=== PATIENT | female | born 1950 | race Caucasian/White ===

== ENCOUNTER → 2018-03-02 10:19 | Outpatient (CLI) | payer MEDICARE, SELFPAY ==
[2018-03-02 10:56] LABS: Erythrocyte Sedimentation Rate 13 mm/hr (0-30)
[2018-03-02 10:58] LABS: Absolute Neutrophil Count 4.4 X10^3/uL (2.0-7.7); Basophil# 0.04 X10^3/uL; Basophil% 0.6 % (0-1); Eosinophil# 0.09 X10^3/uL; Eosinophils% 1.3 % (0-5); Hematocrit 35.9 % (37-47); Hemoglobin 11.3 g/dl (12.0-15.0); Lymphocyte % 25.4 % (19-41); Mean Corp Hgb Conc 31.5 g/gl (32-36); Mean Corpuscular Hgb 27.9 pg (27.0-32.0); Mean Corpuscular Volume 88.6 fL (81-99); Monocyte# 0.48 X10^3/uL; Monocyte% 7.2 % (0-10); Neutrophil # 4.39 X10^3/uL (2.7-7.7); Neutrophil % 65.5 % (47-70); POSITIVE COUNT NO; POSITIVE DIFFERENTIAL NO; POSITIVE MORPHOLOGY NO; Platelet Count 276 K/mm3 (150-450); RBC Distribution Width CV 14.3 % (11.6-14.6); RBC Distribution Width SD 46.2 fl (35.1-43.9); Red Blood Count 4.05 M/mm3 (4.2-5.4); White Blood Count 6.7 K/mm3 (4.4-11.0)
[2018-03-02 11:26] LABS: AST(SGOT) 17 U/L (15-37); Alanine Aminotransfer ALT/SGPT 22 U/L (13-56); Albumin, Serum 3.5 g/dL (3.2-5.0); Alkaline Phosphatase 108 U/L (45-117); Bilirubin, Direct 0.09 mg/dL (0.00-0.30); Cholesterol 139 mg/dL (200); Globulin 3.6 g/dL (2.2-4.2); High Density Lipoprotein 68 mg/dL; Protein, Total 7.1 g/dL (6.4-8.2); Triglycerides 131 mg/dL; Very Low Density Lipoprotein 26 mg/dL (5-40)
[2018-03-02 11:27] LABS: CRP 9.21 mg/L (0.0-3.0); Ferritin 7 ng/mL (8-252); Iron 31 ug/dL (50-170)
[2018-03-03 09:09] LABS: AST(SGOT) 17 U/L (15-37); Alanine Aminotransfer ALT/SGPT 23 U/L (13-56); Albumin, Serum 3.5 g/dL (3.2-5.0); Alkaline Phosphatase 107 U/L (45-117); Anion Gap 5 (5-15); BUN 12 mg/dL (7-18); BUN/Creat Ratio 15.5 RATIO (10-20); Calcium,Total 8.8 mg/dL (8.5-10.1); Chloride 105 mmol/L (98-107); Creatinine, Serum 0.77 mg/dL (0.55-1.02); EST Glomerular Filtration Rate 79 mL/min (>60); Est Glom Filt Rate - Afr Amer 95 mL/min (>60); Globulin 3.6 g/dL (2.2-4.2); Glucose 91 mg/dL (74-106); Potassium 4.3 mmol/L (3.5-5.1); Protein, Total 7.1 g/dL (6.4-8.2); Sodium Level 142 mmol/L (136-145)
== END ==
PROVIDERS: Family Provider Internal Medicine; PCP Internal Medicine; Visit Provider Internal Medicine Cardiovascular Disease
DX: D50.0 Iron deficiency anemia secondary to blood loss (chronic) (principal); I10 Essential (primary) hypertension; M32.0 Drug-induced systemic lupus erythematosus; T46.5X5A Adverse effect of other antihypertensive drugs, initial encounter; Y92.9 Unspecified place or not applicable
CPT/HCPCS: 36415; 80053; 80061; 80076; 82728; 83540; 85025; 85652; 86140

== ENCOUNTER → 2018-03-10 09:06 | Outpatient (CLI) | payer MEDICARE, SELFPAY ==
--- NOTE | 2018-03-10 09:11 | US_ITS ---
STUDY: THYROID ULTRASOUND REASON FOR EXAM: Female, 67 years old. Nodules TECHNIQUE: Ultrasound evaluation of the thyroid was performed with real-time and static klein-scale imaging. COMPARISON: 03/25/2017 FINDINGS: RIGHT LOBE: The right lobe of the thyroid gland measures 4.7 x 2.0 x 1.7 cm. There is a heterogeneous echotexture. There is a stable complex 1.7 x 1.3 x 1.3 cm nodule LEFT LOBE: The left lobe of the thyroid gland measures 4.3 x 1.4 x 1.8 cm. There is a heterogeneous echotexture. There are 2 separate stable solid nodules. Larger measures 1.2 x 1.3 x 1.0 cm, smaller 1.0 x 1.2 x 0.9 cm. ISTHMUS: The isthmus measures 3 mm. The regional lymph nodes are normal. US/Thyroid IMPRESSION: Normal sized thyroid gland with stable bilateral nodules unchanged from previous study. Yearly follow-up again recommended to assure stability Electronically Signed: Lyle Amor MD at 10:45 EDT , Service support ,
== END ==
PROVIDERS: Family Provider Internal Medicine; PCP Internal Medicine; Visit Provider Internal Medicine
DX: E04.1 Nontoxic single thyroid nodule (principal)
CPT/HCPCS: 76536

== ENCOUNTER → 2018-05-01 11:28 | Outpatient (CLI) | payer MEDICARE, SELFPAY ==
[2018-05-01 12:17] LABS: Absolute Lymphocyte Count 1.29 X10^3/ul (0.83-4.51); Absolute Neutrophil Count 3.7 X10^3/uL (2.0-7.7); Basophil# 0.02 X10^3/uL; Basophil% 0.4 % (0-1); Eosinophil# 0.16 X10^3/uL; Eosinophils% 2.9 % (0-5); Hematocrit 33.8 % (37-47); Hemoglobin 10.1 g/dl (12.0-15.0); Lymphocyte # 1.29 X10^3/ul (4.0); Lymphocyte % 23.1 % (19-41); Mean Corp Hgb Conc 29.9 g/gl (32-36); Mean Corpuscular Volume 83.7 fL (81-99); Mean Platelet Vol. 8.8 fl (6.2-12.0); Monocyte# 0.38 X10^3/uL; Monocyte% 6.8 % (0-10); Neutrophil # 3.73 X10^3/uL (2.7-7.7); Neutrophil % 66.8 % (47-70); POSITIVE COUNT NO; POSITIVE DIFFERENTIAL NO; POSITIVE MORPHOLOGY NO; Platelet Count 298 K/mm3 (150-450); RBC Distribution Width CV 14.9 % (11.6-14.6); RBC Distribution Width SD 45.6 fl (35.1-43.9); Red Blood Count 4.04 M/mm3 (4.2-5.4); White Blood Count 5.6 K/mm3 (4.4-11.0)
[2018-05-01 12:45] LABS: Hemoglobin A1c 5.8 % (4.2-6.3)
[2018-05-01 12:48] LABS: Ferritin 6 ng/mL (8-252); Iron 34 ug/dL (50-170); Thyroid Stim Hormone (TSH) 2.27 uIU/mL (0.358-3.74)
[2018-05-01 12:51] LABS: Creatinine, Urine (random) < 13.00 mg/dL (NO RANGE EST.); Microalbumin,Random Urine < 5.0 mg/L (NO RANGE EST.)
[2018-05-03 09:48] LABS: Vitamin D,25 Hydroxy 52.5 ng/mL (29.95-100.01)
[2018-05-04 15:27] LABS: Anti-Histone Abs 2.4 Units (0.0-0.9)
== END ==
PROVIDERS: Family Provider Internal Medicine; PCP Internal Medicine; Visit Provider Internal Medicine
DX: L93.2 Other local lupus erythematosus (principal); R73.09 Other abnormal glucose; D50.0 Iron deficiency anemia secondary to blood loss (chronic); E04.1 Nontoxic single thyroid nodule; E55.9 Vitamin D deficiency, unspecified
CPT/HCPCS: 36415; 82043; 82306; 82570; 82728; 83036; 83540; 84443; 85025; 86235

== ENCOUNTER → 2018-05-26 15:08 | Outpatient (CLI) | payer MEDICARE, SELFPAY ==
--- NOTE | 2018-05-26 15:10 | BI_ITS ---
MAMMOGRAPHY - BILATERAL SCREENING REASON FOR EXAM: Female, 68 years old. Routine annual screening examination. PERTINENT HISTORY: Non-contributory. TECHNIQUE: Digital bilateral breast verito (3D mammographic acquisition) in the CC and MLO projections. 2-D mediolateral oblique (MLO) and craniocaudad (CC) views of both breasts were obtained. CAD: Full Field Digital Mammography with Computer Added Detection was performed. COMPARISON: Comparison is made with prior examination dated May 25, 2017 and May 12, 2016. FINDINGS: Breast Composition: The breasts are almost entirely fatty. There are no dominant masses or suspicious calcifications. Stable appearance of the benign appearing bilateral axillary lymph nodes. No other significant abnormalities are identified. There has been no significant change since the prior study. BI/SCREENING MAMM (CAD), BILAT IMPRESSION: Stable bilateral screening mammogram. Yearly follow-up mammogram recommended. (A) ASSESSMENT CATEGORY: BIRADS Category 2: Benign. A letter regarding these results will be sent to the patient by the facility within 30 days. Approximately 10% of breast cancers are not detected by mammography. A normal mammogram should not delay biopsy of a clinically suspicious abnormality. [id number] Electronically Signed: Los Blanco MD at 9:08 EDT Tel [phone], Service support ,
== END ==
PROVIDERS: Family Provider Internal Medicine; PCP Internal Medicine; Visit Provider Internal Medicine
DX: Z12.31 Encounter for screening mammogram for malignant neoplasm of breast (principal)
CPT/HCPCS: 77063; 77067

== ENCOUNTER → 2018-10-27 09:32 | Outpatient (CLI) | payer MEDICARE, SELFPAY ==
[2018-03-12 13:16] VITALS: BMI 41.0
[2018-10-27 10:43] LABS: Microalbumin,Random Urine 15.9 mg/L (NO RANGE EST.); Microalbumin:Creatinine Ratio 11.3 mg/g CRE (<30 mg/g CRE)
[2018-10-27 10:56] LABS: Absolute Neutrophil Count 3.5 X10^3/uL (2.0-7.7); Basophil# 0.03 X10^3/uL; Basophil% 0.6 % (0-1); Eosinophil# 0.09 X10^3/uL; Eosinophils% 1.8 % (0-5); Hematocrit 37.7 % (37-47); Hemoglobin 11.6 g/dl (12.0-15.0); Immature Platelet Fraction 2.3 % (1.0-7.9); Mean Corp Hgb Conc 30.8 g/gl (32-36); Mean Corpuscular Hgb 28.1 pg (27.0-32.0); Mean Corpuscular Volume 91.3 fL (81-99); Mean Platelet Vol. 9.2 fl (6.2-12.0); Monocyte# 0.38 X10^3/uL; Monocyte% 7.6 % (0-10); Neutrophil # 3.51 X10^3/uL (2.7-7.7); Platelet Count 270 K/mm3 (150-450); RBC Distribution Width CV 16.8 % (11.6-14.6); RBC Distribution Width SD 56.2 fl (35.1-43.9); RET-HE 27.9 pg (30-35); Red Blood Count 4.13 M/mm3 (4.2-5.4); Reticulocyte Count 2.12 % (0.5-1.5)
[2018-10-27 10:58] LABS: POSITIVE COUNT NO; POSITIVE DIFFERENTIAL NO; POSITIVE MORPHOLOGY NO
[2018-10-27 11:35] LABS: AST(SGOT) 20 U/L (15-37); Alanine Aminotransfer ALT/SGPT 26 U/L (13-56); Albumin, Serum 3.5 g/dL (3.2-5.0); Alkaline Phosphatase 103 U/L (45-117); Anion Gap 6 (5-15); BUN 10 mg/dL (7-18); Calcium,Total 8.8 mg/dL (8.5-10.1); Chloride 106 mmol/L (98-107); Cholesterol 126 mg/dL (200); Creatinine, Serum 0.72 mg/dL (0.55-1.02); EST Glomerular Filtration Rate 86 mL/min (>60); Est Glom Filt Rate - Afr Amer 104 mL/min (>60); Ferritin 13 ng/mL (8-252); Globulin 3.6 g/dL (2.2-4.2); Glucose 94 mg/dL (74-106); High Density Lipoprotein 77 mg/dL; Iron 26 ug/dL (50-170); Iron Binding Capacity,Total 375 ug/dL (250-450); LDH 208 U/L (84-246); Potassium 3.9 mmol/L (3.5-5.1); Protein, Total 7.1 g/dL (6.4-8.2); Sodium Level 140 mmol/L (136-145); Triglycerides 107 mg/dL; Very Low Density Lipoprotein 21 mg/dL (5-40)
[2018-10-27 11:36] LABS: Vitamin B12 529 pg/mL (211-911)
[2018-10-27 12:01] LABS: Hemoglobin A1c 5.4 % (4.2-6.3)
[2018-10-28 16:08] LABS: PROEL- Albumin 3.4 g/dL (2.9-4.4); PROEL- Alpha-1 Globulin 0.3 g/dL (0.0-0.4); PROEL- Alpha-2 Globulin 0.9 g/dL (0.4-1.0); PROEL- Beta Globulin 1.1 g/dL (0.7-1.3); PROEL- Gamma Globulin 1.1 g/dL (0.4-1.8); PROEL- Globulin, Total 3.4 g/dL (2.2-3.9); PROEL- TOTAL PROTEIN 6.8 g/dL (6.0-8.5)
[2018-10-29 16:08] LABS: PROELU- Albumin, Urine 34.8 % (.); PROELU- Alpha-1-Globulin,Ur 5.4 % (.); PROELU- Alpha-2-Globulin,Ur 17.4 % (.); PROELU- Beta Globulin, Ur 26.3 % (.); PROELU- Gamma Globulin, Ur 16.1 % (.); Total Protein, Ur 12.3 mg/dL (Not Estab.)
== END ==
PROVIDERS: Family Provider Internal Medicine; PCP Internal Medicine; Referring Provider Internal Medicine Cardiovascular Disease; Visit Provider Internal Medicine Cardiovascular Disease
DX: D50.0 Iron deficiency anemia secondary to blood loss (chronic) (principal); R73.09 Other abnormal glucose; E78.2 Mixed hyperlipidemia; L93.2 Other local lupus erythematosus; T46.5X5A Adverse effect of other antihypertensive drugs, initial encounter; Y92.9 Unspecified place or not applicable
CPT/HCPCS: 36415; 80053; 80061; 82043; 82248; 82570; 82607; 82728; 83036; 83540; 83550; 83615; 84165; 84166; 85025; 85045; 86235

== ENCOUNTER → 2018-12-09 09:54 | Outpatient (CLI) | payer MEDICARE, SELFPAY ==
[2018-11-18 15:18] VITALS: BMI 42.1
--- NOTE | 2018-12-09 09:59 | ECHOD_ITS ---
Reason For Study: PHTN Procedure This was a 2D Doppler, Color Flow transthoracic echocardiogram. Exam performed in department. Left Ventricle Normal size and thickness. The estimated ejection fraction is 65 %. Stage 2 diastolic dysfunction. No regional wall motion abnormalities noted. Right Ventricle Normal size and thickness. Normal systolic function. Atria The left atrium is mildly enlarged. Normal right atrium. Normal atrial septum. Mitral Valve Mild diffuse mitral valve thickening. Mild-Moderate (1-2+) mitral valve insufficiency. Tricuspid Valve Normal tricuspid valve. Mild (1+) tricuspid valve insufficiency. Right ventricular systolic pressure estimated to be 45 mmHg. Mild pulmonary hypertension. Aortic Valve Normal aortic valve. Trisinus/trileaflet aortic valve. Pulmonic Valve The pulmonic valve is not well visualized. Great Vessels Normal aortic root. Normal arch. Normal inferior vena cava. Inferior vena cava collapse with sniff. Pericardium/Pleural No pericardial effusion. MMode/2D Measurements & Calculations LVIDd: 4.6 cm IVSd: 1.2 cm Ao root diam: 3.0 cm LVIDs: 3.4 cm LVPWd: 1.0 cm RVDd: 3.2 cm FS: 26.6 % LAV(MOD-bp): 103.1 ml LA A4 area: 25.1 cm2 LA dimension(2D): 4.6 cm LAV(MOD-bp) Indexed: 46.4 ml/m2 LAV(MOD-sp2): 90.7 ml LAV(MOD-sp4): 95.2 ml RA A4 area: 18.2 cm2 Doppler Measurements & Calculations MV E max win: 116.8 cm/sec Lat Peak E' Win: 8.8 cm/sec Med Peak E' Win: 6.5 cm/sec MV A max win: 34.9 cm/sec E/E' lat: 13.2 E/E' med: 17.9 MV E/A: 3.3 Ao V2 max: 86.7 cm/sec LV V1 max: 63.9 cm/sec PA V2 max: 321.2 cm/sec Ao max P.0 mmHg LV V1 max P.6 mmHg TR max win: 302.4 cm/sec TR max P.8 mmHg Interpretation Summary The estimated ejection fraction is 65 %. Stage 2 diastolic dysfunction. Mild-Moderate (1-2+) mitral valve insufficiency. Mild (1+) tricuspid valve insufficiency. Right ventricular systolic pressure estimated to be 45 mmHg. Mild pulmonary hypertension. Compared to echo report dated 05/27/2016, no appreciable changes noted. Ordering Physician: Anibal Loera Referring Physician: Lizzy Trejo Performed By: Adrianna Deleon, LAWANDA, RVT
== END ==
PROVIDERS: Family Provider Internal Medicine; PCP Internal Medicine; Referring Provider Internal Medicine Cardiovascular Disease; Visit Provider Internal Medicine Cardiovascular Disease
DX: I27.21 Secondary pulmonary arterial hypertension (principal)
CPT/HCPCS: 93306

== ENCOUNTER → 2019-02-09 13:11 | Outpatient (CLI) | payer MEDICARE, SELFPAY ==
[2018-11-18 15:18] VITALS: BMI 42.1
[2019-02-09 13:22] LABS: Bacteria 0 SEEN /hpf (None Seen); Mucous, Urine 0 SEEN /hpf (<or=2+); Red Blood Cells-Urine 0 SEEN /hpf (0-5)
[2019-02-09 14:23] LABS: Erythrocyte Sedimentation Rate 27 mm/hr (0-30)
[2019-02-09 14:25] LABS: Absolute Lymphocyte Count 1.39 X10^3/ul (0.83-4.51); Absolute Neutrophil Count 4.2 X10^3/uL (2.0-7.7); Basophil# 0.02 X10^3/uL; Basophil% 0.3 % (0-1); Eosinophil# 0.03 X10^3/uL; Eosinophils% 0.5 % (0-5); Hemoglobin 12.4 g/dl (12.0-15.0); Lymphocyte # 1.39 X10^3/ul (4.0); Lymphocyte % 23.6 % (19-41); Mean Corpuscular Hgb 26.2 pg (27.0-32.0); Mean Corpuscular Volume 84.6 fL (81-99); Monocyte# 0.27 X10^3/uL; Monocyte% 4.6 % (0-10); Neutrophil # 4.19 X10^3/uL (2.7-7.7); Platelet Count 353 K/mm3 (150-450); RBC Distribution Width CV 17.6 % (11.6-14.6); Red Blood Count 4.73 M/mm3 (4.2-5.4); White Blood Count 5.9 K/mm3 (4.4-11.0)
[2019-02-09 14:29] LABS: POSITIVE COUNT NO; POSITIVE DIFFERENTIAL NO; POSITIVE MORPHOLOGY NO
[2019-02-09 14:33] LABS: AST(SGOT) 18 U/L (15-37); Alanine Aminotransfer ALT/SGPT 24 U/L (13-56); Albumin, Serum 3.8 g/dL (3.2-5.0); Alkaline Phosphatase 111 U/L (45-117); Anion Gap 5 (5-15); BUN 10 mg/dL (7-18); BUN/Creat Ratio 13.2 RATIO (10-20); CRP 5.87 mg/L (0.0-3.0); Calcium,Total 9.2 mg/dL (8.5-10.1); Chloride 105 mmol/L (98-107); Cholesterol 147 mg/dL (200); Creatinine, Serum 0.76 mg/dL (0.55-1.02); EST Glomerular Filtration Rate 81 mL/min (>60); Est Glom Filt Rate - Afr Amer 97 mL/min (>60); Globulin 3.8 g/dL (2.2-4.2); Glucose 94 mg/dL (74-106); Hemoglobin A1c 5.6 % (4.2-6.3); High Density Lipoprotein 77 mg/dL; Potassium 3.5 mmol/L (3.5-5.1); Protein, Total 7.6 g/dL (6.4-8.2); Rheumatoid Factor < 10.0 IU/mL (<15); Sodium Level 138 mmol/L (136-145); Thyroid Stim Hormone (TSH) 1.06 uIU/mL (0.358-3.74); Triglycerides 124 mg/dL; Very Low Density Lipoprotein 25 mg/dL (5-40)
[2019-02-09 14:53] LABS: Color, Urine Yellow (Yellow); Glucose, Dipstick Normal (Normal); Ketone-Dipstick Negative (Negative); Leukocyte Esterase-Dipstick 25 /ul (Negative); Nitrite-Dipstick Negative (Negative); Occult Blood-Urine Negative /ul (Negative); Protein-Dipstick Negative (Negative); Urine Bilirubin Dipstick Negative (Negative); Urine Clarity Clear (Clear); Urine Urobilinogen Normal (Normal); Urine pH 6.5 (5.0 - 8.0)
[2019-02-09 15:13] LABS: Squamous Epithelial Cells - UA 0-5 SEEN /hpf (5-10); White Blood Cells 0-5 SEEN /hpf (0-5)
[2019-02-11 11:22] LABS: CCP IgG Antibodies < 1 units (0-19)
[2019-02-11 11:32] LABS: ANTINUCLEAR ANTIBODIES DIRECT Negative (Negative)
== END ==
PROVIDERS: Family Provider Internal Medicine; PCP Internal Medicine; Referring Provider Internal Medicine; Visit Provider Internal Medicine
DX: L93.2 Other local lupus erythematosus (principal); T46.5X5A Adverse effect of other antihypertensive drugs, initial encounter; Y92.9 Unspecified place or not applicable; I48.91 Unspecified atrial fibrillation; R00.2 Palpitations; R73.09 Other abnormal glucose; I10 Essential (primary) hypertension; E78.2 Mixed hyperlipidemia
CPT/HCPCS: 36415; 80053; 80061; 81001; 83036; 84443; 84484; 85025; 85652; 86038; 86140; 86200; 86431

== ENCOUNTER 2019-02-24 11:34 | Outpatient (RCR) | payer MEDICARE, SELFPAY ==
[2019-02-10 10:17] VITALS: BMI 40.8
[2019-02-16 10:30] LABS: International Normalized Ratio 1.6; Prothrombin Time (Protime)PT. 19.3 SECONDS (11.7-14.9)
[2019-02-23 17:26] LABS: Flecainide (Tambocor) 085662 0.27 ug/mL (0.20-1.00)
[2019-02-24 14:34] LABS: Ferritin 12 ng/mL (8-252); Iron 30 ug/dL (50-170); Iron Binding Capacity,Total 396 ug/dL (250-450); PERCENT IRON SATURATION 7.6 % (15.0-55.0)
[2019-02-24 14:40] LABS: International Normalized Ratio 2.1; Prothrombin Time (Protime)PT. 23.1 SECONDS (11.7-14.9)
[2019-02-25 09:25] LABS: Hepatitis C Antibody Non-Reactive (Nonreactive)
== END 2019-02-24 12:00 | disposition home or self-care (01) ==
LOC: MTLAB 11:34
PROVIDERS: Family Provider Internal Medicine; PCP Internal Medicine; Referring Provider Internal Medicine Cardiovascular Disease; Visit Provider Internal Medicine Cardiovascular Disease
DX: I48.0 Paroxysmal atrial fibrillation (principal); Z79.01 Long term (current) use of anticoagulants
CPT/HCPCS: 36415; 80299; 82728; 83540; 83550; 85610; 86803

== ENCOUNTER → 2019-03-03 08:56 | Outpatient (CLI) | payer MEDICARE, SELFPAY ==
[2019-02-10 10:17] VITALS: BMI 40.8
--- NOTE | 2019-03-03 09:00 | US_ITS ---
STUDY: THYROID ULTRASOUND REASON FOR EXAM: Female, 68 years old. Thyroid nodules. TECHNIQUE: Ultrasound evaluation of the thyroid was performed with real-time and static klein-scale imaging. COMPARISON: 03/10/2018. FINDINGS: RIGHT LOBE: The right lobe of the thyroid gland measures 4.3 x 1.8 x 1.2 cm. There is a heterogeneous echotexture. There is a 1.6 x 1.5 x 1.2 cm solid nodule in the lower pole of the right lobe which is not significantly changed when compared with the prior exam. LEFT LOBE: The left lobe of the thyroid gland measures 4.1 x 1.5 x 1.2 cm. There is a heterogeneous echotexture. Again noted are 2 nodules in the left lobe of the thyroid with the larger measuring 1.2 x 1.0 x 0.8 cm. These are not significantly changed when compared with the prior exam. ISTHMUS: The isthmus measures 2 mm. The regional lymph nodes are normal. US/Thyroid IMPRESSION: No significant change in the small bilateral thyroid nodules. Continued yearly follow-up is recommended. Electronically Signed: Kevin Chirinos, at 17:13 EDT Tel , Service support ,
[2019-03-03 10:01] LABS: International Normalized Ratio 2.2; Prothrombin Time (Protime)PT. 24.4 SECONDS (11.7-14.9)
== END ==
PROVIDERS: Family Provider Internal Medicine; PCP Internal Medicine; Referring Provider Internal Medicine; Visit Provider Internal Medicine
DX: E04.1 Nontoxic single thyroid nodule (principal); I48.0 Paroxysmal atrial fibrillation; Z79.01 Long term (current) use of anticoagulants
CPT/HCPCS: 36415; 76536; 85610

== ENCOUNTER 2019-04-15 12:48 | Outpatient (RCR) | payer MEDICARE, SELFPAY ==
[2019-02-10 10:17] VITALS: BMI 40.8
[2019-03-17 13:34] LABS: International Normalized Ratio 1.9; Prothrombin Time (Protime)PT. 22.1 SECONDS (11.7-14.9)
[2019-04-01 13:34] LABS: International Normalized Ratio 2.2; Prothrombin Time (Protime)PT. 24.1 SECONDS (11.7-14.9)
[2019-04-15 13:44] LABS: International Normalized Ratio 2.2; Prothrombin Time (Protime)PT. 24.1 SECONDS (11.7-14.9)
== END 2019-04-15 13:48 | disposition home or self-care (01) ==
LOC: LAB 12:48
PROVIDERS: Family Provider Internal Medicine; PCP Internal Medicine; Referring Provider Internal Medicine Cardiovascular Disease; Visit Provider Internal Medicine Cardiovascular Disease
DX: I48.0 Paroxysmal atrial fibrillation (principal); Z79.01 Long term (current) use of anticoagulants
CPT/HCPCS: 36415; 85610

== ENCOUNTER 2019-05-16 13:03 | Outpatient (RCR) | payer MEDICARE, SELFPAY ==
[2019-02-10 10:17] VITALS: BMI 40.8
[2019-05-09 11:05] LABS: Absolute Lymphocyte Count 1.11 X10^3/uL (0.83-4.51); Absolute Neutrophil Count 4.7 X10^3/uL (2.0-7.7); Basophil# 0.06 X10^3/uL; Basophil% 0.9 % (0-1); Eosinophil# 0.11 X10^3/uL; Eosinophils% 1.7 % (0-5); Hematocrit 40.5 % (37-47); Hemoglobin 12.9 g/dL (12.0-15.0); Lymphocyte # 1.11 X10^3/ul (4.0); Lymphocyte % 17.3 % (19-41); Mean Corp Hgb Conc 31.9 g/dL (32-36); Mean Corpuscular Hgb 28.6 pg (27.0-32.0); Mean Corpuscular Volume 89.8 fL (81-99); Mean Platelet Vol. 8.8 fl (6.2-12.0); Monocyte# 0.44 X10^3/uL; Monocyte% 6.9 % (0-10); NRBC Flagged by Analyzer 0 % (0-5); Neutrophil # 4.66 X10^3/uL (2.7-7.7); Neutrophil % 72.9 % (47-70); Platelet Count 301 K/mm3 (150-450); RBC Distribution Width CV 15.1 % (11.6-14.6); RBC Distribution Width SD 49.9 fl (35.1-43.9); Red Blood Count 4.51 M/mm3 (4.2-5.4); White Blood Count 6.4 K/mm3 (4.4-11.0)
[2019-05-09 11:14] LABS: International Normalized Ratio 1.5; Prothrombin Time (Protime)PT. 18.1 SECONDS (11.7-14.9)
[2019-05-09 11:43] LABS: ALB/GLOB Ratio 0.9 RATIO (0.9-2.4); AST(SGOT) 26 U/L (15-37); Alanine Aminotransfer ALT/SGPT 31 U/L (13-56); Albumin, Serum 3.3 g/dL (3.2-5.0); Alkaline Phosphatase 105 U/L (45-117); Anion Gap 4 (5-15); BUN 14 mg/dL (7-18); BUN/Creat Ratio 18.5 RATIO (10-20); Calcium,Total 8.8 mg/dL (8.5-10.1); Chloride 106 mmol/L (98-107); Cholesterol 141 mg/dL (200); Creatinine, Serum 0.76 mg/dL (0.55-1.02); EST Glomerular Filtration Rate 81 mL/min (>60); Est Glom Filt Rate - Afr Amer 98 mL/min (>60); Ferritin 20 ng/mL (8-252); Globulin 3.5 g/dL (2.2-4.2); Glucose 93 mg/dL (74-106); High Density Lipoprotein 82 mg/dL; Iron 43 ug/dL (50-170); Potassium 4.1 mmol/L (3.5-5.1); Protein, Total 6.8 g/dL (6.4-8.2); Sodium Level 139 mmol/L (136-145); Triglycerides 86 mg/dL; Very Low Density Lipoprotein 17 mg/dL (5-40)
[2019-05-09 11:46] LABS: Hemoglobin A1c 5.9 % (4.2-6.3)
[2019-05-16 14:44] LABS: International Normalized Ratio 1.5; Prothrombin Time (Protime)PT. 17.7 SECONDS (11.7-14.9)
== END 2019-05-16 17:23 | disposition home or self-care (01) ==
LOC: LAB 13:03
PROVIDERS: Family Provider Internal Medicine; PCP Internal Medicine; Referring Provider Internal Medicine Cardiovascular Disease; Visit Provider Internal Medicine Cardiovascular Disease
DX: I48.0 Paroxysmal atrial fibrillation (principal); Z79.01 Long term (current) use of anticoagulants; E78.5 Hyperlipidemia, unspecified; E04.1 Nontoxic single thyroid nodule; D50.0 Iron deficiency anemia secondary to blood loss (chronic); R73.09 Other abnormal glucose
CPT/HCPCS: 36415; 80053; 80061; 82728; 83036; 83540; 84443; 85025; 85610

== ENCOUNTER → 2019-06-09 15:08 | Outpatient (CLI) | payer MEDICARE, SELFPAY ==
[2019-02-10 10:17] VITALS: BMI 40.8
--- NOTE | 2019-06-09 15:18 | BI_ITS ---
MAMMOGRAPHY - BILATERAL SCREENING REASON FOR EXAM: Female, 69 years old. Routine annual screening examination. PERTINENT HISTORY: Non-contributory. TECHNIQUE: Digital bilateral breast jose (3D mammographic acquisition) in the CC and MLO projections. 2-D mediolateral oblique (MLO) and craniocaudad (CC) views of both breasts were obtained. CAD: Full Field Digital Mammography with Computer Added Detection was performed. COMPARISON: Comparison is made with prior examination May 26, 2018 and May 25, 2017. FINDINGS: Breast Composition: The breasts are almost entirely fatty. There are no dominant masses or suspicious calcifications. No other significant abnormalities are identified. There has been no significant change since the prior study. BI/SCREEN MAMM (CAD) W/JOSE BILAT IMPRESSION: Stable bilateral screening mammogram. Yearly follow-up mammogram recommended. (A) ASSESSMENT CATEGORY: BIRADS Category 1: Negative. A letter regarding these results will be sent to the patient by the facility within 30 days. Approximately 10% of breast cancers are not detected by mammography. A normal mammogram should not delay biopsy of a clinically suspicious abnormality. [id number] Electronically Signed: [place], at 8:05 EDT , Service support ,
== END ==
PROVIDERS: Family Provider Internal Medicine; PCP Internal Medicine; Referring Provider Internal Medicine; Visit Provider Internal Medicine
DX: Z12.31 Encounter for screening mammogram for malignant neoplasm of breast (principal)
CPT/HCPCS: 77063; 77067

== ENCOUNTER 2019-06-14 09:29 | Outpatient (RCR) | payer MEDICARE, SELFPAY ==
[2019-02-10 10:17] VITALS: BMI 40.8
[2019-06-14 10:46] LABS: International Normalized Ratio 1.4; Prothrombin Time (Protime)PT. 17.2 SECONDS (11.7-14.9)
== END 2019-06-14 18:00 | disposition home or self-care (01) ==
LOC: LAB 09:29
PROVIDERS: Family Provider Internal Medicine; PCP Internal Medicine; Referring Provider Internal Medicine Cardiovascular Disease; Visit Provider Internal Medicine Cardiovascular Disease
DX: I48.0 Paroxysmal atrial fibrillation (principal); Z79.01 Long term (current) use of anticoagulants
CPT/HCPCS: 36415; 85610

== ENCOUNTER 2019-06-30 12:08 | Outpatient (RCR) | payer MEDICARE, SELFPAY ==
[2019-02-10 10:17] VITALS: BMI 40.8
[2019-06-21 13:48] LABS: International Normalized Ratio 1.7; Prothrombin Time (Protime)PT. 19.5 SECONDS (11.7-14.9)
[2019-06-30 14:03] LABS: International Normalized Ratio 2.1; Prothrombin Time (Protime)PT. 23.9 SECONDS (11.7-14.9)
== END 2019-06-30 18:00 | disposition home or self-care (01) ==
LOC: LAB 12:08
PROVIDERS: Family Provider Internal Medicine; PCP Internal Medicine; Referring Provider Internal Medicine Cardiovascular Disease; Visit Provider Internal Medicine Cardiovascular Disease
DX: I48.0 Paroxysmal atrial fibrillation (principal); Z79.01 Long term (current) use of anticoagulants
CPT/HCPCS: 36415; 85610

== ENCOUNTER 2019-07-22 16:50 | Outpatient (RCR) | payer MEDICARE, SELFPAY ==
[2019-06-23 13:13] VITALS: BMI 41.0
[2019-07-22 17:39] LABS: International Normalized Ratio 2.8; Prothrombin Time (Protime)PT. 29.9 SECONDS (11.7-14.9)
== END 2019-07-22 18:00 | disposition home or self-care (01) ==
LOC: LAB 16:50
PROVIDERS: Family Provider Internal Medicine; PCP Internal Medicine; Referring Provider Internal Medicine Cardiovascular Disease; Visit Provider Internal Medicine Cardiovascular Disease
DX: I48.0 Paroxysmal atrial fibrillation (principal); Z79.01 Long term (current) use of anticoagulants
CPT/HCPCS: 36415; 85610

== ENCOUNTER → 2019-08-12 10:59 | Outpatient (CLI) | payer MEDICARE, SELFPAY ==
[2019-06-23 13:13] VITALS: BMI 41.0
--- NOTE | 2019-08-12 11:00 | STE_ITS ---
Reason For Study: Atrial Fibrillation Stress Results Protocol: Dobutamine Stress Echo Maximum Predicted HR: 150 bpm Target HR: 128 bpm % Maximum Predicted HR: 86 % DurationHeart Rate Stage (mm:ss) (bpm) BP Comment Baseline 65 168/82No Chest Pain DSE 10 MCG 3:12 90 181/80No Chest Pain DSE 20 MCG 4:24 129 178/76Mild Chest Pressure Recovery 76 158/70No Chest Pain Stress Duration: 7:36 mm:ss Maximum Stress HR: 129 bpm METS: 1 Baseline Echocardiogram Findings The estimated ejection fraction is 65 %. Stress Echo Wall motion Data Resting WM Intermediate WM Stress WM Resting Wall Motion Wall Motion Stress No regional wall motion No regional wall motion abnormalities noted. abnormalities noted. EKG Data The baseline ECG displays normal sinus rhythm. The patient was titrated from 10 mcg to a maximum of 20 mcg of dobutamine during the stress. The maximum heart rate attained was 129 beats per minute. This was 86% of maximum predicted heart rate. At peak infusion, upsloping ST changes only were noted, which did not meet the criteria for ischemia. No clinical angina was noted. Interpretation Summary The estimated ejection fraction is 65 %. Normal, adequate, dobutamine echocardiogram. Negative for ischemia by echocardiographic criteria. The patient did developed 1 to [address] segment depression during peak infusion which resolved around 3 minutes 50 seconds into recovery. No associated wall motion abnormalities noted. Rare PVCs during infusion into recovery. Test terminated due to the attainment target heart rate. No anginal symptoms noted. Final LVEF is 75%. Patient tolerated the procedure well. No complications. Ordering Physician: Anibal Loera M.D. Referring Physician: Lizzy Trejo D.O. Performed By: Daisy Alexandre RDCS
== END ==
PROVIDERS: Family Provider Internal Medicine; PCP Internal Medicine; Referring Provider Internal Medicine Cardiovascular Disease; Visit Provider Internal Medicine Cardiovascular Disease
DX: R94.31 Abnormal electrocardiogram [ECG] [EKG] (principal); I48.19 Other persistent atrial fibrillation; I27.21 Secondary pulmonary arterial hypertension; Z79.01 Long term (current) use of anticoagulants
CPT/HCPCS: 93017; 93350; J7040; A4216

== ENCOUNTER 2019-08-24 09:56 | Outpatient (RCR) | payer MEDICARE, SELFPAY ==
[2019-06-23 13:13] VITALS: BMI 41.0
[2019-08-24 10:05] LABS: Mucous, Urine 0 SEEN /hpf (<or=2+); Red Blood Cells-Urine 0 SEEN /hpf (0-5)
[2019-08-24 11:15] LABS: Absolute Lymphocyte Count 1.21 X10^3/uL (0.83-4.51); Absolute Neutrophil Count 4.3 X10^3/uL (2.0-7.7); Basophil# 0.04 X10^3/uL; Basophil% 0.7 % (0-1); Eosinophil# 0.07 X10^3/uL; Eosinophils% 1.2 % (0-5); Hematocrit 42.1 % (37-47); Hemoglobin 13.7 g/dL (12.0-15.0); Lymphocyte # 1.21 X10^3/ul (4.0); Mean Corp Hgb Conc 32.5 g/dL (32-36); Mean Corpuscular Hgb 30.4 pg (27.0-32.0); Mean Corpuscular Volume 93.3 fL (81-99); Monocyte# 0.39 X10^3/uL; Monocyte% 6.4 % (0-10); NRBC Flagged by Analyzer 0 % (0-5); Neutrophil # 4.33 X10^3/uL (2.7-7.7); Neutrophil % 71.4 % (47-70); Platelet Count 323 K/mm3 (150-450); RBC Distribution Width CV 13.5 % (11.6-14.6); RBC Distribution Width SD 46.5 fl (35.1-43.9); Red Blood Count 4.51 M/mm3 (4.2-5.4); White Blood Count 6.1 K/mm3 (4.4-11.0)
[2019-08-24 11:19] LABS: Color, Urine Yellow (Yellow); Glucose, Dipstick Normal (Normal); Ketone-Dipstick Negative (Negative); Leukocyte Esterase-Dipstick 25 /ul (Negative); Nitrite-Dipstick Negative (Negative); Occult Blood-Urine Negative /ul (Negative); Protein-Dipstick Negative (Negative); Specific Gravity, Urine 1.015 (1.002-1.030); Urine Bilirubin Dipstick Negative (Negative); Urine Clarity Sl. Cloudy (Clear); Urine Urobilinogen Normal (Normal)
[2019-08-24 11:24] LABS: Hemoglobin A1c 5.6 % (4.2-6.3)
[2019-08-24 11:25] LABS: Prothrombin Time (Protime)PT. 22.4 SECONDS (11.7-14.9)
[2019-08-24 11:32] LABS: Squamous Epithelial Cells - UA 0-5 SEEN /hpf (5-10); White Blood Cells 0-5 SEEN /hpf (0-5)
[2019-08-24 11:33] LABS: Bacteria 1+ /hpf (None Seen)
[2019-08-24 11:36] LABS: ALB/GLOB Ratio 0.9 RATIO (0.9-2.4); AST(SGOT) 20 U/L (15-37); Alanine Aminotransfer ALT/SGPT 28 U/L (13-56); Albumin, Serum 3.5 g/dL (3.2-5.0); Alkaline Phosphatase 100 U/L (45-117); Anion Gap 4 (5-15); BUN 13 mg/dL (7-18); BUN/Creat Ratio 14.6 RATIO (10-20); Calcium,Total 9.1 mg/dL (8.5-10.1); Chloride 104 mmol/L (98-107); Cholesterol 205 mg/dL (200); Creatinine, Serum 0.89 mg/dL (0.55-1.02); EST Glomerular Filtration Rate 67 mL/min (>60); Est Glom Filt Rate - Afr Amer 81 mL/min (>60); Ferritin 17 ng/mL (8-252); Globulin 3.8 g/dL (2.2-4.2); Glucose 83 mg/dL (74-106); High Density Lipoprotein 85 mg/dL; Iron 54 ug/dL (50-170); Potassium 3.8 mmol/L (3.5-5.1); Protein, Total 7.3 g/dL (6.4-8.2); Sodium Level 138 mmol/L (136-145); Triglycerides 158 mg/dL; Very Low Density Lipoprotein 32 mg/dL (5-40)
== END 2019-08-24 18:00 | disposition home or self-care (01) ==
LOC: LAB 09:56
PROVIDERS: Family Provider Internal Medicine; PCP Internal Medicine; Referring Provider Internal Medicine Cardiovascular Disease; Visit Provider Internal Medicine Cardiovascular Disease
DX: I48.0 Paroxysmal atrial fibrillation (principal); Z79.01 Long term (current) use of anticoagulants; D50.0 Iron deficiency anemia secondary to blood loss (chronic); E78.2 Mixed hyperlipidemia; R73.09 Other abnormal glucose; I10 Essential (primary) hypertension
CPT/HCPCS: 36415; 80053; 80061; 81001; 82728; 83036; 83540; 85025; 85610

== ENCOUNTER 2019-08-24 11:00 | Outpatient (RCR) | payer MEDICARE, SELFPAY ==
[2019-02-10 10:17] VITALS: BMI 40.8
--- NOTE | 2019-06-07 12:58 | HP.PTEVAL_ITS ---
Patient's Visit Information WALDO GRIFFIN is a 69 year old F referred to Physical Therapy by Lizzy Trejo DO with a diagnosis of PD. Date of Evaluation: 06/07/19 Physical Therapist: DARBY Sheriff - Visit Plan Frequency: 2x /Week Duration: 4 Weeks Plan: 2X/ week for 4 weeks for AT for B knee strength, core stability, gait training, large movements and dual tasking with HEP - Subjective Findings: She has PD and also has A-fib and she keeps getting slower and slower and her knees are hurting more and more. She asked her Dr about water therapy and the Dr agreed. No x-rays of her knees have been done yet. She does not do any exercises out of PT. She is retired. She has to go slow up and down stiars and she goes one foot at a time with a railing. No falls. She does have a tremor on the R hand ( for about a year now). She is seeing a neurologist for her PD ( no meds yet). She also has restless leg syndrome too. She has some trouble at times rolling over in bed. Getting in and out of passanger side of car she has trouble. She still has the ability to play the piano. Going up hills make her SOB and tired and her knees. She is on Warfarin. - Objective Gait: Walks with WBOS, slower step length and speed. LE MMT: R hip flex 4/5 and L 4+/5, R knee ext B 4/5 and R knee flex 4/5 and L knee flex 4-/5, R hip abd 4/5 and L 4-/5. FGA: 23. Rolling from supint to S/l pt does heitate and struggle a little - Balance Scores Functional Gait Assessment Score: 23 % Disability: 23.3400 - Goals Goal 1:: I HEP/ H&W program Goal Time Frame: 4-6 Weeks Goal 2:: Increase LE strength by 1/2 muscle grade and make it easier for her to get in an out of the passenger side of the car Goal Time Frame: 4-6 Weeks Goal 3:: Decrease knee pain by 50% during walking Goal Time Frame: 4-6 Weeks Goal 4:: Be able to perform dual task ( mental and physical) with out hesitation to challenge herself - Rehabilitation Potential Rehabilitation Potential: Good - Anticipated Interventions Patient/Client Instruction: Educate patient on: Condition, Plan of Care For the Purpose of:: To decrease pain, To increase ROM, To improve nutrient delivery to tissue, To improve muscle performance and motor function, To improve ability to perform ADL's, To increase tolerance to activity/condition/position, To improve performance and independence with ADL's, To improve ability of physical actions for home/community/work/leisure, To improve gait and locomotor functions, To improve health of tissue, To increase flexibility/ROM Therapeutic Exercise to Include: Strength training, Gait and locomotor training, Active ROM, Dynamic Lumbar Stabilization For the Purpose of:: To decrease pain, To increase ROM, To improve nutrient delivery to tissue, To improve muscle performance and motor function, To improve ability to perform ADL's, To increase tolerance to activity/condition/position, To improve performance and independence with ADL's, To improve ability of physical actions for home/community/work/leisure, To improve gait and locomotor functions, To improve health of tissue, To increase flexibility/ROM Thank you for the opportunity to evaluate your patient. For Medicare and Medicare HMO plans, please review the plan of care and approve it. It will need to be FAXED BACK to us at [phone] for Medicare purposes. For Medicare only, by signing this I certify the plan of care. Please let me know if there are questions or concerns regarding this plan of care. Physician Signature: ___Date:
--- NOTE | 2019-08-16 12:17 | HP.PTREVAL ---
Lizzy Trejo, DO, It has been my pleasure to treat WALDO GRIFFIN over the last 18 visits for PD. Please see the progress note below for an update on the physical therapy plan of care! Subjective: Pt loved the pool. She reports that she is more aware of not locking her knees and more aware of herself especially with multip-tasking. She still has trouble with her knees but she feels ash that is arthritis. She feels good the day of PT but worse the day after. The aT makes her get up and move. Objective/Function: LE MMT: B hip flex 4/5, B knee ext 4/5, B knee flex 4/5, B hip abd 4-/5 Plan Plan: Set up for 1 hour appointment to learn I set up on the H&W side for machines. Then probabale DC to that and open swim times Goals Goal 1:: I HEP/ H&W program Goal Time Frame: 4-6 Weeks Goal Progress: Progressing Goal 2:: Increase LE strength by 1/2 muscle grade and make it easier for her to get in an out of the passenger side of the car Goal Time Frame: 4-6 Weeks Goal Progress: Goal Met Goal 3:: Decrease knee pain by 50% during walking Goal Time Frame: 4-6 Weeks Goal Progress: Progressing Goal 4:: Be able to perform dual task ( mental and physical) with out hesitation to challenge herself Goal Time Frame: 4-6 Weeks Goal Progress: Progressing Anticipated Interventions Patient/Client Instruction: Educate patient on: Condition, Plan of Care For the Purpose of:: To decrease pain, To increase ROM, To improve nutrient delivery to tissue, To improve muscle performance and motor function, To improve ability to perform ADL's, To increase tolerance to activity/condition/position, To improve performance and independence with ADL's, To improve ability of physical actions for home/community/work/leisure, To improve gait and locomotor functions, To improve health of tissue, To increase flexibility/ROM Therapeutic Exercise to Include: Strength training, Gait and locomotor training, Active ROM, Dynamic Lumbar Stabilization For the Purpose of:: To decrease pain, To increase ROM, To improve nutrient delivery to tissue, To improve muscle performance and motor function, To improve ability to perform ADL's, To increase tolerance to activity/condition/position, To improve performance and independence with ADL's, To improve ability of physical actions for home/community/work/leisure, To improve gait and locomotor functions, To improve health of tissue, To increase flexibility/ROM Please do not hesitate to contact me at [phone] by phone or if you have questions or concerns regarding this new plan of care! Sincerely, Erika Yeung, MPT
--- NOTE | 2019-11-08 12:23 | HP.PT.NRP ---
WALDO GRIFFIN was seen in my office for initial evaluation on 06/07/19. The following Plan of Care was established for this patient: Initial Frequency: 2x /Week Initial Duration: 4 Weeks Patient/Client Instruction: Educate patient on: Condition, Plan of Care For the Purpose of:: To decrease pain, To increase ROM, To improve nutrient delivery to tissue, To improve muscle performance and motor function, To improve ability to perform ADL's, To increase tolerance to activity/condition/position, To improve performance and independence with ADL's, To improve ability of physical actions for home/community/work/leisure, To improve gait and locomotor functions, To improve health of tissue, To increase flexibility/ROM Therapeutic Exercise to Include: Strength training, Gait and locomotor training, Active ROM, Dynamic Lumbar Stabilization For the Purpose of:: To decrease pain, To increase ROM, To improve nutrient delivery to tissue, To improve muscle performance and motor function, To improve ability to perform ADL's, To increase tolerance to activity/condition/position, To improve performance and independence with ADL's, To improve ability of physical actions for home/community/work/leisure, To improve gait and locomotor functions, To improve health of tissue, To increase flexibility/ROM This patient was last seen in our office 08/24/19. Pertinent comments regarding their Physical therapy will appear below: SHIVAM PT At this point I will be discontinuing this patient from physical therapy. I would be happy to see this patient again in the future if found appropriate by the physician. Thank you! Erika eYung, MPT
== END 2019-08-24 19:00 | disposition home or self-care (01) ==
LOC: PT 11:00
PROVIDERS: Family Provider Internal Medicine; PCP Internal Medicine; Referring Provider Internal Medicine; Visit Provider Internal Medicine
DX: G20 Parkinson's disease (principal)
CPT/HCPCS: 97110; 97113; 97161; 97530

== ENCOUNTER 2019-10-05 09:33 | Outpatient (RCR) | payer MEDICARE, SELFPAY ==
[2019-06-23 13:13] VITALS: BMI 41.0
[2019-10-05 11:07] LABS: International Normalized Ratio 2.5; Prothrombin Time (Protime)PT. 26.7 SECONDS (11.7-14.9)
== END 2019-10-05 18:00 | disposition home or self-care (01) ==
LOC: LAB 09:33
PROVIDERS: Family Provider Internal Medicine; PCP Internal Medicine; Referring Provider Internal Medicine Cardiovascular Disease; Visit Provider Internal Medicine Cardiovascular Disease
DX: I48.0 Paroxysmal atrial fibrillation (principal); Z79.01 Long term (current) use of anticoagulants
CPT/HCPCS: 36415; 85610

== ENCOUNTER 2019-11-18 08:11 | Outpatient (RCR) | payer MEDICARE, SELFPAY ==
[2019-06-23 13:13] VITALS: BMI 41.0
[2019-11-18 08:54] LABS: Prothrombin Time (Protime)PT. 31.2 SECONDS (11.7-14.9)
[2019-11-18 08:59] LABS: AST(SGOT) 21 U/L (15-37); Alanine Aminotransfer ALT/SGPT 34 U/L (13-56); Albumin, Serum 3.4 g/dL (3.2-5.0); Alkaline Phosphatase 108 U/L (45-117); Bilirubin, Direct 0.13 mg/dL (0.00-0.30); Cholesterol 210 mg/dL (200); Globulin 3.7 g/dL (2.2-4.2); High Density Lipoprotein 82 mg/dL; Protein, Total 7.1 g/dL (6.4-8.2); Triglycerides 187 mg/dL; Very Low Density Lipoprotein 37 mg/dL (5-40)
== END 2019-12-15 18:00 | disposition home or self-care (01) ==
LOC: LAB 08:11
PROVIDERS: Family Provider Internal Medicine; PCP Internal Medicine; Referring Provider Internal Medicine Cardiovascular Disease; Visit Provider Internal Medicine Cardiovascular Disease
DX: I48.0 Paroxysmal atrial fibrillation (principal); Z79.01 Long term (current) use of anticoagulants; D50.0 Iron deficiency anemia secondary to blood loss (chronic); E78.2 Mixed hyperlipidemia; I10 Essential (primary) hypertension; R73.09 Other abnormal glucose
CPT/HCPCS: 36415; 80061; 80076; 85610

== ENCOUNTER 2019-12-29 10:04 | Outpatient (RCR) | payer MEDICARE, SELFPAY ==
[2019-06-23 13:13] VITALS: BMI 41.0
[2019-12-26 09:40] VITALS: BMI 41.3
[2019-12-29 10:40] LABS: International Normalized Ratio 1.6; Prothrombin Time (Protime)PT. 18.9 SECONDS (11.7-14.9)
== END 2020-01-16 02:25 | disposition home or self-care (01) ==
LOC: LAB 10:04
PROVIDERS: Family Provider Internal Medicine; PCP Internal Medicine; Referring Provider Internal Medicine Cardiovascular Disease; Visit Provider Internal Medicine Cardiovascular Disease
DX: I48.0 Paroxysmal atrial fibrillation (principal); Z79.01 Long term (current) use of anticoagulants
CPT/HCPCS: 36415; 85610

== ENCOUNTER → 2020-01-20 13:17 | Outpatient (CLI) | payer MEDICARE, SELFPAY ==
[2019-12-26 09:40] VITALS: BMI 41.3
[2020-01-20 13:35] LABS: International Normalized Ratio 3.1; Prothrombin Time (Protime)PT. 31.8 SECONDS (11.7-14.9)
== END ==
PROVIDERS: PCP Internal Medicine; Referring Provider Internal Medicine; Visit Provider Internal Medicine
DX: I48.91 Unspecified atrial fibrillation (principal)
CPT/HCPCS: 85610

== ENCOUNTER → 2020-02-08 09:45 | Outpatient (CLI) | payer MEDICARE, SELFPAY ==
[2019-12-26 09:40] VITALS: BMI 41.3
--- NOTE | 2020-02-08 09:47 | ECHOD_ITS ---
Reason For Study: PHTN Procedure This was a 2D Doppler, Color Flow transthoracic echocardiogram. Exam performed in department. Left Ventricle Moderate concentric left ventricular hypertrophy. The estimated ejection fraction is 65 %. Stage 2 diastolic dysfunction. No regional wall motion abnormalities noted. Right Ventricle Normal size and thickness. Normal systolic function. Atria The left atrium is mildly enlarged. Normal right atrium. Normal atrial septum. Mitral Valve Mild diffuse mitral valve thickening. Moderate mitral annular calcification extending into the posterior leaflet. Mild-Moderate (1-2+) eccentric mitral valve insufficiency. Tricuspid Valve Normal tricuspid valve. Mild (1+) tricuspid valve insufficiency. Right ventricular systolic pressure estimated to be 53 mmHg. Moderate pulmonary hypertension. Aortic Valve Trisinus/trileaflet aortic valve. Mild diffuse aortic valve thickening. Trivial aortic valve insufficiency. Pulmonic Valve Normal pulmonic valve. Great Vessels Normal aortic root. Normal arch. Normal inferior vena cava. Inferior vena cava collapse with sniff. Pericardium/Pleural No pericardial effusion. MMode/2D Measurements & Calculations LVIDd: 4.5 cm IVSd: 1.5 cm LA dimension: 4.7 cm LVIDs: 2.7 cm LVPWd: 1.1 cm FS: 40.1 % LAV(MOD-bp): 77.9 ml LA A4 area: 22.3 cm2 RA A4 area: 16.6 cm2 LAV(MOD-bp) Indexed: 35.1 ml/m2 LAV(MOD-sp2): 75.6 ml LAV(MOD-sp4): 69.8 ml Time Measurements MV dec time: 0.16 sec Doppler Measurements & Calculations MV E max win: 108.7 cm/sec Lat Peak E' Win: 8.8 cm/sec Med Peak E' Win: 10.8 cm/sec MV A max win: 35.9 cm/sec E/E' lat: 12.4 E/E' med: 10.0 MV E/A: 3.0 MV V2 max: 110.7 cm/sec MV P1/2t max win: 111.9 cm/sec Ao V2 max: 126.6 cm/sec MV max P.9 mmHg MV P1/2t: 66.9 msec Ao max P.4 mmHg MV V2 mean: 46.3 cm/sec MV dec slope: 490.3 cm/sec2 Ao V2 mean: 78.1 cm/sec MV mean P.1 mmHg MVA(P1/2t): 3.3 cm2 Ao mean P.8 mmHg MV V2 VTI: 29.7 cm Ao V2 VTI: 26.9 cm AI max win: 382.0 cm/sec LV V1 max: 78.5 cm/sec MR max win: 580.8 cm/sec AI max P.4 mmHg LV V1 max P.5 mmHg MR max P.9 mmHg LV V1 mean P.2 mmHg MR mean win: 430.9 cm/sec AI dec slope: 108.1 cm/sec2 LV V1 mean: 50.8 cm/sec MR mean P.3 mmHg AI P1/2t: 1035 msec LV V1 VTI: 19.6 cm MR VTI: 224.5 cm PA V2 max: 77.6 cm/sec TR max win: 346.7 cm/sec TR max P.1 mmHg Interpretation Summary Moderate concentric left ventricular hypertrophy. The estimated ejection fraction is 65 %. Stage 2 diastolic dysfunction. The left atrium is mildly enlarged. Mild-Moderate (1-2+) eccentric mitral valve insufficiency. Mild (1+) tricuspid valve insufficiency. Right ventricular systolic pressure estimated to be 53 mmHg. Moderate pulmonary hypertension. Trivial aortic valve insufficiency. Compared to echo results report dated 12/09/2018, LV function has remained the same, RVSP has increased from 45 to 53 mmHg, and might regurgitation has remained about the same. Ordering Physician: Anibal Loera Referring Physician: Lizzy Trejo D.O. Performed By: Parth Hogan RCS
== END ==
PROVIDERS: PCP Internal Medicine; Referring Provider Internal Medicine Cardiovascular Disease; Visit Provider Internal Medicine Cardiovascular Disease
DX: I27.21 Secondary pulmonary arterial hypertension (principal); I48.0 Paroxysmal atrial fibrillation; Z79.01 Long term (current) use of anticoagulants
CPT/HCPCS: 36415; 85610; 93306

== ENCOUNTER 2020-02-08 09:49 | Outpatient (RCR) | payer MEDICARE, SELFPAY ==
[2019-12-26 09:40] VITALS: BMI 41.3
[2020-02-08 11:54] LABS: Prothrombin Time (Protime)PT. 31.1 SECONDS (11.7-14.9)
== END 2020-02-08 18:00 | disposition home or self-care (01) ==
LOC: LAB 09:49
PROVIDERS: Family Provider Internal Medicine; PCP Internal Medicine; Referring Provider Internal Medicine Cardiovascular Disease; Visit Provider Internal Medicine Cardiovascular Disease
DX: I48.0 Paroxysmal atrial fibrillation (principal); Z79.01 Long term (current) use of anticoagulants
CPT/HCPCS: 36415; 85610

== ENCOUNTER 2020-03-13 10:47 | Outpatient (RCR) | payer MEDICARE, SELFPAY ==
[2019-12-26 09:40] VITALS: BMI 41.3
[2020-03-13 11:33] LABS: International Normalized Ratio 2.1; Prothrombin Time (Protime)PT. 23.5 SECONDS (11.7-14.9)
[2020-03-13 11:34] LABS: Erythrocyte Sedimentation Rate 14 mm/hr (0-30)
[2020-03-13 11:35] LABS: Absolute Lymphocyte Count 1.34 X10^3/uL (0.83-4.51); Absolute Neutrophil Count 3.5 X10^3/uL (2.0-7.7); Basophil# 0.04 X10^3/uL; Basophil% 0.7 % (0-1); Eosinophils% 1.9 % (0-5); Hematocrit 39.8 % (37-47); Hemoglobin 12.7 g/dL (12.0-15.0); Lymphocyte # 1.34 X10^3/ul (4.0); Lymphocyte % 24.9 % (19-41); Mean Corp Hgb Conc 31.9 g/dL (32-36); Mean Corpuscular Hgb 29.5 pg (27.0-32.0); Mean Corpuscular Volume 92.3 fL (81-99); Monocyte# 0.39 X10^3/uL; Monocyte% 7.2 % (0-10); NRBC Flagged by Analyzer 0 % (0-5); Neutrophil # 3.51 X10^3/uL (2.7-7.7); Neutrophil % 65.1 % (47-70); Platelet Count 314 K/mm3 (150-450); RBC Distribution Width CV 14.7 % (11.6-14.6); RBC Distribution Width SD 49.6 fl (35.1-43.9); Red Blood Count 4.31 M/mm3 (4.2-5.4); White Blood Count 5.4 K/mm3 (4.4-11.0)
[2020-03-13 12:03] LABS: Vitamin B12 524 pg/mL (211-911)
[2020-03-13 12:04] LABS: AST(SGOT) 16 U/L (15-37); Alanine Aminotransfer ALT/SGPT 27 U/L (13-56); Albumin, Serum 3.5 g/dL (3.2-5.0); Alkaline Phosphatase 102 U/L (45-117); Anion Gap 2 (5-15); BUN 13 mg/dL (7-18); BUN/Creat Ratio 18.2 RATIO (10-20); Chloride 107 mmol/L (98-107); Creatinine, Serum 0.72 mg/dL (0.55-1.02); EST Glomerular Filtration Rate 86 mL/min (>60); Est Glom Filt Rate - Afr Amer 104 mL/min (>60); Ferritin 15 ng/mL (8-252); Globulin 3.6 g/dL (2.2-4.2); Glucose 82 mg/dL (74-106); Iron 91 ug/dL (50-170); Potassium 4.1 mmol/L (3.5-5.1); Protein, Total 7.1 g/dL (6.4-8.2); Sodium Level 139 mmol/L (136-145)
[2020-03-15 15:23] LABS: ANTINUCLEAR ANTIBODIES DIRECT Negative (Negative); Anti-Histone Abs 1.5 Units (0.0-0.9)
== END 2020-03-13 18:00 | disposition home or self-care (01) ==
LOC: LAB 10:47
PROVIDERS: Family Provider Internal Medicine; PCP Internal Medicine; Referring Provider Internal Medicine Cardiovascular Disease; Visit Provider Internal Medicine Cardiovascular Disease
DX: L93.2 Other local lupus erythematosus (principal); D50.0 Iron deficiency anemia secondary to blood loss (chronic); Z79.01 Long term (current) use of anticoagulants; I48.19 Other persistent atrial fibrillation
CPT/HCPCS: 36415; 80053; 82607; 82728; 83540; 85025; 85610; 85652; 86038; 86235

== ENCOUNTER 2020-03-30 09:15 | Outpatient (RCR) | payer MEDICARE, SELFPAY ==
[2019-12-26 09:40] VITALS: BMI 41.3
[2020-03-30 10:19] LABS: International Normalized Ratio 2.9; Prothrombin Time (Protime)PT. 29.9 SECONDS (11.7-14.9)
== END 2020-03-30 18:00 | disposition home or self-care (01) ==
LOC: LAB 09:15
PROVIDERS: Family Provider Internal Medicine; PCP Internal Medicine; Referring Provider Internal Medicine Cardiovascular Disease; Visit Provider Internal Medicine Cardiovascular Disease
DX: I48.0 Paroxysmal atrial fibrillation (principal); Z79.01 Long term (current) use of anticoagulants
CPT/HCPCS: 36415; 85610

== ENCOUNTER → 2020-04-19 08:46 | Outpatient (CLI) | payer MEDICARE, SELFPAY ==
[2019-12-26 09:40] VITALS: BMI 41.3
[2020-04-19 09:24] LABS: Absolute Lymphocyte Count 1.59 X10^3/uL (0.83-4.51); Absolute Neutrophil Count 3.8 X10^3/uL (2.0-7.7); Basophil# 0.06 X10^3/uL; Eosinophil# 0.08 X10^3/uL; Eosinophils% 1.3 % (0-5); Hematocrit 38.9 % (37-47); Hemoglobin 12.2 g/dL (12.0-15.0); Lymphocyte # 1.59 X10^3/ul (4.0); Lymphocyte % 26.8 % (19-41); Mean Corp Hgb Conc 31.4 g/dL (32-36); Mean Corpuscular Hgb 28.6 pg (27.0-32.0); Mean Corpuscular Volume 91.1 fL (81-99); Mean Platelet Vol. 9.1 fl (6.2-12.0); Monocyte# 0.42 X10^3/uL; Monocyte% 7.1 % (0-10); NRBC Flagged by Analyzer 0 % (0-5); Neutrophil # 3.78 X10^3/uL (2.7-7.7); Neutrophil % 63.6 % (47-70); Platelet Count 361 K/mm3 (150-450); RBC Distribution Width CV 14.6 % (11.6-14.6); RBC Distribution Width SD 48.8 fl (35.1-43.9); Red Blood Count 4.27 M/mm3 (4.2-5.4); White Blood Count 5.9 K/mm3 (4.4-11.0)
[2020-04-19 10:04] LABS: Anion Gap 3 (5-15); BUN 13 mg/dL (7-18); BUN/Creat Ratio 18.4 RATIO (10-20); Chloride 104 mmol/L (98-107); Creatinine, Serum 0.71 mg/dL (0.55-1.02); EST Glomerular Filtration Rate 87 mL/min (>60); Est Glom Filt Rate - Afr Amer 105 mL/min (>60); Glucose 88 mg/dL (74-106); Potassium 3.8 mmol/L (3.5-5.1); Sodium Level 138 mmol/L (136-145); Thyroid Stim Hormone (TSH) 1.98 uIU/mL (0.358-3.74)
== END ==
PROVIDERS: PCP Internal Medicine; Referring Provider Physician Assistant Medical; Visit Provider Physician Assistant Medical
DX: I48.91 Unspecified atrial fibrillation (principal); R00.2 Palpitations
CPT/HCPCS: 36415; 80048; 84443; 85025

== ENCOUNTER → 2020-04-20 09:01 | Outpatient (CLI) | payer MEDICARE, SELFPAY ==
[2019-12-26 09:40] VITALS: BMI 41.3
== END ==
PROVIDERS: PCP Internal Medicine; Referring Provider Physician Assistant Medical; Visit Provider Physician Assistant Medical
DX: I48.91 Unspecified atrial fibrillation (principal); R00.2 Palpitations
CPT/HCPCS: 93225; 93226

== ENCOUNTER 2020-06-08 12:15 | Outpatient (RCR) | payer MEDICARE, SELFPAY ==
[2019-12-26 09:40] VITALS: BMI 41.3
[2020-05-31 11:47] LABS: International Normalized Ratio 1.8; Prothrombin Time (Protime)PT. 20.3 SECONDS (11.7-14.9)
[2020-05-31 12:14] LABS: Cholesterol 179 mg/dL (200); High Density Lipoprotein 83 mg/dL; Triglycerides 126 mg/dL; Very Low Density Lipoprotein 25 mg/dL (5-40)
[2020-06-08 13:41] LABS: International Normalized Ratio 2.3; Prothrombin Time (Protime)PT. 25.1 SECONDS (11.7-14.9)
== END 2020-06-08 18:00 | disposition home or self-care (01) ==
LOC: LAB 12:15
PROVIDERS: Family Provider Internal Medicine; PCP Internal Medicine; Referring Provider Internal Medicine Cardiovascular Disease; Visit Provider Internal Medicine Cardiovascular Disease
DX: E78.2 Mixed hyperlipidemia (principal); I48.0 Paroxysmal atrial fibrillation; Z79.01 Long term (current) use of anticoagulants
CPT/HCPCS: 36415; 80061; 85610

== ENCOUNTER → 2020-06-12 09:59 | Outpatient (CLI) | payer MEDICARE, SELFPAY ==
[2019-12-26 09:40] VITALS: BMI 41.3
--- NOTE | 2020-06-12 10:01 | BI_ITS ---
MAMMOGRAPHY - BILATERAL SCREENING REASON FOR EXAM: Female, 70 years old. Routine annual screening examination. PERTINENT HISTORY: Non-contributory. TECHNIQUE: Digital bilateral breast jose (3D mammographic acquisition) in the CC and MLO projections. 2-D mediolateral oblique (MLO) and craniocaudad (CC) views of both breasts were obtained. CAD: Full Field Digital Mammography with Computer Added Detection was performed. COMPARISON: Comparison is made with prior study dated 06/09/2019 and 05/26/2018. FINDINGS: Breast Composition: The breasts are almost entirely fatty. There are no dominant masses or suspicious calcifications. Benign appearing bilateral axillary lymph nodes. No other significant abnormalities are identified. There has been no significant change since the prior study. BI/SCREEN MAMM (CAD) W/JOSE BILAT IMPRESSION: Stable bilateral screening mammogram. Yearly follow-up mammogram recommended. (A) ASSESSMENT CATEGORY: BIRADS Category 2: Benign. A letter regarding these results will be sent to the patient by the facility within 30 days. Approximately 10% of breast cancers are not detected by mammography. A normal mammogram should not delay biopsy of a clinically suspicious abnormality. [id number] Electronically Signed: [place], at 12:01 EDT , Service support ,
--- NOTE | 2020-06-12 10:06 | BD_ITS ---
STUDY: DUAL ENERGY X-RAY ABSORPTIOMETRY / DXA REASON FOR EXAM: Female, 70 years old. VICE PRINCIPAL -- TAKES THYROID MEDICATION -- TAKES DIURETIC -- TAKES ANTISEIZURE MED FOR RESTLESS LEG -- TAKES MULTIVITAMIN AND OSTEO BIFLEX -- DOES LITTLE EXERCISE -- JORGE ALBERTO OF 0.75 INCHES TECHNIQUE: Bone Mineral Density (BMD) measurements of lumbar spine and bilateral hips were obtained. COMPARISON: Comparison is made with prior study dated 07/21/2017. FINDINGS: Lumbar Spine (L1-L4): g/cm2 (1.543) / T-score (3.0) / Z-score (4.7) Findings are suggestive of normal bone density with a low fracture risk. Left Femur Total: g/cm2 (1.370) / T-score (2.9) / Z-score (4.4) Left Femoral Neck: g/cm2 (1.114) / T-score (0.5) / Z-score (2.3) Right Femur Total: g/cm2 (1.210) / T-score (1.6) / Z-score (3.1) Right Femoral Neck: g/cm2 (1.025) / T-score (-0.1) / Z-score (1.6) The T-Scores on the most recent prior examination were: Lumbar Spine (L1-L4): There has been worsening of bone density since the previous examination. Left Femur Total: which represents a worsening of 3.9%. Right Femur Total: which represents a worsening of 5.3%. BD/Dexa Bone Density Study IMPRESSION: The patient is considered normal as outlined below according to World Med Organization (WHO) criteria with a low fracture risk. There has been worsening of bone density since the previous examination. Reference Information: The T-score is the number of standard deviations above or below the standard which is normal for young adults at their peak bone mineral density. The World Health Organization (WHO) interprets the T-scores as follows: Above -1 Normal bone density Between -1 and -2.5 Osteopenia Equal to / or below -2.5 Osteoporosis As a practical clinical guideline, osteopenia may be graded as follows: Mild -1 through -1.5 Moderate -1.6 through -2.0 Severe -2.1 through -2.4 The Z-score is the number of standard deviations above or below age-matched controls. A Z-score of less than -1.5 would be considered abnormal. References: 1. NIH Osteoporosis and Related Bone Diseases www osteo.org 2. International Society for Clinical Densitometry www iscd.org 3. National Osteoporosis Foundation www nof.org Electronically Signed: [place]anco, at 12:13 EDT , Service support ,
== END ==
PROVIDERS: PCP Internal Medicine; Referring Provider Internal Medicine; Visit Provider Internal Medicine
DX: Z12.31 Encounter for screening mammogram for malignant neoplasm of breast (principal); Z78.0 Asymptomatic menopausal state
CPT/HCPCS: 77063; 77067; 77080

== ENCOUNTER 2020-07-13 09:28 | Outpatient (RCR) | payer MEDICARE, SELFPAY ==
[2019-12-26 09:40] VITALS: BMI 41.3
[2020-07-13 09:38] LABS: Mucous, Urine 0 SEEN /hpf (<or=2+); Red Blood Cells-Urine 0 SEEN /hpf (0-5)
[2020-07-13 10:47] LABS: Color, Urine Straw (Yellow); Glucose, Dipstick Normal (Normal); Ketone-Dipstick Negative (Negative); Leukocyte Esterase-Dipstick 500 /ul (Negative); Nitrite-Dipstick Negative (Negative); Occult Blood-Urine Negative /ul (Negative); Protein-Dipstick Negative (Negative); Specific Gravity, Urine 1.005 (1.002-1.030); Urine Bilirubin Dipstick Negative (Negative); Urine Clarity Sl. Cloudy (Clear); Urine Urobilinogen Normal (Normal)
[2020-07-13 10:49] LABS: Absolute Lymphocyte Count 1.19 X10^3/uL (0.83-4.51); Absolute Neutrophil Count 4.2 X10^3/uL (2.0-7.7); Basophil# 0.07 X10^3/uL; Basophil% 1.2 % (0-1); Eosinophil# 0.08 X10^3/uL; Eosinophils% 1.3 % (0-5); Hematocrit 38.6 % (37-47); Hemoglobin 11.9 g/dL (12.0-15.0); Lymphocyte # 1.19 X10^3/ul (4.0); Mean Corp Hgb Conc 30.8 g/dL (32-36); Mean Corpuscular Hgb 28.6 pg (27.0-32.0); Mean Corpuscular Volume 92.8 fL (81-99); Mean Platelet Vol. 9.7 fl (6.2-12.0); Monocyte# 0.38 X10^3/uL; Monocyte% 6.4 % (0-10); NRBC Flagged by Analyzer 0 % (0-5); Neutrophil % 70.8 % (47-70); Platelet Count 338 K/mm3 (150-450); RBC Distribution Width CV 15.6 % (11.6-14.6); RBC Distribution Width SD 52.9 fl (35.1-43.9); Red Blood Count 4.16 M/mm3 (4.2-5.4); White Blood Count 5.9 K/mm3 (4.4-11.0)
[2020-07-13 10:50] LABS: Erythrocyte Sedimentation Rate 9 mm/hr (0-30)
[2020-07-13 10:52] LABS: International Normalized Ratio 2.1; Prothrombin Time (Protime)PT. 23.5 SECONDS (11.7-14.9)
[2020-07-13 11:05] LABS: Bacteria RARE /hpf (None Seen); Squamous Epithelial Cells - UA 5-10 SEEN /hpf (5-10); White Blood Cells 0-5 SEEN /hpf (0-5)
[2020-07-13 11:09] LABS: Hemoglobin A1c 5.5 % (3.8-5.6)
[2020-07-13 11:34] LABS: ALB/GLOB Ratio 0.9 RATIO (0.9-2.4); AST(SGOT) 18 U/L (15-37); Alanine Aminotransfer ALT/SGPT 23 U/L (13-56); Albumin, Serum 3.4 g/dL (3.2-5.0); Alkaline Phosphatase 102 U/L (45-117); Anion Gap 3 (5-15); BUN 13 mg/dL (7-18); BUN/Creat Ratio 18.8 RATIO (10-20); Calcium,Total 8.9 mg/dL (8.5-10.1); Chloride 105 mmol/L (98-107); Creatinine, Serum 0.69 mg/dL (0.55-1.02); EST Glomerular Filtration Rate 89 mL/min (>60); Est Glom Filt Rate - Afr Amer 107 mL/min (>60); Ferritin 13 ng/mL (8-252); Globulin 3.6 g/dL (2.2-4.2); Glucose 92 mg/dL (74-106); Iron 42 ug/dL (50-170); Iron Binding Capacity,Total 366 ug/dL (250-450); PERCENT IRON SATURATION 11.5 % (15.0-55.0); Sodium Level 139 mmol/L (136-145)
[2020-07-13 14:41] LABS: Vitamin B12 416 pg/mL (211-911)
[2020-07-17 15:24] LABS: ANTINUCLEAR ANTIBODIES DIRECT Negative (Negative); Anti-Histone Abs 1.3 Units (0.0-0.9)
== END 2020-07-13 18:00 | disposition home or self-care (01) ==
LOC: LAB 09:28
PROVIDERS: Family Provider Internal Medicine; PCP Internal Medicine; Referring Provider Internal Medicine Cardiovascular Disease; Visit Provider Internal Medicine Cardiovascular Disease
DX: I48.0 Paroxysmal atrial fibrillation (principal); Z79.01 Long term (current) use of anticoagulants; L93.2 Other local lupus erythematosus; R73.09 Other abnormal glucose; R53.83 Other fatigue; D50.0 Iron deficiency anemia secondary to blood loss (chronic); E78.2 Mixed hyperlipidemia
CPT/HCPCS: 36415; 80053; 81001; 82607; 82728; 83036; 83540; 83550; 85025; 85610; 85652; 86038; 86140; 86235

== ENCOUNTER 2020-08-04 06:41 | Emergency (ER) | payer MEDICARE, SELFPAY ==
[2020-07-26 11:04] VITALS: BMI 41.3
[2020-08-04 06:42] VITALS: BP 194/89; PULSE 75; RESP 20; TEMP 35.9; O2SAT 97; BMI 40.9
--- NOTE | 2020-08-04 06:44 | NURSING ---
NO OLD EKGS
--- NOTE | 2020-08-04 07:17 | EKG12_ITS ---
Test Reason : REPEAT Blood Pressure : / mmHG Vent. Rate : 069 BPM Atrial Rate : 069 BPM P-R Int : 156 ms QRS Dur : 090 ms QT Int : 434 ms P-R-T Axes : 055 013 026 degrees QTc Int : 465 ms Normal sinus rhythm Nonspecific ST abnormality Abnormal ECG Confirmed by AMARI DO, REGAN ([id number]), primer expeditor and drier MARISA ALVAREZ ([id number]) on 08/08/2020 11:03:50 AM Referred By: MARIA M Confirmed By:REGAN FITZPATRICK MD
--- NOTE | 2020-08-04 07:17 | RAD_ITS ---
STUDY: X-RAY CHEST REASON FOR EXAM: Female, 70 years old. CHEST PAIN/ EPIGASTRIC PAIN TECHNIQUE: AP COMPARISON: 09/20/2016 FINDINGS: EKG leads project over the chest. The lungs are clear and expanded. There is no demonstrated pleural abnormality. Normal size heart. Normal mediastinum and ji. Normal visualized pulmonary arteries. Normal visualized aortic arch and descending thoracic aorta. There is a dextroscoliosis of the thoracic spine. Normal visualized ribs, clavicles, and shoulders. There is no demonstrated abnormality of the visualized soft tissue structures of the upper abdomen. RAD/Chest 1 View (Portable) IMPRESSION: Stable, nonacute portable x-ray examination of the chest. Electronically Signed: Alfred Miller MD (Brooks) at 8:16 EST , Service support ,
--- NOTE | 2020-08-04 07:23 | NURSING ---
NO OLD EKGS
--- NOTE | 2020-08-04 07:23 | ED.VISSUMM ---
- ER Visit Summary Date of Service: 08/04/20 Chief Complaint: Chest pain History of Present Illness: The patient is a 70 F who presents with chest pain that began approximately 8 hours prior to arrival. Patient states pain is over her lower chest and epigastric area. Patient describes it as a tightness. Patient states nothing makes it better or worse. Patient does admit to a mild cough. Patient denies any nausea or vomiting. Patient denies any diaphoresis or shortness of breath. Patient states she did have some reflux and heartburn symptoms yesterday. Patient denies any radiation of the pain. Patient does have a history of hypertension. Patient denies any PE risk factors. Physical Examination: Vital signs are stable. Patient is afebrile. Patient is in no acute distress. Oral mucosa is pink and moist. Neck is supple. Trachea is midline. There is no JVD noted. Heart was regular rate and rhythm. Lungs are clear and equal bilaterally. Abdomen is soft. Bowel sounds are normal. There is no tenderness. There is no rebound or guarding noted. Skin is warm dry. Cranial nerves II through XII are intact. There are no focal motor or sensory deficits noted. Extremities are intact. There is no calf tenderness or edema. Test Results: EKG was obtained. On my interpretation, there is normal sinus rhythm with a rate of 71. There are no acute ST or T wave changes. This was unchanged compared to previous EKG dated 07/26/2020. Portable 1 view chest x-ray was obtained. On my interpretation, lung shaw are clear. There is normal cardiac silhouette. Bony thorax is normal. There is no acute process noted. Radiologist also interpreted the x-ray in degrees. CBC shows a mild leukocytosis of 13.8. Basic metabolic profile was normal. Troponin was normal. Emergency Department Course and Treatment: Patient was given aspirin and nitroglycerin here. Patient is feeling better on reevaluation. A delta troponin was obtained and was normal. Repeat EKG was obtained. On my interpretation it showed a normal sinus rhythm with a rate of 69. There are no acute ST or T wave changes. It was unchanged compared to previous EKG. Patient was advised of her findings. Patient wants to go home. Patient has a HEART score of 3. Patient was advised that this is low risk for acute cardiac event. Patient was instructed to follow-up with her primary care physician in 5 to 7 days. Patient understood and was agreeable with the plan. All questions were answered. Disposition: Discharge home Impression: 1. Chest pain of uncertain etiology This note was generated with [employer] dictation software. It may contain incorrect words, spelling, and punctuation that were not noted in review of the chart prior to signing ED Disposition - Plan for ED Patient: Disposition: Home or Assisted Living Diagnosis: Chest pain of uncertain etiology Instructions: ED Chest Pain, Uncertain Cause Referrals: Lizzy Trejo DO [Primary Care Provider] - 3-5 Days
[2020-08-04] MEDS: Aspirin 81 MG TAB.CHEW 324 MG PO (07:29)
[2020-08-04 07:37] VITALS: BP 191/88; PULSE 67
[2020-08-04] MEDS: Nitroglycerin SL (ED/IMG/CATH) 0.4 MG TABLET SUBLINGUAL ×3 (07:37→08:07)
[2020-08-04 07:44] VITALS: BP 151/75; PULSE 60
[2020-08-04 07:56] LABS: Anion Gap 6 (5-15); BUN 12 mg/dL (7-18); BUN/Creat Ratio 17.4 RATIO (10-20); Calcium,Total 9.2 mg/dL (8.5-10.1); Chloride 104 mmol/L (98-107); Creatinine, Serum 0.69 mg/dL (0.55-1.02); EST Glomerular Filtration Rate 89 mL/min (>60); Est Glom Filt Rate - Afr Amer 108 mL/min (>60); Glucose 127 mg/dL (74-106); Potassium 3.9 mmol/L (3.5-5.1); Sodium Level 138 mmol/L (136-145)
[2020-08-04 07:58] LABS: Absolute Lymphocyte Count 0.82 X10^3/uL (0.83-4.51); Absolute Neutrophil Count 12.5 X10^3/uL (2.0-7.7); Basophil# 0.04 X10^3/uL; Basophil% 0.3 % (0-1); Eosinophil# 0.02 X10^3/uL; Eosinophils% 0.1 % (0-5); Hematocrit 42.8 % (37-47); Hemoglobin 13.7 g/dL (12.0-15.0); Lymphocyte # 0.82 X10^3/ul (4.0); Lymphocyte % 5.9 % (19-41); Mean Corpuscular Hgb 28.5 pg (27.0-32.0); Mean Platelet Vol. 9.8 fl (6.2-12.0); Monocyte# 0.38 X10^3/uL; Monocyte% 2.7 % (0-10); NRBC Flagged by Analyzer 0 % (0-5); Neutrophil # 12.49 X10^3/uL (2.7-7.7); Neutrophil % 90.5 % (47-70); Platelet Count 367 K/mm3 (150-450); RBC Distribution Width CV 15.7 % (11.6-14.6); Red Blood Count 4.81 M/mm3 (4.2-5.4); White Blood Count 13.8 K/mm3 (4.4-11.0)
[2020-08-04 08:07] VITALS: BP 148/73; PULSE 57
[2020-08-04] MEDS: Acetaminophen 500 MG Tablet 1000 MG PO (08:46)
[2020-08-04 08:51] VITALS: BP 181/79; PULSE 64; RESP 18; O2SAT 97
--- NOTE | 2020-08-04 09:30 | EKG12_ITS ---
Test Reason : CP Blood Pressure : / mmHG Vent. Rate : 071 BPM Atrial Rate : 071 BPM P-R Int : 142 ms QRS Dur : 092 ms QT Int : 434 ms P-R-T Axes : 049 013 040 degrees QTc Int : 471 ms Normal sinus rhythm Nonspecific ST abnormality Abnormal ECG Confirmed by AMARI DO, REGAN ([id number]), greeting card editor MARISA ALVAREZ ([id number]) on 08/08/2020 11:04:04 AM Referred By: Confirmed By:REGAN FITZPATRICK MD
[2020-08-04 12:14] VITALS: BP 193/91; PULSE 68; PULSE 71; RESP 15
== END 2020-08-04 12:25 | disposition home or self-care (01) ==
PROVIDERS: Emergency Provider Emergency Medicine; PCP Internal Medicine
DX: R07.9 Chest pain, unspecified (principal); R05 Cough; I48.91 Unspecified atrial fibrillation; G20 Parkinson's disease; M32.9 Systemic lupus erythematosus, unspecified; I10 Essential (primary) hypertension; E03.9 Hypothyroidism, unspecified; G47.30 Sleep apnea, unspecified; K21.9 Gastro-esophageal reflux disease without esophagitis; Z79.01 Long term (current) use of anticoagulants; Z79.82 Long term (current) use of aspirin; Z79.899 Other long term (current) drug therapy
CPT/HCPCS: 71045; 80048; 84484; 85025; 93005; 99285; A4216

== ENCOUNTER 2020-08-04 20:00 | Inpatient (IN) | payer MEDICARE, SELFPAY ==
[2020-08-04 06:42] VITALS: BMI 40.9
[2020-08-04 20:00] VITALS: BP 153/81; PULSE 66; RESP 18; TEMP 36.9; O2SAT 98; BMI 41.1
--- NOTE | 2020-08-04 20:14 | US_ITS ---
STUDY: ABDOMINAL ULTRASOUND - RIGHT UPPER QUADRANT REASON FOR VISIT: Female, 70 years old RUQ PAIN TECHNIQUE: Ultrasound evaluation of the right upper quadrant was performed with real-time and static klein-scale imaging. TECHNICAL QUALITY: Adequate. COMPARISON: None. FINDINGS: Liver: The liver measures 14.9 cm. There is normal echogenicity of the liver. The bile ducts are within normal limits. There is hepatic color flow. The direction of portal flow is hepatopetal. There is no demonstrated mass lesion. Gallbladder: The gallbladder is distended. The gallbladder wall measures 3.7 mm. There is a negative sonographic Neville''s sign. There is pericholecystic fluid. There are gallstones and sludge within the gallbladder. Common Bile Duct (C.B.D.): The common bile duct measures 5.3 mm. Pancreas: Normal size of the head, body and tail of the pancreas. There is normal echogenicity of the pancreas. There is no demonstrated pancreatic mass or cyst. Right Kidney: Normal size of the right kidney. The right kidney measures 11.1 cm in length. Normal renal cortex. There is no demonstrated renal mass or cyst. There is no right hydronephrosis. US/Gallbladder IMPRESSION: Distended gallbladder associated with cholelithiasis, gallbladder wall thickening, pericholecystic fluid and a reported positive sonographic Neville''s sign concerning for underlying cholecystitis. Electronically Signed: Iram Callahan MD at 22:01 EST Tel , Service support ,
--- NOTE | 2020-08-04 20:15 | ED.DCSUM_ITS ---
History of Present Illness Chief Complaint: Abd Pain Detail of Chief Complaint: She returns because of right upper quadrant abdominal pain Informant: Patient, PCP Onset: Hours Context: Sudden Onset Timing: Continuous Quality: Pain Location: Right upper abdomen Current Severity: Mild Maximum Severity: Moderate Worsened by: Nothing specific Relieved by: Nothing Associated Symptoms: Nausea with small emesis Narrative: Patient is a 70-year-old woman who was seen earlier today for epigastric and chest pain. Work-up at that time was negative. She now complains of pain in the right upper quadrant. She states she had minimal pain when she was initially seen. Now she is complaining of significant pain in the right upper quadrant. She denies intolerance to greasy or fried foods. Upon questioning she does admit to intrascapular pain. She has not had thing to eat since yesterday. She does report nausea with small emesis. She denies black or maroon stool. She denies diarrhea. Last bowel movement was yesterday. Positive flatus. She denies cholecystectomy, appendectomy or hysterectomy. She denies dysuria, frequency, urgency or hematuria. She denies history of renal ureterolithiasis. She states if she takes a deep breath the pain in the right upper quadrant is worse. And, she points to an area below the right costal margin. She denies trauma. She denies rash or skin lesion. She denies history of PE or DVT. She does report bilateral pitting edema for the past several weeks. She states is been intermittent. She denies history of congestive heart failure. She denies history of ascites. Prior similar symptoms: No Recent Illness/Hospitalization: Yes - Past Medical History (1) Obesity, morbid, BMI 40.0-49.9 Status: Acute (2) Hyperlipidemia Status: Chronic (3) Hypertension, essential, benign Status: Chronic (4) Hypothyroidism Status: Chronic (5) half-way current use of anticoagulant Status: Chronic (6) Nonrheumatic mitral (valve) insufficiency Status: Chronic Comment: Moderate (2+) per echo 05/27/2018 (7) Nonrheumatic tricuspid (valve) insufficiency Status: Chronic Comment: Moderate (2+) per echo 05/27/2018 (8) Parkinson's disease Status: Chronic (9) Persistent atrial fibrillation Status: Chronic (10) Secondary pulmonary arterial hypertension Status: Chronic Comment: RVSP 43 mmhg per echo 05/27/2016 Past Medical History - Allergies and Home Meds Allergies/Adverse Reactions: Allergies hydralazine Adverse Reaction (Severe, Verified 08/04/20 06:46) Induced Lupus apixaban [From Eliquis] Adverse Reaction (Intermediate, Verified 08/04/20 06:46) Increased bleeding irbesartan [From Avapro] Adverse Reaction (Unknown, Verified 08/04/20 06:46) Unknown levofloxacin [From Levaquin] Adverse Reaction (Unknown, Verified 08/04/20 06:46) Unknown amoxicillin [From Augmentin] Adverse Reaction (Verified 08/04/20 06:46) Nausea clavulanic acid [From Augmentin] Adverse Reaction (Verified 08/04/20 06:46) Nausea Primary Care Physician: Lizzy Trejo DO [Primary Care Provider] - Prior records reviewed: Yes - Read dictation from prior visit, today Surgical History: no surgical history Smoking Status: Never smoker - Family History Paternal Family History: Family History (Last Reviewed 07/26/20 @ 11:26 by Brisa HALE, PA) Father CAD (coronary artery disease) S/P CABG (coronary artery bypass graft) Family History: Reports: Heart Disease Maternal Family History: Family History (Last Reviewed 07/26/20 @ 11:26 by Brisa HALE, PA) Father CAD (coronary artery disease) S/P CABG (coronary artery bypass graft) Family History: Reports: Hypertension Review of Systems General: Denies: Chills, Fever, Malaise, Subjective, Sweats, Weight loss Eyes: Denies: Visual changes - bilaterally, Blurred Vision - bilaterally ENT: Denies: Bilateral ear pain, Sore throat Cardiovascular: Denies: Chest pain, Palpitations Respiratory: Denies: Dyspnea, Cough, Sputum, Dyspnea on exertion, Orthopnea Gastrointestinal: Reports: Abdominal pain, Nausea, Vomiting. Denies: Diarrhea, Constipation, Melena, Hematochezia Genitourinary: Denies: Dysuria, Hematuria, Frequency Musculoskeletal: Reports: Back pain, Swelling. Denies: Myalgias, Arthralgias, Neck pain, Extremity Pain Skin: Denies: Rash, Wounds Neurological: Denies: Weakness, Parasthesia Endocrine: Denies: Polyuria, Polydipsia Hematologic: Denies: Easy bruising, Easy bleeding Physical Exam Vital Signs/Narrative: Vital Signs Temp Pulse Resp BP Pulse Ox 08/04/20 20:00 98.4 F 66 18 153/81 H 98 Inital Vital Signs reviewed: Yes General: Well nourished, Well developed, Obese, No Acute Distress Head: Normocephalic, Atraumatic Eyes: Perrl, EOMI. Negative for: Pale conjunctiva, Scleral icterus ENT: No rhinorrhea, TM's clear Neck: Supple, Nontender, No lymphadenopathy Cardiovascular: Regular rate, No murmurs, Irregular Respiratory: No distress, CTA bilaterally, Chest nontender Abdomen: Nondistended, No masses, Tender, Guarding, Hypoactive bowel sounds, Neville's sign. Negative for: Nontender, Normal bowel sounds, Rebound tenderness, Hyperactive bowel sounds, Hepatomegaly, Splenomegaly, Mass, Pulsatile mass Rectal: Deferred Back: Nontender, Normal Inspection. Negative for: CVA tenderness Extremities: Negative for: Nontender, No edema Skin: Negative for: Normal color, No rash Neurological: Alert, Oriented x3, Cranial nerves II-XII grossly intact, Normal Strength, Normal Sensation, Normal Gait Psychological: Normal affect Diagnostic/Tx/Re-eval Impressions Gallbladder Ultrasound 08/04/20 20:14 IMPRESSION: Distended gallbladder associated with cholelithiasis, gallbladder wall thickening, pericholecystic fluid and a reported positive sonographic Neville''s sign concerning for underlying cholecystitis. Electronically Signed: Iram Callahan MD at 22:01 EST Tel , Service support , 08/04/20 20:14 Gallbladder [US] Stat 08/04/20 21:02 Mucosa - Nose SARS-CoV-2 Antigen (Rapid) - Final Laboratory Results 08/04/20 08/04/20 08/04/20 20:23 20:23 20:57 WBC 20.3 H RBC 4.80 Hgb 13.5 Hct 43.1 MCV 89.8 MCH 28.1 MCHC 31.3 L RDW Std Deviation 51.6 H RDW Coeff of Gabriel 15.6 H Plt Count 403 MPV 9.1 Immature Gran % (Auto) 0.500 Neut % (Auto) 90.9 H Lymph % (Auto) 3.5 L Johnson % (Auto) 4.9 Eos % (Auto) 0.0 Baso % (Auto) 0.2 Absolute Neuts (auto) 18.4 H Absolute Lymphs (auto) 0.72 L Nucleated RBC % 0 PT INR Lactic Acid 1.6 Total Bilirubin 0.70 Direct Bilirubin 0.22 AST 19 ALT 26 Alkaline Phosphatase 112 Total Protein 7.8 Albumin 3.7 Globulin 4.1 Lipase 106 08/04/20 21:50 WBC RBC Hgb Hct MCV MCH MCHC RDW Std Deviation RDW Coeff of Gabriel Plt Count MPV Immature Gran % (Auto) Neut % (Auto) Lymph % (Auto) Johnson % (Auto) Eos % (Auto) Baso % (Auto) Absolute Neuts (auto) Absolute Lymphs (auto) Nucleated RBC % PT Cancelled INR Cancelled Lactic Acid Total Bilirubin Direct Bilirubin AST ALT Alkaline Phosphatase Total Protein Albumin Globulin Lipase - Medical Decision Making With patient now having right upper quadrant pain and a clinical Neville sign with an elevated white count on prior visit need to rule out acute cholecystitis. Ultrasound of the gallbladder was ordered. Also hepatic and lipase which were not ordered this morning. Since she reports nausea with vomiting she received 4 mg of Zofran and 4 mg of morphine for her pain. This may also represent atypical presentation for appendicitis. If ultrasound of the gallbladder is negative will obtain CT to evaluate for appendicitis or other intra-abdominal pathology. White count is 20.9 thousand with 60% eosinophils. The CBC from earlier visit was elevated at 13.9 with shift. There were no bands. Lab was contacted determine if the machine missed read the cell type and specifically if the eosinophils are bands. In light of the rising white count and concern for acute cholecystitis lactate was ordered as well as blood cultures and 4.5 g of Zosyn. Patient states she braden s allergy to amoxicillin, nausea. This is not an allergy. Spoke with the electrical power station technician. There are multiple gallstones. There is minimal pericholecystic fluid. The common bile duct measures 4.8 mm. Formal report pending. Since patient does not have a surgeon the surgeon on-call for no doc was paged Dr. Katlyn Hoyt. She requested admission to hospitalist with consult to her. Hospitalist has been paged. ED Disposition - Plan for ED Patient: Disposition: Acute Care Hospital [facility] Diagnosis: Acute on chronic cholecystitis concurrent with and due to calculus of gallbladder and bile duct, half-way current use of anticoagulant Referrals: Lizzy Trejo DO [Primary Care Provider] -
[2020-08-04] MEDS: Morphine 4 MG/ML Syringe IV (20:28)
[2020-08-04] MEDS: 0.9% Normal Saline 1,000 ML 250 ML IV (20:28)
[2020-08-04 20:29] LABS: Basophil% 0.2 % (0-1); NRBC Flagged by Analyzer 0 % (0-5)
[2020-08-04] MEDS: Ondansetron 4 MG/2 ML Vial IV (20:30)
[2020-08-04 20:47] LABS: AST(SGOT) 19 U/L (15-37); Alanine Aminotransfer ALT/SGPT 26 U/L (13-56); Albumin, Serum 3.7 g/dL (3.2-5.0); Alkaline Phosphatase 112 U/L (45-117); Bilirubin, Direct 0.22 mg/dL (0.00-0.30); Globulin 4.1 g/dL (2.2-4.2); Lipase 106 U/L (73-393); Protein, Total 7.8 g/dL (6.4-8.2)
--- NOTE | 2020-08-04 21:08 | ED.RN ---
UNABLE TO HANG ANTIBIOTIC THIS TIME BECAUSE PATIENT IS IN ULTRASOUND.
[2020-08-04 21:23] LABS: Hematocrit 43.1 % (37-47); Hemoglobin 13.5 g/dL (12.0-15.0); White Blood Count 20.3 K/mm3 (4.4-11.0)
[2020-08-04 21:24] LABS: Mean Corp Hgb Conc 31.3 g/dL (32-36); Mean Corpuscular Hgb 28.1 pg (27.0-32.0); Mean Corpuscular Volume 89.8 fL (81-99); RBC Distribution Width CV 15.6 % (11.6-14.6); RBC Distribution Width SD 51.6 fl (35.1-43.9)
[2020-08-04 21:25] LABS: Mean Platelet Vol. 9.1 fl (6.2-12.0); Neutrophil % 90.9 % (47-70); POSITIVE COUNT NO; POSITIVE DIFFERENTIAL NO; POSITIVE MORPHOLOGY NO; Platelet Count 403 K/mm3 (150-450)
[2020-08-04 21:26] LABS: Lymphocyte % 3.5 % (19-41); Monocyte% 4.9 % (0-10)
[2020-08-04 21:27] LABS: Absolute Lymphocyte Count 0.72 X10^3/uL (0.83-4.51); Absolute Neutrophil Count 18.4 X10^3/uL (2.0-7.7); Basophil# 0.04 X10^3/uL; Lymphocyte # 0.72 X10^3/ul (4.0); Neutrophil # 18.44 X10^3/uL (2.7-7.7)
[2020-08-04 21:43] LABS: Lactic Acid 1.6 mmol/L (0.4-1.9)
[2020-08-04 22:00] VITALS: BP 152/61; PULSE 59; RESP 18; O2SAT 95
[2020-08-04 22:26] VITALS: BP 152/61; PULSE 55; RESP 18; TEMP 36.6; O2SAT 95
[2020-08-04 22:28] LABS: International Normalized Ratio 2.2; Prothrombin Time (Protime)PT. 23.8 SECONDS (11.7-14.9)
--- NOTE | 2020-08-04 22:38 | HP.PCM_ITS ---
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 (6) Persistent atrial fibrillation Status: Chronic (7) Secondary pulmonary arterial hypertension Status: Chronic Comment: RVSP 43 mmhg per echo 05/27/2016 (8) Nonrheumatic tricuspid (valve) insufficiency Status: Chronic Comment: Moderate (2+) per echo 05/27/2018 (9) Nonrheumatic mitral (valve) insufficiency Status: Chronic Comment: Moderate (2+) per echo 05/27/2018 (10) Hyperlipidemia Status: Chronic (11) Hypertension, essential, benign Status: Chronic (12) Hypothyroidism Status: Chronic (13) Obesity (BMI 30-39.9) Status: Chronic History of Present Illness Date of Admission: 08/04/20 Chief Complaint: Abdominal pain The patient is a 70 year old F with a significant history of hypothyroidism; nonrheumatic mitral valve insufficiency; rheumatic tricuspid valve insufficiency; moderate pulmonary hypertension; hypertension; Parkinson's disease; and paroxysmal A. fib who comes emergency department with right upper quadrant pain that started few hours before presentation. Her pain started while she was sleeping. She described the pain as 'I can feel it'. She rated pain severity 6 out of 10. The pain is persistent. The pain is nonradiating. The pain worsens with movement and it improves with rest. Associated with her symptom is nausea and vomiting. Also she reports malaise. She denies any fever or chills. Earlier, on the same day of presentation, patient was at the emergency department with epigastric pain and work-up was unremarkable. Past Medical History Past Medical History (Chronic Problems): Chronic Problems (Last Reviewed 08/04/20 @ 23:[address] 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 (Chronic) Z79.01 Persistent atrial fibrillation (Chronic) I48.1 Secondary pulmonary arterial hypertension (Chronic) I27.21 RVSP 43 mmhg per echo 05/27/2016 Nonrheumatic tricuspid (valve) insufficiency (Chronic) I36.1 Moderate (2+) per echo 05/27/2018 Nonrheumatic mitral (valve) insufficiency (Chronic) I34.0 Moderate (2+) per echo 05/27/2018 Hyperlipidemia (Chronic) E78.5 Hypertension, essential, benign (Chronic) I10 Hypothyroidism (Chronic) E03.9 Allergies hydralazine Adverse Reaction (Severe, Verified 08/04/20 06:46) Induced Lupus apixaban [From Eliquis] Adverse Reaction (Intermediate, Verified 08/04/20 06:46) Increased bleeding irbesartan [From Avapro] Adverse Reaction (Unknown, Verified 08/04/20 06:46) Unknown levofloxacin [From Levaquin] Adverse Reaction (Unknown, Verified 08/04/20 06:46) Unknown amoxicillin [From Augmentin] Adverse Reaction (Verified 08/04/20 06:46) Nausea clavulanic acid [From Augmentin] Adverse Reaction (Verified 08/04/20 06:46) Nausea Home Medications: Ambulatory Orders Medication Instructions Recorded Benazepril HCl [Lotensin] 40 mg PO DAILY 09/20/16 Furosemide [Lasix] 20 mg PO DAILY 09/20/16 Levothyroxine [Synthroid] 100 mcg PO DAILY 09/20/16 Diltiazem CD [Cardizem CD] 120 mg PO Q12 #90 cap 09/23/16 aspirin 81 mg tablet,delayed 81 mg PO QDAY 03/11/18 release glucosamine-chondroitin 250 mg-200 1 tab PO DAILY tab 03/11/18 mg tablet potassium chloride 10 mEq 10 meq PO QDAY 03/11/18 tablet,extended release alprazolam 0.25 mg tablet 0.25 mg PO DAILY PRN tab 03/12/18 biotin 5,000 mcg disintegrating 10,000 mcg PO DAILY 11/18/18 tablet polyethylene glycol 3350 17 17 g PO DAILY 11/18/18 gram/dose oral powder cholecalciferol (vitamin D3) 50 6,000 unit PO QDAY cap 12/26/19 mcg (2,000 unit) capsule clonazepam 0.5 mg tablet 0.25 mg PO QHS PRN tab 12/26/19 melatonin 5 mg tablet 5 mg PO HS PRN 12/26/19 multivit with 1 tab PO DAILY 12/26/19 laxiltby-kiio-WP-lutein 8 mg iron-400 mcg-300 mcg tablet flecainide 50 mg tablet 50 mg PO Q12H #180 tab 06/08/20 metoprolol tartrate 100 mg tablet 50 mg PO BID tab 07/26/20 Warfarin [Coumadin ([facility])] 2.5 mg PO SUMOTUFRSA 08/04/20 Warfarin [Coumadin ([facility])] 5 mg PO WETH 08/04/20 Surgical History: Surgical History (Last Reviewed 08/04/20 @ 23:[address] 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 Keo Mariscal MD) Father CAD (coronary artery disease) S/P CABG (coronary artery bypass graft) History Items: Heart Disease Maternal Family History: Family History (Last Reviewed 08/04/20 @ 23:[address] Keo Mariscal MD) Father CAD (coronary artery disease) S/P CABG (coronary artery bypass graft) History Items: Hypertension Review of Systems Constitutional: Denies: Chills, Fever, Weight Change HEENT: Denies: Head Aches, Sinus Congestion, Sinus Drainage Cardiovascular: Denies: Chest Pain, Palpitations Respiratory: Denies: Cough, Shortness of breath at rest, Sputum production Gastrointestinal: Reports: Abdominal Pain, Nausea, Vomiting Genitourinary: Denies: Dysuria Musculoskeletal: Denies: Joint Pain, Joint Tenderness Skin: Denies: Rash, Wounds Neurological: Denies: Numbness, Tingling, Focal weakness Psychiatric: Denies: Anxiety, Depression, Homicidal Ideations, Suicidal Ideations Hematologic/ Lymphatic: Denies: Easy Bruising, Easy Bleeding VTE Information - Inpt Only VTE Present on Admission: No VTE Mechan Device Prophylaxis: SCD's VTE Pharm Prophylaxis ordered?: No Patient Problems: Active and Suspected Problems (Last Reviewed 08/04/20 @ 23:[address] Keo Mariscal MD) Acute on chronic cholecystitis concurrent with and due to calculus of gallbladder and bile duct (Acute) Acute cholecystitis (Acute) - Physical Exam Vitals/I&O's: Vital Signs Temp Pulse Resp BP Pulse Ox 98 F 55 L 18 152/61 H 95 08/04/20 22:26 08/04/20 22:26 08/04/20 22:26 08/04/20 22:26 08/04/20 22:26 Oxygen Delivery Method Room Air Weight: 115.666 kg Body Mass Index (BMI) 41.1 Intake and Output for Last 24 Hours 08/02/20 08/03/20 08/04/20 23:59 23:59 23:59 Intake Total 441.67 / 441.67 Balance 441.67 / 441.67 General: Alert, Oriented x3, Cooperative HEENT: Atraumatic, PERRLA, EOMI, Normocephalic Neck: Supple, No JVD, Negative Carotid Bruits Lungs: Clear to auscultation, Normal air movement, No rhonchi, No wheeze, No rales Cardiovascular: Regular rate, Normal S1, Normal S2, No murmurs Abdomen: Bowel Sounds Present, Soft, Tender - Right upper quadrant Extremities: No edema, Capillary Refill Less than 3 Seconds Skin: No rashes, No breakdown Musculoskeletal: No Tenderness to Palpation of Joints or Extremities Neurological: Cranial nerves II-XII grossly intact Psych/Mental Status: Normal Affect, Appropriate Microbiology Past 72 Hours 08/04/20 21:02 Mucosa - Nose SARS-CoV-2 Antigen (Rapid) - Final Laboratory Results 08/04/20 20:23: WBC 20.3 H, RBC 4.80, Hgb 13.5, Hct 43.1, MCV 89.8, MCH 28.1, MCHC 31.3 L, RDW Std Deviation 51.6 H, RDW Coeff of Gabriel 15.6 H, Plt Count 403, MPV 9.1, Immature Gran % (Auto) 0.500, Neut % (Auto) 90.9 H, Lymph % (Auto) 3.5 L, [place] % (Auto) 4.9, Eos % (Auto) 0.0, Baso % (Auto) 0.2, Absolute Neuts (auto) 18.4 H, Absolute Lymphs (auto) 0.72 L, Nucleated RBC % 0 08/04/20 20:23: Total Bilirubin 0.70, Direct Bilirubin 0.22, AST 19, ALT 26, Alkaline Phosphatase 112, Total Protein 7.8, Albumin 3.7, Globulin 4.1, Lipase 106 08/04/20 20:57: Lactic Acid 1.6 08/04/20 21:50: PT Cancelled, INR Cancelled 08/04/20 22:10: PT 23.8 H, INR 2.2 Current Medications Sodium Chloride () 1,000 mls @ 250 mls/hr IV .Q4H MARTHA Last Infusion: 08/04/20 21:50 Dose: 0 mls/hr Documented by: Assessment/Plan All Active Problems (Last Reviewed 08/04/20 @ 23:[address] Keo Mariscal MD) Acute on chronic cholecystitis concurrent with and due to calculus of gallbladder and bile duct (Acute) Acute cholecystitis (Acute) The patient is a 70 year old F with a significant history of hypothyroidism; nonrheumatic mitral valve insufficiency; rheumatic tricuspid valve insufficiency; moderate pulmonary hypertension; hypertension; Parkinson's disease; and paroxysmal A. fib who comes emergency department with right upper quadrant pain; nausea and vomiting and found to have cholelithiasis and cholecystitis findings on abdominal ultrasound. Acute cholecystitis Review of emergency department labs showed neutrophilic leukocytosis with lymphopenia.. Trend CMP. Ultrasound reports of standard gallbladder associated with cholelithiasis and gallbladder wall thickening; pericholestatic fluid and reported positive sonographic Neville sign. Received morphine emergency department. Morphine IV as needed. Bowel protocol and antiemetics in place. Reportedly emergency department doctor discussed the case with general surgeon. Missed dose of Coumadin. INR is 2.2. Repeat PT/INR in a.m. Patient was classified as having moderate systemic disease due to severe pulmonary hypertension and paroxysmal A. fib. Surgical risk calculator risk of any complication is 16.4% while average risk is 14.6%. Risk of cardiac complication is 1.0% while average risk is 0.9%. Risk of surgical site infection is 10 patient while average risk is 7%. Risk of readmission is 9.8% while average risk is 8.8%. Risk of discharge to nursing or rehab facility is 14.0% with average risk of 7.6%. Risk of sepsis is 3.7 while average risk is 2%. It will be reasonable to place patient on PCU after surgery. For now will place patient on MedSurg with telemetry. General surgery consult possible cholecystectomy. Rapid Covid antigen test is negative. Patient does not have Covid symptoms.. Chronic constipation Reportedly she has difficulty with bowel movement entry MiraLAX. She report that her constipation secondary to Parkinson's disease. MiraLAX held secondary to n.p.o. with meds and sips. Colace ordered. Hypertension Blood pressure is not within goal Metoprolol and Cardizem continued JUAQUIN inhibitor continued. Trend blood pressure and adjust blood pressure medications. Severe pulmonary hypertension/diastolic dysfunction Lasix held. Gentle IV hydration in the setting of n.p.o. status. Review of old records show that echocardiogram on 02/08/2020 showed estimated e jection fraction of 65%. Stage II diastolic dysfunction. Mild to moderate mitral valve insufficiency; mild tricuspid valve insufficiency. Right ventricular systolic pressure was 53. Moderate pulmonary hypertension. Chronic hypokalemia Potassium continued Trend BMP. Paroxysmal A. fib Reportedly she developed A. fib after an influenza infection. 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 Per Brisa Deleon's notes recent Holter monitor showed low end of heart rate. Per notes on recent cardiology visits patient's flecainide was continued; and her metoprolol was decreased. Metoprolol; flecainide and Cardizem p.o. continued. Placed on MedSurg telemetry. Coumadin on hold secondary to possible surgical intervention. Trend INR. Hypothyroidism Synthroid continued Depression/anxiety Clonazepam and Xanax continued Morbid obesity: BMI: 40.0 kg/m?. Complicates care. Lifestyle modification recommended. DVT prophylaxis Subcutaneous Lovenox. Avoid chemical thromboprophylaxis as patient is surgical candidate. Inpatient E&M: 42831 Init Hosp L2
[2020-08-04 22:59] VITALS: BMI 40.0
[2020-08-04 23:01] VITALS: BP 152/69; PULSE 71; RESP 20; TEMP 36.7; O2SAT 99
[2020-08-04 23:10] VITALS: BMI 40.0
[2020-08-04 23:37] VITALS: PULSE 54
[2020-08-05] VITALS (12 sets, daily range): BP systolic 130–145; BP diastolic 48–63; PULSE 53–107; RESP 16–18; TEMP 36.7–37.2; O2SAT 95–99
[2020-08-05] MEDS: dilTIAZem CD 120 MG Capsule PO ×3 (00:22→21:17)
[2020-08-05] MEDS: Flecainide 100 MG Tablet 50 MG PO ×3 (00:22→21:17)
[2020-08-05] MEDS: Docusate Sodium 100 MG Capsule PO ×3 (00:22→21:17)
[2020-08-05] MEDS: 0.9% Normal Saline 1,000 ML 50 ML IV ×2 (02:08→21:18)
[2020-08-05] MEDS: 0.9% Saline Lock 10 ML Syringe IV ×2 (02:08→19:42)
--- NOTE | 2020-08-05 03:20 | PCS.PANDOC ---
PANDEMIC DOCUMENTATION INITIATED: Date: 08/04/20 Time: 2713
[2020-08-05] MEDS: Levothyroxine 100 MCG Tablet PO (06:19)
[2020-08-05 06:27] LABS: Mucous, Urine 0 SEEN /hpf (<or=2+); Red Blood Cells-Urine 0 SEEN /hpf (0-5); Squamous Epithelial Cells - UA 0 SEEN /hpf (5-10); White Blood Cells 0 SEEN /hpf (0-5)
[2020-08-05 06:33] LABS: Color, Urine Yellow (Yellow); Glucose, Dipstick Normal (Normal); Ketone-Dipstick Negative (Negative); Urine Bilirubin Dipstick Negative (Negative); Urine Clarity Clear (Clear)
[2020-08-05 06:34] LABS: Leukocyte Esterase-Dipstick Negative /ul (Negative); Nitrite-Dipstick Negative (Negative); Occult Blood-Urine Negative /ul (Negative); Protein-Dipstick 30 mg/dl (Negative); Urine Urobilinogen 1 mg/dl (Normal)
[2020-08-05 06:36] LABS: Bacteria RARE /hpf (None Seen)
--- NOTE | 2020-08-05 07:01 | CON.PCM_ITS ---
Reason for Consult Date of Consultation: 08/05/20 History of Present Illness: The patient is a 70 year old F presented to the ER last night due to epigastric pain which began early Thursday or may be even before. Patient states she did not eat anything Thursday or Thursday. Patient ultrasound showed thickened g allbladder wall, pericholecystic fluid, gallstones and sludge, common bile duct in normal range, white blood cell count 20, normal LFTs. Patient denies pain if she is does not move. But does state she does move the pain is still little better than it was when she came in. Patient only got morphine x1 in the ER. Patient is on Coumadin due to A. fib currently her INR is 2.2 she did receive vitamin K 5 mg IV x1. Past Medical History Past Medical History (Chronic Problems): Chronic Problems (Last Reviewed 08/04/20 @ 23:[address] 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) Z79.01 Persistent atrial fibrillation (Chronic) I48.1 Secondary pulmonary arterial hypertension (Chronic) I27.21 RVSP 43 mmhg per echo 05/27/2016 Nonrheumatic tricuspid (valve) insufficiency (Chronic) I36.1 Moderate (2+) per echo 05/27/2018 Nonrheumatic mitral (valve) insufficiency (Chronic) I34.0 Moderate (2+) per echo 05/27/2018 Hyperlipidemia (Chronic) E78.5 Hypertension, essential, benign (Chronic) I10 Hypothyroidism (Chronic) E03.9 Allergies hydralazine Adverse Reaction (Severe, Verified 08/04/20 06:46) Induced Lupus apixaban [From Eliquis] Adverse Reaction (Intermediate, Verified 08/04/20 06:46) Increased bleeding irbesartan [From Avapro] Adverse Reaction (Unknown, Verified 08/04/20 06:46) Unknown levofloxacin [From Levaquin] Adverse Reaction (Unknown, Verified 08/04/20 06:46) Unknown amoxicillin [From Augmentin] Adverse Reaction (Verified 08/04/20 06:46) Nausea clavulanic acid [From Augmentin] Adverse Reaction (Verified 08/04/20 06:46) Nausea Home Medications: Ambulatory Orders Medication Instructions Recorded Benazepril HCl [Lotensin] 40 mg PO DAILY 09/20/16 Furosemide [Lasix] 20 mg PO DAILY 09/20/16 Levothyroxine [Synthroid] 100 mcg PO DAILY 09/20/16 Diltiazem CD [Cardizem CD] 120 mg PO Q12 #90 cap 09/23/16 aspirin 81 mg tablet,delayed 81 mg PO QDAY 03/11/18 release glucosamine-chondroitin 250 mg-200 1 tab PO DAILY tab 03/11/18 mg tablet potassium chloride 10 mEq 10 meq PO QDAY 03/11/18 tablet,extended release alprazolam 0.25 mg tablet 0.25 mg PO DAILY PRN tab 03/12/18 biotin 5,000 mcg disintegrating 10,000 mcg PO DAILY 11/18/18 tablet polyethylene glycol 3350 17 17 g PO DAILY 11/18/18 gram/dose oral powder cholecalciferol (vitamin D3) 50 6,000 unit PO QDAY cap 12/26/19 mcg (2,000 unit) capsule clonazepam 0.5 mg tablet 0.25 mg PO QHS PRN tab 12/26/19 melatonin 5 mg tablet 5 mg PO HS PRN 12/26/19 multivit with 1 tab PO DAILY 12/26/19 qaatuuzr-xfgs-LJ-lutein 8 mg iron-400 mcg-300 mcg tablet flecainide 50 mg tablet 50 mg PO Q12H #180 tab 06/08/20 metoprolol tartrate 100 mg tablet 50 mg PO BID tab 07/26/20 Warfarin [Coumadin ([facility])] 2.5 mg PO SUMOTUFRSA 08/04/20 Warfarin [Coumadin ([facility])] 5 mg PO WETH 08/04/20 Surgical History: Surgical History (Last Reviewed 08/04/20 @ 23:[address] 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 Keo Mariscal MD) Father CAD (coronary artery disease) S/P CABG (coronary artery bypass graft) History Items: Heart Disease Maternal Family History: Family History (Last Reviewed 08/04/20 @ 23:[address] Keo Mariscal MD) Father CAD (coronary artery disease) S/P CABG (coronary artery bypass graft) History Items: Hypertension Review of Systems Constitutional: Reports: Anorexia. Denies: Fever Eyes: Denies: Blurred vision HEENT: Denies: Difficulty Swallowing Cardiovascular: Denies: Chest Pain Respiratory: Denies: Cough Gastrointestinal: Reports: Abdominal Pain, Nausea, Vomiting Genitourinary: Denies: Dysuria Skin: Denies: Jaundice Neurological: Reports: Tremor - parkinsons Psychiatric: Denies: Anxiety Hematologic/ Lymphatic: Reports: Easy Bleeding - on coumadin Patient Problems: Active and Suspected Problems (Last Reviewed 08/04/20 @ 23:[address] Keo Mariscal MD) Acute on chronic cholecystitis concurrent with and due to calculus of gallbladder and bile duct (Acute) Acute cholecystitis (Acute) - Physical Exam Vitals/I&O's: Vital Signs Temp Pulse Resp BP Pulse Ox 98.1 F 53 L 16 141/63 H 95 08/05/20 02:11 08/05/20 04:32 08/05/20 02:11 08/05/20 02:11 08/05/20 02:11 Oxygen Delivery Method Room Air Weight: 251 lb 12.286 oz Body Mass Index (BMI) 40.0 Intake and Output for Last 24 Hours 08/03/20 08/04/20 08/05/20 23:59 23:59 23:59 Intake Total 462.00 / 462.00 290.50 / 290.50 Balance 462.00 / 462.00 290.50 / 290.50 General: Alert, Oriented x3, Cooperative, No apparent distress HEENT: Atraumatic Lungs: Normal air movement Abdomen: Soft, Non-Distended, Obese, Tender - Right upper quadrant, no rebound or guarding Extremities: No clubbing, No cyanosis, No edema, - - Patient does have a tremor on the right arm likely due to Parkinson's Neurological: Cranial nerves II-XII grossly intact Psych/Mental Status: Normal Affect Microbiology Past 72 Hours 08/04/20 21:02 Mucosa - Nose SARS-CoV-2 Antigen (Rapid) - Final Laboratory Results 08/04/20 20:23: WBC 20.3 H, RBC 4.80, Hgb 13.5, Hct 43.1, MCV 89.8, MCH 28.1, MCHC 31.3 L, RDW Std Deviation 51.6 H, RDW Coeff of Gabriel 15.6 H, Plt Count 403, MPV 9.1, Immature Gran % (Auto) 0.500, Neut % (Auto) 90.9 H, Lymph % (Auto) 3.5 L, [place] % (Auto) 4.9, Eos % (Auto) 0.0, Baso % (Auto) 0.2, Absolute Neuts (auto) 18.4 H, Absolute Lymphs (auto) 0.72 L, Nucleated RBC % 0 08/04/20 20:23: Total Bilirubin 0.70, Direct Bilirubin 0.22, AST 19, ALT 26, Alkaline Phosphatase 112, Total Protein 7.8, Albumin 3.7, Globulin 4.1, Lipase 106 08/04/20 20:57: Lactic Acid 1.6 08/04/20 21:50: PT Cancelled, INR Cancelled 08/04/20 22:10: PT 23.8 H, INR 2.2 08/05/20 : Urine Color Yellow, Urine Clarity Clear, Urine pH 5.0, Ur Specific [place] 1.020, Urine Protein 30 H, Urine Glucose (UA) Normal, Urine Ketones Negative, Urine Occult Blood Negative, Urine Nitrite Negative, Urine Bilirubin N egative, Urine Urobilinogen 1 H, Ur Leukocyte Esterase Negative, Urine RBC 0 SEEN, Urine WBC 0 SEEN, Ur Squamous Epith Cells 0 SEEN, Urine Bacteria RARE, Urine Mucus 0 SEEN Current Medications Alprazolam (Alprazolam 0.25 Mg Tablet) 0.25 mg PO DAILY PRN PRN PRN Reason: anxiety, takes rarely Aspirin (Aspirin E.C. 81 Mg Tablet) 81 mg PO DAILY [facility] Cholecalciferol (Cholecalciferol (Vit D3) 1,000 Unit (25mcg)) 6,000 unit PO DAILY [facility] Clonazepam (Clonazepam 0.5 Mg Tablet) 0.25 mg PO QHS PRN PRN Reason: for restless legs Diltiazem HCl (Diltiazem Cd 120 Mg Capsule) 120 mg PO Q12 [facility] Last Admin: 08/05/20 00:22 Dose: 120 mg Documented by: Docusate Sodium (Docusate Sodium 100 Mg Capsule) 100 mg PO BID [facility] Last Admin: 08/05/20 00:22 Dose: 100 mg Documented by: Flecainide Acetate (Flecainide 100 Mg Tablet) 50 mg PO Q12 [facility] Last Admin: 08/05/20 00:22 Dose: 50 mg Documented by: Piperacillin Sod/Tazobactam (Sod 3.375 gm/ Sodium Chloride) 50 mls @ 12.5 mls/hr IV Q8 [facility] Last Admin: 08/05/20 06:19 Dose: 12.5 mls/hr Documented by: Sodium Chloride () 250 mls @ 15 mls/hr IV .[id number] PRN PRN Reason: Saline Flush Last Admin: 08/05/20 06:34 Dose: 15 mls/hr Documented by: Sodium Chloride () 250 mls @ 15 mls/hr IV .[id number] PRN PRN Reason: Additional IVPB Infusion Sodium Chloride () 1,000 mls @ 50 mls/hr IV .Q20H [facility] Last Infusion: 08/05/20 06:20 Dose: 0 mls/hr Documented by: Levothyroxine Sodium (Levothyroxine 100 Mcg Tablet) 100 mcg PO DAILY@0600 [facility] Last Admin: 08/05/20 06:19 Dose: 100 mcg Documented by: Lisinopril (Lisinopril 40 Mg Tablet) 40 mg PO DAILY [facility] Melatonin (Melatonin 3 Mg Tablet) 3 mg PO QHS PRN PRN PRN Reason: INSOMNIA Metoprolol Tartrate (Metoprolol Tartrate 50 Mg Tablet) 50 mg PO BID [facility] Morphine Sulfate (Morphine 2 Mg/Ml Syringe) 2 mg IV Q3H PRN PRN PRN Reason: Pain Score 6-10 Ondansetron HCl (Ondansetron 4 Mg/2 Ml Vial) 4 mg IV Q8H PRN PRN PRN Reason: NAUSEA/VOMITING Sodium Chloride (0.9% Saline Lock 10 Ml Syringe) 10 - 40 ml IV UD PRN PRN Reason: SALINE FLUSH Last Admin: 08/05/20 02:08 Dose: 10 ml Documented by: Assessment/Plan All Active Problems (Last Reviewed 08/04/20 @ 23:[address] Keo Mariscal MD) Acute on chronic cholecystitis concurrent with and due to calculus of gallbladder and bile duct (Acute) Acute cholecystitis (Acute) 70 y/o F w acute cholecystitis, on coumadin for Afib Will plan for laparoscopic cholecystectomy Thursday afternoon, would like INR <1.4, also plan on getting cardiac clearance Reviewed the anatomy with the patient and discussed the procedure: laparoscopic cholecystectomy with cholangiograms, possible open. Review risks including but not limited to bleeding, infection, hernia, bile leak, retained gallstones requiring another procedure ERCP- Endoscopic Retrograde Cholangiopancreatography, injury to another organ (bile ducts, common bile duct, small bowel, etc.) may require transfer to tertiary care facility and conversion to an open procedure. All questions were answered. We discussed the current risks associated with COVID-19. While it is understood that there is a community spread of COVID-19, the risk of david COVID-19 while at [facility] ([facility]) is very low; however, the risk cannot be completely mitigated because of the community spread of the disease. We discussed in detail the risk of exposure to and/or potential harm posed by the COVID-19 virus with having a surgery/procedure at this time versus the risk of delaying the surgery/procedure. It is not possible to know either the risk of delaying the surgery or procedure or chance of getting an infection with perfect accuracy, but a joint decision was made to proceed at this time with the scheduled surgery/procedure as indicated on the consent form. Patient was notified that we will need to comply with any screening or testing [facility] wishes to perform or that surgery may be delayed for any positive results. Katlyn Hoyt M.D. Pager: [phone] [facility] [address] [place] [address], [facility], [address] [place] [address] Office: [phone] Inpatient E&M: 20013 Init Hosp L3
[2020-08-05 07:51] LABS: Absolute Lymphocyte Count 1.05 X10^3/uL (0.83-4.51); Absolute Neutrophil Count 11.8 X10^3/uL (2.0-7.7); Basophil# 0.05 X10^3/uL; Basophil% 0.4 % (0-1); Eosinophil# 0.03 X10^3/uL; Eosinophils% 0.2 % (0-5); Hematocrit 40.9 % (37-47); Hemoglobin 12.8 g/dL (12.0-15.0); Lymphocyte # 1.05 X10^3/ul (4.0); Lymphocyte % 7.5 % (19-41); Mean Corp Hgb Conc 31.3 g/dL (32-36); Mean Corpuscular Hgb 29.2 pg (27.0-32.0); Mean Corpuscular Volume 93.2 fL (81-99); Mean Platelet Vol. 9.2 fl (6.2-12.0); Monocyte# 0.98 X10^3/uL; NRBC Flagged by Analyzer 0 % (0-5); Neutrophil # 11.83 X10^3/uL (2.7-7.7); Neutrophil % 84.3 % (47-70); Platelet Count 353 K/mm3 (150-450); RBC Distribution Width CV 16.2 % (11.6-14.6); RBC Distribution Width SD 55.5 fl (35.1-43.9); Red Blood Count 4.39 M/mm3 (4.2-5.4)
[2020-08-05 08:15] LABS: Anion Gap 8 (5-15); BUN 11 mg/dL (7-18); BUN/Creat Ratio 13.5 RATIO (10-20); Calcium,Total 8.8 mg/dL (8.5-10.1); Chloride 102 mmol/L (98-107); Creatinine, Serum 0.82 mg/dL (0.55-1.02); EST Glomerular Filtration Rate 73 mL/min (>60); Est Glom Filt Rate - Afr Amer 89 mL/min (>60); Estimated Creatinine Clearance 58.91 ml/min; Glucose 97 mg/dL (74-106); Potassium 3.8 mmol/L (3.5-5.1); Sodium Level 133 mmol/L (136-145)
[2020-08-05] MEDS: Aspirin E.C. 81 MG Tablet PO (08:28)
[2020-08-05] MEDS: Metoprolol Tartrate 50 MG Tablet PO ×2 (08:28→21:17)
[2020-08-05] MEDS: Lisinopril 40 MG Tablet PO (08:30)
[2020-08-05 10:05] LABS: International Normalized Ratio 1.8; Prothrombin Time (Protime)PT. 20.6 SECONDS (11.7-14.9)
--- NOTE | 2020-08-05 10:42 | PN_ITS ---
Patient Problems: Active and Suspected Problems (Last Reviewed 08/04/20 @ 23:[address] Keo Mariscal MD) Acute on chronic cholecystitis concurrent with and due to calculus of gallbladder and bile duct (Acute) Acute cholecystitis (Acute) Subjective: Patient seen and examined. SHe was admitted with a complaint of abdominal pain, and diagnosed with acute cholecystitis. General surgery on board. Patient has no complaints this morning. Abdominal pain is much better; review of systems is otherwise negative.General surgery requesting for cardiac clearance prior to surgery tomorrow. Vitals/I&O's: Vital Signs Temp Pulse Resp BP Pulse Ox 98.0 F 63 18 132/56 H 98 08/05/20 08:24 08/05/20 08:28 08/05/20 08:24 08/05/20 08:24 08/05/20 08:24 Oxygen Delivery Method Room Air Weight: 251 lb 12.286 oz Body Mass Index (BMI) 40.0 Intake and Output for Last 24 Hours 08/03/20 08/04/20 08/05/20 23:59 23:59 23:59 Intake Total 462.00 / 462.00 340.50 / 340.50 Balance 462.00 / 462.00 340.50 / 340.50 General: Alert, Oriented x3, Cooperative, No apparent distress HEENT: - - obese Oral: Dry Mucosa Neck: Supple, No JVD, Negative Carotid Bruits Lungs: Clear to auscultation, Normal air movement, No rhonchi, No wheeze, No rales Cardiovascular: Regular rate, Regular Rhythm, Normal S1, Normal S2, No murmurs Abdomen: Bowel Sounds Present, Soft, Non Tender, Non-Distended, No Hepato- splenomegaly, - - Neville's sign negative Extremities: No clubbing, No cyanosis, No edema, Capillary Refill Less than 3 Seconds Skin: No rashes, No breakdown Musculoskeletal: No Tenderness to Palpation of Joints or Extremities Lymphatic: No Cervical, Supraclavicular, or Inguinal Adenopathy Neurological: Cranial nerves II-XII grossly intact, Neuro grossly intact, Motor Exam 5/5 strength throughout Psych/Mental Status: Normal Affect, Appropriate, Alert and oriented to time, place, person, mood and affect Microbiology Past 72 Hours 08/04/20 21:02 Mucosa - Nose SARS-CoV-2 Antigen (Rapid) - Final Laboratory Results 08/04/20 20:23: WBC 20.3 H, RBC 4.80, Hgb 13.5, Hct 43.1, MCV 89.8, MCH 28.1, MCHC 31.3 L, RDW Std Deviation 51.6 H, RDW Coeff of Gabriel 15.6 H, Plt Count 403, MPV 9.1, Immature Gran % (Auto) 0.500, Neut % (Auto) 90.9 H, Lymph % (Auto) 3.5 L, [place] % (Auto) 4.9, Eos % (Auto) 0.0, Baso % (Auto) 0.2, Absolute Neuts (auto) 18.4 H, Absolute Lymphs (auto) 0.72 L, Nucleated RBC % 0 08/04/20 20:23: Total Bilirubin 0.70, Direct Bilirubin 0.22, AST 19, ALT 26, Alkaline Phosphatase 112, Total Protein 7.8, Albumin 3.7, Globulin 4.1, Lipase 106 08/04/20 20:57: Lactic Acid 1.6 08/04/20 21:50: PT Cancelled, INR Cancelled 08/04/20 22:10: PT 23.8 H, INR 2.2 08/05/20 07:14: WBC 14.0 H, RBC 4.39, Hgb 12.8, Hct 40.9, MCV 93.2, MCH 29.2, MCHC 31.3 L, RDW Std Deviation 55.5 H, RDW Coeff of Gabriel 16.2 H, Plt Count 353, MPV 9.2, Immature Gran % (Auto) 0.600, Neut % (Auto) 84.3 H, Lymph % (Auto) 7.5 L, [place] % (Auto) 7.0, Eos % (Auto) 0.2, Baso % (Auto) 0.4, Absolute Neuts (auto) 11.8 H, Absolute Lymphs (auto) 1.05, Nucleated RBC % 0 08/05/20 07:14: Sodium 133 L, Potassium 3.8, Chloride 102, Carbon Dioxide 23.0, Anion Gap 8, BUN 11, Creatinine 0.82, Estim Creat Clear Calc 58.91, Est GFR (MDRD) Af Amer 89, Est GFR (MDRD) Non-Af 73, BUN/Creatinine Ratio 13.5, Glucose 97, Calcium 8.8 08/05/20 09:30: PT 20.6 H, INR 1.8 08/05/20 : Urine Color Yellow, Urine Clarity Clear, Urine pH 5.0, Ur Specific [place] 1.020, Urine Protein 30 H, Urine Glucose (UA) Normal, Urine Ketones Negative, Urine Occult Blood Negative, Urine Nitrite Negative, Urine Bilirubin Negative, Urine Urobilinogen 1 H, Ur Leukocyte Esterase Negative, Urine RBC 0 SEEN, Urine WBC 0 SEEN, Ur Squamous Epith Cells 0 SEEN, Urine Bacteria RARE, Urine Mucus 0 SEEN Diagnostic Data Gallbladder Ultrasound 08/04/20 20:14 IMPRESSION: Distended gallbladder associated with cholelithiasis, gallbladder wall thickening, pericholecystic fluid and a reported positive sonographic Neville''s sign concerning for underlying cholecystitis. Electronically Signed: Iram Callahan MD at 22:01 EST Tel , Service support , Current Medications Alprazolam (Alprazolam 0.25 Mg Tablet) 0.25 mg PO DAILY PRN PRN PRN Reason: anxiety, takes rarely Aspirin (Aspirin E.C. 81 Mg Tablet) 81 mg PO DAILY [facility] Last Admin: 08/05/20 08:28 Dose: 81 mg Documented by: Cholecalciferol (Cholecalciferol (Vit D3) 1,000 Unit (25mcg)) 6,000 unit PO DAILY [facility] Last Admin: 08/05/20 08:25 Dose: 6,000 unit Documented by: Clonazepam (Clonazepam 0.5 Mg Tablet) 0.25 mg PO QHS PRN PRN Reason: for restless legs Diltiazem HCl (Diltiazem Cd 120 Mg Capsule) 120 mg PO Q12 [facility] Last Admin: 08/05/20 08:30 Dose: 120 mg Documented by: Docusate Sodium (Docusate Sodium 100 Mg Capsule) 100 mg PO BID [facility] Last Admin: 08/05/20 08:26 Dose: 100 mg Documented by: Flecainide Acetate (Flecainide 100 Mg Tablet) 50 mg PO Q12 [facility] Last Admin: 08/05/20 08:27 Dose: 50 mg Documented by: Piperacillin Sod/Tazobactam (Sod 3.375 gm/ Sodium Chloride) 50 mls @ 12.5 mls/hr IV Q8 [facility] Last Infusion: 08/05/20 10:20 Dose: Infused Documented by: Sodium Chloride () 250 mls @ 15 mls/hr IV .[id number] PRN PRN Reason: Saline Flush Last Infusion: 08/05/20 10:27 Dose: 15 mls/hr Documented by: Sodium Chloride () 250 mls @ 15 mls/hr IV .[id number] PRN PRN Reason: Additional IVPB Infusion Sodium Chloride () 1,000 mls @ 50 mls/hr IV .Q20H [facility] Last Infusion: 08/05/20 06:20 Dose: 50 mls/hr Documented by: Levothyroxine Sodium (Levothyroxine 100 Mcg Tablet) 100 mcg PO DAILY@0600 [facility] Last Admin: 08/05/20 06:19 Dose: 100 mcg Documented by: Lisinopril (Lisinopril 40 Mg Tablet) 40 mg PO DAILY [facility] Last Admin: 08/05/20 08:30 Dose: 40 mg Documented by: Melatonin (Melatonin 3 Mg Tablet) 3 mg PO QHS PRN PRN PRN Reason: INSOMNIA Metoprolol Tartrate (Metoprolol Tartrate 50 Mg Tablet) 50 mg PO BID [facility] Last Admin: 08/05/20 08:28 Dose: 50 mg Documented by: Morphine Sulfate (Morphine 2 Mg/Ml Syringe) 2 mg IV Q3H PRN PRN PRN Reason: Pain Score 6-10 Ondansetron HCl (Ondansetron 4 Mg/2 Ml Vial) 4 mg IV Q8H PRN PRN PRN Reason: NAUSEA/VOMITING Sodium Chloride (0.9% Saline Lock 10 Ml Syringe) 10 - 40 ml IV UD PRN PRN Reason: SALINE FLUSH Last Admin: 08/05/20 02:08 Dose: 10 ml Documented by: STROKE Vital Signs/Narrative: Vital Signs Temp Pulse Resp BP Pulse Ox 08/05/20 08:28 63 08/05/20 08:24 98.0 F 63 18 132/56 H 98 08/05/20 07:50 95 08/05/20 07:23 107 H Medical Necessity - Tobacco Use Smoking Status: Never smoker Assessment/Plan All Active Problems (Last Reviewed 08/04/20 @ 23:[address] Keo Mariscal MD) Acute on chronic cholecystitis concurrent with and due to calculus of gal lbladder and bile duct (Acute) Acute cholecystitis (Acute) #Acute cholecystitis * Abdominal pain is much better today. * WBC is down to 14 from 20.3 on admission. * On IV Zosyn. * General surgery on board. For cholecystectomy tomorrow. * Cardiology consulted for cardiac clearance in light of her extensive cardiac history, per general surgery request * #Hypertension * BP control is much better. Blood pressure is 132/56 this morning. * On metoprolol and Cardizem as well as lisinopril. * #History of A. fib: On flecainide and metoprolol. On Cardizem. Coumadin on hold on account of her going for surgery tomorrow. INR today is 1.8. #Chronic hypokalemia: Potassium is 3.8 today. Potassium replacement. #Chronic constipation: Usually on MiraLAX. On Colace now. #Hypothyroidism: On Synthroid. #History of pulmonary hypertension: * 2D echo done in January 2020 showed EF of 65% with stage II diastolic dysfunction and right ventricular systolic pressure of 53 mmHg. * Cardiology consulted for cardiac clearance #Morbid obesity: complicates acute care, prognosis and expected recovery #Depression and anxiety: on xanax and clonazepam DVT prophylaxis: SCDs. coumadin on hold. Inpatient E&M: 69521 Subs Hosp L2
--- NOTE | 2020-08-05 13:27 | PCM.CONS.C ---
Reason for Consult Date of Consultation: 08/05/20 Reason for Consultation: Preoperative evaluation History of Present Illness: The patient is a 70 year old F [with past medical history of paroxysmal atrial fibrillation, mild to moderate mitral regurgitation, pulmonary hypertension admitted for acute cholecystitis. Surgery is being considered. Cardiology consult was requested for preoperative evaluation. Patient denies any chest pain. She has greater than 4 METS of functional capacity. Patient had a stress test in July 2019 that was negative for ischemia.] Past Medical History Allergies/Adverse Reactions: Allergies hydralazine Adverse Reaction (Severe, Verified 08/04/20 06:46) Induced Lupus apixaban [From Eliquis] Adverse Reaction (Intermediate, Verified 08/04/20 06:46) Increased bleeding irbesartan [From Avapro] Adverse Reaction (Unknown, Verified 08/04/20 06:46) Unknown levofloxacin [From Levaquin] Adverse Reaction (Unknown, Verified 08/04/20 06:46) Unknown amoxicillin [From Augmentin] Adverse Reaction (Verified 08/04/20 06:46) Nausea clavulanic acid [From Augmentin] Adverse Reaction (Verified 08/04/20 06:46) Nausea Home Medications: Ambulatory Orders Medication Instructions Recorded Benazepril HCl [Lotensin] 40 mg PO DAILY 09/20/16 Furosemide [Lasix] 20 mg PO DAILY 09/20/16 Levothyroxine [Synthroid] 100 mcg PO DAILY 09/20/16 Diltiazem CD [Cardizem CD] 120 mg PO Q12 #90 cap 09/23/16 aspirin 81 mg tablet,delayed 81 mg PO QDAY 03/11/18 release glucosamine-chondroitin 250 mg-200 1 tab PO DAILY tab 03/11/18 mg tablet potassium chloride 10 mEq 10 meq PO QDAY 03/11/18 tablet,extended release alprazolam 0.25 mg tablet 0.25 mg PO DAILY PRN tab 03/12/18 biotin 5,000 mcg disintegrating 10,000 mcg PO DAILY 11/18/18 tablet polyethylene glycol 3350 17 17 g PO DAILY 11/18/18 gram/dose oral powder cholecalciferol (vitamin D3) 50 6,000 unit PO QDAY cap 12/26/19 mcg (2,000 unit) capsule clonazepam 0.5 mg tablet 0.25 mg PO QHS PRN tab 12/26/19 melatonin 5 mg tablet 5 mg PO HS PRN 12/26/19 multivit with 1 tab PO DAILY 12/26/19 [id number]-lutein 8 mg iron-400 mcg-300 mcg tablet flecainide 50 mg tablet 50 mg PO Q12H #180 tab 06/08/20 metoprolol tartrate 100 mg tablet 50 mg PO BID tab 07/26/20 Warfarin [Coumadin ([facility])] 2.5 mg PO SUMOTUFRSA 08/04/20 Warfarin [Coumadin ([facility])] 5 mg PO WETH 08/04/20 Past Medical History (Chronic Problems): Chronic Problems (Last Reviewed 08/04/20 @ 23:[address] 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) Persistent atrial fibrillation (Chronic) Secondary pulmonary arterial hypertension (Chronic) RVSP 43 mmhg per echo 05/27/2016 Nonrheumatic tricuspid (valve) insufficiency (Chronic) Moderate (2+) per echo 05/27/2018 Nonrheumatic mitral (valve) insufficiency (Chronic) Moderate (2+) per echo 05/27/2018 Hyperlipidemia (Chronic) Hypertension, essential, benign (Chronic) Hypothyroidism (Chronic) Obesity (BMI 30-39.9) (Chronic) Surgical History: no surgical history Psychiatric History: No pertinent psych hx 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 Keo Mariscal MD) Father CAD (coronary artery disease) S/P CABG (coronary artery bypass graft) History Items: Heart Disease Maternal Family History: Family History (Last Reviewed 08/04/20 @ 23:[address] Keo Mariscal MD) Father CAD (coronary artery disease) S/P CABG (coronary artery bypass graft) History Items: Hypertension Smoking Status: Never smoker Objective: Vital Signs Temp Pulse Resp BP Pulse Ox 98.0 F 63 18 132/56 H 98 08/05/20 08:24 08/05/20 08:28 08/05/20 08:24 08/05/20 08:24 08/05/20 08:24 Oxygen Delivery Method Room Air Weight: 251 lb 12.286 oz Body Mass Index (BMI) 40.0 Intake and Output for Last 24 Hours 08/03/20 08/04/20 08/05/20 23:59 23:59 23:59 Intake Total 462.00 / 462.00 580.50 / 580.50 Balance 462.00 / 462.00 580.50 / 580.50 General: Awake, Alert, Oriented x 3 HEENT: Atraumatic Oral: Moist Mucosa Lungs: Clear to auscultation Cardiovascular: Regular Rhythm Skin: No Rashes Psych/Mental Status: Appropriate 08/04/20 20:23: WBC 20.3 H, RBC 4.80, Hgb 13.5, Hct 43.1, MCV 89.8, MCH 28.1, MCHC 31.3 L, Plt Count 403, MPV 9.1, Immature Gran % (Auto) 0.500, Neut % (Auto) 90.9 H, Lymph % (Auto) 3.5 L, [place] % (Auto) 4.9, Eos % (Auto) 0.0, Baso % (Auto) 0.2, Absolute Neuts (auto) 18.4 H, Nucleated RBC % 0 08/04/20 20:23: Total Bilirubin 0.70, Direct Bilirubin 0.22 08/04/20 20:57: Lactic Acid 1.6 08/04/20 21:50: PT Cancelled, INR Cancelled 08/04/20 22:10: PT 23.8 H, INR 2.2 08/05/20 07:14: WBC 14.0 H, RBC 4.39, Hgb 12.8, Hct 40.9, MCV 93.2, MCH 29.2, MCHC 31.3 L, Plt Count 353, MPV 9.2, Immature Gran % (Auto) 0.600, Neut % (Auto) 84.3 H, Lymph % (Auto) 7.5 L, [place] % (Auto) 7.0, Eos % (Auto) 0.2, Baso % (Auto) 0.4, Absolute Neuts (auto) 11.8 H, Nucleated RBC % 0 08/05/20 07:14: Sodium 133 L, Potassium 3.8, Chloride 102, Carbon Dioxide 23.0, Anion Gap 8, BUN 11, Creatinine 0.82, Est GFR (MDRD) Af Amer 89, Est GFR (MDRD) Non-Af 73, BUN/Creatinine Ratio 13.5, Glucose 97, Calcium 8.8 08/05/20 09:30: PT 20.6 H, INR 1.8 08/05/20 : Urine Color Yellow, Urine Clarity Clear, Urine pH 5.0, Ur Specific [place] 1.020, Urine Protein 30 H, Urine Glucose (UA) Normal, Urine Ketones Negative, Urine Occult Blood Negative, Urine Nitrite Negative, Urine Bilirubin Negative, Urine Urobilinogen 1 H, Ur Leukocyte Esterase Negative, Urine RBC 0 SEEN, Urine WBC 0 SEEN Rhythm: EKG: ECHO: Stress Test: Cardiac Cath: PCI: CT Surgery: Holter monitor: EPS: PPM: CXR: Chest CT Scan: Assessment/Plan 1. Preoperative cardiovascular evaluation: Patient does not need any further preoperative cardiac testing prior to cholecystectomy. She is at low risk for perioperative cardiac complications. Okay to hold anticoagulation prior to procedure. She does not need to be bridged with heparin from a cardiac standpoint. 2. Atrial fibrillation: Patient is currently in sinus rhythm. Postoperatively she could go into A. fib. If she does please let us know. We will sign off at this time. Please let us know if we can be of any further assistance.
[2020-08-05 18:54] LABS: International Normalized Ratio 1.6; Prothrombin Time (Protime)PT. 18.4 SECONDS (11.7-14.9)
[2020-08-05] MEDS: Morphine 2 MG/ML Syringe IV (19:42)
[2020-08-06] VITALS (20 sets, daily range): BP systolic 134–201; BP diastolic 55–93; PULSE 58–77; RESP 16–18; TEMP 35.9–37.1; O2SAT 92–100; BMI 40.0
[2020-08-06 05:12] LABS: Absolute Lymphocyte Count 0.85 X10^3/uL (0.83-4.51); Absolute Neutrophil Count 7.4 X10^3/uL (2.0-7.7); Basophil# 0.03 X10^3/uL; Basophil% 0.3 % (0-1); Eosinophil# 0.05 X10^3/uL; Eosinophils% 0.6 % (0-5); Hematocrit 36.3 % (37-47); Hemoglobin 11.3 g/dL (12.0-15.0); Lymphocyte # 0.85 X10^3/ul (4.0); Lymphocyte % 9.4 % (19-41); Mean Corp Hgb Conc 31.1 g/dL (32-36); Mean Corpuscular Hgb 28.3 pg (27.0-32.0); Mean Corpuscular Volume 90.8 fL (81-99); Monocyte# 0.73 X10^3/uL; NRBC Flagged by Analyzer 0 % (0-5); Neutrophil # 7.39 X10^3/uL (2.7-7.7); Neutrophil % 81.4 % (47-70); Platelet Count 281 K/mm3 (150-450); RBC Distribution Width CV 16.1 % (11.6-14.6); RBC Distribution Width SD 54.5 fl (35.1-43.9); White Blood Count 9.1 K/mm3 (4.4-11.0)
[2020-08-06 05:19] LABS: International Normalized Ratio 1.5; Prothrombin Time (Protime)PT. 17.2 SECONDS (11.7-14.9)
[2020-08-06 05:29] LABS: Anion Gap 8 (5-15); BUN 11 mg/dL (7-18); BUN/Creat Ratio 15.2 RATIO (10-20); Calcium,Total 8.3 mg/dL (8.5-10.1); Chloride 104 mmol/L (98-107); Creatinine, Serum 0.72 mg/dL (0.55-1.02); EST Glomerular Filtration Rate 84 mL/min (>60); Est Glom Filt Rate - Afr Amer 102 mL/min (>60); Glucose 102 mg/dL (74-106); Potassium 3.2 mmol/L (3.5-5.1); Sodium Level 138 mmol/L (136-145)
[2020-08-06] MEDS: Levothyroxine 100 MCG Tablet PO (05:30)
--- NOTE | 2020-08-06 08:32 | PCM.PN.SRG ---
Patient Problems: Active and Suspected Problems (Last Reviewed 08/04/20 @ 23:[address] Keo Mariscal MD) Acute on chronic cholecystitis concurrent with and due to calculus of gallbladder and bile duct (Acute) Acute cholecystitis (Acute) Subjective: Patient denies pain while sitting does state there is some tenderness with palpation, patient did have some regular diet yesterday - Physical Exam Vitals/I&O's: Vital Signs Temp Pulse Resp BP Pulse Ox 98.8 F 58 L 16 134/55 H 94 08/06/20 03:13 08/06/20 04:00 08/06/20 03:13 08/06/20 03:13 08/06/20 03:13 Oxygen Delivery Method Room Air Weight: 251 lb 12.286 oz Body Mass Index (BMI) 40.0 Intake and Output for Last 24 Hours 08/04/20 08/05/20 08/06/20 23:59 23:59 23:59 Intake Total 462.00 / 462.00 1839.33 / 2139.33 463.25 / 463.25 Balance 462.00 / 462.00 1839.33 / 2139.33 463.25 / 463.25 General: Alert, Oriented x3, Cooperative HEENT: Atraumatic Lungs: Normal air movement Cardiovascular: Regular rate Abdomen: Soft, Non-Distended, Tender - RUQ, no PS Extremities: No clubbing, No cyanosis, No edema Lymphatic: No Cervical, Supraclavicular, or Inguinal Adenopathy Neurological: Cranial nerves II-XII grossly intact Microbiology Past 72 Hours 08/04/20 21:02 Mucosa - Nose SARS-CoV-2 Antigen (Rapid) - Final Laboratory Results 08/05/20 09:30: PT 20.6 H, INR 1.8 08/05/20 18:29: PT 18.4 H, INR 1.6 08/06/20 04:35: WBC 9.1, RBC 4.00 L, Hgb 11.3 L, Hct 36.3 L, MCV 90.8, MCH 28.3, MCHC 31.1 L, RDW Std Deviation 54.5 H, RDW Coeff of Gabriel 16.1 H, Plt Count 281, MPV 9.0, Immature Gran % (Auto) 0.300, Neut % (Auto) 81.4 H, Lymph % (Auto) 9.4 L, [place] % (Auto) 8.0, Eos % (Auto) 0.6, Baso % (Auto) 0.3, Absolute Neuts (auto) 7.4, Absolute Lymphs (auto) 0.85, Nucleated RBC % 0 08/06/20 04:35: Sodium 138, Potassium 3.2 L, Chloride 104, Carbon Dioxide 26.0, Anion Gap 8, BUN 11, Creatinine 0.72, Estim Creat Clear Calc 48.30, Est GFR (MDRD) Af Amer 102, Est GFR (MDRD) Non-Af 84, BUN/Creatinine Ratio 15.2, Glucose 102, Calcium 8.3 L 08/06/20 04:35: PT 17.2 H, INR 1.5 08/06/20 08:20: Blood Type Pending Current Medications Alprazolam (Alprazolam 0.25 Mg Tablet) 0.25 mg PO DAILY PRN PRN PRN Reason: anxiety, takes rarely Aspirin (Aspirin E.C. 81 Mg Tablet) 81 mg PO DAILY [facility] Last Admin: 08/05/20 08:28 Dose: 81 mg Documented by: Cholecalciferol (Cholecalciferol (Vit D3) 1,000 Unit (25mcg)) 6,000 unit PO DAILY [facility] Last Admin: 08/05/20 08:25 Dose: 6,000 unit Documented by: Clonazepam (Clonazepam 0.5 Mg Tablet) 0.25 mg PO QHS PRN PRN Reason: for restless legs Diltiazem HCl (Diltiazem Cd 120 Mg Capsule) 120 mg PO Q12 [facility] Last Admin: 08/05/20 21:17 Dose: 120 mg Documented by: Docusate Sodium (Docusate Sodium 100 Mg Capsule) 100 mg PO BID [facility] Last Admin: 08/05/20 21:17 Dose: 100 mg Documented by: Flecainide Acetate (Flecainide 100 Mg Tablet) 50 mg PO Q12 [facility] Last Admin: 08/05/20 21:17 Dose: 50 mg Documented by: Piperacillin Sod/Tazobactam (Sod 3.375 gm/ Sodium Chloride) 50 mls @ 12.5 mls/hr IV Q8 [facility] Last Admin: 08/06/20 05:30 Dose: 12.5 mls/hr Documented by: Sodium Chloride () 250 mls @ 15 mls/hr IV .[id number] PRN PRN Reason: Saline Flush Last Infusion: 08/06/20 05:30 Dose: 0 mls/hr Documented by: Sodium Chloride () 250 mls @ 15 mls/hr IV .[id number] PRN PRN Reason: Additional IVPB Infusion Sodium Chloride () 1,000 mls @ 50 mls/hr IV .Q20H [facility] Levothyroxine Sodium (Levothyroxine 100 Mcg Tablet) 100 mcg PO DAILY@0600 [facility] Last Admin: 08/06/20 05:30 Dose: 100 mcg Documented by: Lisinopril (Lisinopril 40 Mg Tablet) 40 mg PO DAILY [facility] Last Admin: 08/05/20 08:30 Dose: 40 mg Documented by: Melatonin (Melatonin 3 Mg Tablet) 3 mg PO QHS PRN PRN PRN Reason: INSOMNIA Metoprolol Tartrate (Metoprolol Tartrate 50 Mg Tablet) 50 mg PO BID [facility] Last Admin: 08/05/20 21:17 Dose: 50 mg Documented by: Morphine Sulfate (Morphine 2 Mg/Ml Syringe) 2 mg IV Q3H PRN PRN PRN Reason: Pain Score 6-10 Last Admin: 08/05/20 19:42 Dose: 2 mg Documented by: Ondansetron HCl (Ondansetron 4 Mg/2 Ml Vial) 4 mg IV Q8H PRN PRN PRN Reason: NAUSEA/VOMITING Sodium Chloride (0.9% Saline Lock 10 Ml Syringe) 10 - 40 ml IV UD PRN PRN Reason: SALINE FLUSH Last Admin: 08/05/20 19:42 Dose: 10 ml Documented by: Medical Necessity - Tobacco Use Smoking Status: Never smoker Assessment/Plan All Active Problems (Last Reviewed 08/04/20 @ 23:[address] Keo Mariscal MD) Acute on chronic cholecystitis concurrent with and due to calculus of gallbladder and bile duct (Acute) Acute cholecystitis (Acute) 70 y/o F w acute cholecystitis, on coumadin for Afib INR currently 1.5 patient will get FFP this morning plan for laparoscopic cholecystectomy at 140. Patient is considered low risk from a cardiac standpoint. Continue IV Zosyn, patient white blood count currently normal. We discussed the current risks associated with COVID-19. While it is understood that there is a community spread of COVID-19, the risk of david COVID-19 while at [facility] ([facility]) is very low; however, the risk cannot be completely mitigated because of the community spread of the disease. We discussed in detail the risk of exposure to and/or potential harm posed by the COVID-19 virus with having a surgery/procedure at this time versus the risk of delaying the surgery/procedure. It is not possible to know either the risk of delaying the surgery or procedure or chance of getting an infection with perfect accuracy, but a joint decision was made to proceed at this time with the scheduled surgery/procedure as indicated on the consent form. Patient was notified that we will need to comply with any screening or testing [facility] wishes to perform or that surgery may be delayed for any positive results. Katlyn Hoyt M.D. Pager: [phone] [facility] [address] [place] [address] [address] [place] [address] Office: [phone]
--- NOTE | 2020-08-06 09:35 | CASEMGMT ---
RN CM Face to Face with patient for initial transition planning/care coordination assessment. RN CM introduced self and role at [facility]. Patient lying in bed, alert and oriented. Patient willing to participate in assessment and is able to answer all questions appropriately. Care providers, pharmacy, and demographics verified. Patient wishes to discharge home, denies need for home health at this time. Patient states she has no further needs or concerns at this time. CM to follow for discharge planning needs that may arise. PCP: Neil Specialists: Ju director vaccine Preferred Pharmacy: [facility] Insurance: [employer] [facility] Prescription Benefit: yes Living Will/HPOA: none LNOK: and daughter Living Arrangements: Patient lives with and daughter in a split level home. Patient states she is independent at home and able to ambulate stairs. Transportation: self, DME/HHC: Patient states she has raised toilet, cane, bipap at home. Patient denies previous HHC Disposition Plan: Patient to discharge home with family support and follow-up plans in place. Ivy BERMUDEZ, RN, CM
--- NOTE | 2020-08-06 10:18 | PCM.PN.HOSP ---
Patient Problems: Active and Suspected Problems (Last Reviewed 08/04/20 @ 23:[address] Keo Mariscal MD) Acute on chronic cholecystitis concurrent with and due to calculus of gallbladder and bile duct (Acute) Acute cholecystitis (Acute) Subjective: Denies any current issues or needs. States that she does wear BIPAP at home but unsure of settings. OR today at 1340. Vitals/I&O's: Vital Signs Temp Pulse Resp BP Pulse Ox 98.8 F 58 L 16 134/55 H 94 08/06/20 03:13 08/06/20 04:00 08/06/20 03:13 08/06/20 03:13 08/06/20 03:13 Oxygen Delivery Method Room Air Weight: 114.2 kg Body Mass Index (BMI) 40.0 Intake and Output for Last 24 Hours 08/04/20 08/05/20 08/06/20 23:59 23:59 23:59 Intake Total 462.00 / 462.00 1839.33 / 2139.33 463.25 / 463.25 Balance 462.00 / 462.00 1839.33 / 2139.33 463.25 / 463.25 General: Alert, Oriented x3, Cooperative, Well developed, Well nourished, - - older WF lying in bed, appears comfortable HEENT: Atraumatic, PERRLA, EOMI, Normocephalic, EAC Clear Oral: Moist Mucosa, No Gingival or Mucosal Lesions/ Ulcerations Neck: Supple, Trachea Midline Lungs: Clear to auscultation, Normal air movement, No rhonchi, No wheeze, No rales Cardiovascular: Regular rate, Regular Rhythm, Normal S1, Normal S2, No murmurs, No Ectopic Activity, No rub noted, No Gallop Abdomen: Bowel Sounds Present, Soft, Non-Distended, No Hepato-splenomegaly, Tender - RUQ Extremities: No clubbing, No cyanosis, No edema, Capillary Refill Less than 3 Seconds, Peripheral Pulses Normal Neurological: Cranial nerves II-XII grossly intact, Neuro grossly intact Psych/Mental Status: Normal Affect, Appropriate Microbiology Past 72 Hours 08/04/20 21:02 Mucosa - Nose SARS-CoV-2 Antigen (Rapid) - Final Laboratory Results 08/05/20 18:29: PT 18.4 H, INR 1.6 08/06/20 04:35: WBC 9.1, RBC 4.00 L, Hgb 11.3 L, Hct 36.3 L, MCV 90.8, MCH 28.3, MCHC 31.1 L, RDW Std Deviation 54.5 H, RDW Coeff of Gabriel 16.1 H, Plt Count 281, MPV 9.0, Immature Gran % (Auto) 0.300, Neut % (Auto) 81.4 H, Lymph % (Auto) 9.4 L, [place] % (Auto) 8.0, Eos % (Auto) 0.6, Baso % (Auto) 0.3, Absolute Neuts (auto) 7.4, Absolute Lymphs (auto) 0.85, Nucleated RBC % 0 08/06/20 04:35: Sodium 138, Potassium 3.2 L, Chloride 104, Carbon Dioxide 26.0, Anion Gap 8, BUN 11, Creatinine 0.72, Estim Creat Clear Calc 48.30, Est GFR (MDRD) Af Amer 102, Est GFR (MDRD) Non-Af 84, BUN/Creatinine Ratio 15.2, Glucose 102, Calcium 8.3 L 08/06/20 04:35: PT 17.2 H, INR 1.5 08/06/20 08:20: Blood Type O POSITIVE Current Medications Alprazolam (Alprazolam 0.25 Mg Tablet) 0.25 mg PO DAILY PRN PRN PRN Reason: anxiety, takes rarely Aspirin (Aspirin E.C. 81 Mg Tablet) 81 mg PO DAILY [facility] Last Admin: 08/05/20 08:28 Dose: 81 mg Documented by: Cholecalciferol (Cholecalciferol (Vit D3) 1,000 Unit (25mcg)) 6,000 unit PO DAILY [facility] Last Admin: 08/05/20 08:25 Dose: 6,000 unit Documented by: Clonazepam (Clonazepam 0.5 Mg Tablet) 0.25 mg PO QHS PRN PRN Reason: for restless legs Diltiazem HCl (Diltiazem Cd 120 Mg Capsule) 120 mg PO Q12 [facility] Last Admin: 08/05/20 21:17 Dose: 120 mg Documented by: Docusate Sodium (Docusate Sodium 100 Mg Capsule) 100 mg PO BID [facility] Last Admin: 08/05/20 21:17 Dose: 100 mg Documented by: Flecainide Acetate (Flecainide 100 Mg Tablet) 50 mg PO Q12 [facility] Last Admin: 08/05/20 21:17 Dose: 50 mg Documented by: Piperacillin Sod/Tazobactam (Sod 3.375 gm/ Sodium Chloride) 50 mls @ 12.5 mls/hr IV Q8 [facility] Last Admin: 08/06/20 05:30 Dose: 12.5 mls/hr Documented by: Sodium Chloride () 250 mls @ 15 mls/hr IV .[id number] PRN PRN Reason: Saline Flush Last Infusion: 08/06/20 05:30 Dose: 0 mls/hr Documented by: Sodium Chloride () 250 mls @ 15 mls/hr IV .[id number] PRN PRN Reason: Additional IVPB Infusion Sodium Chloride () 1,000 mls @ 50 mls/hr IV .Q20H [facility] Levothyroxine Sodium (Levothyroxine 100 Mcg Tablet) 100 mcg PO DAILY@0600 [facility] Last Admin: 08/06/20 05:30 Dose: 100 mcg Documented by: Lisinopril (Lisinopril 40 Mg Tablet) 40 mg PO DAILY [facility] Last Admin: 08/05/20 08:30 Dose: 40 mg Documented by: Melatonin (Melatonin 3 Mg Tablet) 3 mg PO QHS PRN PRN PRN Reason: INSOMNIA Metoprolol Tartrate (Metoprolol Tartrate 50 Mg Tablet) 50 mg PO BID [facility] Last Admin: 08/05/20 21:17 Dose: 50 mg Documented by: Morphine Sulfate (Morphine 2 Mg/Ml Syringe) 2 mg IV Q3H PRN PRN PRN Reason: Pain Score 6-10 Last Admin: 08/05/20 19:42 Dose: 2 mg Documented by: Ondansetron HCl (Ondansetron 4 Mg/2 Ml Vial) 4 mg IV Q8H PRN PRN PRN Reason: NAUSEA/VOMITING Sodium Chloride (0.9% Saline Lock 10 Ml Syringe) 10 - 40 ml IV UD PRN PRN Reason: SALINE FLUSH Last Admin: 08/05/20 19:42 Dose: 10 ml Documented by: Medical Necessity - Tobacco Use Smoking Status: Never smoker Assessment/Plan All Active Problems (Last Reviewed 08/04/20 @ 23:[address] Keo Mariscal MD) Acute on chronic cholecystitis concurrent with and due to calculus of gallbladder and bile duct (Acute) Acute cholecystitis (Acute) Acute Cholecystitis -OR today at 1340 -FFP x 1 dose today with INR 1.5 this am -continue Zosyn -BIPAP after OR since pt has ANGELI at baseline -Cards has cleared -d/w GS-Dr. Ruby Hypokalemia -ok for PO replacement per GS -40 mEq PO given -recheck in am Leukocytosis -resolved Mild anemia -watch in post operative period Hyponatremia -resolved -BMP in am ANGELI -on BIPAP at home -ordered for HS and d/w nsg staff to use after OR PAF -cont flecainide, diltiazem and metoprolol -coumadin on hold--Restart after surgery when ok with GS -no bridging needed HTN continue home meds PAH WHO Group 3 -diuresis as needed -BIPAP Hypothyroidism -continue Synthroid Chronic Constipation -continue home meds after OR and PO intake resumed -miralax daily Anxiety -cont home Klonopin DVT Prophylaxis -start today after OR until INR therapeutic again -Lovenox 40 daily Code status -Full Inpatient E&M: 61297 Subs Hosp L2
[2020-08-06] MEDS: Metoprolol Tartrate 50 MG Tablet PO ×2 (10:47→21:14)
--- NOTE | 2020-08-06 12:40 | NURSING ---
PT TO SURGERY VIA BED.
[2020-08-06 13:03] LABS: International Normalized Ratio 1.3; Prothrombin Time (Protime)PT. 15.7 SECONDS (11.7-14.9)
--- NOTE | 2020-08-06 13:40 | GALL_PTH ---
PATIENT: WALDO GRIFFIN LOC: MS3 U#:[id number] AGE/SX: 70/F ROOM: MS306 RE08/04/[address]: Dr. Bobby Gagnon MD : 1950 BED: 1 DIS: 08/10/2020 SPEC #: [id number] RECD: 08/07/20 08:03 STATUS: MARK REDhiraj #: [id number] KARLY: 08/06/20 13:[address]: Katlyn Hoyt DEPT: SURGICAL PATHOLOGY RECD BY: Karolyn Simental ENTERED: 08/07/20 08:49 SP TYPE: GALLBLADDE OTHR DR: DO Dr. Keo Barry MD Dr. Kathryn Lee, DO Dr. Nagapradee Nagajothi, MD Dr. Tamera Robotham, MD Tissues: Gallbladder, NOS Procedures: Surgery Specimen Level III Comments: @ Ordering doctor for SUIII edited from to @ by MANISHA at 08/07/20 0954 @ Submitting doctor edited from to @ by RGOOD at 08/07/20 0954 HEADER OPERATION: Laparoscopic cholecystectomy with IOC PRE-OP DIAGNOSIS: Acute on chronic cholecystitis concurrent with and due to calculus of gallbladder and bile duct TISSUE SUBMITTED: Gallbladder MICROSCOPIC DIAGNOSIS Gallbladder, cholecystectomy: Acute and chronic ulcerated and hemorrhagic cholecystitis and cholelithiasis. Reactive epithelial changes. DELORIS:harmony 08/08/20 MICROSCOPIC DESCRIPTION Slides are reviewed. GROSS DESCRIPTION Received is one container labeled with the patient's name and designated gallbladder. The specimen consists of a previously opened gallbladder measuring 10 cm in length and up to 6 cm in diameter. The gallbladder contains the hemorrhagic bile. Present in the container and also in the gallbladder are multiple mcqueen-light yellow to brown stones and stone fragments measuring in aggregate 6.5 x 4 x 2 cm and 0.1 to 0.7 cm in greatest dimension. The serosa is congested and shows focal klein, purulent exudate. The mucosa is ulcerated and congested. Sections of the gallbladder wall reveal congested and hemorrhagic and edematous cut surfaces. The gallbladder wall measures up to 1 cm in thickness. Clerical Order Filler sections from the gallbladder and the cystic duct are submitted in one cassette. / DELORIS:harmony 08/07/20 TC:2 CPT: 92186
--- NOTE | 2020-08-06 14:20 | RAD_ITS ---
CLINICAL HISTORY: Female, 70 years old. Cholelithiasis PROCEDURE: CHOLANGIOGRAM - intraoperative FLUOROSCOPY TIME (if supplied): 26.7 seconds Placement of the catheter and the procedure were performed by: Operating surgeon Fluoroscopy was provided by fish technologist, who was present in the room time of the procedure. TECHNIQUE: (Fluoroscopic guided intraoperative cholangiogram was performed in the anterior projection. 2 sequences of fluoroscopic images were obtained. FINDINGS: Fluoroscopic guided imaging sequences were obtained during intraoperative cholangiogram consisting of 97 images and 82 images. On both sequences, there is mild dilatation of the biliary tree and lack of emptying of the bile ducts likely due to a distal intraductal stone. However would recommend correlation with surgical notes for more complete information RAD/Cholangiogram/ O R,Initial IMPRESSION: Obstruction of the distal common bile duct likely due to tiny intraductal stone. Clinical correlation recommended Electronically Signed: Claus Posada MD at 23:01 EST , Service support ,
[2020-08-06] MEDS: Bupivacaine Mpf 0.5% 30 ML VIAL (15:54)
--- NOTE | 2020-08-06 16:00 | PCM.OPRPT ---
Report of Operation Date of Procedure: 08/06/20 Pre-Operative Diagnosis: Acute cholecystitis Post-Operative Diagnosis: Acute cholecystitis, cholelithiasis, choledocholithiasis Surgery/Procedure Performed:: Laparoscopic cholecystectomy with cholangiograms, with ELIZABETH placement Type of Anesthesia:: General/Supplemental Anesthesiologist: Donavan Beckford Special Medications: Placed on Zosyn 3.375 g IV for acute cholecystitis Specimen's removed: Gallbladder and stones Drains: 15 [place] Islander round ELIZABETH Estimated Blood Loss (mL): 300 cc Fluids Replaced: 1200 cc Description of Procedure: Indications this is a 70 year-old female who developed abdominal pain/nausea/vomiting and on workup was found to have acute cholecystitis, cholelithiasis, with a normal common bile duct, normal LFTs--Pt was on coumadin for A fib, which was reversed. Laparoscopic cholecystectomy was elected. Description procedure: The patient was placed on operating table in supine position. General Anesthesia was induced. A timeout was completed verifying correct patient, procedure, site, position and special equipment prior to beginning procedure. The abdomen was prepped and draped in usual sterile fashion. An incision was made in the natural skin line above the umbilicus. The fascia was elevated and incised. The peritoneum was elevated and incised. Entry into the peritoneum was confirmed visually and no bowel was noted in the vicinity of the incision. Shabazz trocar was placed. The abdomen was insufflated with carbon dioxide to a pressure of 12-15 mmHg. Patient tolerated insufflation well. The laparoscope was then inserted and abdomen inspected. No injuries from initial trocar placement were noted. Additional trochars were then inserted in the following locations 5 mm trocar in the epigastrium and 2 more 5 mm trochars along the right costal margin. The abdomen was inspected no abnormalities were found, and the gallbladder is noted to be inflamed and tense. The table is placed in reverse Trendelenburg position with the right side up. The adhesions between the gallbladder and omentum were lysed sharply. Aspiration needle was used to decompress the gallbladder. The dome of the gallbladder was grasped with atraumatic grasper passed through the lateral port and retracted over the dome of the liver. Infundibulum was then grasped with atraumatic grasper through the midclavicular port and retracted to the right lower quadrant. This maneuver exposed Calot's triangle. The peritoneum overlying the gallbladder infundibulum was then incised and cystic duct and artery identified and circumferentially dissected. A separate stab incision was made in the right upper quadrant to accommodate the Ranfac catheter. Ranfac catheter was used for cholangiograms. The cholangiogram showed good filling of right and left bile ducts however there was nonfilling into the duodenum consistent with choledocholithiasis. The cystic duct and artery were then doubly clipped and divided close to the gallbladder. The gallbladder then dissected from its peritoneal attachments by electrocautery. The gallbladder was intrahepatic near the fundus. Erby was used for hemostasis. Perico was also placed as well as a 15 [place] Islander ELIZABETH. Hemostasis was checked and the gallbladder and contained stones were removed using the endoscopic retrieval bag through the umbilical port. The gallbladder is passed off table as specimen. The gallbladder fossa was copiously irrigated with saline and hemostasis obtained. There is no evidence of bleeding from the gallbladder fossa or cystic artery leakage of bile from the cystic duct stump. Secondary trochars removed under direct vision. No bleeding was noted the trocar sites. The laparoscope was withdrawn and umbilical trocar removed. The abdomen was allowed to collapse. The fascia of the 12 mm trocar was closed with a [id number] 0 Vicryl suture. The skin was closed with sutures of 4-0 Monocryl and Steri-Strips. The patient was extubated. The patient tolerated procedure well and was taken to the postanesthesia care unit in stable condition. - Complications None
[2020-08-06] MEDS: dilTIAZem CD 120 MG Capsule PO (17:53)
[2020-08-06] MEDS: Aspirin E.C. 81 MG Tablet PO (17:55)
[2020-08-06] MEDS: Docusate Sodium 100 MG Capsule PO (17:55)
[2020-08-06] MEDS: Flecainide 100 MG Tablet 50 MG PO (17:56)
[2020-08-06] MEDS: Lisinopril 40 MG Tablet PO (17:57)
[2020-08-06] MEDS: 0.9% Normal Saline 1,000 ML 50 ML IV (18:01)
[2020-08-06] MEDS: HYDROmorphone 0.5 MG/0.5 ML SYRINGE IV (21:15)
[2020-08-07] VITALS (20 sets, daily range): BP systolic 125–189; BP diastolic 71–105; PULSE 70–130; RESP 10–18; TEMP 36.2–36.8; O2SAT 95–100; BMI 40.0; BMI 39.9
--- NOTE | 2020-08-07 02:54 | CPS ---
pt had difficulty tolerating bipap
[2020-08-07] MEDS: Levothyroxine 100 MCG Tablet PO (05:55)
[2020-08-07 06:41] LABS: Absolute Lymphocyte Count 0.49 X10^3/uL (0.83-4.51); Absolute Neutrophil Count 8.2 X10^3/uL (2.0-7.7); Basophil# 0.01 X10^3/uL; Basophil% 0.1 % (0-1); Hematocrit 35.2 % (37-47); Hemoglobin 11.3 g/dL (12.0-15.0); Lymphocyte # 0.49 X10^3/ul (4.0); Lymphocyte % 5.5 % (19-41); Mean Corp Hgb Conc 32.1 g/dL (32-36); Mean Corpuscular Hgb 29.2 pg (27.0-32.0); Mean Platelet Vol. 9.1 fl (6.2-12.0); Monocyte# 0.22 X10^3/uL; Monocyte% 2.4 % (0-10); NRBC Flagged by Analyzer 0 % (0-5); Neutrophil # 8.21 X10^3/uL (2.7-7.7); Neutrophil % 91.4 % (47-70); POSITIVE DIFFERENTIAL YES; Platelet Count 291 K/mm3 (150-450); RBC Distribution Width CV 15.9 % (11.6-14.6); RBC Distribution Width SD 52.9 fl (35.1-43.9); Red Blood Count 3.87 M/mm3 (4.2-5.4)
[2020-08-07 06:45] LABS: Differential Indicated SCAN CRITERIA MET
[2020-08-07 07:03] LABS: Anion Gap 4 (5-15); BUN 11 mg/dL (7-18); Calcium,Total 8.6 mg/dL (8.5-10.1); Chloride 107 mmol/L (98-107); Creatinine, Serum 0.61 mg/dL (0.55-1.02); EST Glomerular Filtration Rate 102 mL/min (>60); Est Glom Filt Rate - Afr Amer 124 mL/min (>60); Glucose 107 mg/dL (74-106); Potassium 3.9 mmol/L (3.5-5.1); Sodium Level 137 mmol/L (136-145)
[2020-08-07 07:05] LABS: International Normalized Ratio 1.2
[2020-08-07 07:27] LABS: Differential Comment SCANNED
--- NOTE | 2020-08-07 07:33 | PCM.PN.SRG ---
Patient Problems: Active and Suspected Problems (Last Reviewed 08/04/20 @ 23:[address] Keo Mariscal MD) Acute on chronic cholecystitis concurrent with and due to calculus of gallbladder and bile duct (Acute) Acute cholecystitis (Acute) Subjective: Patient report some abdominal soreness this morning but no severe pain - Physical Exam Vitals/I&O's: Vital Signs Temp Pulse Resp BP Pulse Ox 97.7 F L 73 18 150/92 H 98 08/07/20 03:00 08/07/20 04:38 08/07/20 03:00 08/07/20 03:00 08/07/20 03:00 Oxygen Flow Rate (L/min) 2 Oxygen Delivery Method Bi-pap Weight: 251 lb 12.286 oz Body Mass Index (BMI) 40.0 Intake and Output for Last 24 Hours 08/05/20 08/06/20 08/07/20 23:59 23:59 23:59 Intake Total 1839.33 / 2139.33 1763.25 / 1763.25 69 / 69 Output Total 350 / 350 425 / 425 Balance 1839.33 / 2139.33 1413.25 / 1413.25 -356 / -356 General: Alert, Oriented x3 Lungs: Normal air movement Cardiovascular: Regular rate, Regular Rhythm Abdomen: Soft, Non-Distended Microbiology Past 72 Hours 08/04/20 20:55 Blood Culture (Wb) - Left Forearm Blood Culture - Preliminary No growth in 48 hours. 08/04/20 20:57 Blood Culture (Wb) - Arm Right Blood Culture - Preliminary No growth in 48 hours. 08/04/20 21:02 Mucosa - Nose SARS-CoV-2 Antigen (Rapid) - Final Laboratory Results 08/06/20 08:20: Blood Type O POSITIVE 08/06/20 12:35: PT 15.7 H, INR 1.3 08/07/20 06:30: WBC 9.0, RBC 3.87 L, Hgb 11.3 L, Hct 35.2 L, MCV 91.0, MCH 29.2, MCHC 32.1, RDW Std Deviation 52.9 H, RDW Coeff of Gabriel 15.9 H, Plt Count 291, MPV 9.1, Immature Gran % (Auto) 0.600, Neut % (Auto) 91.4 H, Lymph % (Auto) 5.5 L, [place] % (Auto) 2.4, Eos % (Auto) 0.0, Baso % (Auto) 0.1, Absolute Neuts (auto) 8.2 H, Absolute Lymphs (auto) 0.49 L, Nucleated RBC % 0, Differential Comment SCANNED 08/07/20 06:30: Sodium 137, Potassium 3.9, Chloride 107, Carbon Dioxide 26.0, Anion Gap 4 L, BUN 11, Creatinine 0.61, Estim Creat Clear Calc 48.30, Est GFR (MDRD) Af Amer 124, Est GFR (MDRD) Non-Af 102, BUN/Creatinine Ratio 18.0, Glucose 107 H, Calcium 8.6 08/07/20 06:30: PT 15.0 H, INR 1.2 Current Medications Alprazolam (Alprazolam 0.25 Mg Tablet) 0.25 mg PO DAILY PRN PRN PRN Reason: anxiety, takes rarely Aspirin (Aspirin E.C. 81 Mg Tablet) 81 mg PO DAILY [facility] Last Admin: 08/06/20 17:55 Dose: 81 mg Documented by: Cholecalciferol (Cholecalciferol (Vit D3) 1,000 Unit (25mcg)) 6,000 unit PO DAILY [facility] Last Admin: 08/06/20 17:51 Dose: 6,000 unit Documented by: Clonazepam (Clonazepam 0.5 Mg Tablet) 0.25 mg PO QHS PRN PRN Reason: for restless legs Diltiazem HCl (Diltiazem Cd 120 Mg Capsule) 120 mg PO Q12 [facility] Last Admin: 08/06/20 18:07 Dose: Not Given Documented by: Docusate Sodium (Docusate Sodium 100 Mg Capsule) 100 mg PO BID [facility] Last Admin: 08/06/20 18:10 Dose: Not Given Documented by: Flecainide Acetate (Flecainide 100 Mg Tablet) 50 mg PO Q12 [facility] Last Admin: 08/06/20 18:10 Dose: Not Given Documented by: Hydromorphone HCl (Hydromorphone 0.5 Mg/0.5 Ml Syringe) 0.25 - 0.5 mg IV Q2H PRN PRN PRN Reason: Pain Score 1-10 Last Admin: 08/06/20 21:15 Dose: 0.25 mg Documented by: Piperacillin Sod/Tazobactam (Sod 3.375 gm/ Sodium Chloride) 50 mls @ 12.5 mls/hr IV Q8 [facility] Last Admin: 08/07/20 05:49 Dose: 12.5 mls/hr Documented by: Sodium Chloride () 250 mls @ 15 mls/hr IV .[id number] PRN PRN Reason: Saline Flush Last Infusion: 08/07/20 02:30 Dose: 0 mls/hr Documented by: Sodium Chloride () 250 mls @ 15 mls/hr IV .[id number] PRN PRN Reason: Additional IVPB Infusion Sodium Chloride () 1,000 mls @ 50 mls/hr IV .Q20H [facility] Last Admin: 08/06/20 18:01 Dose: 50 mls/hr Documented by: Levothyroxine Sodium (Levothyroxine 100 Mcg Tablet) 100 mcg PO DAILY@0600 [facility] Last Admin: 08/07/20 05:55 Dose: 100 mcg Documented by: Lisinopril (Lisinopril 40 Mg Tablet) 40 mg PO DAILY [facility] Last Admin: 08/06/20 17:57 Dose: 40 mg Documented by: Melatonin (Melatonin 3 Mg Tablet) 3 mg PO QHS PRN PRN PRN Reason: INSOMNIA Metoprolol Tartrate (Metoprolol Tartrate 50 Mg Tablet) 50 mg PO BID [facility] Last Admin: 08/06/20 21:14 Dose: 50 mg Documented by: Ondansetron HCl (Ondansetron 4 Mg/2 Ml Vial) 4 mg IV Q8H PRN PRN PRN Reason: NAUSEA/VOMITING Sodium Chloride (0.9% Saline Lock 10 Ml Syringe) 10 - 40 ml IV UD PRN PRN Reason: SALINE FLUSH Last Admin: 08/05/20 19:42 Dose: 10 ml Documented by: Medical Necessity - Tobacco Use Smoking Status: Never smoker Assessment/Plan All Active Problems (Last Reviewed 08/04/20 @ 23:[address] Keo Mariscal MD) Acute on chronic cholecystitis concurrent with and due to calculus of gallbladder and bile duct (Acute) Acute cholecystitis (Acute) 70-year-old female with choledocholithiasis and biliary obstruction 1. Patient underwent laparoscopic cholecystectomy yesterday and intraoperative cholangiogram showed no flow into the duodenum with several small stones in the distal common bile duct. I discussed ERCP with the patient today. I discussed the risks including but not limited to bleeding, infection, perforation of the bile duct or bowel, pancreatitis. The patient understands and is willing to proceed. I also discussed the possibility of stent placement. Ambrosio Miranda MD Pager: [facility] [address] [place] [address] [address] [place] [address] Office:
--- NOTE | 2020-08-07 08:28 | PN.SURG_ITS ---
Patient Problems: Active and Suspected Problems (Last Reviewed 08/04/20 @ 23:[address] Keo Mariscal MD) Acute on chronic cholecystitis concurrent with and due to calculus of gallbladder and bile duct (Acute) Acute cholecystitis (Acute) Subjective: Patient has made some soreness in the right upper quadrant. ELIZABETH does not drain t oo much & is sanguinous. - Physical Exam Vitals/I&O's: Vital Signs Temp Pulse Resp BP Pulse Ox 97.7 F L 76 18 150/92 H 97 08/07/20 03:00 08/07/20 07:35 08/07/20 03:00 08/07/20 03:00 08/07/20 07:18 Oxygen Flow Rate (L/min) 2 Oxygen Delivery Method Room Air Weight: 251 lb 12.286 oz Body Mass Index (BMI) 40.0 Intake and Output for Last 24 Hours 08/05/20 08/06/20 08/07/20 23:59 23:59 23:59 Intake Total 1839.33 / 2139.33 1763.25 / 1763.25 69 / 69 Output Total 350 / 350 425 / 425 Balance 1839.33 / 2139.33 1413.25 / 1413.25 -356 / -356 General: Alert, Oriented x3, Cooperative, No apparent distress HEENT: Atraumatic Lungs: Normal air movement Abdomen: Soft, Non-Distended, Tender - Near incisions clean dry and intact, ELIZABETH sanguinous, no peritoneal signs Microbiology Past 72 Hours 08/05/20 Unknown Urine, Clean Catch Urine Culture - Final Mixed Gram Positive Organisms 08/04/20 20:55 Blood Culture (Wb) - Left Forearm Blood Culture - Preliminary No growth in 48 hours. 08/04/20 20:57 Blood Culture (Wb) - Arm Right Blood Culture - Preliminary No growth in 48 hours. 08/04/20 21:02 Mucosa - Nose SARS-CoV-2 Antigen (Rapid) - Final Laboratory Results 08/06/20 08:20: Blood Type O POSITIVE 08/06/20 12:35: PT 15.7 H, INR 1.3 08/07/20 06:30: WBC 9.0, RBC 3.87 L, Hgb 11.3 L, Hct 35.2 L, MCV 91.0, MCH 29.2, MCHC 32.1, RDW Std Deviation 52.9 H, RDW Coeff of Gabriel 15.9 H, Plt Count 291, MPV 9.1, Immature Gran % (Auto) 0.600, Neut % (Auto) 91.4 H, Lymph % (Auto) 5.5 L, [place] % (Auto) 2.4, Eos % (Auto) 0.0, Baso % (Auto) 0.1, Absolute Neuts (auto) 8.2 H, Absolute Lymphs (auto) 0.49 L, Nucleated RBC % 0, Differential Comment SCANNED 08/07/20 06:30: Sodium 137, Potassium 3.9, Chloride 107, Carbon Dioxide 26.0, Anion Gap 4 L, BUN 11, Creatinine 0.61, Estim Creat Clear Calc 48.30, Est GFR (MDRD) Af Amer 124, Est GFR (MDRD) Non-Af 102, BUN/Creatinine Ratio 18.0, Glucose 107 H, Calcium 8.6 08/07/20 06:30: PT 15.0 H, INR 1.2 Current Medications Alprazolam (Alprazolam 0.25 Mg Tablet) 0.25 mg PO DAILY PRN PRN PRN Reason: anxiety, takes rarely Aspirin (Aspirin E.C. 81 Mg Tablet) 81 mg PO DAILY [facility] Last Admin: 08/06/20 17:55 Dose: 81 mg Documented by: Cholecalciferol (Cholecalciferol (Vit D3) 1,000 Unit (25mcg)) 6,000 unit PO DAILY [facility] Last Admin: 08/06/20 17:51 Dose: 6,000 unit Documented by: Clonazepam (Clonazepam 0.5 Mg Tablet) 0.25 mg PO QHS PRN PRN Reason: for restless legs Diltiazem HCl (Diltiazem Cd 120 Mg Capsule) 120 mg PO Q12 [facility] Last Admin: 08/06/20 18:07 Dose: Not Given Documented by: Docusate Sodium (Docusate Sodium 100 Mg Capsule) 100 mg PO BID [facility] Last Admin: 08/06/20 18:10 Dose: Not Given Documented by: Flecainide Acetate (Flecainide 100 Mg Tablet) 50 mg PO Q12 [facility] Last Admin: 08/06/20 18:10 Dose: Not Given Documented by: Hydromorphone HCl (Hydromorphone 0.5 Mg/0.5 Ml Syringe) 0.25 - 0.5 mg IV Q2H PRN PRN PRN Reason: Pain Score 1-10 Last Admin: 08/06/20 21:15 Dose: 0.25 mg Documented by: Piperacillin Sod/Tazobactam (Sod 3.375 gm/ Sodium Chloride) 50 mls @ 12.5 mls/hr IV Q8 [facility] Last Admin: 08/07/20 05:49 Dose: 12.5 mls/hr Documented by: Sodium Chloride () 250 mls @ 15 mls/hr IV .[id number] PRN PRN Reason: Saline Flush Last Infusion: 08/07/20 02:30 Dose: 0 mls/hr Documented by: Sodium Chloride () 250 mls @ 15 mls/hr IV .[id number] PRN PRN Reason: Additional IVPB Infusion Sodium Chloride () 1,000 mls @ 50 mls/hr IV .Q20H [facility] Last Admin: 08/06/20 18:01 Dose: 50 mls/hr Documented by: Levothyroxine Sodium (Levothyroxine 100 Mcg Tablet) 100 mcg PO DAILY@0600 [facility] Last Admin: 08/07/20 05:55 Dose: 100 mcg Documented by: Lisinopril (Lisinopril 40 Mg Tablet) 40 mg PO DAILY [facility] Last Admin: 08/06/20 17:57 Dose: 40 mg Documented by: Melatonin (Melatonin 3 Mg Tablet) 3 mg PO QHS PRN PRN PRN Reason: INSOMNIA Metoprolol Tartrate (Metoprolol Tartrate 50 Mg Tablet) 50 mg PO BID [facility] Last Admin: 08/06/20 21:14 Dose: 50 mg Documented by: Ondansetron HCl (Ondansetron 4 Mg/2 Ml Vial) 4 mg IV Q8H PRN PRN PRN Reason: NAUSEA/VOMITING Sodium Chloride (0.9% Saline Lock 10 Ml Syringe) 10 - 40 ml IV UD PRN PRN Reason: SALINE FLUSH Last Admin: 08/05/20 19:42 Dose: 10 ml Documented by: Medical Necessity - Tobacco Use Smoking Status: Never smoker Assessment/Plan All Active Problems (Last Reviewed 08/04/20 @ 23:[address] Keo Mariscal MD) Acute on chronic cholecystitis concurrent with and due to calculus of gallbladder and bile duct (Acute) Acute cholecystitis (Acute) 70 y/o F w acute cholecystitis, s/p lap barbara POD 1, Choledocholithiasis Patient will be going for an ERCP today. Continue ELIZABETH to suction. Likely will able to stop the Zosyn after ERCP Holding anticoagulation due to bleeding/ERCP Katlyn Hoyt M.D. Pager: [phone] [facility] [address] [place] [address], [facility], [address] [place] [id number] Office: [phone]
[2020-08-07 09:01] LABS: AST(SGOT) 64 U/L (15-37); Alanine Aminotransfer ALT/SGPT 105 U/L (13-56); Albumin, Serum 2.6 g/dL (3.2-5.0); Alkaline Phosphatase 252 U/L (45-117); Bilirubin, Direct 0.33 mg/dL (0.00-0.30); Globulin 4.1 g/dL (2.2-4.2); Protein, Total 6.7 g/dL (6.4-8.2)
[2020-08-07] MEDS: Metoprolol Tartrate 50 MG Tablet PO ×2 (09:35→21:01)
--- NOTE | 2020-08-07 11:40 | NURSING ---
PT TO OR VIA BED.
--- NOTE | 2020-08-07 11:52 | PN_ITS ---
Patient Problems: Active and Suspected Problems (Last Reviewed 08/04/20 @ 23:[address] Keo Mariscal MD) Acute on chronic cholecystitis concurrent with and due to calculus of gallbladder and bile duct (Acute) Acute cholecystitis (Acute) Subjective: Feeling fairly well. Some soreness from surgery. Nervous about ERCP. No flatus y et. Vitals/I&O's: Vital Signs Temp Pulse Resp BP Pulse Ox 98.2 F 76 16 189/95 H 99 08/07/20 11:23 08/07/20 11:23 08/07/20 11:23 08/07/20 11:23 08/07/20 11:23 Oxygen Flow Rate (L/min) 2 Oxygen Delivery Method Room Air Weight: 114.2 kg Body Mass Index (BMI) 39.9 Intake and Output for Last 24 Hours 08/05/20 08/06/20 08/07/20 23:59 23:59 23:59 Intake Total 1839.33 / 2139.33 1763.25 / 1763.25 69 / 69 Output Total 350 / 350 425 / 425 Balance 1839.33 / 2139.33 1413.25 / 1413.25 -356 / -356 General: Alert, Oriented x3, Cooperative, No apparent distress, Well developed, Well nourished, - - older WF sitting up in a chair Lungs: Clear to auscultation, Normal air movement, No rhonchi, No wheeze, No rales Cardiovascular: Regular rate, Regular Rhythm, Normal S1, Normal S2, No murmurs, No Ectopic Activity, No rub noted, No Gallop Abdomen: Soft, Non-Distended, Hypoactive Bowel Sounds, Tender - diffusely, - - RUQ ELIZABETH in place with serosanguinous drainage, incisions with dressing CDI Extremities: No clubbing, No cyanosis, No edema, Capillary Refill Less than 3 Seconds, Peripheral Pulses Normal Neurological: Cranial nerves II-XII grossly intact, Neuro grossly intact Psych/Mental Status: Normal Affect, Appropriate Microbiology Past 72 Hours 08/05/20 Unknown Urine, Clean Catch Urine Culture - Final Mixed Gram Positive Organisms 08/04/20 20:55 Blood Culture (Wb) - Left Forearm Blood Culture - Preliminary No growth in 48 hours. 08/04/20 20:57 Blood Culture (Wb) - Arm Right Blood Culture - Preliminary No growth in 48 hours. 08/04/20 21:02 Mucosa - Nose SARS-CoV-2 Antigen (Rapid) - Final Laboratory Results 08/06/20 12:35: PT 15.7 H, INR 1.3 08/07/20 06:30: WBC 9.0, RBC 3.87 L, Hgb 11.3 L, Hct 35.2 L, MCV 91.0, MCH 29.2, MCHC 32.1, RDW Std Deviation 52.9 H, RDW Coeff of Gabriel 15.9 H, Plt Count 291, MPV 9.1, Immature Gran % (Auto) 0.600, Neut % (Auto) 91.4 H, Lymph % (Auto) 5.5 L, [place] % (Auto) 2.4, Eos % (Auto) 0.0, Baso % (Auto) 0.1, Absolute Neuts (auto) 8.2 H, Absolute Lymphs (auto) 0.49 L, Nucleated RBC % 0, Differential Comment SCANNED 08/07/20 06:30: Sodium 137, Potassium 3.9, Chloride 107, Carbon Dioxide 26.0, Anion Gap 4 L, BUN 11, Creatinine 0.61, Estim Creat Clear Calc 48.30, Est GFR (MDRD) Af Amer 124, Est GFR (MDRD) Non-Af 102, BUN/Creatinine Ratio 18.0, Glucose 107 H, Calcium 8.6 08/07/20 06:30: PT 15.0 H, INR 1.2 08/07/20 06:30: Total Bilirubin 0.70, Direct Bilirubin 0.33 H, AST 64 H, ALT 105 H, Alkaline Phosphatase 252 H, Total Protein 6.7, Albumin 2.6 L, Globulin 4.1 Current Medications Alprazolam (Alprazolam 0.25 Mg Tablet) 0.25 mg PO DAILY PRN PRN PRN Reason: anxiety, takes rarely Aspirin (Aspirin E.C. 81 Mg Tablet) 81 mg PO DAILY [facility] Last Admin: 08/06/20 17:55 Dose: 81 mg Documented by: Cholecalciferol (Cholecalciferol (Vit D3) 1,000 Unit (25mcg)) 6,000 unit PO DAILY [facility] Last Admin: 08/06/20 17:51 Dose: 6,000 unit Documented by: Clonazepam (Clonazepam 0.5 Mg Tablet) 0.25 mg PO QHS PRN PRN Reason: for restless legs Diltiazem HCl (Diltiazem Cd 120 Mg Capsule) 120 mg PO Q12 [facility] Last Admin: 08/06/20 18:07 Dose: Not Given Documented by: Docusate Sodium (Docusate Sodium 100 Mg Capsule) 100 mg PO BID [facility] Last Admin: 08/06/20 18:10 Dose: Not Given Documented by: Flecainide Acetate (Flecainide 100 Mg Tablet) 50 mg PO Q12 [facility] Last Admin: 08/06/20 18:10 Dose: Not Given Documented by: Hydromorphone HCl (Hydromorphone 0.5 Mg/0.5 Ml Syringe) 0.25 - 0.5 mg IV Q2H PRN PRN PRN Reason: Pain Score 1-10 Last Admin: 08/06/20 21:15 Dose: 0.25 mg Documented by: Piperacillin Sod/Tazobactam (Sod 3.375 gm/ Sodium Chloride) 50 mls @ 12.5 mls/hr IV Q8 [facility] Last Admin: 08/07/20 05:49 Dose: 12.5 mls/hr Documented by: Sodium Chloride () 250 mls @ 15 mls/hr IV .[id number] PRN PRN Reason: Saline Flush Last Infusion: 08/07/20 02:30 Dose: 0 mls/hr Documented by: Sodium Chloride () 250 mls @ 15 mls/hr IV .[id number] PRN PRN Reason: Additional IVPB Infusion Sodium Chloride () 1,000 mls @ 50 mls/hr IV .Q20H [facility] Last Admin: 08/06/20 18:01 Dose: 50 mls/hr Documented by: Levothyroxine Sodium (Levothyroxine 100 Mcg Tablet) 100 mcg PO DAILY@0600 [facility] Last Admin: 08/07/20 05:55 Dose: 100 mcg Documented by: Lisinopril (Lisinopril 40 Mg Tablet) 40 mg PO DAILY [facility] Last Admin: 08/06/20 17:57 Dose: 40 mg Documented by: Melatonin (Melatonin 3 Mg Tablet) 3 mg PO QHS PRN PRN PRN Reason: INSOMNIA Metoprolol Tartrate (Metoprolol Tartrate 50 Mg Tablet) 50 mg PO BID [facility] Last Admin: 08/07/20 09:35 Dose: 50 mg Documented by: Nystatin (Nystatin Powder 15gm Bottle) 1 applic TOPICAL TID MARTHA; Protocol Ondansetron HCl (Ondansetron 4 Mg/2 Ml Vial) 4 mg IV Q8H PRN PRN PRN Reason: NAUSEA/VOMITING Sodium Chloride (0.9% Saline Lock 10 Ml Syringe) 10 - 40 ml IV UD PRN PRN Reason: SALINE FLUSH Last Admin: 08/05/20 19:42 Dose: 10 ml Documented by: STROKE Vital Signs/Narrative: Vital Signs Temp Pulse Resp BP Pulse Ox 08/07/20 11:23 98.2 F 76 16 189/95 H 99 08/07/20 09:35 78 08/07/20 09:10 98.1 F 78 16 174/90 H 95 Medical Necessity - Tobacco Use Smoking Status: Never smoker Assessment/Plan All Active Problems (Last Reviewed 08/04/20 @ 23:[address] Keo Mariscal MD) Acute on chronic cholecystitis concurrent with and due to calculus of gallbladder and bile duct (Acute) Acute cholecystitis (Acute) Acute Cholecystitis s/p Lap Bibiana with cholangiograms and ELIZABETH placement -surgery on 08/06 -intraoperative cholangiogram showed no flow into the duodenum with several small stones in the distal common bile duct -ERCP today with Dr. Miranda -hold on OAC and prophylactic Lovenox -continue Zosyn until after ERCP -ELIZABETH in place and mgt per GS -pt remains NPO Hypokalemia -resolved Leukocytosis -resolved Mild anemia -watch in post operative period -hgb has been stable ANGELI -on BIPAP at home--> started here 08/06 PAF -cont flecainide, diltiazem and metoprolol -coumadin on hold--Restart after surgery when ok with GS -no bridging needed HTN continue home meds PAH WHO Group 3 -diuresis as needed -BIPAP Hypothyroidism -continue Synthroid Chronic Constipation -continue home meds after OR and PO intake resumed -miralax daily Anxiety -cont home Klonopin DVT Prophylaxis -SCD -restart lovenox when ok with GS until INR is therapeutic Code status -Full Inpatient E&M: [id number] [facility] L[facility]
--- NOTE | 2020-08-07 12:30 | RAD_ITS ---
Postoperative guided ERCP INDICATION: Abdominal pain TECHNIQUE: Fluoroscopic guided ERCP was performed in the anterior projection. 26.7 seconds of fluoroscopic time were utilized during the exam TECHNIQUE: 5 fluoroscopic guided images were obtained in the anterior projection during the study. For more complete information recommend correlation with gastroenterology notes RAD/ERCP Biliary Only IMPRESSION: Fluoroscopic guided ERCP Electronically Signed: Claus Posada MD at 22:28 EST , Service support ,
--- NOTE | 2020-08-07 13:41 | OP.CCLET_ITS ---
08/07/2020 Lizzy Trejo Re : ERCP procedure for Mercedes Hensley Dear Neil This procedure was performed on Friday, August 07, 2020. My impressions and recommendations are as follows: Impressions : - Gastritis with hemorrhage. - A filling defect consistent with a stone was seen on the cholangiogram. - Choledocholithiasis was found. Complete removal was accomplished by biliary sphincterotomy and balloon extraction. - A biliary sphincterotomy was performed. - The biliary tree was swept. Recommendations : - Return patient to [facility] for ongoing care. - Clear liquid diet. My findings are described in the full procedure note, which is enclosed. If I can be of further assistance, please feel free to contact me at Doctor phone number(s): , Work: . Sincerely, Ambrosio Miranda MD 08/07/2020 1:41:23 PM This report has been signed electronically.
--- NOTE | 2020-08-07 13:41 | OP.ERCP_ITS ---
Patient Name: Mercedes Hensley Procedure Date: 08/07/2020 12:55 PM Date of : 1950 Age: 70 Procedure: ERCP Indications: Bile duct stone(s) Providers: Ambrosio Miranda MD Medicines: General Anesthesia Patient Profile: This is a 70 year old female. Refer to note in patient chart for documentation of history and physical. Complications: No immediate complications. Estimated blood loss: Minimal. Procedure: Pre-Anesthesia Assessment: - Prior to the procedure, a History and Physical was performed, and patient medications and allergies were reviewed. The patient's tolerance of previous anesthesia was also reviewed. The risks and benefits of the procedure and the sedation options and risks were discussed with the patient. All questions were answered, and informed consent was obtained. Prior Anticoagulants: The patient has taken no previous anticoagulant or antiplatelet agents. After reviewing the risks and benefits, the patient was deemed in satisfactory condition to undergo the procedure. After obtaining informed consent, the scope was passed under direct vision. Throughout the procedure, the patient's blood pressure, pulse, and oxygen saturations were monitored continuously. The duodenoscope was introduced through the mouth, and advanced to the duodenum and used to inject contrast into the bile duct. The ERCP was accomplished without difficulty. The patient tolerated the procedure well. Scope In: 1:16:15 PM Scope Out: 1:22:14 PM Total Procedure Duration Time 0 hours 5 minutes 59 seconds Findings: A 0.035 inch x 260 cm straight Dreamwire was passed into the biliary tree. The sphincterotome was passed over the guidewire and the bile duct was then deeply cannulated. Contrast was injected. I personally interpreted the bile duct images. There was brisk flow of contrast through the ducts. The lower third of the main bile duct contained filling defect(s) thought to be a stone. Biliary sphincterotomy was made with a monofilament sphincterotome using ERBE electrocautery. There was no post-sphincterotomy bleeding. The biliary tree was swept with a 12 mm balloon starting at the bifurcation. One stone was removed. No stones remained. The upper GI tract was traversed under direct vision without detailed examination. Scattered moderate inflammation with hemorrhage characterized by adherent blood was found in the gastric antrum. Impression: - Gastritis with hemorrhage. - A filling defect consistent with a stone was seen on the cholangiogram. - Choledocholithiasis was found. Complete removal was accomplished by biliary sphincterotomy and balloon extraction. - A biliary sphincterotomy was performed. - The biliary tree was swept. Recommendation: - Return patient to [facility] [place] for ongoing care. - Clear liquid diet. Procedure Code(s): --- Professional --- 81084, Endoscopic retrograde cholangiopancreatography (ERCP); with removal of calculi/debris from biliary/pancreatic duct(s) 40339, 51, Endoscopic retrograde cholangiopancreatography (ERCP); with sphincterotomy/papillotomy Diagnosis Code(s): --- Professional --- K29.71, Gastritis, unspecified, with bleeding K80.50, Calculus of bile duct without cholangitis or cholecystitis without obstruction R93.2, Abnormal findings on diagnostic imaging of liver and biliary tract CPT copyright 2017 [employer]. All rights reserved. The codes documented in this report are preliminary and upon heating and refrigeration inspector review may be revised to meet current compliance requirements. Ambrosio Miranda MD 08/07/2020 1:41:23 PM This report has been signed electronically. Number of Addenda: 0 Note Initiated On: 08/07/2020 12:55 PM
[2020-08-07] MEDS: Flecainide 100 MG Tablet 50 MG PO ×2 (15:15→21:01)
[2020-08-07] MEDS: Sucralfate 1 GM Tablet PO ×2 (15:16→21:01)
[2020-08-07] MEDS: Aspirin E.C. 81 MG Tablet PO (15:16)
[2020-08-07] MEDS: Docusate Sodium 100 MG Capsule PO ×2 (15:16→21:01)
[2020-08-07] MEDS: Lisinopril 40 MG Tablet PO (15:16)
[2020-08-07] MEDS: dilTIAZem CD 120 MG Capsule PO ×2 (15:16→21:06)
[2020-08-07] MEDS: Nystatin Powder 15gm Bottle 1 APPLIC TOPICAL ×2 (15:21→21:01)
[2020-08-07] MEDS: 0.9% Normal Saline 1,000 ML 50 ML IV (16:39)
[2020-08-07] MEDS: dilTIAZem 25 MG/5 ML Vial 10 MG IV BOLUS (19:14)
[2020-08-07] MEDS: 0.9% Saline Lock 10 ML Syringe IV (20:54)
[2020-08-07] MEDS: Pantoprazole Sodium 20 MG Tablet PO (21:01)
[2020-08-08] VITALS (17 sets, daily range): BP systolic 119–179; BP diastolic 69–98; PULSE 59–96; RESP 14–18; TEMP 35.9–36.9; O2SAT 97–100; BMI 40.0
[2020-08-08] MEDS: Sucralfate 1 GM Tablet PO ×4 (06:05→21:12)
[2020-08-08] MEDS: Nystatin Powder 15gm Bottle 1 APPLIC TOPICAL ×3 (06:05→21:13)
[2020-08-08] MEDS: Levothyroxine 100 MCG Tablet PO (06:05)
[2020-08-08 06:32] LABS: Absolute Neutrophil Count 10.8 X10^3/uL (2.0-7.7); Hematocrit 37.7 % (37-47); Hemoglobin 11.8 g/dL (12.0-15.0); Lymphocyte % 5.9 % (19-41); Mean Corp Hgb Conc 31.3 g/dL (32-36); Mean Corpuscular Hgb 28.1 pg (27.0-32.0); Mean Corpuscular Volume 89.8 fL (81-99); Mean Platelet Vol. 9.3 fl (6.2-12.0); Monocyte# 0.38 X10^3/uL; Monocyte% 3.2 % (0-10); NRBC Flagged by Analyzer 0 % (0-5); Neutrophil # 10.75 X10^3/uL (2.7-7.7); Neutrophil % 90.4 % (47-70); Platelet Count 361 K/mm3 (150-450); RBC Distribution Width CV 15.9 % (11.6-14.6); RBC Distribution Width SD 52.4 fl (35.1-43.9); White Blood Count 11.9 K/mm3 (4.4-11.0)
--- NOTE | 2020-08-08 06:43 | PCM.PN.SRG ---
Patient Problems: Active and Suspected Problems (Last Reviewed 08/04/20 @ 23:[address] Keo Mariscal MD) Acute on chronic cholecystitis concurrent with and due to calculus of gallbladder and bile duct (Acute) Acute cholecystitis (Acute) Subjective: Patient tolerated clears, has not been walking in halls due to A. fib plus high blood pressure per patient - Physical Exam Vitals/I&O's: Vital Signs Temp Pulse Resp BP Pulse Ox 96.6 F L 79 16 147/98 H 99 08/08/20 02:00 08/08/20 03:56 08/08/20 02:00 08/08/20 02:00 08/08/20 02:00 Oxygen Flow Rate (L/min) 3 Oxygen Delivery Method Bi-pap Weight: 251 lb 12.286 oz Body Mass Index (BMI) 39.9 Intake and Output for Last 24 Hours 08/06/20 08/07/20 08/08/20 23:59 23:59 23:59 Intake Total 1763.25 / 1763.25 1119 / 1119 Output Total 350 / 350 455 / 785 1240 / 1240 Balance 1413.25 / 1413.25 664 / 334 -1240 / -1240 General: Alert, Oriented x3, Cooperative, No apparent distress Lungs: Normal air movement Abdomen: Soft, Non-Distended, Tender - Incisions clean dry and intact, ELIZABETH serosanguineous, no peritoneal signs Microbiology Past 72 Hours 08/05/20 Unknown Urine, Clean Catch Urine Culture - Final Mixed Gram Positive Organisms 08/04/20 20:55 Blood Culture (Wb) - Left Forearm Blood Culture - Preliminary No growth in 48 hours. 08/04/20 20:57 Blood Culture (Wb) - Arm Right Blood Culture - Preliminary No growth in 48 hours. Laboratory Results 08/07/20 06:30: WBC 9.0, RBC 3.87 L, Hgb 11.3 L, Hct 35.2 L, MCV 91.0, MCH 29.2, MCHC 32.1, RDW Std Deviation 52.9 H, RDW Coeff of Gabriel 15.9 H, Plt Count 291, MPV 9.1, Immature Gran % (Auto) 0.600, Neut % (Auto) 91.4 H, Lymph % (Auto) 5.5 L, [place] % (Auto) 2.4, Eos % (Auto) 0.0, Baso % (Auto) 0.1, Absolute Neuts (auto) 8.2 H, Absolute Lymphs (auto) 0.49 L, Nucleated RBC % 0, Differential Comment SCANNED 08/07/20 06:30: Sodium 137, Potassium 3.9, Chloride 107, Carbon Dioxide 26.0, Anion Gap 4 L, BUN 11, Creatinine 0.61, Estim Creat Clear Calc 48.30, Est GFR (MDRD) Af Amer 124, Est GFR (MDRD) Non-Af 102, BUN/Creatinine Ratio 18.0, Glucose 107 H, Calcium 8.6 08/07/20 06:30: PT 15.0 H, INR 1.2 08/07/20 06:30: Total Bilirubin 0.70, Direct Bilirubin 0.33 H, AST 64 H, ALT 105 H, Alkaline Phosphatase 252 H, Total Protein 6.7, Albumin 2.6 L, Globulin 4.1 08/08/20 05:20: WBC Pending, RBC Pending, Hgb Pending, Hct Pending, MCV Pending, MCH Pending, MCHC Pending, RDW Std Deviation Pending, RDW Coeff of Gabriel Pending, Plt Count Pending, Neut % (Auto) Pending, Absolute Neuts (auto) Pending 08/08/20 05:20: Sodium Pending, Potassium Pending, Chloride Pending, Carbon Dioxide Pending, Anion Gap Pending, BUN Pending, Creatinine Pending, Est GFR (MDRD) Af Amer Pending, Est GFR (MDRD) Non-Af Pending, BUN/Creatinine Ratio Pending, Glucose Pending, Calcium Pending Current Medications Alprazolam (Alprazolam 0.25 Mg Tablet) 0.25 mg PO DAILY PRN PRN PRN Reason: anxiety, takes rarely Aspirin (Aspirin E.C. 81 Mg Tablet) 81 mg PO DAILY [facility] Last Admin: 08/07/20 15:16 Dose: 81 mg Documented by: Cholecalciferol (Cholecalciferol (Vit D3) 1,000 Unit (25mcg)) 6,000 unit PO DAILY [facility] Last Admin: 08/07/20 15:15 Dose: 6,000 unit Documented by: Clonazepam (Clonazepam 0.5 Mg Tablet) 0.25 mg PO QHS PRN PRN Reason: for restless legs Diltiazem HCl (Diltiazem Cd 120 Mg Capsule) 120 mg PO Q12 [facility] Last Admin: 08/07/20 21:06 Dose: 120 mg Documented by: Docusate Sodium (Docusate Sodium 100 Mg Capsule) 100 mg PO BID [facility] Last Admin: 08/07/20 21:01 Dose: 100 mg Documented by: Flecainide Acetate (Flecainide 100 Mg Tablet) 50 mg PO Q12 [facility] Last Admin: 08/07/20 21:01 Dose: 50 mg Documented by: Hydromorphone HCl (Hydromorphone 0.5 Mg/0.5 Ml Syringe) 0.25 - 0.5 mg IV Q2H PRN PRN PRN Reason: Pain Score 1-10 Last Admin: 08/06/20 21:15 Dose: 0.25 mg Documented by: Sodium Chloride () 250 mls @ 15 mls/hr IV .[id number] PRN PRN Reason: Saline Flush Last Infusion: 08/07/20 02:30 Dose: 0 mls/hr Documented by: Sodium Chloride () 250 mls @ 15 mls/hr IV .[id number] PRN PRN Reason: Additional IVPB Infusion Sodium Chloride () 1,000 mls @ 50 mls/hr IV .Q20H [facility] Last Admin: 08/07/20 16:39 Dose: 50 mls/hr Documented by: Levothyroxine Sodium (Levothyroxine 100 Mcg Tablet) 100 mcg PO DAILY@0600 [facility] Last Admin: 08/08/20 06:05 Dose: 100 mcg Documented by: Lisinopril (Lisinopril 40 Mg Tablet) 40 mg PO DAILY [facility] Last Admin: 08/07/20 15:16 Dose: 40 mg Documented by: Melatonin (Melatonin 3 Mg Tablet) 3 mg PO QHS PRN PRN PRN Reason: INSOMNIA Metoprolol Tartrate (Metoprolol Tartrate 50 Mg Tablet) 50 mg PO BID [facility] Last Admin: 08/07/20 21:01 Dose: 50 mg Documented by: Nystatin (Nystatin Powder 15gm Bottle) 1 applic TOPICAL TID [facility]; Protocol Last Admin: 08/08/20 06:05 Dose: 1 applicatio Documented by: Ondansetron HCl (Ondansetron 4 Mg/2 Ml Vial) 4 mg IV Q8H PRN PRN PRN Reason: NAUSEA/VOMITING Pantoprazole Sodium (Pantoprazole Sodium 20 Mg Tablet) 20 mg PO BID [facility] Last Admin: 08/07/20 21:01 Dose: 20 mg Documented by: Sodium Chloride (0.9% Saline Lock 10 Ml Syringe) 10 - 40 ml IV UD PRN PRN Reason: SALINE FLUSH Last Admin: 08/07/20 20:54 Dose: 10 ml Documented by: Sucralfate (Sucralfate 1 Gm Tablet) 1 gm PO 1HR_ACHS [facility] Last Admin: 08/08/20 06:05 Dose: 1 gm Documented by: Medical Necessity - Tobacco Use Smoking Status: Never smoker Assessment/Plan All Active Problems (Last Reviewed 08/04/20 @ 23:[address] Keo Mariscal MD) Acute on chronic cholecystitis concurrent with and due to calculus of gallbladder and bile duct (Acute) Acute cholecystitis (Acute) 70 y/o F w acute cholecystitis, s/p lap barbara POD 2, Choledocholithiasis status post ERCP postop day 1 Advance to full's continue ELIZABETH to suction likely DC today. We will continue Zosyn to the acute cholecystitis. Okay for prophylactic Lovenox aKtlyn Hoyt M.D. Pager: [phone] [facility] [address] [place] [address], [facility], [address] [place] [address] Office: [phone]
[2020-08-08 07:02] LABS: Anion Gap 5 (5-15); BUN 11 mg/dL (7-18); BUN/Creat Ratio 20.2 RATIO (10-20); Calcium,Total 8.8 mg/dL (8.5-10.1); Chloride 105 mmol/L (98-107); Creatinine, Serum 0.54 mg/dL (0.55-1.02); EST Glomerular Filtration Rate 117 mL/min (>60); Est Glom Filt Rate - Afr Amer 142 mL/min (>60); Glucose 117 mg/dL (74-106); Potassium 3.8 mmol/L (3.5-5.1); Sodium Level 137 mmol/L (136-145)
[2020-08-08] MEDS: Metoprolol Tartrate 50 MG Tablet PO ×2 (08:24→21:12)
[2020-08-08] MEDS: Pantoprazole Sodium 20 MG Tablet PO ×2 (08:24→21:13)
[2020-08-08] MEDS: Aspirin E.C. 81 MG Tablet PO (08:31)
[2020-08-08] MEDS: dilTIAZem CD 120 MG Capsule PO ×2 (08:31→21:12)
[2020-08-08] MEDS: Lisinopril 40 MG Tablet PO (08:31)
[2020-08-08] MEDS: Flecainide 100 MG Tablet 50 MG PO ×2 (08:31→21:12)
[2020-08-08] MEDS: Docusate Sodium 100 MG Capsule PO ×2 (08:31→21:11)
[2020-08-08] MEDS: Ensure Clear 120 ML Liquid PO ×2 (08:33→13:03)
[2020-08-08] MEDS: HYDROmorphone 0.5 MG/0.5 ML SYRINGE IV (08:41)
[2020-08-08] MEDS: oxyCODONE 5 MG Tablet PO ×2 (13:04→20:24)
[2020-08-08] MEDS: Acetaminophen 325 MG Tablet 650 MG PO ×2 (13:04→20:23)
--- NOTE | 2020-08-08 13:53 | PCM.PN.HOSP ---
Patient Problems: Active and Suspected Problems (Last Reviewed 08/04/20 @ 23:[address] Keo Mariscal MD) Acute on chronic cholecystitis concurrent with and due to calculus of gallbladder and bile duct (Acute) Acute cholecystitis (Acute) Reason for Visit: cholecystitis Subjective: Abdomen feeling slightly better. Minimal flatus. Unsteady when she gets up. Does not want SNF upon discharge. Vitals/I&O's: Vital Signs Temp Pulse Resp BP Pulse Ox 36.3 C L 68 18 147/86 H 97 08/08/20 10:00 08/08/20 11:36 08/08/20 10:00 08/08/20 10:00 08/08/20 10:00 Oxygen Flow Rate (L/min) 3 Oxygen Delivery Method Room Air Weight: 114.2 kg Body Mass Index (BMI) 39.9 Intake and Output for Last 24 Hours 08/06/20 08/07/20 08/08/20 23:59 23:59 23:59 Intake Total 1763.25 / 1763.25 1119 / 1119 1208.33 / 1208.33 Output Total 350 / 350 455 / 785 1640 / 1640 Balance 1413.25 / 1413.25 664 / 334 -431.67 / -431.67 General: Alert, No apparent distress HEENT: Atraumatic, Normocephalic Oral: Moist Mucosa, No Gingival or Mucosal Lesions/ Ulcerations Neck: No Nodes, Thyroid Normal Size and Texture Lungs: Clear to auscultation, Normal air movement, No rhonchi, No wheeze Cardiovascular: Regular rate, Regular Rhythm, Normal S1, Normal S2, No murmurs Abdomen: Soft, Non Tender, Non-Distended, No Hepato-splenomegaly, Hypoactive Bowel Sounds Extremities: No edema, No Calf Tenderness Skin: No rashes, No breakdown Psych/Mental Status: Normal Affect, Appropriate Microbiology Past 72 Hours 08/05/20 Unknown Urine, Clean Catch Urine Culture - Final Mixed Gram Positive Organisms 08/04/20 20:55 Blood Culture (Wb) - Left Forearm Blood Culture - Preliminary No growth in 48 hours. 08/04/20 20:57 Blood Culture (Wb) - Arm Right Blood Culture - Preliminary No growth in 48 hours. Laboratory Results 08/08/20 05:20: WBC 11.9 H, RBC 4.20, Hgb 11.8 L, Hct 37.7, MCV 89.8, MCH 28.1, MCHC 31.3 L, RDW Std Deviation 52.4 H, RDW Coeff of Gabriel 15.9 H, Plt Count 361, MPV 9.3, Immature Gran % (Auto) 0.500, Neut % (Auto) 90.4 H, Lymph % (Auto) 5.9 L, [place] % (Auto) 3.2, Eos % (Auto) 0.0, Baso % (Auto) 0.0, Absolute Neuts (auto) 10.8 H, Absolute Lymphs (auto) 0.70 L, Nucleated RBC % 0 08/08/20 05:20: Sodium 137, Potassium 3.8, Chloride 105, Carbon Dioxide 27.0, Anion Gap 5, BUN 11, Creatinine 0.54 L, Estim Creat Clear Calc 48.30, Est GFR (MDRD) Af Amer 142, Est GFR (MDRD) Non-Af 117, BUN/Creatinine Ratio 20.2 H, Glucose 117 H, Calcium 8.8 Current Medications Acetaminophen (Acetaminophen 325 Mg Tablet) 650 mg PO Q6H PRN PRN PRN Reason: Pain Score 1-10 Last Admin: 08/08/20 13:04 Dose: 650 mg Documented by: Alprazolam (Alprazolam 0.25 Mg Tablet) 0.25 mg PO DAILY PRN PRN PRN Reason: anxiety, takes rarely Aspirin (Aspirin E.C. 81 Mg Tablet) 81 mg PO DAILY [facility] Last Admin: 08/08/20 08:31 Dose: 81 mg Documented by: Cholecalciferol (Cholecalciferol (Vit D3) 1,000 Unit (25mcg)) 6,000 unit PO DAILY [facility] Last Admin: 08/08/20 08:31 Dose: 6,000 unit Documented by: Clonazepam (Clonazepam 0.5 Mg Tablet) 0.25 mg PO QHS PRN PRN Reason: for restless legs Diltiazem HCl (Diltiazem Cd 120 Mg Capsule) 120 mg PO Q12 [facility] Last Admin: 08/08/20 08:31 Dose: 120 mg Documented by: Docusate Sodium (Docusate Sodium 100 Mg Capsule) 100 mg PO BID [facility] Last Admin: 08/08/20 08:31 Dose: 100 mg Documented by: Flecainide Acetate (Flecainide 100 Mg Tablet) 50 mg PO Q12 [facility] Last Admin: 08/08/20 08:31 Dose: 50 mg Documented by: Hydromorphone HCl (Hydromorphone 0.5 Mg/0.5 Ml Syringe) 0.25 - 0.5 mg IV Q2H PRN PRN PRN Reason: Pain Score 1-10 Last Admin: 08/08/20 08:41 Dose: 0.25 mg Documented by: Sodium Chloride () 250 mls @ 15 mls/hr IV .[id number] PRN PRN Reason: Saline Flush Last Infusion: 08/07/20 02:30 Dose: 0 mls/hr Documented by: Sodium Chloride () 250 mls @ 15 mls/hr IV .[id number] PRN PRN Reason: Additional IVPB Infusion Sodium Chloride () 1,000 mls @ 50 mls/hr IV .Q20H [facility] Last Infusion: 08/08/20 12:41 Dose: 50 mls/hr Documented by: Piperacillin Sod/Tazobactam (Sod 3.375 gm/ Sodium Chloride) 50 mls @ 12.5 mls/hr IV Q8 [facility] Last Admin: 08/08/20 13:04 Dose: 12.5 mls/hr Documented by: Levothyroxine Sodium (Levothyroxine 100 Mcg Tablet) 100 mcg PO DAILY@0600 [facility] Last Admin: 08/08/20 06:05 Dose: 100 mcg Documented by: Lisinopril (Lisinopril 40 Mg Tablet) 40 mg PO DAILY [facility] Last Admin: 08/08/20 08:31 Dose: 40 mg Documented by: Melatonin (Melatonin 3 Mg Tablet) 3 mg PO QHS PRN PRN PRN Reason: INSOMNIA Metoprolol Tartrate (Metoprolol Tartrate 50 Mg Tablet) 50 mg PO BID [facility] Last Admin: 08/08/20 08:24 Dose: 50 mg Documented by: Nutritional Formula (Lactose Free) (Ensure Clear 120 Ml Liquid) 120 ml PO 4X/DAY [facility] Last Admin: 08/08/20 13:03 Dose: 120 ml Documented by: Nystatin (Nystatin Powder 15gm Bottle) 1 applic TOPICAL TID [facility]; Protocol Last Admin: 08/08/20 13:05 Dose: 1 applicatio Documented by: Ondansetron HCl (Ondansetron 4 Mg/2 Ml Vial) 4 mg IV Q8H PRN PRN PRN Reason: NAUSEA/VOMITING Oxycodone HCl (Oxycodone 5 Mg Tablet) 5 - 10 mg PO Q4H PRN PRN PRN Reason: Pain Score 1-10 Last Admin: 08/08/20 13:04 Dose: 5 mg Documented by: Pantoprazole Sodium (Pantoprazole Sodium 20 Mg Tablet) 20 mg PO BID [facility] Last Admin: 08/08/20 08:24 Dose: 20 mg Documented by: Sodium Chloride (0.9% Saline Lock 10 Ml Syringe) 10 - 40 ml IV UD PRN PRN Reason: SALINE FLUSH Last Admin: 08/07/20 20:54 Dose: 10 ml Documented by: Sucralfate (Sucralfate 1 Gm Tablet) 1 gm PO 1HR_ACHS [facility] Last Admin: 08/08/20 11:25 Dose: 1 gm Documented by: STROKE Vital Signs/Narrative: Vital Signs Temp Pulse Resp BP Pulse Ox 08/08/20 11:36 68 08/08/20 10:00 36.3 C L 69 18 147/86 H 97 Medical Necessity - Tobacco Use Smoking Status: Never smoker Assessment/Plan All Active Problems (Last Reviewed 08/04/20 @ 23:[address] Keo Mariscal MD) Acute on chronic cholecystitis concurrent with and due to calculus of gallbladder and bile duct (Acute) Acute cholecystitis (Acute) 1. acute cholecystitis lap barbara 08/06 ERCP 08/07 on pip/tazo mgmt per general surgery 2. chronic conditions: anemia: stable ANGELI: BiPAP pAfib: flecanide, dilt, metoprolol resume warfarin when ok with general surgery HTN pulm HTN hypothyroid 3. VTE prophylaxis: LMWH Inpatient E&M: 58363 Subs Hosp L2
[2020-08-08] MEDS: 0.9% Normal Saline 1,000 ML 50 ML IV (21:16)
--- NOTE | 2020-08-08 23:45 | CPS ---
pt declined bipap this pm
[2020-08-09] VITALS (14 sets, daily range): BP systolic 138–179; BP diastolic 86–121; PULSE 65–89; RESP 16–18; TEMP 36.3–36.6; O2SAT 97–100
[2020-08-09] MEDS: Enoxaparin 40 MG/0.4 ML Syringe SC (06:01)
[2020-08-09] MEDS: Levothyroxine 100 MCG Tablet PO (06:01)
[2020-08-09] MEDS: Sucralfate 1 GM Tablet PO ×4 (06:01→21:58)
[2020-08-09] MEDS: Nystatin Powder 15gm Bottle 1 APPLIC TOPICAL ×3 (06:01→22:01)
[2020-08-09] MEDS: Docusate Sodium 100 MG Capsule PO ×2 (07:45→21:59)
[2020-08-09] MEDS: Aspirin E.C. 81 MG Tablet PO (07:45)
[2020-08-09] MEDS: Flecainide 100 MG Tablet 50 MG PO ×2 (07:45→21:59)
[2020-08-09] MEDS: dilTIAZem CD 120 MG Capsule PO ×2 (07:46→22:00)
[2020-08-09] MEDS: Pantoprazole Sodium 20 MG Tablet PO ×2 (07:46→22:01)
[2020-08-09] MEDS: Metoprolol Tartrate 50 MG Tablet PO ×2 (07:48→22:00)
[2020-08-09] MEDS: Lisinopril 40 MG Tablet PO (07:49)
[2020-08-09] MEDS: Ensure Clear 120 ML Liquid PO (07:55)
[2020-08-09] MEDS: oxyCODONE 5 MG Tablet PO (07:57)
--- NOTE | 2020-08-09 08:24 | PCM.PN.SRG ---
Patient Problems: Active and Suspected Problems (Last Reviewed 08/04/20 @ 23:[address] Keo Mariscal MD) Acute on chronic cholecystitis concurrent with and due to calculus of gallbladder and bile duct (Acute) Acute cholecystitis (Acute) Subjective: Tolerating diet, still having some issues with her A. fib and blood pressure per patient. - Physical Exam Vitals/I&O's: Vital Signs Temp Pulse Resp BP Pulse Ox 97.6 F L 89 16 179/121 H 100 08/09/20 08:11 08/09/20 08:11 08/09/20 08:11 08/09/20 08:11 08/09/20 08:11 Oxygen Flow Rate (L/min) 2 Oxygen Delivery Method Room Air Weight: 251 lb 12.286 oz Body Mass Index (BMI) 39.9 Intake and Output for Last 24 Hours 08/07/20 08/08/20 08/09/20 23:59 23:59 23:59 Intake Total 1119 / 1119 1824.17 / 1824.17 50 / 50 Output Total 455 / 785 2670 / 3580 1620 / 1620 Balance 664 / 334 -845.83 / -1755.83 -1570 / -1570 General: Alert, Oriented x3, Cooperative, No apparent distress Lungs: Normal air movement Abdomen: Soft, Non-Distended, Tender - Near incisions clean dry intact, ELIZABETH serous (we will plan to remove today) Microbiology Past 72 Hours 08/05/20 Unknown Urine, Clean Catch Urine Culture - Final Mixed Gram Positive Organisms 08/04/20 20:55 Blood Culture (Wb) - Left Forearm Blood Culture - Preliminary No growth in 48 hours. 08/04/20 20:57 Blood Culture (Wb) - Arm Right Blood Culture - Preliminary No growth in 48 hours. Current Medications Acetaminophen (Acetaminophen 325 Mg Tablet) 650 mg PO Q6H PRN PRN PRN Reason: Pain Score 1-10 Last Admin: 08/08/20 20:23 Dose: 650 mg Documented by: Alprazolam (Alprazolam 0.25 Mg Tablet) 0.25 mg PO DAILY PRN PRN PRN Reason: anxiety, takes rarely Aspirin (Aspirin E.C. 81 Mg Tablet) 81 mg PO DAILY [facility] Last Admin: 08/09/20 07:45 Dose: 81 mg Documented by: Cholecalciferol (Cholecalciferol (Vit D3) 1,000 Unit (25mcg)) 6,000 unit PO DAILY [facility] Last Admin: 08/09/20 07:44 Dose: 6,000 unit Documented by: Clonazepam (Clonazepam 0.5 Mg Tablet) 0.25 mg PO QHS PRN PRN Reason: for restless legs Diltiazem HCl (Diltiazem Cd 120 Mg Capsule) 120 mg PO Q12 [facility] Last Admin: 08/09/20 07:46 Dose: 120 mg Documented by: Docusate Sodium (Docusate Sodium 100 Mg Capsule) 100 mg PO BID [facility] Last Admin: 08/09/20 07:45 Dose: 100 mg Documented by: Enoxaparin Sodium (Enoxaparin 40 Mg/0.4 Ml Syringe) 40 mg SC DAILY@0600 [facility] Last Admin: 08/09/20 06:01 Dose: 40 mg Documented by: Flecainide Acetate (Flecainide 100 Mg Tablet) 50 mg PO Q12 [facility] Last Admin: 08/09/20 07:45 Dose: 50 mg Documented by: Hydromorphone HCl (Hydromorphone 0.5 Mg/0.5 Ml Syringe) 0.25 - 0.5 mg IV Q2H PRN PRN PRN Reason: Pain Score 1-10 Last Admin: 08/08/20 08:41 Dose: 0.25 mg Documented by: Sodium Chloride () 250 mls @ 15 mls/hr IV .[id number] PRN PRN Reason: Saline Flush Last Infusion: 08/07/20 02:30 Dose: 0 mls/hr Documented by: Sodium Chloride () 250 mls @ 15 mls/hr IV .[id number] PRN PRN Reason: Additional IVPB Infusion Sodium Chloride () 1,000 mls @ 50 mls/hr IV .Q20H [facility] Last Infusion: 08/09/20 01:16 Dose: 50 mls/hr Documented by: Piperacillin Sod/Tazobactam (Sod 3.375 gm/ Sodium Chloride) 50 mls @ 12.5 mls/hr IV Q8 [facility] Last Admin: 08/09/20 06:02 Dose: 12.5 mls/hr Documented by: Levothyroxine Sodium (Levothyroxine 100 Mcg Tablet) 100 mcg PO DAILY@0600 [facility] Last Admin: 08/09/20 06:01 Dose: 100 mcg Documented by: Lisinopril (Lisinopril 40 Mg Tablet) 40 mg PO DAILY [facility] Last Admin: 08/09/20 07:49 Dose: 40 mg Documented by: Melatonin (Melatonin 3 Mg Tablet) 3 mg PO QHS PRN PRN PRN Reason: INSOMNIA Metoprolol Tartrate (Metoprolol Tartrate 50 Mg Tablet) 50 mg PO BID [facility] Last Admin: 08/09/20 07:48 Dose: 50 mg Documented by: Nutritional Formula (Lactose Free) (Ensure Clear 120 Ml Liquid) 120 ml PO 4X/DAY [facility] Last Admin: 08/09/20 07:55 Dose: 120 ml Documented by: Nystatin (Nystatin Powder 15gm Bottle) 1 applic TOPICAL TID [facility]; Protocol Last Admin: 08/09/20 06:01 Dose: 1 applicatio Documented by: Ondansetron HCl (Ondansetron 4 Mg/2 Ml Vial) 4 mg IV Q8H PRN PRN PRN Reason: NAUSEA/VOMITING Oxycodone HCl (Oxycodone 5 Mg Tablet) 5 - 10 mg PO Q4H PRN PRN PRN Reason: Pain Score 1-10 Last Admin: 08/09/20 07:57 Dose: 5 mg Documented by: Pantoprazole Sodium (Pantoprazole Sodium 20 Mg Tablet) 20 mg PO BID [facility] Last Admin: 08/09/20 07:46 Dose: 20 mg Documented by: Sodium Chloride (0.9% Saline Lock 10 Ml Syringe) 10 - 40 ml IV UD PRN PRN Reason: SALINE FLUSH Last Admin: 08/07/20 20:54 Dose: 10 ml Documented by: Sucralfate (Sucralfate 1 Gm Tablet) 1 gm PO 1HR_ACHS [facility] Last Admin: 08/09/20 06:01 Dose: 1 gm Documented by: Medical Necessity - Tobacco Use Smoking Status: Never smoker Assessment/Plan All Active Problems (Last Reviewed 08/04/20 @ 23:[address] Keo Mariscal MD) Acute on chronic cholecystitis concurrent with and due to calculus of gallbladder and bile duct (Acute) Acute cholecystitis (Acute) 70 y/o F w acute cholecystitis, s/p lap barbara POD 3, Choledocholithiasis status post ERCP postop day 2 Patient is tolerating cardiac diet will DC ELIZABETH today Okay for anticoagulation for A. wendy Hoyt M.D. Pager: [phone] [facility] [address] [place] [address], [facility], [address] [place] [address] Office: [phone]
--- NOTE | 2020-08-09 14:11 | PN_ITS ---
Patient Problems: Active and Suspected Problems (Last Reviewed 08/04/20 @ 23:[address] Keo Mariscal MD) Acute on chronic cholecystitis concurrent with and due to calculus of gallbladder and bile duct (Acute) Acute cholecystitis (Acute) Reason for Visit: cholecystitis Subjective: Abdomen feeling better. +Flatus. In AM: was still having palpitations and heaviness with ambulation. In afternoon, was having less palpitations and no chest heaviness. Vitals/I&O's: Vital Signs Temp Pulse Resp BP Pulse Ox 36.5 C L 76 16 138/86 H 97 08/09/20 11:23 08/09/20 11:23 08/09/20 11:23 08/09/20 11:23 08/09/20 11:23 Oxygen Flow Rate (L/min) 2 Oxygen Delivery Method Room Air Weight: 114.2 kg Body Mass Index (BMI) 39.9 Intake and Output for Last 24 Hours 08/07/20 08/08/20 08/09/20 23:59 23:59 23:59 Intake Total 1119 / 1119 1824.17 / 1824.17 500 / 500 Output Total 455 / 785 2670 / 3580 2520 / 2520 Balance 664 / 334 -845.83 / -1755.83 -2019 / General: Alert, No apparent distress HEENT: Atraumatic, Normocephalic Oral: Moist Mucosa, No Gingival or Mucosal Lesions/ Ulcerations Neck: No Nodes, Thyroid Normal Size and Texture Lungs: Clear to auscultation, Normal air movement, No rhonchi, No wheeze, No rales Cardiovascular: Regular rate, Regular Rhythm, Normal S1, Normal S2, No murmurs Abdomen: Bowel Sounds Present, Soft, Non Tender, Non-Distended, No Hepato- splenomegaly Microbiology Past 72 Hours 08/05/20 Unknown Urine, Clean Catch Urine Culture - Final Mixed Gram Positive Organisms 08/04/20 20:55 Blood Culture (Wb) - Left Forearm Blood Culture - Preliminary No growth in 48 hours. 08/04/20 20:57 Blood Culture (Wb) - Arm Right Blood Culture - Preliminary No growth in 48 hours. Current Medications Acetaminophen (Acetaminophen 325 Mg Tablet) 650 mg PO Q6H PRN PRN PRN Reason: Pain Score 1-10 Last Admin: 08/08/20 20:23 Dose: 650 mg Documented by: Alprazolam (Alprazolam 0.25 Mg Tablet) 0.25 mg PO DAILY PRN PRN PRN Reason: anxiety, takes rarely Aspirin (Aspirin E.C. 81 Mg Tablet) 81 mg PO DAILY [facility] Last Admin: 08/09/20 07:45 Dose: 81 mg Documented by: Cholecalciferol (Cholecalciferol (Vit D3) 1,000 Unit (25mcg)) 6,000 unit PO DAILY [facility] Last Admin: 08/09/20 07:44 Dose: 6,000 unit Documented by: Clonazepam (Clonazepam 0.5 Mg Tablet) 0.25 mg PO QHS PRN PRN Reason: for restless legs Diltiazem HCl (Diltiazem Cd 120 Mg Capsule) 120 mg PO Q12 [facility] Last Admin: 08/09/20 07:46 Dose: 120 mg Documented by: Docusate Sodium (Docusate Sodium 100 Mg Capsule) 100 mg PO BID [facility] Last Admin: 08/09/20 07:45 Dose: 100 mg Documented by: Enoxaparin Sodium (Enoxaparin 40 Mg/0.4 Ml Syringe) 40 mg SC DAILY@0600 [facility] Last Admin: 08/09/20 06:01 Dose: 40 mg Documented by: Flecainide Acetate (Flecainide 100 Mg Tablet) 50 mg PO Q12 [facility] Last Admin: 08/09/20 07:45 Dose: 50 mg Documented by: Hydromorphone HCl (Hydromorphone 0.5 Mg/0.5 Ml Syringe) 0.25 - 0.5 mg IV Q2H PRN PRN PRN Reason: Pain Score 1-10 Last Admin: 08/08/20 08:41 Dose: 0.25 mg Documented by: Sodium Chloride () 250 mls @ 15 mls/hr IV .[id number] PRN PRN Reason: Saline Flush Last Infusion: 08/07/20 02:30 Dose: 0 mls/hr Documented by: Sodium Chloride () 250 mls @ 15 mls/hr IV .[id number] PRN PRN Reason: Additional IVPB Infusion Sodium Chloride () 1,000 mls @ 50 mls/hr IV .Q20H [facility] Last Infusion: 08/09/20 01:16 Dose: 50 mls/hr Documented by: Piperacillin Sod/Tazobactam (Sod 3.375 gm/ Sodium Chloride) 50 mls @ 12.5 mls/hr IV Q8 [facility] Last Infusion: 08/09/20 10:20 Dose: Infused Documented by: Levothyroxine Sodium (Levothyroxine 100 Mcg Tablet) 100 mcg PO DAILY@0600 [facility] Last Admin: 08/09/20 06:01 Dose: 100 mcg Documented by: Lisinopril (Lisinopril 40 Mg Tablet) 40 mg PO DAILY [facility] Last Admin: 08/09/20 07:49 Dose: 40 mg Documented by: Melatonin (Melatonin 3 Mg Tablet) 3 mg PO QHS PRN PRN PRN Reason: INSOMNIA Metoprolol Tartrate (Metoprolol Tartrate 50 Mg Tablet) 50 mg PO BID [facility] Last Admin: 08/09/20 07:48 Dose: 50 mg Documented by: Nystatin (Nystatin Powder 15gm Bottle) 1 applic TOPICAL TID [facility]; Protocol Last Admin: 08/09/20 06:01 Dose: 1 applicatio Documented by: Ondansetron HCl (Ondansetron 4 Mg/2 Ml Vial) 4 mg IV Q8H PRN PRN PRN Reason: NAUSEA/VOMITING Oxycodone HCl (Oxycodone 5 Mg Tablet) 5 - 10 mg PO Q4H PRN PRN PRN Reason: Pain Score 1-10 Last Admin: 08/09/20 07:57 Dose: 5 mg Documented by: Pantoprazole Sodium (Pantoprazole Sodium 20 Mg Tablet) 20 mg PO BID [facility] Last Admin: 08/09/20 07:46 Dose: 20 mg Documented by: Sodium Chloride (0.9% Saline Lock 10 Ml Syringe) 10 - 40 ml IV UD PRN PRN Reason: SALINE FLUSH Last Admin: 08/07/20 20:54 Dose: 10 ml Documented by: Sucralfate (Sucralfate 1 Gm Tablet) 1 gm PO 1HR_ACHS [facility] Last Admin: 08/09/20 11:22 Dose: 1 gm Documented by: STROKE Vital Signs/Narrative: Vital Signs Temp Pulse Resp BP Pulse Ox 08/09/20 11:23 36.5 C L 76 16 138/86 H 97 Medical Necessity - Tobacco Use Smoking Status: Never smoker Assessment/Plan All Active Problems (Last Reviewed 08/04/20 @ 23:[address] Keo Mariscal MD) Acute on chronic cholecystitis concurrent with and due to calculus of gallbladder and bile duct (Acute) Acute cholecystitis (Acute) 1. acute cholecystitis * lap barbara 08/06 * ERCP 08/07 * ELIZABETH removed 08/08 * DC abx * surgically stable for DC 2. Afib * Was having bouts of the RVR with ambulation but that seems to be improving. Patient was symptomatic as early as this morning however seems to be improving this afternoon. Discussed disposition with the patient. Patient would feel more countable being discharged on the to ensure that she is overall improving prior to discharge. * continue flecanide, dilt, metoprolol * resume warfarin 3. gastritis * PPI and sucralfate 4. chronic conditions: * anemia: stable * ANGELI: BiPAP * HTN * pulm HTN * hypothyroid 5. VTE prophylaxis: LMWH 6. Disposition: anticipated discharge 08/10 if HR remains stable with activity and is overall doing well. Dr. Hoyt sent Rx for percocet and pantoprazole already.
--- NOTE | 2020-08-09 19:29 | CPS ---
Patient declined Bipap this PM
[2020-08-10] VITALS (7 sets, daily range): BP systolic 151–159; BP diastolic 87–111; PULSE 72–101; RESP 16–18; TEMP 36.6–37.2; O2SAT 95–100
[2020-08-10 06:16] LABS: International Normalized Ratio 1.2; Prothrombin Time (Protime)PT. 14.6 SECONDS (11.7-14.9)
[2020-08-10 06:24] LABS: Anion Gap 5 (5-15); BUN 13 mg/dL (7-18); BUN/Creat Ratio 20.9 RATIO (10-20); Calcium,Total 8.1 mg/dL (8.5-10.1); Chloride 106 mmol/L (98-107); Creatinine, Serum 0.62 mg/dL (0.55-1.02); EST Glomerular Filtration Rate 100 mL/min (>60); Est Glom Filt Rate - Afr Amer 122 mL/min (>60); Glucose 79 mg/dL (74-106); Potassium 3.6 mmol/L (3.5-5.1); Sodium Level 139 mmol/L (136-145)
[2020-08-10] MEDS: Nystatin Powder 15gm Bottle 1 APPLIC TOPICAL (06:47)
[2020-08-10] MEDS: Enoxaparin 40 MG/0.4 ML Syringe SC (06:47)
[2020-08-10] MEDS: Sucralfate 1 GM Tablet PO ×2 (06:47→11:36)
[2020-08-10] MEDS: Levothyroxine 100 MCG Tablet PO (06:48)
--- NOTE | 2020-08-10 09:09 | PN.SURG_ITS ---
Patient Problems: Active and Suspected Problems (Last Reviewed 08/04/20 @ 23:[address] Keo Mariscal MD) Acute on chronic cholecystitis concurrent with and due to calculus of gallbladder and bile duct (Acute) Acute cholecystitis (Acute) Subjective: Patient tolerating a diet. Abdominal discomfort has improved. Positive flatus. Objective: Abdomen is obese and soft dressings are dry - Physical Exam Vitals/I&O's: Vital Signs Temp Pulse Resp BP Pulse Ox 98.9 F 80 18 154/99 H 100 08/10/20 09:03 08/10/20 09:03 08/10/20 09:03 08/10/20 09:03 08/10/20 09:03 Oxygen Flow Rate (L/min) 2 Oxygen Delivery Method Room Air Weight: 251 lb 12.286 oz Body Mass Index (BMI) 39.9 Intake and Output for Last 24 Hours 08/08/20 08/09/20 08/10/20 23:59 23:59 23:59 Intake Total 1824.17 / 1824.17 1936.67 / 1936.67 1250 / 1250 Output Total 2670 / 3580 2720 / 2720 Balance -845.83 / -1755.83 -783.33 / -783.33 1250 / 1250 Microbiology Past 72 Hours 08/04/20 20:55 Blood Culture (Wb) - Left Forearm Blood Culture - Final No growth in 5 days. 08/04/20 20:57 Blood Culture (Wb) - Arm Right Blood Culture - Final No growth in 5 days. 08/05/20 Unknown Urine, Clean Catch Urine Culture - Final Mixed Gram Positive Organisms Laboratory Results 08/10/20 05:45: PT 14.6, INR 1.2 08/10/20 05:45: Sodium 139, Potassium 3.6, Chloride 106, Carbon Dioxide 28.0, Anion Gap 5, BUN 13, Creatinine 0.62, Estim Creat Clear Calc 48.30, Est GFR (MDRD) Af Amer 122, Est GFR (MDRD) Non-Af 100, BUN/Creatinine Ratio 20.9 H, Glucose 79, Calcium 8.1 L Current Medications Acetaminophen (Acetaminophen 325 Mg Tablet) 650 mg PO Q6H PRN PRN PRN Reason: Pain Score 1-10 Last Admin: 08/08/20 20:23 Dose: 650 mg Documented by: Alprazolam (Alprazolam 0.25 Mg Tablet) 0.25 mg PO DAILY PRN PRN PRN Reason: anxiety, takes rarely Aspirin (Aspirin E.C. 81 Mg Tablet) 81 mg PO DAILY [facility] Last Admin: 08/09/20 07:45 Dose: 81 mg Documented by: Cholecalciferol (Cholecalciferol (Vit D3) 1,000 Unit (25mcg)) 6,000 unit PO DAILY [facility] Last Admin: 08/09/20 07:44 Dose: 6,000 unit Documented by: Clonazepam (Clonazepam 0.5 Mg Tablet) 0.25 mg PO QHS PRN PRN Reason: for restless legs Diltiazem HCl (Diltiazem Cd 120 Mg Capsule) 120 mg PO Q12 [facility] Last Admin: 08/09/20 22:00 Dose: 120 mg Documented by: Docusate Sodium (Docusate Sodium 100 Mg Capsule) 100 mg PO BID [facility] Last Admin: 08/09/20 21:59 Dose: 100 mg Documented by: Enoxaparin Sodium (Enoxaparin 40 Mg/0.4 Ml Syringe) 40 mg SC DAILY@0600 [facility] Last Admin: 08/10/20 06:47 Dose: 40 mg Documented by: Flecainide Acetate (Flecainide 100 Mg Tablet) 50 mg PO Q12 [facility] Last Admin: 08/09/20 21:59 Dose: 50 mg Documented by: Furosemide (Furosemide 20 Mg Tablet) 20 mg PO DAILY [facility] Hydromorphone HCl (Hydromorphone 0.5 Mg/0.5 Ml Syringe) 0.25 - 0.5 mg IV Q2H PRN PRN PRN Reason: Pain Score 1-10 Last Admin: 08/08/20 08:41 Dose: 0.25 mg Documented by: Sodium Chloride () 250 mls @ 15 mls/hr IV .[id number] PRN PRN Reason: Saline Flush Last Infusion: 08/07/20 02:30 Dose: 0 mls/hr Documented by: Sodium Chloride () 250 mls @ 15 mls/hr IV .[id number] PRN PRN Reason: Additional IVPB Infusion Sodium Chloride () 1,000 mls @ 50 mls/hr IV .Q20H [facility] Last Infusion: 08/09/20 18:59 Dose: 50 mls/hr Documented by: Piperacillin Sod/Tazobactam (Sod 3.375 gm/ Sodium Chloride) 50 mls @ 12.5 mls/hr IV Q8 [facility] Last Admin: 08/10/20 06:46 Dose: 12.5 mls/hr Documented by: Levothyroxine Sodium (Levothyroxine 100 Mcg Tablet) 100 mcg PO DAILY@0600 [facility] Last Admin: 08/10/20 06:48 Dose: 100 mcg Documented by: Lisinopril (Lisinopril 40 Mg Tablet) 40 mg PO DAILY [facility] Last Admin: 08/09/20 07:49 Dose: 40 mg Documented by: Melatonin (Melatonin 3 Mg Tablet) 3 mg PO QHS PRN PRN PRN Reason: INSOMNIA Metoprolol Tartrate (Metoprolol Tartrate 50 Mg Tablet) 50 mg PO BID [facility] Last Admin: 08/09/20 22:00 Dose: 50 mg Documented by: Nystatin (Nystatin Powder 15gm Bottle) 1 applic TOPICAL TID [facility]; Protocol Last Admin: 08/10/20 06:47 Dose: 1 applicatio Documented by: Ondansetron HCl (Ondansetron 4 Mg/2 Ml Vial) 4 mg IV Q8H PRN PRN PRN Reason: NAUSEA/VOMITING Oxycodone HCl (Oxycodone 5 Mg Tablet) 5 - 10 mg PO Q4H PRN PRN PRN Reason: Pain Score 1-10 Last Admin: 08/09/20 07:57 Dose: 5 mg Documented by: Pantoprazole Sodium (Pantoprazole Sodium 20 Mg Tablet) 20 mg PO BID [facility] Last Admin: 08/09/20 22:01 Dose: 20 mg Documented by: Potassium Chloride (Potassium Chloride 10 Meq Tablet) 10 meq PO DAILY [facility] Sodium Chloride (0.9% Saline Lock 10 Ml Syringe) 10 - 40 ml IV UD PRN PRN Reason: SALINE FLUSH Last Admin: 08/07/20 20:54 Dose: 10 ml Documented by: Sucralfate (Sucralfate 1 Gm Tablet) 1 gm PO 1HR_ACHS [facility] Last Admin: 08/10/20 06:47 Dose: 1 gm Documented by: Warfarin Sodium (Warfarin 2.5 Mg Tablet) 2.5 mg PO SuMoTuFrSa@1700 [facility] Warfarin Sodium (Warfarin 5 Mg Tablet) 5 mg PO WeTh@1700 [facility] Last Admin: 12/24/20 16:24 Dose: 5 mg Documented by: Medical Necessity - Tobacco Use Smoking Status: Never smoker Assessment/Plan All Active Problems (Last Reviewed 08/04/20 @ 23:[address] Keo Mariscal MD) Acute on chronic cholecystitis concurrent with and due to calculus of gallbladder and bile duct (Acute) Acute cholecystitis (Acute) Okay to be discharged from a surgical standpoint and follow-up in the office in a week
--- NOTE | 2020-08-10 09:11 | DCINST_ITS ---
Discharge Diet: Light diet - advance as tolerated Discharge Activity: May Not Drive - for 2-3 days or while taking narcotic pain medications., - - Do not drive, work heavy equipment or sign legal documents for 24 hours. May shower in (days): 1 - with the bandage in place. Additional Activity Instructions:: Pain medication may cause nausea. You should typically eat light foods as you take your pain medications. Pain medication may also cause constipation. If this is a problem for you, please discuss with your doctor. Call your doctor if your incision/area has: Continuous Slow Oozing, Sudden Increased Bleeding, Increased Pain/ Swelling, Increased Redness, Foul Smelling Discharge Call your doctor if you observe: Fever of 101 or Higher Suture Line Care: Avoid Pulling/Pushing, Avoid Pinching/Bending Additional Dressing/Incision Instructions:: Leave operative bandaids on for 2 days. When you remove dressing, leave Steri-Strips on until your follow-up appointment, or until the Steri-Strips fall off on their own. Allergies/Adverse Reactions: Allergies hydralazine Adverse Reaction (Severe, Verified 08/04/20 06:46) Induced Lupus apixaban [From Eliquis] Adverse Reaction (Intermediate, Verified 08/04/20 06:46) Increased bleeding irbesartan [From Avapro] Adverse Reaction (Unknown, Verified 08/04/20 06:46) Unknown levofloxacin [From Levaquin] Adverse Reaction (Unknown, Verified 08/04/20 06:46) Unknown amoxicillin [From Augmentin] Adverse Reaction (Verified 08/04/20 06:46) Nausea clavulanic acid [From Augmentin] Adverse Reaction (Verified 08/04/20 06:46) Nausea Medications to take at Discharge Benazepril HCl [Lotensin] 40 mg PO DAILY 09/20/16 Furosemide [Lasix] 20 mg PO DAILY 09/20/16 Levothyroxine [Synthroid] 100 mcg PO DAILY 09/20/16 Diltiazem CD [Cardizem CD] 120 mg PO Q12 #90 cap 09/23/16 aspirin 81 mg tablet,delayed release 81 mg PO QDAY 03/11/18 glucosamine-chondroitin 250 mg-200 mg tablet 1 tab PO DAILY tab 03/11/18 potassium chloride 10 mEq tablet,extended release 10 meq PO QDAY 03/11/18 alprazolam 0.25 mg tablet 0.25 mg PO DAILY PRN tab 03/12/18 biotin 5,000 mcg disintegrating tablet 10,000 mcg PO DAILY 11/18/18 polyethylene glycol 3350 17 gram/dose oral powder 17 g PO DAILY 11/18/18 cholecalciferol (vitamin D3) 50 mcg (2,000 unit) capsule 6,000 unit PO QDAY cap 12/26/19 clonazepam 0.5 mg tablet 0.25 mg PO QHS PRN tab 12/26/19 melatonin 5 mg tablet 5 mg PO HS PRN 12/26/19 multivit with [id number]-tkxc-AC-lutein 8 mg iron-400 mcg-300 mcg tablet 1 tab PO DAILY 12/26/19 flecainide 50 mg tablet 50 mg PO Q12H #180 tab 06/08/20 metoprolol tartrate 100 mg tablet 50 mg PO BID tab 07/26/20 Warfarin [Coumadin ([facility])] 2.5 mg PO SUMOTUFRSA 08/04/20 Warfarin [Coumadin ([facility])] 5 mg PO WETH 08/04/20 Oxycodone HCl/Acetaminophen [Percocet 5/325] 1 - 2 tab PO Q6H PRN PRN 3 Days #15 tab 08/09/20 Pantoprazole Sodium [Protonix] 40 mg PO DAILY 2 Days #30 tab 08/09/20 The following prescriptions were given: Oxycodone HCl/Acetaminophen [Percocet 5/325] 1 - 2 tab PO Q6H PRN PRN 3 Days #15 tab PRN Reason: Pain Transmission Status: Received by [id number] Pantoprazole Sodium [Protonix] 40 mg PO DAILY 2 Days #30 tab Transmission Status: Received by [facility] [id number] Primary Care Physician: Lizzy Trejo DO [Primary Care Provider] - Test Results: Test results from this visit will be discussed in further detail at your follow- up appointment, if applicable. Please Follow Up With: Anibal Alas MD - Please call [phone] to schedule an appointment. When: 7 days after your surgery.
[2020-08-10] MEDS: dilTIAZem CD 120 MG Capsule PO (09:38)
[2020-08-10] MEDS: Aspirin E.C. 81 MG Tablet PO (09:39)
[2020-08-10] MEDS: Docusate Sodium 100 MG Capsule PO (09:39)
[2020-08-10] MEDS: Flecainide 100 MG Tablet 50 MG PO (09:41)
[2020-08-10] MEDS: Pantoprazole Sodium 20 MG Tablet PO (09:41)
[2020-08-10] MEDS: Lisinopril 40 MG Tablet PO (09:41)
[2020-08-10] MEDS: Metoprolol Tartrate 50 MG Tablet PO (09:41)
[2020-08-10] MEDS: Furosemide 20 MG Tablet PO (09:47)
--- NOTE | 2020-08-10 10:32 | PCM.DC ---
- Discharge Diagnoses Current Active Problems: Current Active and Chronic Problems (Last Reviewed 08/04/20 @ 23:[address] Keo Mariscal MD) Obesity, morbid, BMI 40.0-49.9 (Chronic) Acute on chronic cholecystitis concurrent with and due to calculus of gallbladder and bile duct (Acute) Acute cholecystitis (Acute) Parkinson's disease (Chronic) [facility] current use of anticoagulant (Chronic) Persistent atrial fibrillation (Chronic) Secondary pulmonary arterial hypertension (Chronic) RVSP 43 mmhg per echo 05/27/2016 Nonrheumatic tricuspid (valve) insufficiency (Chronic) Moderate (2+) per echo 05/27/2018 Nonrheumatic mitral (valve) insufficiency (Chronic) Moderate (2+) per echo 05/27/2018 Hyperlipidemia (Chronic) Hypertension, essential, benign (Chronic) Hypothyroidism (Chronic) Obesity (BMI 30-39.9) (Chronic) You will use the following diet at home:: Cardiac - Advised soft diet for 2 to 3 days and then resume regular consistency diet Your liquids should be the consistency of: Regular/Thin Discharge Activity: May Not Drive - for 2-3 days or while taking narcotic pain medications., - - Do not drive, work heavy equipment or sign legal documents for 24 hours. May shower in (days): 1 - with the bandage in place. Additional Activity Instructions:: Pain medication may cause nausea. You should typically eat light foods as you take your pain medications. Pain medication may also cause constipation. If this is a problem for you, please discuss with your doctor. Call your doctor if your incision/area has: Continuous Slow Oozing, Sudden Increased Bleeding, Increased Pain/ Swelling, Increased Redness, Foul Smelling Discharge Call your doctor if you observe: Fever of 101 or Higher, Coldness, Increased Pain, Numbness or Tingling, Change in Color, Inability to urinate, Inability to have a bowel movement, Shortness of breath, Dizziness, Fainting spells, Swelling in the ankles, Chest pain, Prolonged hiccoughing, Increased palpitations (irregular heartbeat), Calf discomfort, Uncontrolled pain Suture Line Care: Avoid Pulling/Pushing, Avoid Pinching/Bending Additional Dressing/Incision Instructions:: Leave operative bandaids on for 2 days. When you remove dressing, leave Steri-Strips on until your follow-up appointment, or until the Steri-Strips fall off on their own. Additional Instructions: Also was advised 5 mg Coumadin dose today and then resume normal schedule of Coumadin from tomorrow a.m. Do not take Coumadin in the evening today, 08/10/2020. Allergies/Adverse Reactions: Allergies hydralazine Adverse Reaction (Severe, Verified 08/04/20 06:46) Induced Lupus apixaban [From Eliquis] Adverse Reaction (Intermediate, Verified 08/04/20 06:46) Increased bleeding irbesartan [From Avapro] Adverse Reaction (Unknown, Verified 08/04/20 06:46) Unknown levofloxacin [From Levaquin] Adverse Reaction (Unknown, Verified 08/04/20 06:46) Unknown amoxicillin [From Augmentin] Adverse Reaction (Verified 08/04/20 06:46) Nausea clavulanic acid [From Augmentin] Adverse Reaction (Verified 08/04/20 06:46) Nausea Medications to take at Discharge Benazepril HCl [Lotensin] 40 mg PO DAILY 09/20/16 Furosemide [Lasix] 20 mg PO DAILY 09/20/16 Levothyroxine [Synthroid] 100 mcg PO DAILY 09/20/16 Diltiazem CD [Cardizem CD] 120 mg PO Q12 #90 cap 09/23/16 aspirin 81 mg tablet,delayed release 81 mg PO QDAY 03/11/18 glucosamine-chondroitin 250 mg-200 mg tablet 1 tab PO DAILY tab 03/11/18 potassium chloride 10 mEq tablet,extended release 10 meq PO QDAY 03/11/18 alprazolam 0.25 mg tablet 0.25 mg PO DAILY PRN tab 03/12/18 biotin 5,000 mcg disintegrating tablet 10,000 mcg PO DAILY 11/18/18 polyethylene glycol 3350 17 gram/dose oral powder 17 g PO DAILY 11/18/18 cholecalciferol (vitamin D3) 50 mcg (2,000 unit) capsule 6,000 unit PO QDAY cap 12/26/19 clonazepam 0.5 mg tablet 0.25 mg PO QHS PRN tab 12/26/19 melatonin 5 mg tablet 5 mg PO HS PRN 12/26/19 multivit with cpgufgzj-jmpb-ER-lutein 8 mg iron-400 mcg-300 mcg tablet 1 tab PO DAILY 12/26/19 flecainide 50 mg tablet 50 mg PO Q12H #180 tab 06/08/20 metoprolol tartrate 100 mg tablet 50 mg PO BID tab 07/26/20 Oxycodone HCl/Acetaminophen [Percocet 5/325] 1 - 2 tab PO Q6H PRN PRN 3 Days #15 tab 08/09/20 Pantoprazole Sodium [Protonix] 40 mg PO DAILY 2 Days #30 tab 08/09/20 Warfarin [Coumadin] 2.5 mg PO SUMOTUFRSA #0 08/10/20 Warfarin [Coumadin] 5 mg PO WETH #0 08/10/20 The following prescriptions were given: Oxycodone HCl/Acetaminophen [Percocet 5/325] 1 - 2 tab PO Q6H PRN PRN 3 Days #15 tab PRN Reason: Pain Transmission Status: Received by [email or web address] [id number] Pantoprazole Sodium [Protonix] 40 mg PO DAILY 2 Days #30 tab Transmission Status: Received by [email or web address] [id number] Primary Care Physician: Lizzy Trejo DO [Primary Care Provider] - Please follow up with your Primary Care Physician in: In 1 to 2 weeks Test Results: Test results from this visit will be discussed in further detail at your follow-up appointment, if applicable. Please Follow Up With: Anibal Alas MD - Please call [phone] to schedule an appointment. When: 7 days after your surgery. Please Follow Up With: Dr. Dodd as schedule
--- NOTE | 2020-08-10 10:35 | PCM.DC.SUM ---
Discharge Date and Diagnosis - Problem List Patient Problems: Active and Suspected Problems (Last Reviewed 08/04/20 @ 23:[address] Keo Mariscal MD) Acute on chronic cholecystitis concurrent with and due to calculus of gallbladder and bile duct (Acute) Acute cholecystitis (Acute) Date of Admission: 08/04/20 Date of Discharge: 08/10/20 - Primary Discharge Diagnosis Acute Problems: Active Problems (Last Reviewed 08/04/20 @ 23:[address] Keo Mariscal MD) Acute on chronic cholecystitis concurrent with and due to calculus of gallbladder and bile duct (Acute) Acute cholecystitis (Acute) - Secondary Discharge Diagnosis Chronic Problems: Chronic Problems (Last Reviewed 08/04/20 @ 23:[address] 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) Persistent atrial fibrillation (Chronic) Secondary pulmonary arterial hypertension (Chronic) RVSP 43 mmhg per echo 05/27/2016 Nonrheumatic tricuspid (valve) insufficiency (Chronic) Moderate (2+) per echo 05/27/2018 Nonrheumatic mitral (valve) insufficiency (Chronic) Moderate (2+) per echo 05/27/2018 Hyperlipidemia (Chronic) Hypertension, essential, benign (Chronic) Hypothyroidism (Chronic) Obesity (BMI 30-39.9) (Chronic) Hospital Course and Treatment Summary of Care Provided: The patient is a 70 year old F was admitted with right upper quadrant abdominal pain for few hours before presentation. Clinical radiological findings were consistent with acute cholecystitis with cholelithiasis. 1. acute cholecystitis with cholelithiasis: Patient was admitted to [facility] floor. Gallbladder ultrasound showed cholelithiasis, GB wall thickening, PC fluid and positive sonographic Neville sign consistent with cholecystitis. Patient also had leukocytosis with left shift. Patient had lap barbara on 08/06, ERCP 08/07. Had ELIZABETH drain removed on 08/08. Patient had antibiotics since 08/04 started on Zosyn last dose today 10/11. Patient does not need any further antibiotic. Patient seen by surgeon and agree for discharge. Follow-up Dr. Alas in 7 days 2. Afib: With RVR on ambulation but has improved. Patient heart rate has been in PT to 90/min. INR subtherapeutic and had Lovenox supplementation. Coumadin 5 mg today and then y resume usual dose continue flecanide, diltiazem and metoprolol. 3. gastritis PPI and sucralfate 4. chronic conditions: Normocytic normochromic anemia: stable. Hemoglobin stable between 11 to 12 g% ANGELI: BiPAP HTN pulm HTN hypothyroid 5. VTE prophylaxis: LMWH and Coumadin Discharge medication reconciliation done. Discharge follow-up instructions completed. Discharge process discussed with the patient and all questions were answered to patient's satisfaction. Total time spent, exact 35 minutes on discharge meds reconciliation, examination, coordination of care with nurses and ancillary staff, review of imaging and blood test and discussion with the patient on follow-up instructions Clinical Impression(s) from Imaging Studies Gallbladder Ultrasound 08/04/20 20:14 IMPRESSION: Distended gallbladder associated with cholelithiasis, gallbladder wall thickening, pericholecystic fluid and a reported positive sonographic Neville''s sign concerning for underlying cholecystitis. Cholangiogram 08/06/20 14:20 IMPRESSION: Obstruction of the distal common bile duct likely due to tiny intraductal stone. Clinical correlation recommended ERCP X-Ray 08/07/20 12:30 IMPRESSION: Fluoroscopic guided ERCP Patient Problems: Active and Suspected Problems (Last Reviewed 08/04/20 @ 23:[address] Keo Mariscal MD) Acute on chronic cholecystitis concurrent with and due to calculus of gallbladder and bile duct (Acute) Acute cholecystitis (Acute) Objective: Seen and examined. Heart rate is controlled in 70s to 80s. Blood pressure in normal range. Patient is passing gas but no bowel movement. No burping or abdominal distention. No abdominal pain Physical exam General: Alert, Oriented x3, Cooperative HEENT: Atraumatic, PERRLA, EOMI, Normocephalic Oral: No Gingival or Mucosal Lesions/ Ulcerations Neck: Supple, No JVD, Negative Carotid Bruits Lungs: Air entry diminished in bilateral lung bases. No crepitation/rhonchi Cardiovascular: Regular rate, Regular Rhythm, Normal S1, Normal S2, No murmurs Abdomen: Bowel Sounds Present, Soft, Non Tender, Non-Distended : No renal angle tenderness. No suprapubic tenderness. Extremities: No edema, Capillary Refill Less than 3 Seconds Skin: No rashes, No breakdown Musculoskeletal: No Tenderness to Palpation of Joints or Extremities Neurological: Cranial nerves II-XII grossly intact, Deep Tendon Reflexes 2+/4 and Symmetrical, Neuro grossly intact Psych/Mental Status: Normal Affect, Appropriate. - Physical Exam Vitals/I&O's: Vital Signs Temp Pulse Resp BP Pulse Ox 98.9 F 80 18 154/99 H 100 08/10/20 09:03 08/10/20 09:41 08/10/20 09:03 08/10/20 09:03 08/10/20 09:03 Oxygen Flow Rate (L/min) 2 Oxygen Delivery Method Room Air Weight: 251 lb 12.286 oz Body Mass Index (BMI) 39.9 Intake and Output for Last 24 Hours 08/08/20 08/09/20 08/10/20 23:59 23:59 23:59 Intake Total 1824.17 / 1824.17 1936.67 / 1936.67 1250 / 1250 Output Total 2670 / 3580 2720 / 2720 Balance -845.83 / -1755.83 -783.33 / -783.33 1250 / 1250 Microbiology Past 72 Hours 08/04/20 20:55 Blood Culture (Wb) - Left Forearm Blood Culture - Final No growth in 5 days. 08/04/20 20:57 Blood Culture (Wb) - Arm Right Blood Culture - Final No growth in 5 days. 08/05/20 Unknown Urine, Clean Catch Urine Culture - Final Mixed Gram Positive Organisms Laboratory Results 08/10/20 05:45: PT 14.6, INR 1.2 08/10/20 05:45: Sodium 139, Potassium 3.6, Chloride 106, Carbon Dioxide 28.0, Anion Gap 5, BUN 13, Creatinine 0.62, Estim Creat Clear Calc 48.30, Est GFR (MDRD) Af Amer 122, Est GFR (MDRD) Non-Af 100, BUN/Creatinine Ratio 20.9 H, Glucose 79, Calcium 8.1 L Current Medications Acetaminophen (Acetaminophen 325 Mg Tablet) 650 mg PO Q6H PRN PRN PRN Reason: Pain Score 1-10 Last Admin: 08/08/20 20:23 Dose: 650 mg Documented by: Alprazolam (Alprazolam 0.25 Mg Tablet) 0.25 mg PO DAILY PRN PRN PRN Reason: anxiety, takes rarely Aspirin (Aspirin E.C. 81 Mg Tablet) 81 mg PO DAILY [facility] Last Admin: 08/10/20 09:39 Dose: 81 mg Documented by: Cholecalciferol (Cholecalciferol (Vit D3) 1,000 Unit (25mcg)) 6,000 unit PO DAILY [facility] Last Admin: 08/10/20 09:40 Dose: 6,000 unit Documented by: Clonazepam (Clonazepam 0.5 Mg Tablet) 0.25 mg PO QHS PRN PRN Reason: for restless legs Diltiazem HCl (Diltiazem Cd 120 Mg Capsule) 120 mg PO Q12 [facility] Last Admin: 08/10/20 09:38 Dose: 120 mg Documented by: Docusate Sodium (Docusate Sodium 100 Mg Capsule) 100 mg PO BID [facility] Last Admin: 08/10/20 09:39 Dose: 100 mg Documented by: Enoxaparin Sodium (Enoxaparin 40 Mg/0.4 Ml Syringe) 40 mg SC DAILY@0600 [facility] Last Admin: 08/10/20 06:47 Dose: 40 mg Documented by: Flecainide Acetate (Flecainide 100 Mg Tablet) 50 mg PO Q12 [facility] Last Admin: 08/10/20 09:41 Dose: 50 mg Documented by: Furosemide (Furosemide 20 Mg Tablet) 20 mg PO DAILY [facility] Last Admin: 08/10/20 09:47 Dose: 20 mg Documented by: Hydromorphone HCl (Hydromorphone 0.5 Mg/0.5 Ml Syringe) 0.25 - 0.5 mg IV Q2H PRN PRN PRN Reason: Pain Score 1-10 Last Admin: 08/08/20 08:41 Dose: 0.25 mg Documented by: Sodium Chloride () 250 mls @ 15 mls/hr IV .[id number] PRN PRN Reason: Saline Flush Last Infusion: 08/07/20 02:30 Dose: 0 mls/hr Documented by: Sodium Chloride () 250 mls @ 15 mls/hr IV .[id number] PRN PRN Reason: Additional IVPB Infusion Sodium Chloride () 1,000 mls @ 50 mls/hr IV .Q20H [facility] Last Infusion: 08/09/20 18:59 Dose: 50 mls/hr Documented by: Piperacillin Sod/Tazobactam (Sod 3.375 gm/ Sodium Chloride) 50 mls @ 12.5 mls/hr IV Q8 [facility] Last Admin: 08/10/20 06:46 Dose: 12.5 mls/hr Documented by: Levothyroxine Sodium (Levothyroxine 100 Mcg Tablet) 100 mcg PO DAILY@0600 [facility] Last Admin: 08/10/20 06:48 Dose: 100 mcg Documented by: Lisinopril (Lisinopril 40 Mg Tablet) 40 mg PO DAILY [facility] Last Admin: 08/10/20 09:41 Dose: 40 mg Documented by: Melatonin (Melatonin 3 Mg Tablet) 3 mg PO QHS PRN PRN PRN Reason: INSOMNIA Metoprolol Tartrate (Metoprolol Tartrate 50 Mg Tablet) 50 mg PO BID [facility] Last Admin: 08/10/20 09:41 Dose: 50 mg Documented by: Nystatin (Nystatin Powder 15gm Bottle) 1 applic TOPICAL TID [facility]; Protocol Last Admin: 08/10/20 06:47 Dose: 1 applicatio Documented by: Ondansetron HCl (Ondansetron 4 Mg/2 Ml Vial) 4 mg IV Q8H PRN PRN PRN Reason: NAUSEA/VOMITING Oxycodone HCl (Oxycodone 5 Mg Tablet) 5 - 10 mg PO Q4H PRN PRN PRN Reason: Pain Score 1-10 Last Admin: 08/09/20 07:57 Dose: 5 mg Documented by: Pantoprazole Sodium (Pantoprazole Sodium 20 Mg Tablet) 20 mg PO BID [facility] Last Admin: 08/10/20 09:41 Dose: 20 mg Documented by: Potassium Chloride (Potassium Chloride 10 Meq Tablet) 10 meq PO DAILY [facility] Last Admin: 08/10/20 09:47 Dose: 10 meq Documented by: Sodium Chloride (0.9% Saline Lock 10 Ml Syringe) 10 - 40 ml IV UD PRN PRN Reason: SALINE FLUSH Last Admin: 08/07/20 20:54 Dose: 10 ml Documented by: Sucralfate (Sucralfate 1 Gm Tablet) 1 gm PO 1HR_ACHS [facility] Last Admin: 08/10/20 06:47 Dose: 1 gm Documented by: Warfarin Sodium (Warfarin 5 Mg Tablet) 5 mg PO X1 ONE Stop: 08/10/20 10:30 Discharge Diet: Light diet - advance as tolerated Discharge Activity: May Not Drive - for 2-3 days or while taking narcotic pain medications., - - Do not drive, work heavy equipment or sign legal documents for 24 hours. May shower in (days): 1 - with the bandage in place. Additional Activity Instructions:: Pain medication may cause nausea. You should typically eat light foods as you take your pain medications. Pain medication may also cause constipation. If this is a problem for you, please discuss with your doctor. Call your doctor if your incision/area has: Continuous Slow Oozing, Sudden Increased Bleeding, Increased Pain/ Swelling, Increased Redness, Foul Smelling Discharge Call your doctor if you observe: Fever of 101 or Higher, Coldness, Increased Pain, Numbness or Tingling, Change in Color, Inability to urinate, Inability to have a bowel movement, Shortness of breath, Dizziness, Fainting spells, Swelling in the ankles, Chest pain, Prolonged hiccoughing, Increased palpitations (irregular heartbeat), Calf discomfort, Uncontrolled pain Suture Line Care: Avoid Pulling/Pushing, Avoid Pinching/Bending Additional Dressing/Incision Instructions:: Leave operative bandaids on for 2 days. When you remove dressing, leave Steri-Strips on until your follow-up appointment, or until the Steri-Strips fall off on their own. Home Medications: Medications to take at Discharge Benazepril HCl [Lotensin] 40 mg PO DAILY 09/20/16 Furosemide [Lasix] 20 mg PO DAILY 09/20/16 Levothyroxine [Synthroid] 100 mcg PO DAILY 09/20/16 Diltiazem CD [Cardizem CD] 120 mg PO Q12 #90 cap 09/23/16 aspirin 81 mg tablet,delayed release 81 mg PO QDAY 03/11/18 glucosamine-chondroitin 250 mg-200 mg tablet 1 tab PO DAILY tab 03/11/18 potassium chloride 10 mEq tablet,extended release 10 meq PO QDAY 03/11/18 alprazolam 0.25 mg tablet 0.25 mg PO DAILY PRN tab 03/12/18 biotin 5,000 mcg disintegrating tablet 10,000 mcg PO DAILY 11/18/18 polyethylene glycol 3350 17 gram/dose oral powder 17 g PO DAILY 11/18/18 cholecalciferol (vitamin D3) 50 mcg (2,000 unit) capsule 6,000 unit PO QDAY cap 12/26/19 clonazepam 0.5 mg tablet 0.25 mg PO QHS PRN tab 12/26/19 melatonin 5 mg tablet 5 mg PO HS PRN 12/26/19 multivit with ahsytgeb-flxe-EI-lutein 8 mg iron-400 mcg-300 mcg tablet 1 tab PO DAILY 12/26/19 flecainide 50 mg tablet 50 mg PO Q12H #180 tab 06/08/20 metoprolol tartrate 100 mg tablet 50 mg PO BID tab 07/26/20 Oxycodone HCl/Acetaminophen [Percocet 5/325] 1 - 2 tab PO Q6H PRN PRN 3 Days #15 tab 08/09/20 Pantoprazole Sodium [Protonix] 40 mg PO DAILY 2 Days #30 tab 08/09/20 Warfarin [Coumadin] 2.5 mg PO SUMOTUFRSA #0 08/10/20 Warfarin [Coumadin] 5 mg PO WETH #0 08/10/20 Following Prescriptions Were Given to Patient: Oxycodone HCl/Acetaminophen [Percocet 5/325] 1 - 2 tab PO Q6H PRN PRN 3 Days #15 tab PRN Reason: Pain Transmission Status: Received by [id number] Pantoprazole Sodium [Protonix] 40 mg PO DAILY 2 Days #30 tab Transmission Status: Received by [id number] Primary Care Physician: Lizzy Trejo DO [Primary Care Provider] - Please follow up with your Primary Care Physician in: In 1 to 2 weeks Please Follow Up With: Anibal Alas MD - Please call [phone] to schedule an appointment. When: 7 days after your surgery. Please Follow Up With: Dr. Dodd as schedule Medical Necessity - Tobacco Use Smoking Status: Never smoker Meaningful Use Info Meaningful Use Diagnoses (Choose all that apply): None applicable Inpatient E&M: 45560 Disch Hosp
--- NOTE | 2020-08-14 11:04 | CASEMGMT ---
AGUILA HERNANDEZ Discharge Follow-up Call: Chelyjhoan: 13 Strata: 3 Discharge Date: 08/10/2020 Date of Call: 08/14/2020 Time of Call: 1100 Discharge Dx: Acute cholecystitis Call attempted to pt's cell phone. Identifying voicemail received and message left requesting a call back if pt has questions related to her discharge. Uday Mcneal RN CM
== END 2020-08-10 14:06 | disposition home or self-care (01) | DRG 417 ==
LOC: ED 22:13 → MS3 08-05 07:20
PROVIDERS: Internal Medicine; Student in an Organized Health Care Education/Training Program; Surgery; Admitting Provider Hospitalist; Emergency Provider Emergency Medicine; PCP Internal Medicine; Visit Provider Internal Medicine
PROC: 0FT44ZZ Resection of Gallbladder, Percutaneous Endoscopic Approach (ICD-10-PCS; CPT 47610; principal; 2020-08-06 13:20)
PROC: 0FC98ZZ Extirpation of Matter from Common Bile Duct, Via Natural or Artificial Opening Endoscopic (ICD-10-PCS; CPT 43260; principal; 2020-08-07 12:00)
DX: K80.67 Calculus of gallbladder and bile duct with acute and chronic cholecystitis with obstruction (principal); K29.71 Gastritis, unspecified, with bleeding; Z68.41 Body mass index [BMI] 40.0-44.9, adult; E87.1 Hypo-osmolality and hyponatremia; E87.6 Hypokalemia; R79.1 Abnormal coagulation profile; I48.0 Paroxysmal atrial fibrillation; I27.21 Secondary pulmonary arterial hypertension; G20 Parkinson's disease; I10 Essential (primary) hypertension; E78.5 Hyperlipidemia, unspecified; E03.9 Hypothyroidism, unspecified; K59.09 Other constipation; G47.33 Obstructive sleep apnea (adult) (pediatric); F32.9 Major depressive disorder, single episode, unspecified; F41.9 Anxiety disorder, unspecified; E66.01 Morbid (severe) obesity due to excess calories; Z79.01 Long term (current) use of anticoagulants; Z79.82 Long term (current) use of aspirin; Z79.890 Hormone replacement therapy; Z79.899 Other long term (current) drug therapy
CPT/HCPCS: 36415; 71045; 74300; 74328; 76000; 76705; 80048; 80076; 81001; 83605; 83690; 84484; 85025; 85610; 86900; 86901; 87040; 87086; 87088; 87426; 88304; 93005; 94002; 94003; 94762; 99285; J7030; J7040; J7050; P9017; A4216; J1610; J2405; J3490

== ENCOUNTER 2020-09-07 08:57 | Outpatient (RCR) | payer MEDICARE, SELFPAY ==
[2019-12-26 09:40] VITALS: BMI 41.3
[2020-08-07 12:00] VITALS: BMI 39.9
[2020-09-07 10:20] LABS: Absolute Lymphocyte Count 1.21 X10^3/uL (0.83-4.51); Absolute Neutrophil Count 4.9 X10^3/uL (2.0-7.7); Basophil# 0.06 X10^3/uL; Basophil% 0.9 % (0-1); Eosinophil# 0.14 X10^3/uL; Eosinophils% 2.1 % (0-5); Hematocrit 37.7 % (37-47); Hemoglobin 11.8 g/dL (12.0-15.0); Lymphocyte # 1.21 X10^3/ul (4.0); Lymphocyte % 17.8 % (19-41); Mean Corp Hgb Conc 31.3 g/dL (32-36); Mean Corpuscular Hgb 27.6 pg (27.0-32.0); Mean Corpuscular Volume 88.1 fL (81-99); Mean Platelet Vol. 9.4 fl (6.2-12.0); Monocyte# 0.49 X10^3/uL; Monocyte% 7.2 % (0-10); NRBC Flagged by Analyzer 0 % (0-5); Neutrophil # 4.88 X10^3/uL (2.7-7.7); Neutrophil % 71.7 % (47-70); Platelet Count 339 K/mm3 (150-450); RBC Distribution Width CV 14.5 % (11.6-14.6); RBC Distribution Width SD 46.8 fl (35.1-43.9); Red Blood Count 4.28 M/mm3 (4.2-5.4); White Blood Count 6.8 K/mm3 (4.4-11.0)
[2020-09-07 10:32] LABS: International Normalized Ratio 2.2; Prothrombin Time (Protime)PT. 24.2 SECONDS (11.7-14.9)
[2020-09-07 10:57] LABS: Hemoglobin A1c 5.9 % (3.8-5.6)
[2020-09-07 11:09] LABS: Cholesterol 161 mg/dL (200); High Density Lipoprotein 76 mg/dL; Triglycerides 124 mg/dL; Very Low Density Lipoprotein 25 mg/dL (5-40)
== END 2020-09-07 18:00 | disposition home or self-care (01) ==
LOC: LAB 08:57
PROVIDERS: Family Provider Internal Medicine; PCP Internal Medicine; Referring Provider Internal Medicine Cardiovascular Disease; Visit Provider Internal Medicine Cardiovascular Disease
DX: I48.0 Paroxysmal atrial fibrillation (principal); Z79.01 Long term (current) use of anticoagulants; D50.0 Iron deficiency anemia secondary to blood loss (chronic); E78.2 Mixed hyperlipidemia
CPT/HCPCS: 36415; 80061; 83036; 85025; 85610

== ENCOUNTER 2020-10-09 10:18 | Outpatient (RCR) | payer MEDICARE, SELFPAY ==
[2020-10-09 12:00] LABS: International Normalized Ratio 2.3; Prothrombin Time (Protime)PT. 24.4 SECONDS (11.7-14.9)
== END 2020-10-09 18:00 | disposition home or self-care (01) ==
LOC: LAB 10:18
PROVIDERS: Family Provider Internal Medicine; PCP Internal Medicine; Referring Provider Internal Medicine Cardiovascular Disease; Visit Provider Internal Medicine Cardiovascular Disease
DX: I48.19 Other persistent atrial fibrillation (principal); Z79.01 Long term (current) use of anticoagulants
CPT/HCPCS: 36415; 85610

== ENCOUNTER 2020-12-11 10:25 | Outpatient (RCR) | payer MEDICARE, SELFPAY ==
[2020-11-15 15:31] LABS: International Normalized Ratio 1.9; Prothrombin Time (Protime)PT. 21.3 SECONDS (11.7-14.9)
[2020-12-11 12:36] LABS: International Normalized Ratio 1.9; Prothrombin Time (Protime)PT. 20.6 SECONDS (11.7-14.9)
== END 2020-12-11 18:00 | disposition home or self-care (01) ==
LOC: LAB 10:25
PROVIDERS: Family Provider Internal Medicine; PCP Internal Medicine; Referring Provider Internal Medicine Cardiovascular Disease; Visit Provider Internal Medicine Cardiovascular Disease
DX: I48.19 Other persistent atrial fibrillation (principal); Z79.01 Long term (current) use of anticoagulants
CPT/HCPCS: 36415; 85610

== ENCOUNTER 2020-12-20 08:50 | Outpatient (RCR) | payer MEDICARE, SELFPAY ==
[2020-12-20 10:08] LABS: Absolute Lymphocyte Count 1.06 X10^3/uL (0.83-4.51); Absolute Neutrophil Count 4.7 X10^3/uL (2.0-7.7); Basophil# 0.05 X10^3/uL; Basophil% 0.8 % (0-1); Eosinophil# 0.08 X10^3/uL; Eosinophils% 1.3 % (0-5); Hematocrit 40.9 % (37-47); Hemoglobin 12.3 g/dL (12.0-15.0); Lymphocyte # 1.06 X10^3/ul (0.83-4.51); Lymphocyte % 16.9 % (19-41); Mean Corp Hgb Conc 30.1 g/dL (32-36); Mean Corpuscular Hgb 26.5 pg (27.0-32.0); Mean Platelet Vol. 9.3 fl (6.2-12.0); Monocyte% 6.4 % (0-10); NRBC Flagged by Analyzer 0 % (0-5); Neutrophil # 4.67 X10^3/uL (2.7-7.7); Neutrophil % 74.4 % (47-70); Platelet Count 326 K/mm3 (150-450); RBC Distribution Width CV 18.6 % (11.6-14.6); RBC Distribution Width SD 59.9 fl (35.1-43.9); Red Blood Count 4.65 M/mm3 (4.2-5.4); White Blood Count 6.3 K/mm3 (4.4-11.0)
[2020-12-20 10:23] LABS: International Normalized Ratio 2.3; Prothrombin Time (Protime)PT. 24.8 SECONDS (11.7-14.9)
[2020-12-20 10:41] LABS: Vitamin D,25 Hydroxy 69.8 ng/mL
[2020-12-20 10:52] LABS: ALB/GLOB Ratio 0.9 RATIO (0.9-2.4); AST(SGOT) 17 U/L (15-37); Alanine Aminotransfer ALT/SGPT 10 U/L (13-56); Albumin, Serum 3.4 g/dL (3.2-5.0); Alkaline Phosphatase 109 U/L (45-117); Anion Gap 6 (5-15); BUN 12 mg/dL (7-18); BUN/Creat Ratio 15.8 RATIO (10-20); Calcium,Total 8.9 mg/dL (8.5-10.1); Chloride 105 mmol/L (98-107); Cholesterol 175 mg/dL (200); Creatinine, Serum 0.76 mg/dL (0.55-1.02); EST Glomerular Filtration Rate 80 mL/min (>60); Est Glom Filt Rate - Afr Amer 96 mL/min (>60); Globulin 3.6 g/dL (2.2-4.2); Glucose 92 mg/dL (74-106); Hemoglobin A1c 5.2 % (3.8-5.6); High Density Lipoprotein 85 mg/dL; Sodium Level 140 mmol/L (136-145); Thyroid Stim Hormone (TSH) 2.94 uIU/mL (0.358-3.74); Triglycerides 116 mg/dL; Very Low Density Lipoprotein 23 mg/dL (5-40)
== END 2020-12-20 18:00 | disposition home or self-care (01) ==
LOC: LAB 08:50
PROVIDERS: Family Provider Internal Medicine; PCP Internal Medicine; Referring Provider Internal Medicine Cardiovascular Disease; Visit Provider Internal Medicine Cardiovascular Disease
DX: I48.19 Other persistent atrial fibrillation (principal); Z79.01 Long term (current) use of anticoagulants; I10 Essential (primary) hypertension; E78.2 Mixed hyperlipidemia; E03.9 Hypothyroidism, unspecified; E55.9 Vitamin D deficiency, unspecified; R73.09 Other abnormal glucose
CPT/HCPCS: 36415; 80053; 80061; 82306; 83036; 84443; 85025; 85610

== ENCOUNTER → 2021-01-01 11:00 | Outpatient (CLI) | payer MEDICARE, SELFPAY ==
--- NOTE | 2021-01-01 11:02 | US_ITS ---
STUDY: THYROID ULTRASOUND REASON FOR EXAM: Female, 70 years old. THYROID NODULE TECHNIQUE: Ultrasound evaluation of the thyroid was performed with real-time and static klein-scale imaging. COMPARISON: 03/03/2019 FINDINGS: RIGHT LOBE: The right lobe of the thyroid gland measures 3.9 x 1.7 x 1.4 cm. There is a heterogeneous echotexture. There is a stable 1.3 x 1.4 x 1.2 cm solid nodule in the lower pole of the right lobe which is not significantly changed when compared with the prior exam. LEFT LOBE: The left lobe of the thyroid gland measures 4.0 x 1.5 x 1.5 cm. There is a heterogeneous echotexture. Again noted are 2 nodules in the left lobe of the thyroid with the larger measuring 1.2 x 1.1 x 1.0 cm. These are not significantly changed when compared with the prior exam. ISTHMUS: The isthmus measures 2 mm. The regional lymph nodes are normal. US/Thyroid IMPRESSION: No interval change Electronically Signed: Lyle Amor MD at 11:48 EDT , Service support ,
--- NOTE | 2021-01-01 11:34 | RAD_ITS ---
STUDY: X-RAY - RIGHT KNEE REASON FOR EXAM: Female, 70 years old. KNEE PAIN -- CHANGED ORDER TO RIGHT PER FADI AT OFFICE TECHNIQUE: 4 view(s) of the knee. COMPARISON: None. FINDINGS: Normal visualized distal femur. Normal visualized proximal tibia and fibula. Normal proximal tibiofibular articulation. There is mild degenerative arthrosis of the medial femorotibial compartment. There is severe degenerative arthrosis of the lateral femorotibial compartment with severe joint space narrowing. There is moderate degenerative arthrosis of the patellofemoral articulation. The soft tissue structures are unremarkable. RAD/Knee 4 or More Views IMPRESSION: Degenerative arthrosis. Electronically Signed: Lyle Amor MD at 12:54 EDT , Service support ,
--- NOTE | 2021-01-01 11:34 | RAD_ITS ---
STUDY: X-RAY - PELVIS AND RIGHT HIP REASON FOR EXAM: Female, 70 years old. HIP PAIN -- CHANGED ORDER TO RIGHT - PER FADI AT OFFICE TECHNIQUE: 3 views of the pelvis and hip. COMPARISON: None. FINDINGS: There is a non-specific bowel gas pattern. Normal visualized soft tissue structures. There is narrowing with cortical sclerosis and osteophyte formation of the sacroiliac joint consistent with degenerative osteoarthritic changes. Normal bilateral superior and inferior pubic rami. Normal pubic symphysis. Normal bilateral ischial tuberosities. Normal visualized femoral head. Normal acetabulum. There is moderate articular joint space narrowing of the hip. RAD/HIP, UNI W/ Pelvis 2-3 Views IMPRESSION: Age consistent degenerative changes, no acute findings Electronically Signed: Lyle Amor MD at 12:53 EDT , Service support ,
--- NOTE | 2021-01-01 11:50 | RAD_ITS ---
STUDY: X-RAY - LUMBAR SPINE REASON FOR EXAM: Female, 70 years old. LOW BACK PAIN TECHNIQUE: 5 view(s) of the lumbar spine were obtained. COMPARISON: None FINDINGS: Normal lumbar lordosis. There is no substantial scoliosis. There is a normal alignment of the vertebrae. There is multilevel endplate spondylosis of the lumbar vertebrae. There is multi-level degenerative disc disease with multi-level disc space narrowing. There is no demonstrated fracture. The soft tissue structures are unremarkable. RAD/L/S Spine Min 4 Views IMPRESSION: Degenerative changes of the spine, as detailed above. Electronically Signed: Lyle Amor MD at 12:53 EDT , Service support ,
== END ==
PROVIDERS: PCP Internal Medicine; Referring Provider Internal Medicine; Visit Provider Internal Medicine
DX: E04.1 Nontoxic single thyroid nodule (principal); M54.5 Low back pain; M25.551 Pain in right hip; M25.561 Pain in right knee
CPT/HCPCS: 72110; 73502; 73564; 76536

== ENCOUNTER 2021-01-18 10:54 | Outpatient (RCR) | payer MEDICARE, SELFPAY ==
[2021-01-18 11:44] LABS: International Normalized Ratio 2.6; Prothrombin Time (Protime)PT. 26.9 SECONDS (11.7-14.9)
== END 2021-01-18 18:00 | disposition home or self-care (01) ==
LOC: LAB 10:54
PROVIDERS: Family Provider Internal Medicine; PCP Internal Medicine; Referring Provider Internal Medicine Cardiovascular Disease; Visit Provider Internal Medicine Cardiovascular Disease
DX: I48.19 Other persistent atrial fibrillation (principal); Z79.01 Long term (current) use of anticoagulants
CPT/HCPCS: 36415; 85610

== ENCOUNTER 2021-03-07 10:49 | Outpatient (RCR) | payer MEDICARE, SELFPAY ==
[2021-02-20 13:21] LABS: International Normalized Ratio 1.8; Prothrombin Time (Protime)PT. 19.8 SECONDS (11.7-14.9)
[2021-03-07 12:48] LABS: International Normalized Ratio 2.1; Prothrombin Time (Protime)PT. 23.1 SECONDS (11.7-14.9)
== END 2021-03-07 18:00 | disposition home or self-care (01) ==
LOC: LAB 10:49
PROVIDERS: Family Provider Internal Medicine; PCP Internal Medicine; Referring Provider Internal Medicine Cardiovascular Disease; Visit Provider Internal Medicine Cardiovascular Disease
DX: I48.91 Unspecified atrial fibrillation (principal); Z79.01 Long term (current) use of anticoagulants
CPT/HCPCS: 36415; 85610

== ENCOUNTER 2021-04-12 11:46 | Outpatient (RCR) | payer MEDICARE, SELFPAY ==
[2021-03-13 11:41] VITALS: BMI 39.4
[2021-04-12 12:31] LABS: International Normalized Ratio 2.4; Prothrombin Time (Protime)PT. 25.4 SECONDS (11.7-14.9)
== END 2021-04-12 18:00 | disposition home or self-care (01) ==
LOC: LAB 11:46
PROVIDERS: Family Provider Internal Medicine; PCP Internal Medicine; Referring Provider Internal Medicine Cardiovascular Disease; Visit Provider Internal Medicine Cardiovascular Disease
DX: I48.91 Unspecified atrial fibrillation (principal); Z79.01 Long term (current) use of anticoagulants
CPT/HCPCS: 36415; 85610

== ENCOUNTER 2021-05-13 11:42 | Outpatient (RCR) | payer MEDICARE, SELFPAY ==
[2021-04-17 00:28] VITALS: BMI 39.4
[2021-05-13 12:30] LABS: International Normalized Ratio 2.7
== END 2021-05-13 18:00 | disposition home or self-care (01) ==
LOC: LAB 11:42
PROVIDERS: Family Provider Internal Medicine; PCP Internal Medicine; Referring Provider Internal Medicine Cardiovascular Disease; Visit Provider Internal Medicine Cardiovascular Disease
DX: I48.91 Unspecified atrial fibrillation (principal); Z79.01 Long term (current) use of anticoagulants
CPT/HCPCS: 36415; 85610

== ENCOUNTER → 2021-06-13 12:40 | Outpatient (CLI) | payer MEDICARE, SELFPAY ==
--- NOTE | 2021-06-13 12:47 | BI_ITS ---
MAMMOGRAPHY - BILATERAL SCREENING REASON FOR EXAM: Female, 71 years old. Routine annual screening examination. PERTINENT HISTORY: Non-contributory. TECHNIQUE: Digital bilateral breast jose (3D mammographic acquisition) in the CC and MLO projections. 2-D mediolateral oblique (MLO) and craniocaudad (CC) views of both breasts were obtained. CAD: Full Field Digital Mammography with Computer Added Detection was performed. COMPARISON: Comparison is made with prior study dated 06/12/2020 and 06/09/2019. FINDINGS: Breast Composition: The breasts are almost entirely fatty. There are no dominant masses or suspicious calcifications. Stable small benign-appearing bilateral axillary lymph nodes. No other significant abnormalities are identified. There has been no significant change since the prior study. BI/SCRN MAMM (CAD)W/JOSE BILAT IMPRESSION: Stable bilateral screening mammogram. Yearly follow-up mammogram recommended. (A) ASSESSMENT CATEGORY: BIRADS Category 2: Benign. A letter regarding these results will be sent to the patient by the facility within 30 days. Approximately 10% of breast cancers are not detected by mammography. A normal mammogram should not delay biopsy of a clinically suspicious abnormality. [id number] Electronically Signed: [place] MD at 8:54 EDT , Service support ,
[2021-06-13 14:17] LABS: International Normalized Ratio 2.5; Prothrombin Time (Protime)PT. 26.1 SECONDS (11.7-14.9)
[2021-06-13 14:30] LABS: AST(SGOT) 21 U/L (15-37); Alanine Aminotransfer ALT/SGPT 8 U/L (13-56); Albumin, Serum 2.9 g/dL (3.2-5.0); Alkaline Phosphatase 102 U/L (45-117); Bilirubin, Direct 0.08 mg/dL (0.00-0.30); Cholesterol 166 mg/dL (200); Globulin 3.4 g/dL (2.2-4.2); High Density Lipoprotein 76 mg/dL; Protein, Total 6.3 g/dL (6.4-8.2); Triglycerides 126 mg/dL; Very Low Density Lipoprotein 25 mg/dL (5-40)
== END ==
PROVIDERS: Internal Medicine Cardiovascular Disease; PCP Internal Medicine; Referring Provider Internal Medicine; Visit Provider Internal Medicine
DX: Z12.31 Encounter for screening mammogram for malignant neoplasm of breast (principal); E78.5 Hyperlipidemia, unspecified; I48.91 Unspecified atrial fibrillation
CPT/HCPCS: 36415; 77063; 77067; 80061; 80076; 85610

== ENCOUNTER 2021-08-01 11:55 | Outpatient (RCR) | payer MEDICARE, SELFPAY ==
[2021-05-16 22:16] VITALS: BMI 39.4
[2021-07-17 12:18] LABS: Hematocrit 35.8 % (37-47); Mean Corp Hgb Conc 30.7 g/dL (32-36); Mean Corpuscular Hgb 27.7 pg (27.0-32.0); Mean Corpuscular Volume 90.2 fL (81-99); Mean Platelet Vol. 9.4 fl (6.2-12.0); Platelet Count 360 K/mm3 (150-450); RBC Distribution Width CV 13.2 % (11.6-14.6); RBC Distribution Width SD 43.8 fl (35.1-43.9); Red Blood Count 3.97 M/mm3 (4.2-5.4); White Blood Count 6.6 K/mm3 (4.4-11.0)
[2021-07-17 12:19] LABS: Hemoglobin A1c 5.4 % (3.8-5.6)
[2021-07-17 12:33] LABS: International Normalized Ratio 1.9; Prothrombin Time (Protime)PT. 20.7 SECONDS (11.7-14.9)
[2021-07-17 12:41] LABS: Vitamin D,25 Hydroxy 62.3 ng/mL
[2021-07-17 12:47] LABS: ALB/GLOB Ratio 0.9 RATIO (0.9-2.4); AST(SGOT) 15 U/L (15-37); Alanine Aminotransfer ALT/SGPT 9 U/L (13-56); Albumin, Serum 3.4 g/dL (3.2-5.0); Alkaline Phosphatase 103 U/L (45-117); Anion Gap 8 (5-15); BUN 13 mg/dL (7-18); BUN/Creat Ratio 18.1 RATIO (10-20); Calcium,Total 8.7 mg/dL (8.5-10.1); Chloride 101 mmol/L (98-107); Creatinine, Serum 0.72 mg/dL (0.55-1.02); EST Glomerular Filtration Rate 85 mL/min (>60); Est Glom Filt Rate - Afr Amer 103 mL/min (>60); Globulin 3.7 g/dL (2.2-4.2); Glucose 88 mg/dL (74-106); Potassium 3.6 mmol/L (3.5-5.1); Protein, Total 7.1 g/dL (6.4-8.2); Sodium Level 139 mmol/L (136-145); Thyroid Stim Hormone (TSH) 2.04 uIU/mL (0.358-3.74)
[2021-07-19 11:58] LABS: Anti-Histone Abs 1.4 Units (0.0-0.9)
[2021-08-01 12:55] LABS: International Normalized Ratio 2.6; Prothrombin Time (Protime)PT. 27.1 SECONDS (11.7-14.9)
== END 2021-08-17 18:00 | disposition home or self-care (01) ==
LOC: LAB 11:55
PROVIDERS: Family Provider Internal Medicine; PCP Internal Medicine; Referring Provider Internal Medicine Cardiovascular Disease; Visit Provider Internal Medicine Cardiovascular Disease
DX: I48.91 Unspecified atrial fibrillation (principal); L93.2 Other local lupus erythematosus; R73.09 Other abnormal glucose; E55.9 Vitamin D deficiency, unspecified; E03.9 Hypothyroidism, unspecified; Z79.01 Long term (current) use of anticoagulants
CPT/HCPCS: 36415; 80053; 82306; 83036; 84443; 85027; 85610; 86235

== ENCOUNTER 2021-09-17 10:12 | Outpatient (RCR) | payer MEDICARE, SELFPAY ==
[2021-08-19 02:27] VITALS: BMI 39.4
[2021-09-17 11:31] LABS: Prothrombin Time (Protime)PT. 21.6 SECONDS (11.7-14.9)
== END 2021-09-17 23:59 | disposition home or self-care (01) ==
LOC: LAB 10:12
PROVIDERS: Family Provider Internal Medicine; PCP Internal Medicine; Referring Provider Internal Medicine Cardiovascular Disease; Visit Provider Internal Medicine Cardiovascular Disease
DX: I48.91 Unspecified atrial fibrillation (principal); Z79.01 Long term (current) use of anticoagulants
CPT/HCPCS: 36415; 85610

== ENCOUNTER 2021-11-08 09:12 | Outpatient (RCR) | payer MEDICARE, SELFPAY ==
[2021-10-15 10:23] VITALS: BMI 39.4
[2021-10-29 13:11] LABS: Prothrombin Time (Protime)PT. 12.5 SECONDS (11.7-14.9)
[2021-11-08 10:09] LABS: Absolute Lymphocyte Count 0.79 X10^3/uL (0.83-4.51); Absolute Neutrophil Count 4.5 X10^3/uL (2.0-7.7); Basophil# 0.04 X10^3/uL; Basophil% 0.7 % (0-1); Eosinophil# 0.09 X10^3/uL; Eosinophils% 1.5 % (0-5); Hematocrit 30.9 % (37-47); Hemoglobin 9.4 g/dL (12.0-15.0); Lymphocyte # 0.79 X10^3/ul (0.83-4.51); Lymphocyte % 13.4 % (19-41); Mean Corp Hgb Conc 30.4 g/dL (32-36); Mean Corpuscular Hgb 24.5 pg (27.0-32.0); Mean Corpuscular Volume 80.5 fL (81-99); Mean Platelet Vol. 9.5 fl (6.2-12.0); Monocyte# 0.46 X10^3/uL; Monocyte% 7.8 % (0-10); NRBC Flagged by Analyzer 0 % (0-5); Neutrophil # 4.47 X10^3/uL (2.7-7.7); Neutrophil % 76.1 % (47-70); Platelet Count 344 K/mm3 (150-450); RBC Distribution Width CV 17.9 % (11.6-14.6); RBC Distribution Width SD 51.7 fl (35.1-43.9); Red Blood Count 3.84 M/mm3 (4.2-5.4); White Blood Count 5.9 K/mm3 (4.4-11.0)
[2021-11-08 10:18] LABS: International Normalized Ratio 3.6; Prothrombin Time (Protime)PT. 34.9 SECONDS (11.7-14.9)
[2021-11-08 10:22] LABS: Hemoglobin A1c 5.8 % (3.8-5.6)
[2021-11-08 10:38] LABS: Vitamin D,25 Hydroxy 75.7 ng/mL
[2021-11-08 10:41] LABS: ALB/GLOB Ratio 0.9 RATIO (0.9-2.4); AST(SGOT) 14 U/L (15-37); Alanine Aminotransfer ALT/SGPT 11 U/L (13-56); Albumin, Serum 3.2 g/dL (3.2-5.0); Alkaline Phosphatase 95 U/L (45-117); Anion Gap 4 (5-15); BUN 12 mg/dL (7-18); BUN/Creat Ratio 16.6 RATIO (10-20); Calcium,Total 8.7 mg/dL (8.5-10.1); Chloride 108 mmol/L (98-107); Cholesterol 153 mg/dL (200); Creatinine, Serum 0.72 mg/dL (0.55-1.02); EST Glomerular Filtration Rate 84 mL/min (>60); Est Glom Filt Rate - Afr Amer 102 mL/min (>60); Globulin 3.4 g/dL (2.2-4.2); Glucose 93 mg/dL (74-106); High Density Lipoprotein 71 mg/dL; Protein, Total 6.6 g/dL (6.4-8.2); Sodium Level 142 mmol/L (136-145); Triglycerides 110 mg/dL; Very Low Density Lipoprotein 22 mg/dL (5-40)
== END 2021-11-14 18:00 | disposition home or self-care (01) ==
LOC: LAB 09:12
PROVIDERS: Family Provider Internal Medicine; PCP Internal Medicine; Referring Provider Internal Medicine Cardiovascular Disease; Visit Provider Internal Medicine Cardiovascular Disease
DX: Z79.01 Long term (current) use of anticoagulants (principal); E78.2 Mixed hyperlipidemia; E55.9 Vitamin D deficiency, unspecified; R73.09 Other abnormal glucose
CPT/HCPCS: 36415; 80053; 80061; 82306; 83036; 85025; 85610

== ENCOUNTER 2021-11-28 09:51 | Outpatient (RCR) | payer MEDICARE, SELFPAY ==
[2021-11-15 03:40] VITALS: BMI 39.4
[2021-11-15 10:57] LABS: International Normalized Ratio 2.1; Prothrombin Time (Protime)PT. 22.5 SECONDS (11.7-14.9)
[2021-11-28 10:31] LABS: Absolute Lymphocyte Count 0.82 X10^3/uL (0.83-4.51); Absolute Neutrophil Count 4.5 X10^3/uL (2.0-7.7); Basophil# 0.07 X10^3/uL; Basophil% 1.2 % (0-1); Eosinophils% 1.7 % (0-5); Hematocrit 32.6 % (37-47); Hemoglobin 9.6 g/dL (12.0-15.0); Lymphocyte # 0.82 X10^3/ul (0.83-4.51); Lymphocyte % 13.9 % (19-41); Mean Corp Hgb Conc 29.4 g/dL (32-36); Mean Corpuscular Hgb 24.6 pg (27.0-32.0); Mean Corpuscular Volume 83.4 fL (81-99); Mean Platelet Vol. 9.1 fl (6.2-12.0); Monocyte# 0.43 X10^3/uL; Monocyte% 7.3 % (0-10); NRBC Flagged by Analyzer 0 % (0-5); Neutrophil # 4.46 X10^3/uL (2.7-7.7); Neutrophil % 75.6 % (47-70); POSITIVE MORPHOLOGY YES; Platelet Count 355 K/mm3 (150-450); RBC Distribution Width CV 21.9 % (11.6-14.6); RBC Distribution Width SD 63.8 fl (35.1-43.9); Red Blood Count 3.91 M/mm3 (4.2-5.4); White Blood Count 5.9 K/mm3 (4.4-11.0)
[2021-11-28 10:33] LABS: Differential Indicated SCAN CRITERIA MET
[2021-11-28 10:42] LABS: International Normalized Ratio 1.8; Prothrombin Time (Protime)PT. 20.4 SECONDS (11.7-14.9)
[2021-11-28 10:53] LABS: Anisocytosis 1+
[2021-11-29 13:00] LABS: RET-HE 31.7 pg (30-35); Reticulocyte Count 3.09 % (0.5-1.5); Vitamin B12 488 pg/mL (211-911)
[2021-11-29 13:08] LABS: Ferritin 29 ng/mL (8-252); Iron 23 ug/dL (50-170); Iron Binding Capacity,Total 406 ug/dL (250-450); LDH 240 U/L (84-246)
[2021-12-02 14:08] LABS: PROEL- A/G Ratio 1.5 (0.7-1.7); PROEL- Albumin 3.5 g/dL (2.9-4.4); PROEL- Alpha-1 Globulin 0.2 g/dL (0.0-0.4); PROEL- Alpha-2 Globulin 0.6 g/dL (0.4-1.0); PROEL- Gamma Globulin 0.6 g/dL (0.4-1.8); PROEL- Globulin, Total 2.4 g/dL (2.2-3.9); PROEL- TOTAL PROTEIN 5.9 g/dL (6.0-8.5)
[2021-12-02 14:51] LABS: Haptoglobin 110 mg/dL (42-346)
== END 2021-11-28 18:00 | disposition home or self-care (01) ==
LOC: LAB 09:51
PROVIDERS: Family Provider Internal Medicine; PCP Internal Medicine; Referring Provider Internal Medicine Cardiovascular Disease; Visit Provider Internal Medicine Cardiovascular Disease
DX: I48.91 Unspecified atrial fibrillation (principal); Z79.01 Long term (current) use of anticoagulants; D50.0 Iron deficiency anemia secondary to blood loss (chronic)
CPT/HCPCS: 36415; 80053; 80061; 82248; 82306; 82607; 82728; 83010; 83036; 83540; 83550; 83615; 84165; 85025; 85045; 85610

== ENCOUNTER 2022-01-07 14:39 | Outpatient (RCR) | payer MEDICARE, SELFPAY ==
[2021-12-15 04:47] VITALS: BMI 39.4
[2021-12-16 13:23] LABS: Absolute Lymphocyte Count 0.94 X10^3/uL (0.83-4.51); Absolute Neutrophil Count 3.7 X10^3/uL (2.0-7.7); Basophil# 0.06 X10^3/uL; Basophil% 1.2 % (0-1); Eosinophil# 0.09 X10^3/uL; Eosinophils% 1.8 % (0-5); Hematocrit 37.9 % (37-47); Hemoglobin 11.2 g/dL (12.0-15.0); Lymphocyte # 0.94 X10^3/ul (0.83-4.51); Lymphocyte % 18.3 % (19-41); Mean Corp Hgb Conc 29.6 g/dL (32-36); Mean Corpuscular Hgb 25.4 pg (27.0-32.0); Mean Corpuscular Volume 85.9 fL (81-99); Mean Platelet Vol. 9.3 fl (6.2-12.0); Monocyte# 0.37 X10^3/uL; Monocyte% 7.2 % (0-10); NRBC Flagged by Analyzer 0 % (0-5); Neutrophil # 3.67 X10^3/uL (2.7-7.7); Neutrophil % 71.3 % (47-70); POSITIVE MORPHOLOGY YES; Platelet Count 323 K/mm3 (150-450); RBC Distribution Width CV 21.6 % (11.6-14.6); RBC Distribution Width SD 67.6 fl (35.1-43.9); Red Blood Count 4.41 M/mm3 (4.2-5.4); White Blood Count 5.1 K/mm3 (4.4-11.0)
[2021-12-16 13:29] LABS: Differential Indicated SCAN CRITERIA MET
[2021-12-16 13:32] LABS: International Normalized Ratio 2.1; Prothrombin Time (Protime)PT. 23.2 SECONDS (11.7-14.9)
[2021-12-16 14:05] LABS: Anisocytosis 2+; Hypochromasia 1+; Platelet Estimate ADEQUATE (ADEQ)
[2021-12-18 17:07] LABS: Endomysial Antibody IgA Negative (Negative)
[2021-12-18 20:40] LABS: Deamidated Gliadin IgA 4 units (0-19); Deamidated Gliadin IgG 2 units (0-19); Immunoglobulin A 221 mg/dL (64-422); t-Transglutaminase IgA <2 U/mL (0-3)
[2022-01-07 15:14] LABS: International Normalized Ratio 2.4; Prothrombin Time (Protime)PT. 26.2 SECONDS (11.7-14.9)
== END 2022-01-14 18:00 | disposition home or self-care (01) ==
LOC: LAB 14:39
PROVIDERS: Family Provider Internal Medicine; PCP Internal Medicine; Referring Provider Internal Medicine Cardiovascular Disease; Visit Provider Internal Medicine Cardiovascular Disease
DX: I48.91 Unspecified atrial fibrillation (principal); Z79.01 Long term (current) use of anticoagulants; D50.0 Iron deficiency anemia secondary to blood loss (chronic)
CPT/HCPCS: 36415; 82784; 83516; 85025; 85610; 86255

== ENCOUNTER 2022-02-04 09:27 | Outpatient (RCR) | payer MEDICARE, SELFPAY ==
[2022-01-14 21:17] VITALS: BMI 39.4
[2022-02-04 10:17] LABS: International Normalized Ratio 1.9; Prothrombin Time (Protime)PT. 21.5 SECONDS (11.7-14.9)
== END 2022-02-04 23:59 | disposition home or self-care (01) ==
LOC: LAB 09:27
PROVIDERS: Family Provider Internal Medicine; PCP Internal Medicine; Referring Provider Internal Medicine Cardiovascular Disease; Visit Provider Internal Medicine Cardiovascular Disease
DX: I48.91 Unspecified atrial fibrillation (principal); Z79.01 Long term (current) use of anticoagulants
CPT/HCPCS: 36415; 85610

== ENCOUNTER 2022-03-11 12:23 | Outpatient (RCR) | payer MEDICARE, SELFPAY ==
[2022-02-14 07:40] VITALS: BMI 39.4
[2022-02-19 10:15] LABS: International Normalized Ratio 2.2; Prothrombin Time (Protime)PT. 24.1 SECONDS (11.7-14.9)
[2022-03-11 13:26] LABS: Absolute Lymphocyte Count 1.07 X10^3/uL (0.83-4.51); Absolute Neutrophil Count 4.5 X10^3/uL (2.0-7.7); Basophil# 0.07 X10^3/uL; Basophil% 1.1 % (0-1); Eosinophil# 0.09 X10^3/uL; Eosinophils% 1.5 % (0-5); Hematocrit 32.4 % (37-47); Hemoglobin 9.6 g/dL (12.0-15.0); Lymphocyte # 1.07 X10^3/ul (0.83-4.51); Lymphocyte % 17.3 % (19-41); Mean Corp Hgb Conc 29.6 g/dL (32-36); Mean Corpuscular Hgb 24.1 pg (27.0-32.0); Mean Corpuscular Volume 81.2 fL (81-99); Mean Platelet Vol. 9.4 fl (6.2-12.0); Monocyte# 0.47 X10^3/uL; Monocyte% 7.6 % (0-10); NRBC Flagged by Analyzer 0 % (0-5); Neutrophil # 4.45 X10^3/uL (2.7-7.7); Neutrophil % 72.2 % (47-70); Platelet Count 343 K/mm3 (150-450); RBC Distribution Width CV 16.5 % (11.6-14.6); RBC Distribution Width SD 49.1 fl (35.1-43.9); Red Blood Count 3.99 M/mm3 (4.2-5.4); White Blood Count 6.2 K/mm3 (4.4-11.0)
[2022-03-11 13:49] LABS: International Normalized Ratio 2.9; Prothrombin Time (Protime)PT. 29.6 SECONDS (11.7-14.9)
[2022-03-11 13:50] LABS: Anion Gap 5 (5-15); BUN 12 mg/dL (7-18); BUN/Creat Ratio 16.2 RATIO (10-20); Calcium,Total 8.9 mg/dL (8.5-10.1); Chloride 105 mmol/L (98-107); Creatinine, Serum 0.74 mg/dL (0.55-1.02); EST Glomerular Filtration Rate 82 mL/min (>60); Est Glom Filt Rate - Afr Amer 99 mL/min (>60); Glucose 88 mg/dL (74-106); Potassium 3.9 mmol/L (3.5-5.1); Sodium Level 139 mmol/L (136-145); T4 Free Direct 1.04 ng/dL (0.76-1.46); Thyroid Stim Hormone (TSH) 2.88 uIU/mL (0.358-3.74)
== END 2022-03-16 02:57 | disposition home or self-care (01) ==
LOC: LAB 12:23
PROVIDERS: Nurse Practitioner Gerontology; Family Provider Internal Medicine; PCP Internal Medicine; Referring Provider Internal Medicine Cardiovascular Disease; Visit Provider Internal Medicine Cardiovascular Disease
DX: I48.91 Unspecified atrial fibrillation (principal); Z79.01 Long term (current) use of anticoagulants
CPT/HCPCS: 36415; 80048; 84439; 84443; 85025; 85610

== ENCOUNTER 2022-04-24 09:56 | Outpatient (RCR) | payer MEDICARE, SELFPAY ==
[2022-03-16 02:57] VITALS: BMI 39.4
[2022-04-24 10:27] LABS: Absolute Lymphocyte Count 0.82 X10^3/uL (0.83-4.51); Absolute Neutrophil Count 6.6 X10^3/uL (2.0-7.7); Basophil# 0.09 X10^3/uL; Basophil% 1.1 % (0-1); Eosinophils% 1.2 % (0-5); Hematocrit 33.2 % (37-47); Hemoglobin 9.6 g/dL (12.0-15.0); Lymphocyte # 0.82 X10^3/ul (0.83-4.51); Mean Corp Hgb Conc 28.9 g/dL (32-36); Mean Corpuscular Hgb 23.5 pg (27.0-32.0); Mean Corpuscular Volume 81.2 fL (81-99); Mean Platelet Vol. 9.4 fl (6.2-12.0); Monocyte# 0.56 X10^3/uL; Monocyte% 6.8 % (0-10); NRBC Flagged by Analyzer 0 % (0-5); Neutrophil # 6.62 X10^3/uL (2.7-7.7); Neutrophil % 80.7 % (47-70); POSITIVE MORPHOLOGY YES; Platelet Count 393 K/mm3 (150-450); RBC Distribution Width CV 20.4 % (11.6-14.6); RBC Distribution Width SD 57.3 fl (35.1-43.9); Red Blood Count 4.09 M/mm3 (4.2-5.4); White Blood Count 8.2 K/mm3 (4.4-11.0)
[2022-04-24 10:31] LABS: Differential Indicated SCAN CRITERIA MET
[2022-04-24 10:37] LABS: Prothrombin Time (Protime)PT. 22.1 SECONDS (11.7-14.9)
[2022-04-24 11:02] LABS: Anisocytosis 1+
== END 2022-04-24 18:00 | disposition home or self-care (01) ==
LOC: LAB 09:56
PROVIDERS: Nurse Practitioner Gerontology; Family Provider Internal Medicine; PCP Internal Medicine; Referring Provider Internal Medicine Cardiovascular Disease; Visit Provider Internal Medicine Cardiovascular Disease
DX: I48.19 Other persistent atrial fibrillation (principal); Z79.01 Long term (current) use of anticoagulants
CPT/HCPCS: 36415; 85025; 85610

== ENCOUNTER 2022-06-03 09:27 | Outpatient (RCR) | payer MEDICARE, SELFPAY ==
[2022-05-16 23:24] VITALS: BMI 39.4
[2022-06-03 10:53] LABS: International Normalized Ratio 2.5; Prothrombin Time (Protime)PT. 26.9 SECONDS (11.7-14.9)
[2022-06-03 11:18] LABS: AST(SGOT) 19 U/L (15-37); Alanine Aminotransfer ALT/SGPT 8 U/L (13-56); Albumin, Serum 3.1 g/dL (3.2-5.0); Alkaline Phosphatase 103 U/L (45-117); Bilirubin, Direct 0.12 mg/dL (0.00-0.30); Cholesterol 163 mg/dL (200); Globulin 3.4 g/dL (2.2-4.2); High Density Lipoprotein 75 mg/dL; Protein, Total 6.5 g/dL (6.4-8.2); Triglycerides 136 mg/dL; Very Low Density Lipoprotein 27 mg/dL (5-40)
== END 2022-06-03 18:00 | disposition home or self-care (01) ==
LOC: LAB 09:27
PROVIDERS: Family Provider Internal Medicine; PCP Internal Medicine; Referring Provider Internal Medicine Cardiovascular Disease; Visit Provider Internal Medicine Cardiovascular Disease
DX: I48.19 Other persistent atrial fibrillation (principal); Z79.01 Long term (current) use of anticoagulants; R53.83 Other fatigue; G25.81 Restless legs syndrome; E78.00 Pure hypercholesterolemia, unspecified
CPT/HCPCS: 36415; 80061; 80076; 85610

== ENCOUNTER 2022-07-14 14:29 | Outpatient (RCR) | payer MEDICARE, SELFPAY ==
[2022-06-17 10:52] VITALS: BMI 39.4
[2022-07-14 15:13] LABS: International Normalized Ratio 2.9; Prothrombin Time (Protime)PT. 29.6 SECONDS (11.7-14.9)
== END 2022-07-16 18:00 | disposition home or self-care (01) ==
LOC: LAB 14:29
PROVIDERS: Family Provider Internal Medicine; PCP Internal Medicine; Referring Provider Internal Medicine Cardiovascular Disease; Visit Provider Internal Medicine Cardiovascular Disease
DX: I48.19 Other persistent atrial fibrillation (principal); Z79.01 Long term (current) use of anticoagulants
CPT/HCPCS: 36415; 85610

== ENCOUNTER 2022-08-27 12:22 | Outpatient (RCR) | payer MEDICARE, SELFPAY ==
[2022-07-17 00:45] VITALS: BMI 39.4
[2022-08-27 13:46] LABS: Absolute Lymphocyte Count 0.88 X10^3/uL (0.83-4.51); Absolute Neutrophil Count 5.9 X10^3/uL (2.0-7.7); Basophil# 0.06 X10^3/uL; Basophil% 0.8 % (0-1); Eosinophil# 0.06 X10^3/uL; Eosinophils% 0.8 % (0-5); Hematocrit 33.7 % (37-47); Hemoglobin 9.6 g/dL (12.0-15.0); Lymphocyte # 0.88 X10^3/ul (0.83-4.51); Lymphocyte % 12.2 % (19-41); Mean Corp Hgb Conc 28.5 g/dL (32-36); Mean Corpuscular Hgb 22.9 pg (27.0-32.0); Mean Corpuscular Volume 80.4 fL (81-99); Mean Platelet Vol. 9.3 fl (6.2-12.0); Monocyte% 4.2 % (0-10); NRBC Flagged by Analyzer 0 % (0-5); Neutrophil # 5.88 X10^3/uL (2.7-7.7); Neutrophil % 81.7 % (47-70); Platelet Count 396 K/mm3 (150-450); RBC Distribution Width CV 17.2 % (11.6-14.6); RBC Distribution Width SD 50.4 fl (35.1-43.9); Red Blood Count 4.19 M/mm3 (4.2-5.4); White Blood Count 7.2 K/mm3 (4.4-11.0)
[2022-08-27 13:52] LABS: International Normalized Ratio 2.2; Prothrombin Time (Protime)PT. 24.1 SECONDS (11.7-14.9)
[2022-08-27 14:19] LABS: Vitamin B12 399 pg/mL (211-911); Vitamin D,25 Hydroxy 77.7 ng/mL
[2022-08-27 14:33] LABS: Anion Gap 3 (5-15); BUN 11 mg/dL (7-18); BUN/Creat Ratio 15.6 RATIO (10-20); Chloride 105 mmol/L (98-107); EST Glomerular Filtration Rate 86 mL/min (>60); Est Glom Filt Rate - Afr Amer 105 mL/min (>60); Ferritin 6 ng/mL (8-252); Glucose 88 mg/dL (74-106); Iron 17 ug/dL (50-170); Iron Binding Capacity,Total 423 ug/dL (250-450); Potassium 3.7 mmol/L (3.5-5.1); Sodium Level 138 mmol/L (136-145)
== END 2022-08-27 14:00 | disposition home or self-care (01) ==
LOC: LAB 12:22
PROVIDERS: Nurse Practitioner Gerontology; Family Provider Internal Medicine; PCP Internal Medicine; Referring Provider Internal Medicine Cardiovascular Disease; Visit Provider Internal Medicine Cardiovascular Disease
DX: I48.19 Other persistent atrial fibrillation (principal); Z79.01 Long term (current) use of anticoagulants; I10 Essential (primary) hypertension; R53.83 Other fatigue; D50.9 Iron deficiency anemia, unspecified; E55.9 Vitamin D deficiency, unspecified
CPT/HCPCS: 36415; 80048; 82306; 82607; 82728; 82746; 83540; 83550; 85025; 85610

== ENCOUNTER 2022-09-19 12:00 | Outpatient (RCR) | payer MEDICARE, SELFPAY ==
--- NOTE | 2022-07-31 11:26 | HP.PTEVAL_ITS ---
Patient's Visit Information WALDO GRIFFIN is a 72 year old F referred to Physical Therapy by Dr. Lizzy Trejo DO with a diagnosis of R knee pain. Date of Evaluation: 07/31/22 Physical Therapist: Roni Robert, OCTAVIOT, OCS, CSCS - Visit Plan Frequency: 2x /Week Duration: 4-6 Weeks Plan: 2x/weekk for 3-6 weeks for start aquatic therapy for R knee ROM emphasizing flexion end range, quad stretch, hip/core/knee strength. Progress HEP to tolerance - Subjective Fell out of bed in December and landed on R knee. It has hurt sonce but knew she had OA previously. Better with massage. Activities are effected in that she cannot squat down without pain., Has Parkinson's and that effects her also. R knee hurts anteriorly. Walking is worse. Comfortable at rest. Sleep is interrupted as it hurts when she moves, has restless leg syndrome. 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 Has two grandchildren in elementary school and she cannot do a lot of recreational things like croquet or volleyball with them. No regular ex. Walking on uneven ground is painful. Overall only progressed 50% since fall. No other falls except the one out of bed. - Pain R knee Pain Intensity (Out of 10): 0 Pain Intensity Range: 0, 5 - Objective Walks slowly and with slight R antalgia, I. transfers are I. Steps reciprocal but only using L, Can use R but it is painful, requires rail either way. Good balance. Knee AROm R 100 flexion and L 110, Full extension B without pain. Hip aROM abduction 10 B, flexion 110+, extension 5 B and rotations are symmetrical with slight pain IR R, not L. reflexes 1/3 patella and achilles. Sensation WNL to gross light touch B LE. - ant drawer R, - bounce home, +R patellar grind. - Balance/Special Test Scores Lower Extremity Functional Score: 36 - Goals Goal 1:: full 0-110+ AROM R knee without pain Goal Time Frame: 2-4 Weeks Goal 2:: Walk without hesiatation or antalgia Goal Time Frame: 4-6 Weeks Goal 3:: Steps reciprocal with one rail without increased pain Goal Time Frame: 4-6 Weeks Goal 4:: I approp HEP to manage degeneration Goal Time Frame: 4-6 Weeks Goal 5:: LEFS score 56 Goal Time Frame: 4-6 Weeks - Rehabilitation Potential Physical Therapy Diagnosis: R knee pain degenrative vs traumatic. Rehabilitation Potential: Good - Anticipated Interventions Patient/Client Instruction: Educate patient on: Condition, Plan of Care For the Purpose of:: To decrease pain, To increase ROM, To improve nutrient delivery to tissue, To increase tolerance to activity/condition/position, To improve ability of physical actions for home/community/work/leisure Therapeutic Exercise to Include: Strength training, Postural training, Flexibilty training, In an aquatic setting, Passive ROM, Active ROM For the Purpose of:: To decrease pain, To increase ROM, To improve nutrient delivery to tissue, To increase tolerance to activity/condition/position, To i mprove gait and locomotor functions Manual Therapy Techniques to Include: Passive ROM For the Purpose of:: To increase ROM Thank you for the opportunity to evaluate your patient. For Medicare and Medicare HMO plans, please review the plan of care and approve it. It will need to be FAXED BACK to us at [phone] for Medicare purposes. For Medicare only, by signing this I certify the plan of care. Please let me know if there are questions or concerns regarding this plan of care. Physician Signature: Date:
--- NOTE | 2022-09-19 12:32 | HP.PTDCSUM ---
It has been my pleasure to treat WALDO GRIFFIN referred by Dr. Lizzy Trejo DO, with the diagnosis of R knee pain for a total of 14 visit(s). Discharge Date: 09/19/22 Please see the following information for a summary of their discharge status. Subjective: Been in the pool for the last 3 weeks adn it is heaven. I can do anything in the water. Some carry over to outside of water. A little better on steps. 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 Pain is not present in water. Knee is not limiting her as much as heart which weigher and crusher is switching meds. Knee is better than before she fell. Alternating on steps and not hurting at home walking. standing too long can hurt back but not knee. pt feels like she could continue on her own but our open swim hours do not work for her. Wants to look in community instead of attempt gym ex or seek doctor for next option. R knee Pain Intensity (Out of 10): 3 % Improvement: 90 Objective/Function: Walks slowly but without antlagia back to PT I. [facility] chair and bed I. 0-115 aROM R knee. pt yearning to continue pool therapy but feels I at this time, only wants to continue b./c the open swim hours do not work for her. Will check community for other options vs gym. Goal 1:: full 0-110+ AROM R knee without pain Goal Progress: Goal Met Goal 2:: Walk without hesitation or antalgia Goal Progress: Goal Met Goal 3:: Steps reciprocal with one rail without increased pain Goal Progress: Goal Met Goal 4:: I approp HEP to manage degeneration Goal Progress: Goal Met Goal 5:: LEFS score 56 Goal Progress: Not Progressing Plan: d/c to community pool If there are questions or concerns regarding this patient's physical therapy, please feel free to call me at [phone]. Thank you for the referral of this patient. Sincerely, Roni Robert, DPT, OCS, CSCS Balance/Gait/Functional tests - Balance/Special Test Scores Lower Extremity Functional Score: 36
== END 2022-09-19 19:00 | disposition home or self-care (01) ==
LOC: PT 12:00
PROVIDERS: PCP Internal Medicine; Referring Provider Internal Medicine; Visit Provider Internal Medicine
DX: M25.561 Pain in right knee (principal)
CPT/HCPCS: 97110; 97113; 97162; 97164; 97530

== ENCOUNTER 2022-10-08 12:07 | Outpatient (RCR) | payer MEDICARE, SELFPAY ==
[2022-09-17 08:26] VITALS: BMI 39.4
[2022-10-08 13:02] LABS: International Normalized Ratio 2.1; Prothrombin Time (Protime)PT. 23.2 SECONDS (11.7-14.9)
== END 2022-10-08 18:00 | disposition home or self-care (01) ==
LOC: LAB 12:07
PROVIDERS: Family Provider Internal Medicine; PCP Internal Medicine; Referring Provider Internal Medicine Cardiovascular Disease; Visit Provider Internal Medicine Cardiovascular Disease
DX: I48.19 Other persistent atrial fibrillation (principal); Z79.01 Long term (current) use of anticoagulants
CPT/HCPCS: 36415; 85610

== ENCOUNTER 2022-11-07 13:27 | Outpatient (RCR) | payer MEDICARE, SELFPAY ==
[2022-10-14 22:43] VITALS: BMI 39.4
[2022-11-07 14:44] LABS: International Normalized Ratio 2.4; Prothrombin Time (Protime)PT. 25.9 SECONDS (11.7-14.9)
== END 2022-11-14 23:21 | disposition home or self-care (01) ==
LOC: LAB 13:27
PROVIDERS: Family Provider Internal Medicine; PCP Internal Medicine; Referring Provider Internal Medicine Cardiovascular Disease; Visit Provider Internal Medicine Cardiovascular Disease
DX: I48.19 Other persistent atrial fibrillation (principal); Z79.01 Long term (current) use of anticoagulants
CPT/HCPCS: 36415; 85610

== ENCOUNTER 2022-12-04 10:58 | Outpatient (RCR) | payer MEDICARE, SELFPAY ==
[2022-11-14 23:21] VITALS: BMI 39.4
[2022-12-04 11:45] LABS: International Normalized Ratio 2.1; Prothrombin Time (Protime)PT. 23.3 SECONDS (11.7-14.9)
[2022-12-04 12:03] LABS: AST(SGOT) 22 U/L (15-37); Alanine Aminotransfer ALT/SGPT 12 U/L (13-56); Albumin, Serum 3.5 g/dL (3.2-5.0); Alkaline Phosphatase 114 U/L (45-117); Bilirubin, Direct 0.14 mg/dL (0.00-0.30); Cholesterol 192 mg/dL (200); Globulin 3.8 g/dL (2.2-4.2); High Density Lipoprotein 101 mg/dL; Protein, Total 7.3 g/dL (6.4-8.2); Triglycerides 133 mg/dL; Very Low Density Lipoprotein 27 mg/dL (5-40)
== END 2022-12-14 02:13 | disposition home or self-care (01) ==
LOC: LAB 10:58
PROVIDERS: Family Provider Internal Medicine; PCP Internal Medicine; Referring Provider Internal Medicine Cardiovascular Disease; Visit Provider Internal Medicine Cardiovascular Disease
DX: I48.19 Other persistent atrial fibrillation (principal); Z79.01 Long term (current) use of anticoagulants; E78.00 Pure hypercholesterolemia, unspecified
CPT/HCPCS: 36415; 80061; 80076; 85610

== ENCOUNTER → 2022-12-05 | Outpatient (CLI) | payer MEDICARE, SELFPAY ==
[2022-12-05 11:44] LABS: Mucous, Urine 0 SEEN /hpf (<or=2+); Red Blood Cells-Urine 0 SEEN /hpf (0-5)
[2022-12-05 15:42] LABS: Absolute Lymphocyte Count 0.78 X10^3/uL (0.83-4.51); Absolute Neutrophil Count 5.1 X10^3/uL (2.0-7.7); Basophil# 0.04 X10^3/uL; Basophil% 0.6 % (0-1); Eosinophil# 0.05 X10^3/uL; Eosinophils% 0.8 % (0-5); Hematocrit 38.4 % (37-47); Hemoglobin 11.7 g/dL (12.0-15.0); Lymphocyte # 0.78 X10^3/ul (0.83-4.51); Lymphocyte % 12.2 % (19-41); Mean Corp Hgb Conc 30.5 g/dL (32-36); Mean Corpuscular Hgb 27.8 pg (27.0-32.0); Mean Corpuscular Volume 91.2 fL (81-99); Mean Platelet Vol. 9.3 fl (6.2-12.0); Monocyte# 0.37 X10^3/uL; Monocyte% 5.8 % (0-10); NRBC Flagged by Analyzer 0 % (0-5); Neutrophil # 5.13 X10^3/uL (2.7-7.7); Neutrophil % 80.3 % (47-70); Platelet Count 371 K/mm3 (150-450); RBC Distribution Width CV 16.5 % (11.6-14.6); RBC Distribution Width SD 54.4 fl (35.1-43.9); Red Blood Count 4.21 M/mm3 (4.2-5.4); White Blood Count 6.4 K/mm3 (4.4-11.0)
[2022-12-05 15:57] LABS: Color, Urine Straw (Yellow); Glucose, Dipstick Normal (Normal); Ketone-Dipstick Negative (Negative); Leukocyte Esterase-Dipstick 25 /ul (Negative); Nitrite-Dipstick Negative (Negative); Occult Blood-Urine Negative /ul (Negative); Protein-Dipstick Negative (Negative); Urine Bilirubin Dipstick Negative (Negative); Urine Clarity Clear (Clear); Urine Urobilinogen Normal (Normal)
[2022-12-05 16:08] LABS: Bacteria RARE /hpf (None Seen); Squamous Epithelial Cells - UA 0-5 SEEN /hpf (5-10); White Blood Cells 0-5 SEEN /hpf (0-5)
[2022-12-05 16:19] LABS: ALB/GLOB Ratio 0.9 RATIO (0.9-2.4); AST(SGOT) 20 U/L (15-37); Alanine Aminotransfer ALT/SGPT 20 U/L (13-56); Albumin, Serum 3.4 g/dL (3.2-5.0); Alkaline Phosphatase 103 U/L (45-117); Anion Gap 7 (5-15); BUN 14 mg/dL (7-18); BUN/Creat Ratio 20.5 RATIO (10-20); CRP 6.74 mg/L (0.0-3.0); Chloride 104 mmol/L (98-107); Creatinine, Serum 0.68 mg/dL (0.55-1.02); EST Glomerular Filtration Rate 90 mL/min (>60); Est Glom Filt Rate - Afr Amer 109 mL/min (>60); Ferritin 17 ng/mL (8-252); Globulin 3.6 g/dL (2.2-4.2); Glucose 118 mg/dL (74-106); Iron 25 ug/dL (50-170); Iron Binding Capacity,Total 389 ug/dL (250-450); Potassium 3.8 mmol/L (3.5-5.1); Rheumatoid Factor < 10.0 IU/mL (<15); Sodium Level 136 mmol/L (136-145); Thyroid Stim Hormone (TSH) 1.74 uIU/mL (0.358-3.74)
[2022-12-05 16:27] LABS: Microalbumin,Random Urine 5.6 mg/L (NO RANGE EST.); Microalbumin:Creatinine Ratio 23.3 mg/g CRE (<30 mg/g CRE)
[2022-12-05 16:30] LABS: Erythrocyte Sedimentation Rate 13 mm/hr (0-30)
[2022-12-08 12:08] LABS: CCP IgG Antibodies 5 units (0-19)
[2022-12-09 12:08] LABS: ANTINUCLEAR ANTIBODIES DIRECT Negative (Negative); Anti-Histone Abs 1.4 Units (0.0-0.9)
== END | disposition home or self-care (01) ==
LOC: MTLAB 11:40
PROVIDERS: PCP Internal Medicine; Referring Provider Internal Medicine; Visit Provider Internal Medicine
DX: D50.9 Iron deficiency anemia, unspecified (principal); E03.9 Hypothyroidism, unspecified; E55.9 Vitamin D deficiency, unspecified; M19.90 Unspecified osteoarthritis, unspecified site; R73.09 Other abnormal glucose
CPT/HCPCS: 36415; 80053; 81001; 82043; 82306; 82570; 82728; 83540; 83550; 84443; 85025; 85652; 86038; 86140; 86200; 86235; 86431

== ENCOUNTER → 2022-12-10 | Outpatient (CLI) | payer MEDICARE, SELFPAY | END | disposition home or self-care (01) | PROVIDERS: PCP Internal Medicine; Referring Provider Internal Medicine; Visit Provider Internal Medicine | DX: R82.998 Other abnormal findings in urine (principal) | CPT/HCPCS: 87086; 87088 ==

== ENCOUNTER 2023-01-30 11:57 | Outpatient (RCR) | payer MEDICARE, SELFPAY ==
[2022-12-14 02:13] VITALS: BMI 39.4
[2023-01-30 15:43] LABS: International Normalized Ratio 1.7; Prothrombin Time (Protime)PT. 20.1 SECONDS (11.7-14.9)
== END 2023-02-13 23:59 ==
LOC: BIMLAB 11:57
PROVIDERS: Family Provider Internal Medicine; PCP Internal Medicine; Referring Provider Nurse Practitioner Gerontology; Visit Provider Nurse Practitioner Gerontology
DX: I48.19 Other persistent atrial fibrillation (principal); Z79.01 Long term (current) use of anticoagulants
CPT/HCPCS: 36415; 85610

== ENCOUNTER 2023-02-24 16:31 | Outpatient (RCR) | payer MEDICARE, SELFPAY ==
[2023-02-14 00:11] VITALS: BMI 39.4
[2023-02-24 13:42] LABS: Prothrombin Time (Protime)PT. 22.9 SECONDS (11.7-14.9)
== END 2023-03-16 18:00 | disposition home or self-care (01) ==
LOC: LAB 16:31
PROVIDERS: Family Provider Internal Medicine; PCP Internal Medicine; Referring Provider Nurse Practitioner Gerontology; Visit Provider Nurse Practitioner Gerontology
DX: I48.19 Other persistent atrial fibrillation (principal); Z79.01 Long term (current) use of anticoagulants
CPT/HCPCS: 36415; 85610

== ENCOUNTER 2023-04-03 15:11 | Outpatient (RCR) | payer MEDICARE, SELFPAY ==
[2023-03-17 01:03] VITALS: BMI 39.4
[2023-04-03 15:54] LABS: International Normalized Ratio 2.5
== END 2023-04-03 18:00 | disposition home or self-care (01) ==
LOC: LAB 15:11
PROVIDERS: Family Provider Internal Medicine; PCP Internal Medicine; Referring Provider Nurse Practitioner Gerontology; Visit Provider Nurse Practitioner Gerontology
DX: I48.19 Other persistent atrial fibrillation (principal); Z79.01 Long term (current) use of anticoagulants
CPT/HCPCS: 36415; 85610

== ENCOUNTER → 2023-05-19 | Outpatient (CLI) | payer MEDICARE, SELFPAY ==
--- NOTE | 2023-05-19 11:07 | ECHOD_ITS ---
Reason For Study: NON-RHEUMATIC MITRAL INSUFFICIENCY Procedure This was a 2D Doppler, Color Flow transthoracic echocardiogram. Exam performed in department. Left Ventricle Normal LV size. Mild concentric left ventricular hypertrophy. Left ventricular systolic function is normal. The estimated ejection fraction is 60 %. Stage 3 diastolic dysfunction. No regional wall motion abnormalities noted. Right Ventricle Normal RV size. Normal systolic function. Atria The left atrium is mildly enlarged. Normal right atrium. Mitral Valve Bileaflet diffuse mitral valve thickening. Mild-Moderate (1-2+) eccentric mitral valve insufficiency. Tricuspid Valve Normal tricuspid valve. Mild to moderate (1-2+) tricuspid valve insufficiency. Pulmonary artery systolic pressure is 50 mmHg. Aortic Valve Normal aortic valve. Trisinus/trileaflet aortic valve. Pulmonic Valve Normal pulmonic valve. Mild (1+) pulmonic valve insufficiency. Great Vessels Normal aortic root. The pulmonary artery is normal size. Normal inferior vena cava. Pericardium/Pleural No pericardial effusion. MMode/2D Measurements & Calculations LVIDd: 5.5 cm IVSd: 1.2 cm Ao root diam: 3.2 cm LVIDs: 3.8 cm LVPWd: 1.2 cm RVDd: 3.0 cm FS: 30.5 % LAV(MOD-bp): 80.5 ml LVAd ap4: 26.8 cm2 LVAd ap2: 30.4 cm2 LAV(MOD-bp) Indexed: 38.3 ml/m2 LVLd ap4: 7.0 cm LVLd ap2: 7.6 cm LAV(MOD-sp2): 85.8 ml EDV(MOD-sp4): 87.6 ml EDV(MOD-sp2): 106.5 ml LAV(MOD-sp4): 70.7 ml EDV(sp4-el): 87.4 ml EDV(sp2-el): 102.7 ml LVAs ap4: 15.0 cm2 LVAs ap2: 16.0 cm2 LVLs ap4: 5.6 cm LVLs ap2: 6.3 cm ESV(MOD-sp4): 34.9 ml ESV(MOD-sp2): 37.5 ml ESV(sp4-el): 34.0 ml ESV(sp2-el): 34.6 ml EF(MOD-sp4): 60.1 % EF(MOD-sp2): 64.8 % EF(sp4-el): 61.1 % SV(MOD-sp4): 52.7 ml SV(MOD-sp2): 69.0 ml SV(sp4-el): 53.4 ml LA dimension(2D): 4.5 cm LA A4 area: 22.7 cm2 RA A4 area: 21.0 cm2 TAPSE: 2.5 cm Time Measurements MV dec time: 0.21 sec Doppler Measurements & Calculations MV E max win: 81.6 cm/sec Lat Peak E' Win: 12.8 cm/sec Med Peak E' Win: 6.6 cm/sec MV A max win: 25.6 cm/sec E/E' lat: 6.4 E/E' med: 12.3 MV E/A: 3.2 MV V2 max: 114.3 cm/sec MV dec slope: 381.3 cm/sec2 Ao V2 max: 116.8 cm/sec MV max P.2 mmHg Ao max P.5 mmHg MV V2 mean: 40.9 cm/sec Ao V2 mean: 76.9 cm/sec MV mean P.94 mmHg Ao mean P.7 mmHg MV V2 VTI: 34.0 cm Ao V2 VTI: 31.2 cm AV (velocity ratio): 0.59 LV V1 max: 68.2 cm/sec TV V2 max: 319.6 cm/sec PA V2 max: 63.0 cm/sec LV V1 max P.9 mmHg TV max P.9 mmHg LV V1 mean P.1 mmHg LV V1 mean: 49.4 cm/sec LV V1 VTI: 18.2 cm TR max win: 332.7 cm/sec TR max P.3 mmHg ECHO/Echo Complete Interpretation Summary Normal LV size. Left ventricular systolic function is normal. The estimated ejection fraction is 60 %. Mild-Moderate (1-2+) eccentric mitral valve insufficiency. Stage 3 diastolic dysfunction. Pulmonary artery systolic pressure is 50 mmHg. Ordering Physician: Ksenia Bravo Referring Physician: Lizzy Trejo Performed By: Adrianna Deleon RDCS, RVT
== END | disposition home or self-care (01) ==
LOC: CVS 11:06
PROVIDERS: PCP Internal Medicine; Referring Provider Nurse Practitioner Gerontology; Visit Provider Nurse Practitioner Gerontology
DX: I34.0 Nonrheumatic mitral (valve) insufficiency (principal)
CPT/HCPCS: 93306

== ENCOUNTER → 2023-05-26 | Outpatient (CLI) | payer MEDICARE, SELFPAY ==
--- NOTE | 2023-05-26 12:51 | BI_ITS ---
MAMMOGRAPHY - BILATERAL SCREENING REASON FOR EXAM: Female, 73 years old. Routine annual screening examination. PERTINENT HISTORY: Non-contributory. TECHNIQUE: Digital bilateral breast jose (3D mammographic acquisition) in the CC and MLO projections. 2-D mediolateral oblique (MLO) and craniocaudad (CC) views of both breasts were obtained. CAD: Full Field Digital Mammography with Computer Added Detection was performed. COMPARISON: Comparison is made with prior study dated June 13, 2021 and June 12, 2020. FINDINGS: Breast Composition: The breasts are almost entirely fatty. There are no dominant masses or suspicious calcifications. Stable small benign-appearing bilateral axillary lymph nodes. No other significant abnormalities are identified. There has been no significant change since the prior study. BI/SCRN MAMM (CAD)W/JOSE BILAT IMPRESSION: Stable bilateral screening mammogram. Yearly follow-up mammogram recommended. (A) ASSESSMENT CATEGORY: BIRADS Category 2: Benign. A letter regarding these results will be sent to the patient by the facility within 30 days. Approximately 10% of breast cancers are not detected by mammography. A normal mammogram should not delay biopsy of a clinically suspicious abnormality. [id number] Electronically Signed: [place] MD at 15:25 EDT ,
--- NOTE | 2023-05-26 12:51 | US_ITS ---
STUDY: THYROID ULTRASOUND REASON FOR EXAM: Female, 73 years old. thyroid nodule -- thyroid nodule TECHNIQUE: Ultrasound evaluation of the thyroid was performed with real-time and static klein-scale imaging. COMPARISON: 01/01/2021 FINDINGS: RIGHT LOBE: The right lobe of the thyroid gland measures 4.2 x 1.5 x 1.4 cm. There is a heterogeneous echotexture. Nodule 1: No change in the 13 x 16 x 11 mm solid hypoechoic wider than tall smoothly margin nodule with peripheral calcifications (TR 4) in the lateral right lobe for which ultrasound-guided biopsy is recommended if never performed. LEFT LOBE: The left lobe of the thyroid gland measures 3.8 x 1.6 x 1.4 cm. There is a heterogeneous echotexture. Nodule 2: No change in the 11 x 14 x 12 mm solid isoechoic wider than tall smoothly marginated nodule with no echogenic foci (TR 3) in the lateral left lobe consistent with an adenoma. ISTHMUS: The isthmus measures 2 mm thick. . The regional lymph nodes are normal. US/Thyroid IMPRESSION: No change in multinodular thyroid gland. Follow-up ultrasound is recommended in one year. Electronically Signed: Jules Calhoun MD at 8:25 EDT ,
--- NOTE | 2023-05-26 13:10 | BD_ITS ---
STUDY: DUAL ENERGY X-RAY ABSORPTIOMETRY / DXA REASON FOR EXAM: Female, 73 years old. 627.8Menopausal postmenopausal BONE DENSITY REASON FOR EXAM -- postmenopausal TECHNIQUE: Bone Mineral Density (BMD) measurements of lumbar spine and bilateral hips were obtained. COMPARISON: Comparison is made with prior study dated June 12, 2020. FINDINGS: Lumbar Spine (L1-L4): g/cm2 (1.265) / T-score (2.0) / Z-score (4.3) Findings are suggestive of normal bone density with a low fracture risk. Left Femur Total: g/cm2 (1.260) / T-score (2.6) / Z-score (4.3) Left Femoral Neck: g/cm2 (0.980) / T-score (1.2) / Z-score (3.2) Right Femur Total: g/cm2 (1.119) / T-score (1.4) / Z-score (3.2) Right Femoral Neck: g/cm2 (0.805) / T-score (-0.4) / Z-score (1.6) The T-Scores on the most recent prior examination were: Lumbar Spine (L1-L4): There has been worsening of bone density since the previous examination. Left Femur Total: which represents a worsening of 2.6%. Right Femur Total: which represents a worsening of 1.7%. BD/Dexa Bone Density Study IMPRESSION: The patient is considered normal as outlined below according to World Med Organization (WHO) criteria with a low fracture risk. There has been worsening of bone density since the previous examination. Reference Information: The T-score is the number of standard deviations above or below the standard which is normal for young adults at their peak bone mineral density. The World Health Organization (WHO) interprets the T-scores as follows: Above -1 Normal bone density Between -1 and -2.5 Osteopenia Equal to / or below -2.5 Osteoporosis As a practical clinical guideline, osteopenia may be graded as follows: Mild -1 through -1.5 Moderate -1.6 through -2.0 Severe -2.1 through -2.4
== END | disposition home or self-care (01) ==
LOC: US 12:50
PROVIDERS: PCP Internal Medicine; Referring Provider Internal Medicine; Visit Provider Internal Medicine
DX: Z12.31 Encounter for screening mammogram for malignant neoplasm of breast (principal); Z78.0 Asymptomatic menopausal state; E04.1 Nontoxic single thyroid nodule
CPT/HCPCS: 76536; 77063; 77067; 77080

== ENCOUNTER 2023-06-04 10:19 | Outpatient (RCR) | payer MEDICARE, SELFPAY ==
[2023-04-16 23:24] VITALS: BMI 39.4
[2023-05-28 13:46] LABS: International Normalized Ratio 1.9; Prothrombin Time (Protime)PT. 21.9 SECONDS (11.7-14.9)
[2023-06-04 11:34] LABS: International Normalized Ratio 2.7; Prothrombin Time (Protime)PT. 29.3 SECONDS (11.7-14.9)
== END 2023-06-04 18:00 | disposition home or self-care (01) ==
LOC: LAB 10:19
PROVIDERS: Family Provider Internal Medicine; PCP Internal Medicine; Referring Provider Nurse Practitioner Gerontology; Visit Provider Nurse Practitioner Gerontology
DX: I48.19 Other persistent atrial fibrillation (principal); Z79.01 Long term (current) use of anticoagulants
CPT/HCPCS: 36415; 85610

== ENCOUNTER 2023-06-18 13:28 | Outpatient (RCR) | payer MEDICARE, SELFPAY ==
[2023-06-16 22:36] VITALS: BMI 39.4
[2023-06-18 14:19] LABS: International Normalized Ratio 2.9; Prothrombin Time (Protime)PT. 30.8 SECONDS (11.7-14.9)
== END 2023-07-16 18:00 | disposition home or self-care (01) ==
LOC: LAB 13:28
PROVIDERS: Family Provider Internal Medicine; PCP Internal Medicine; Referring Provider Nurse Practitioner Gerontology; Visit Provider Nurse Practitioner Gerontology
DX: Z79.01 Long term (current) use of anticoagulants
CPT/HCPCS: 36415; 85610

== ENCOUNTER 2023-08-14 12:35 | Outpatient (RCR) | payer MEDICARE, SELFPAY ==
[2023-07-17 03:59] VITALS: BMI 39.4
[2023-07-17 12:24] LABS: International Normalized Ratio 2.8; Prothrombin Time (Protime)PT. 29.8 SECONDS (11.7-14.9)
[2023-08-14 13:58] LABS: Prothrombin Time (Protime)PT. 39.5 SECONDS (11.7-14.9)
== END 2023-08-16 23:59 ==
LOC: BIMLAB 12:35
PROVIDERS: Family Provider Internal Medicine; PCP Internal Medicine; Referring Provider Nurse Practitioner Gerontology; Visit Provider Nurse Practitioner Gerontology
DX: Z79.01 Long term (current) use of anticoagulants (principal); I48.19 Other persistent atrial fibrillation
CPT/HCPCS: 36415; 85610

== ENCOUNTER 2023-09-02 10:39 | Outpatient (RCR) | payer MEDICARE, SELFPAY ==
[2023-08-17 00:48] VITALS: BMI 39.4
[2023-08-20 12:23] LABS: International Normalized Ratio 2.8; Prothrombin Time (Protime)PT. 29.8 SECONDS (11.7-14.9)
[2023-09-02 12:07] LABS: International Normalized Ratio 3.3; Prothrombin Time (Protime)PT. 33.7 SECONDS (11.7-14.9)
== END 2023-09-02 18:00 | disposition home or self-care (01) ==
LOC: LAB 10:39
PROVIDERS: Family Provider Internal Medicine; PCP Internal Medicine; Referring Provider Nurse Practitioner Gerontology; Visit Provider Nurse Practitioner Gerontology
DX: Z79.01 Long term (current) use of anticoagulants (principal); I48.19 Other persistent atrial fibrillation
CPT/HCPCS: 36415; 85610

== ENCOUNTER 2023-09-24 13:06 | Outpatient (RCR) | payer MEDICARE, SELFPAY ==
[2023-09-16 23:27] VITALS: BMI 39.4
== END 2023-10-15 18:00 | disposition home or self-care (01) ==
LOC: LAB 13:06
PROVIDERS: Family Provider Internal Medicine; PCP Internal Medicine; Referring Provider Nurse Practitioner Gerontology; Visit Provider Nurse Practitioner Gerontology
DX: I48.19 Other persistent atrial fibrillation (principal); Z79.01 Long term (current) use of anticoagulants

== ENCOUNTER → 2023-09-24 | Outpatient (CLI) | payer MEDICARE, SELFPAY ==
[2023-09-24 15:11] LABS: International Normalized Ratio 2.6
== END | disposition home or self-care (01) ==
LOC: BIMLAB 10-13 13:47
PROVIDERS: PCP Internal Medicine; Visit Provider Nurse Practitioner Gerontology
DX: Z79.01 Long term (current) use of anticoagulants (principal)
CPT/HCPCS: 36415; 85610

== ENCOUNTER 2023-10-22 10:50 | Outpatient (RCR) | payer MEDICARE, SELFPAY ==
[2023-10-16 00:06] VITALS: BMI 39.4
[2023-10-22 12:01] LABS: Absolute Lymphocyte Count 1.08 X10^3/uL (0.83-4.51); Absolute Neutrophil Count 5.4 X10^3/uL (2.0-7.7); Basophil# 0.05 X10^3/uL; Basophil% 0.7 % (0-1); Eosinophils% 1.4 % (0-5); Hematocrit 48.4 % (37-47); Hemoglobin 15.9 g/dL (12.0-15.0); Lymphocyte # 1.08 X10^3/ul (0.83-4.51); Lymphocyte % 15.2 % (19-41); Mean Corp Hgb Conc 32.9 g/dL (32-36); Mean Corpuscular Hgb 31.5 pg (27.0-32.0); NRBC Flagged by Analyzer 0 % (0-5); Neutrophil # 5.35 X10^3/uL (2.7-7.7); Neutrophil % 75.3 % (47-70); Platelet Count 391 K/mm3 (150-450); RBC Distribution Width CV 13.2 % (11.6-14.6); RBC Distribution Width SD 46.7 fl (35.1-43.9); Red Blood Count 5.04 M/mm3 (4.2-5.4); White Blood Count 7.1 K/mm3 (4.4-11.0)
[2023-10-22 12:19] LABS: International Normalized Ratio 2.5; Prothrombin Time (Protime)PT. 26.4 SECONDS (11.7-14.9)
[2023-10-22 13:14] LABS: AST(SGOT) 18 U/L (15-37); Alanine Aminotransfer ALT/SGPT 12 U/L (13-56); Albumin, Serum 3.7 g/dL (3.2-5.0); Alkaline Phosphatase 99 U/L (45-117); Bilirubin, Direct 0.14 mg/dL (0.00-0.30); Cholesterol 192 mg/dL (200); Globulin 3.4 g/dL (2.2-4.2); High Density Lipoprotein 87 mg/dL; Protein, Total 7.1 g/dL (6.4-8.2); Triglycerides 148 mg/dL; Very Low Density Lipoprotein 30 mg/dL (5-40)
[2023-10-23 15:08] LABS: Deamidated Gliadin IgA 5 units (0-19); Deamidated Gliadin IgG 3 units (0-19); Endomysial Antibody IgA Negative (Negative); Immunoglobulin A 227 mg/dL (64-422); t-Transglutaminase IgA <2 U/mL (0-3)
== END 2023-11-15 23:59 ==
LOC: BIMLAB 10:50
PROVIDERS: Family Provider Internal Medicine; PCP Internal Medicine; Referring Provider Nurse Practitioner Gerontology; Visit Provider Nurse Practitioner Gerontology
DX: Z79.01 Long term (current) use of anticoagulants; D64.9 Anemia, unspecified; E78.00 Pure hypercholesterolemia, unspecified
CPT/HCPCS: 36415; 80061; 80076; 82784; 83516; 85025; 85610; 86255

== ENCOUNTER 2023-12-10 08:19 | Outpatient (RCR) | payer MEDICARE, SELFPAY ==
[2023-11-16 00:34] VITALS: BMI 39.4
[2023-12-10 09:51] LABS: Absolute Neutrophil Count 4.5 X10^3/uL (2.0-7.7); Basophil# 0.06 X10^3/uL; Eosinophil# 0.06 X10^3/uL; Hemoglobin 14.3 g/dL (12.0-15.0); Lymphocyte % 13.7 % (19-41); Mean Corp Hgb Conc 32.5 g/dL (32-36); Mean Corpuscular Hgb 30.2 pg (27.0-32.0); Mean Platelet Vol. 9.2 fl (6.2-12.0); Monocyte# 0.39 X10^3/uL; Monocyte% 6.7 % (0-10); NRBC Flagged by Analyzer 0 % (0-5); Neutrophil # 4.49 X10^3/uL (2.7-7.7); Neutrophil % 77.3 % (47-70); Platelet Count 284 K/mm3 (150-450); RBC Distribution Width CV 13.1 % (11.6-14.6); RBC Distribution Width SD 44.8 fl (35.1-43.9); Red Blood Count 4.73 M/mm3 (4.2-5.4); White Blood Count 5.8 K/mm3 (4.4-11.0)
[2023-12-10 09:55] LABS: International Normalized Ratio 3.2; Prothrombin Time (Protime)PT. 32.2 SECONDS (11.7-14.9)
[2023-12-10 10:16] LABS: Vitamin D,25 Hydroxy 80.9 ng/mL
[2023-12-10 10:28] LABS: Hemoglobin A1c 5.6 % (3.8-5.6)
[2023-12-10 10:58] LABS: AST(SGOT) 14 U/L (15-37); Alanine Aminotransfer ALT/SGPT 9 U/L (13-56); Albumin, Serum 3.4 g/dL (3.2-5.0); Alkaline Phosphatase 97 U/L (45-117); Anion Gap 2 (5-15); BUN 16 mg/dL (7-18); BUN/Creat Ratio 21.4 RATIO (10-20); Bilirubin, Direct 0.18 mg/dL (0.00-0.30); Calcium,Total 8.7 mg/dL (8.5-10.1); Chloride 106 mmol/L (98-107); Cholesterol 157 mg/dL (200); Creatinine, Serum 0.75 mg/dL (0.55-1.02); EST Glomerular Filtration Rate 81 mL/min (>60); Est Glom Filt Rate - Afr Amer 97 mL/min (>60); Globulin 3.3 g/dL (2.2-4.2); Glucose 102 mg/dL (74-106); High Density Lipoprotein 77 mg/dL; Potassium 3.8 mmol/L (3.5-5.1); Protein, Total 6.7 g/dL (6.4-8.2); Sodium Level 139 mmol/L (136-145); Thyroid Stim Hormone (TSH) 1.05 uIU/mL (0.358-3.74); Triglycerides 97 mg/dL; Very Low Density Lipoprotein 19 mg/dL (5-40)
== END 2023-12-15 23:45 | disposition home or self-care (01) ==
LOC: LAB 08:19
PROVIDERS: Family Provider Internal Medicine; PCP Internal Medicine; Referring Provider Nurse Practitioner Gerontology; Visit Provider Nurse Practitioner Gerontology
DX: Z79.01 Long term (current) use of anticoagulants (principal); D64.9 Anemia, unspecified; E78.00 Pure hypercholesterolemia, unspecified; I10 Essential (primary) hypertension; R73.09 Other abnormal glucose; E03.9 Hypothyroidism, unspecified; E55.9 Vitamin D deficiency, unspecified; L93.2 Other local lupus erythematosus; I48.19 Other persistent atrial fibrillation
CPT/HCPCS: 36415; 80053; 80061; 82248; 82306; 83036; 84443; 85025; 85610

== ENCOUNTER → 2023-12-17 | Outpatient (CLI) | payer MEDICARE, SELFPAY ==
--- NOTE | 2023-12-17 20:33 | STRESSREP ---
Stress Test Report Pharmacologic myocardial perfusion stress test. 73-year-old lady with a history of chest pain and atrial fibrillation Resting EKG demonstrates probable sinus rhythm with a left bundle branch block and with a rate of 90 bpm. Resting blood pressure is 122/80 mmHg. 0.4 mg of regadenoson was infused per usual protocol followed by rapid intravenous saline flush injection. Continuous EKG monitoring was performed. The maximum heart rate was 100 bpm which was 68% of max impacted heart rate the maximum workload was 1 metabolic equivalent. At rest there were no ST or T wave changes noted to suggest ischemia and at peak infusion nonspecific ST changes were noted which did not meet the criteria for ischemia. No clinical angina is noted. The final blood pressure was 118/80 mmHg. Myocardial perfusion protocol. 11.9 mCi of technetium 99m sestamibi was injected at rest. 0.4 mg of regadenoson was infused per usual protocol. At peak infusion 36 mCi of technetium 99m sestamibi was injected stress images were obtained stress and rest images were reconstructed and compared in the short axis vertical long and horizontal long axis. Gated images were also obtained. Perfusion SPECT analysis: Review of the stress images demonstrate normal uptake of tracer noted in all areas of the myocardium. The resting images similar demonstrated normal uptake of tracer noted in all areas of the myocardium. No areas of reversibility are noted to suggest ischemia and no previous infarct is noted. Gated SPECT analysis: The gated ejection fraction is 60%. Conclusion: Normal pharmacologic myocardial perfusion stress test. Preserved ejection fraction.
== END | disposition home or self-care (01) ==
LOC: CVS 07:29
PROVIDERS: PCP Internal Medicine; Referring Provider Nurse Practitioner Gerontology; Visit Provider Nurse Practitioner Gerontology
DX: R07.9 Chest pain, unspecified (principal); I48.19 Other persistent atrial fibrillation
CPT/HCPCS: 78452; 93017; A9500; A4216; J2785

== ENCOUNTER 2024-01-08 09:03 | Outpatient (RCR) | payer MEDICARE, SELFPAY ==
[2023-12-15 23:45] VITALS: BMI 39.4
[2023-12-25 15:41] LABS: International Normalized Ratio 2.9; Prothrombin Time (Protime)PT. 30.4 SECONDS (11.7-14.9)
[2024-01-08 12:42] LABS: International Normalized Ratio 2.4; Prothrombin Time (Protime)PT. 25.6 SECONDS (11.7-14.9)
== END 2024-01-15 23:59 ==
LOC: BIMLAB 09:03
PROVIDERS: Family Provider Internal Medicine; PCP Internal Medicine; Referring Provider Nurse Practitioner Gerontology; Visit Provider Nurse Practitioner Gerontology
DX: Z79.01 Long term (current) use of anticoagulants (principal); I48.11 Longstanding persistent atrial fibrillation
CPT/HCPCS: 36415; 85610

== ENCOUNTER 2024-02-08 12:19 | Outpatient (RCR) | payer MEDICARE, SELFPAY ==
[2024-01-16 01:36] VITALS: BMI 39.4
[2024-02-08 15:41] LABS: International Normalized Ratio 2.6; Prothrombin Time (Protime)PT. 27.3 SECONDS (11.7-14.9)
== END 2024-02-14 23:59 ==
LOC: BIMLAB 12:19
PROVIDERS: Family Provider Internal Medicine; PCP Internal Medicine; Referring Provider Nurse Practitioner Gerontology; Visit Provider Nurse Practitioner Gerontology
DX: Z79.01 Long term (current) use of anticoagulants (principal)
CPT/HCPCS: 36415; 85610

== ENCOUNTER 2024-03-08 09:33 | Outpatient (RCR) | payer MEDICARE, SELFPAY ==
[2024-02-15 00:40] VITALS: BMI 39.4
[2024-03-08 11:52] LABS: Absolute Lymphocyte Count 0.99 X10^3/uL (0.83-4.51); Absolute Neutrophil Count 3.8 X10^3/uL (2.0-7.7); Basophil# 0.05 X10^3/uL; Basophil% 0.9 % (0-1); Eosinophil# 0.08 X10^3/uL; Eosinophils% 1.5 % (0-5); Hemoglobin 14.4 g/dL (12.0-15.0); Lymphocyte # 0.99 X10^3/ul (0.83-4.51); Lymphocyte % 18.5 % (19-41); Mean Corpuscular Hgb 29.9 pg (27.0-32.0); Mean Corpuscular Volume 93.6 fL (81-99); Mean Platelet Vol. 9.1 fl (6.2-12.0); Monocyte# 0.38 X10^3/uL; Monocyte% 7.1 % (0-10); NRBC Flagged by Analyzer 0 % (0-5); Neutrophil # 3.84 X10^3/uL (2.7-7.7); Neutrophil % 71.6 % (47-70); Platelet Count 285 K/mm3 (150-450); RBC Distribution Width CV 14.3 % (11.6-14.6); RBC Distribution Width SD 49.1 fl (35.1-43.9); Red Blood Count 4.81 M/mm3 (4.2-5.4); White Blood Count 5.4 K/mm3 (4.4-11.0)
[2024-03-08 12:06] LABS: International Normalized Ratio 3.3; Prothrombin Time (Protime)PT. 33.5 SECONDS (11.7-14.9)
[2024-03-08 13:05] LABS: ALB/GLOB Ratio 1.1 RATIO (0.9-2.4); AST(SGOT) 20 U/L (15-37); Alanine Aminotransfer ALT/SGPT 13 U/L (13-56); Albumin, Serum 3.5 g/dL (3.2-5.0); Alkaline Phosphatase 106 U/L (45-117); Anion Gap 9 (5-15); BUN 12 mg/dL (7-18); BUN/Creat Ratio 19.1 RATIO (10-20); Calcium,Total 9.3 mg/dL (8.5-10.1); Chloride 105 mmol/L (98-107); Cholesterol 158 mg/dL (200); Creatinine, Serum 0.63 mg/dL (0.55-1.02); EST Glomerular Filtration Rate 98 mL/min (>60); Est Glom Filt Rate - Afr Amer 119 mL/min (>60); Globulin 3.3 g/dL (2.2-4.2); Glucose 86 mg/dL (74-106); High Density Lipoprotein 80 mg/dL; Potassium 4.2 mmol/L (3.5-5.1); Protein, Total 6.8 g/dL (6.4-8.2); Sodium Level 140 mmol/L (136-145); Thyroid Stim Hormone (TSH) 0.41 uIU/mL (0.358-3.74); Triglycerides 104 mg/dL; Very Low Density Lipoprotein 21 mg/dL (5-40)
[2024-03-08 16:59] LABS: Hemoglobin A1c 5.5 % (3.8-5.6)
== END 2024-03-16 23:59 ==
LOC: BIMLAB 09:33
PROVIDERS: Family Provider Internal Medicine; PCP Internal Medicine; Referring Provider Nurse Practitioner Gerontology; Visit Provider Nurse Practitioner Gerontology
DX: Z79.01 Long term (current) use of anticoagulants (principal); I48.19 Other persistent atrial fibrillation; R32 Unspecified urinary incontinence; R73.09 Other abnormal glucose; E78.2 Mixed hyperlipidemia; E03.9 Hypothyroidism, unspecified; E55.9 Vitamin D deficiency, unspecified
CPT/HCPCS: 36415; 80053; 80061; 82306; 83036; 84443; 85025; 85610; 87086; 87088

== ENCOUNTER 2024-04-01 11:42 | Outpatient (RCR) | payer MEDICARE, SELFPAY ==
[2024-03-17 00:44] VITALS: BMI 39.4
[2024-04-01 15:28] LABS: International Normalized Ratio 2.3; Prothrombin Time (Protime)PT. 24.9 SECONDS (11.7-14.9)
== END 2024-04-01 18:00 | disposition home or self-care (01) ==
LOC: MTLAB 11:42
PROVIDERS: Family Provider Internal Medicine; PCP Internal Medicine; Referring Provider Nurse Practitioner Gerontology; Visit Provider Nurse Practitioner Gerontology
DX: Z79.01 Long term (current) use of anticoagulants (principal)
CPT/HCPCS: 36415; 85610

== ENCOUNTER 2024-04-09 21:25 | Emergency (ER) | payer MEDICARE, SELFPAY ==
[2024-04-09 21:26] VITALS: BP 125/80; PULSE 98; RESP 17; TEMP 36.6; O2SAT 96
[2024-04-09 21:29] VITALS: BP 123/77; PULSE 105; RESP 18; TEMP 37.5; O2SAT 96
[2024-04-09 22:29] VITALS: BP 118/93; PULSE 115; RESP 18; TEMP 36.9; O2SAT 97
--- NOTE | 2024-04-09 22:34 | RAD_ITS ---
INDICATION: cough EXAMINATION/TECHNIQUE: X-RAY - XR Chest 2 Views COMPARISON: 08/04/2020 FINDINGS: LINES/DEVICES: None. LUNGS: No consolidation. No pneumothorax. MEDIASTINUM: Unremarkable. CARDIAC SILHOUETTE: Not enlarged. BONES AND SOFT TISSUES: No acute abnormalities. RAD/Chest PA and Lateral IMPRESSION: No evidence of active intrathoracic disease. Electronically Signed: Rochelle Chauhan MD at 0:07 EDT ,
[2024-04-09 23:00] VITALS: BP 121/94; PULSE 114; RESP 18; TEMP 36.9; O2SAT 97
[2024-04-09] MEDS: 0.9% Normal Saline (1000mL) 1,000 ML 999 ML IV (23:08)
[2024-04-09 23:18] LABS: Bacteria 0 SEEN /hpf (None Seen); Mucous, Urine 0 SEEN /hpf (<or=2+); Red Blood Cells-Urine 0 SEEN /hpf (0-5); Squamous Epithelial Cells - UA 0 SEEN /hpf (5-10); White Blood Cells 0 SEEN /hpf (0-5)
[2024-04-09 23:20] LABS: Absolute Lymphocyte Count 0.72 X10^3/uL (0.83-4.51); Absolute Neutrophil Count 6.4 X10^3/uL (2.0-7.7); Basophil# 0.02 X10^3/uL; Basophil% 0.3 % (0-1); Hematocrit 44.8 % (37-47); Hemoglobin 14.4 g/dL (12.0-15.0); Lymphocyte # 0.72 X10^3/ul (0.83-4.51); Lymphocyte % 9.1 % (19-41); Mean Corp Hgb Conc 32.1 g/dL (32-36); Mean Corpuscular Hgb 29.9 pg (27.0-32.0); Mean Corpuscular Volume 92.9 fL (81-99); Mean Platelet Vol. 9.2 fl (6.2-12.0); Monocyte# 0.73 X10^3/uL; Monocyte% 9.3 % (0-10); NRBC Flagged by Analyzer 0 % (0-5); Neutrophil # 6.38 X10^3/uL (2.7-7.7); Platelet Count 233 K/mm3 (150-450); RBC Distribution Width CV 14.1 % (11.6-14.6); RBC Distribution Width SD 47.8 fl (35.1-43.9); Red Blood Count 4.82 M/mm3 (4.2-5.4); White Blood Count 7.9 K/mm3 (4.4-11.0)
[2024-04-09 23:21] LABS: Color, Urine Yellow (Yellow); Glucose, Dipstick Normal (Normal); Ketone-Dipstick Negative (Negative); Leukocyte Esterase-Dipstick Negative /ul (Negative); Nitrite-Dipstick Negative (Negative); Occult Blood-Urine 25 /ul (Negative); Protein-Dipstick 15 mg/dl (Negative); Urine Bilirubin Dipstick Negative (Negative); Urine Clarity Clear (Clear); Urine Urobilinogen 1 mg/dl (Normal)
[2024-04-09 23:29] LABS: International Normalized Ratio 2.1; Prothrombin Time (Protime)PT. 23.4 SECONDS (11.7-14.9)
[2024-04-09 23:33] LABS: Anion Gap 7 (5-15); BUN 11 mg/dL (7-18); BUN/Creat Ratio 13.1 RATIO (10-20); Calcium,Total 8.9 mg/dL (8.5-10.1); Chloride 101 mmol/L (98-107); Creatinine, Serum 0.84 mg/dL (0.55-1.02); EST Glomerular Filtration Rate 70 mL/min (>60); Est Glom Filt Rate - Afr Amer 85 mL/min (>60); Glucose 99 mg/dL (74-106); Potassium 3.7 mmol/L (3.5-5.1); Sodium Level 138 mmol/L (136-145)
[2024-04-10] VITALS: BP 127/85; PULSE 83; RESP 20; TEMP 37.1; O2SAT 95
--- NOTE | 2024-04-10 00:52 | EX.ED.DYSGE1 ---
HPI History of Present Illness Chief Complaint: General Illness Informant: patient and family Narrative Narrative: Patient is a 73-year-old female with past medical history of Parkinson's disease atrial fibrillation currently on Coumadin as well as hypertension and hypothyroidism and hyperlipidemia. Patient states she has just not felt well for the past 2 days and has had mild congestion and cough. Family states that she has been in close contact with granddaughters who were recently diagnosed with pneumonia. 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 03/11/18 08/04/20 History release (Adult Aspirin Regimen) glucosamine-chondroitin 250 mg-200 1 tab PO DAILY supplement 03/11/18 08/04/20 History mg tablet (Osteo Bi-Flex) potassium chloride 10 mEq 10 meq PO QDAY supplement 03/11/18 08/04/20 History tablet,extended release alprazolam 0.25 mg tablet 0.25 mg PO DAILY PRN Anxiety 03/12/18 Unknown History biotin 5,000 mcg disintegrating 10,000 mcg PO DAILY supplement 11/18/18 08/04/20 History tablet polyethylene glycol 3350 17 17 g PO DAILY bowels 11/18/18 08/04/20 History gram/dose oral powder (Miralax) cholecalciferol (vitamin D3) 50 6,000 unit PO QDAY supplement 12/26/19 08/04/20 History mcg (2,000 unit) capsule warfarin 5 mg tablet 5 mg PO WETH afib ##0 08/10/20 08/02/20 Rx benazepril 40 mg tablet 40 mg PO DAILY blood pressure 05/04/23 Unknown History docusate sodium 100 mg capsule 100 mg PO DAILY 05/13/23 Unknown History (Colace) carbidopa 25 mg-levodopa 100 mg 1.5 tab PO TID 05/21/23 Unknown History tablet clonazepam 0.5 mg tablet 0.5 mg PO QHS PRN for restless legs 05/21/23 Unknown History flecainide 50 mg tablet 50 mg PO Q12H #180 tabs 08/21/23 Unknown Rx flecainide 100 mg tablet 300 mg (3 x 100 mg) PO .COMPLEX 08/24/23 04/09/24 Rx #30 tabs amlodipine 10 mg tablet 10 mg PO DAILY #30 tabs 09/02/23 Unknown Rx carbidopa ER 25 mg-levodopa 100 mg 1 tab PO QHS 04/09/24 Unknown History tablet,extended release metoprolol tartrate 50 mg tablet 50 mg PO DAILY 04/09/24 Unknown History (Lopressor) potassium chloride 10 mEq 10 meq PO DAILY 04/09/24 Unknown History capsule,extended release warfarin 2.5 mg tablet See Rx Instructions PO DAILY 04/09/24 Unknown History molnupiravir 200 mg capsule (EUA) 800 mg (4 x 200 mg) PO BID 5 days 04/10/24 Unknown Rx (Lagevrio) #40 caps Allergy/AdvReac Type Severity Reaction Status Date / Time hydralazine AdvReac Severe Induced Verified 04/09/24 21:26 Lupus apixaban (From Eliquis) AdvReac Intermediate Increased Verified 04/09/24 21:26 bleeding irbesartan (From Avapro) AdvReac Unknown Unknown Verified 04/09/24 21:26 levofloxacin (From Levaquin) AdvReac Unknown Unknown Verified 04/09/24 21:26 amoxicillin (From Augmentin) AdvReac Nausea Verified 04/09/24 21:26 clavulanic acid (From AdvReac Nausea Verified 04/09/24 21:26 Augmentin) ropinerole Allergy Severe Anaphylaxis Uncoded 01/01/24 11:45 avapro Allergy Unknown Other Uncoded 01/01/24 11:45 anethesia AdvReac Other Uncoded 01/01/24 11:45 Family History Father CAD (coronary artery disease) S/P CABG (coronary artery bypass graft) Unknown Family history of clotting disorder Surgical History Hx laparoscopic cholecystectomy (08/05/20) History of wisdom tooth extraction Social History Smoking Status: Never smoker alcohol intake: never substance use type: does not use caffeine: Yes Type: coffee Number of servings: 1 ROS ROS ED Constitutional Constitutional ED: Reports chills, fever(s) and subjective Eyes Eyes: Denies change in vision ENT ENT ED: Reports rhinorrhea Cardiovascular Cardiovascular: Reports palpitations; Denies chest pain Respiratory/Chest Respiratory/Chest: Reports cough and dyspnea Gastrointestinal Gastrointestinal: Denies abdominal pain, diarrhea, nausea or vomiting Genitourinary Genitourinary ED: Reports urinary frequency; Denies dysuria Musculoskeletal Musculoskeletal: Reports myalgias Neurologic Neurologic: Reports headache(s) and weakness Hematologic/Lymphatic Hematologic/Lymphatic: Reports easy bleeding and easy bruising EXAM Physical Exam Const Vital Signs: 04/09/24 21:26 04/09/24 21:29 04/09/24 22:04 Temperature 97.9 F 99.5 F H Temperature Source Temporal Oral Pulse Rate 98 105 H Respiratory Rate 17 18 Respiratory Effort Normal Non-Labored Respiratory Pattern Normal Blood Pressure 125/80 H 123/77 H Blood Pressure Mean 95 92 Pulse Ox 96 96 Oxygen Delivery Method Room Air Room Air 04/09/24 22:29 04/09/24 23:00 04/10/24 00:00 Temperature 98.4 F 98.4 F 98.8 F Temperature Source Oral Oral Oral Pulse Rate 115 H 114 H 83 Respiratory Rate 18 18 20 H Respiratory Effort Respiratory Pattern Blood Pressure 118/93 H 121/94 H 127/85 H Blood Pressure Mean 101 103 99 Pulse Ox 97 97 95 Oxygen Delivery Method Room Air Room Air Room Air 04/10/24 00:54 Temperature 98.8 F Temperature Source Pulse Rate 90 Respiratory Rate 20 H Respiratory Effort Respiratory Pattern Blood Pressure 125/83 H Blood Pressure Mean 97 Pulse Ox 96 Oxygen Delivery Method Positive well nourished and well developed General Appearance ED: well developed; Negative for pallor HEENT HEENT Narrative: Cobblestoning is noted in the posterior pharynx consistent with sinus drainage without airway edema or compromise No tongue or lip swelling noted No secondary findings in the posterior pharynx to suggest infection Eyes PERRL and EOMs intact bilaterally General Eye ED: Negative for scleral icterus Neck supple Neck Narrative: No nuchal rigidity or meningeal signs noted Resp normal respiratory effort Resp Narrative: Breath sounds are diminished throughout with faint rhonchi noted in the bilateral lower lobes however no nasal flaring retractions tachypnea or accessory muscle use Cardio regular rate Rate: other Other Details: Irregularly irregular rhythm with regular rate consistent with history of atrial fibrillation GI normal to inspection, nondistended, normoactive bowel sounds, non-tender, non-distended and no masses Auscultation: normoactive bowel sounds Palpation: soft Back/Spine no CVA tenderness Extremity normal to inspection Neuro oriented x3, CN's II-XII intact bilaterally and no sensory deficits noted Sensorium / Orientation: alert Motor Exam: strength 5/5 throughout Psych mental status grossly normal Skin no rashes or lesions noted and no wounds General Skin Exam: Negative for jaundice or pallor MDM MDM MDM Narrative Medical decision making narrative: Patient arrived to the ER with stable vital. She is in atrial fibrillation but has a past medical history of this she is rate controlled and on anticoagulation. With report of feeling unwell and recent sick exposure with 2 pneumonia there is concern she has community-acquired pneumonia. However she also could have COVID or influenza or RSV. As she reported urinary frequency UTI is also possible. Secondary to this basic blood work with chest x-ray urine sample and a viral swab were obtained. Urine sample showed no sign of infection. Chest x-ray revealed no acute lung pathology. Blood work revealed no clinically significant finding. Patient's COVID test was positive however which does correlate with her symptoms. At this time she is not in respiratory distress she is not hypoxic she is not requiring supplemental oxygen and therefore there is no need for admission to the hospital. Patient can be given symptomatic care and discharged home and follow-up with family doctor for further evaluation. Plan of care was discussed with patient and family and they are agreeable to it History & Record Review Discussion w/independent historian: Patient and Family Lab Data Attestation: I reviewed the patient's lab results. Labs: Laboratory Results - last 24 hr 04/09/24 23:10 WBC 7.9 RBC 4.82 Hgb 14.4 Hct 44.8 MCV 92.9 MCH 29.9 MCHC 32.1 RDW Std Deviation 47.8 H RDW Coeff of Gabriel 14.1 Plt Count 233 MPV 9.2 Immature Gran % (Auto) 0.300 Neut % (Auto) 81.0 H Lymph % (Auto) 9.1 L [place] % (Auto) 9.3 Eos % (Auto) 0.0 Baso % (Auto) 0.3 Absolute Neuts (auto) 6.4 Absolute Lymphs (auto) 0.72 L Nucleated RBC % 0 PT 23.4 H INR 2.1 Sodium 138 Potassium 3.7 Chloride 101 Carbon Dioxide 30.0 Anion Gap 7 BUN 11 Creatinine 0.84 Est GFR (MDRD) Af Amer 85 Est GFR (MDRD) Non-Af 70 BUN/Creatinine Ratio 13.1 Glucose 99 Calcium 8.9 Urine Color Yellow Urine Clarity Clear Urine pH 6.0 Ur Specific [place] 1.010 Urine Protein 15 H Urine Glucose (UA) Normal Urine Ketones Negative Urine Occult Blood 25 H Urine Nitrite Negative Urine Bilirubin Negative Urine Urobilinogen 1 H Ur Leukocyte Esterase Negative Urine RBC 0 SEEN Urine WBC 0 SEEN Ur Squamous Epith Cells 0 SEEN Urine Bacteria 0 SEEN Urine Mucus 0 SEEN Radiography Diagnostic Testing: Clinical Impression(s) from Imaging Studies Chest X-Ray 04/09/24 22:34 IMPRESSION: No evidence of active intrathoracic disease. Electronically Signed: Rochelle Chauhan MD at 0:07 EDT Reading Location ID and State: [address] [place] [address] Tel , Service support , Chest x-ray as interpreted by the emergency medicine physician reveals no acute infiltrate pneumothorax or pleural effusion Discharge Plan Triage Chief Complaint: General Illness ED Provider: Hood Pagan Dx/Rx/DC Orders Clinical Impression: COVID-19, Persistent atrial fibrillation, [facility] current use of anticoagulant, Parkinson's disease, Hypertension, essential, benign Instructions: Coronavirus Disease 2019 (COVID-19): Caring for Yourself or Others Prescriptions: New Lagevrio (EUA) 200 mg capsule 800 mg PO BID 5 Days Qty: 40 0RF No Action alprazolam 0.25 mg tablet 0.25 mg PO DAILY PRN (Reason: Anxiety) clonazepam 0.5 mg tablet 0.5 mg PO QHS PRN (Reason: for restless legs) glucosamine-chondroitin [Osteo Bi-Flex] 250-200 mg tablet 1 tab PO DAILY aspirin [Adult Aspirin Regimen] 81 mg tablet,delayed release (DR/EC) 81 mg PO QDAY potassium chloride 10 mEq tablet extended release 10 meq PO QDAY cholecalciferol (vitamin D3) 50 mcg (2,000 unit) capsule 6,000 unit PO QDAY polyethylene glycol 3350 [Miralax] 17 gram/dose powder 17 g PO DAILY biotin 5,000 mcg tablet,disintegrating 10,000 mcg PO DAILY benazepril 40 mg tablet 40 mg PO DAILY amlodipine 10 mg tablet 10 mg PO DAILY Qty: 30 11RF docusate sodium [Colace] 100 mg capsule 100 mg PO DAILY carbidopa-levodopa 25-100 mg tablet 1.5 tab PO TID levothyroxine 100 MCG tablet 100 mcg PO DAILY furosemide 20 MG tablet 20 mg PO DAILY warfarin 5 MG tablet 5 mg PO WETH Qty: 0 0RF Protocol: Dose Management Condition: Thursday Dose/Route: 5 mg Instruction: 1 x 5 mg tablet Condition: Thursday Dose/Route: 2.5 mg Instruction: 1 x 2.5 mg tablet Condition: Thursday Dose/Route: 2.5 mg Instruction: 1 x 2.5 mg tablet Condition: Thursday Dose/Route: 2.5 mg Instruction: 1 x 2.5 mg tablet Condition: Dose/Route: 2.5 mg Instruction: 1 x 2.5 mg tablet Condition: Thursday Dose/Route: 2.5 mg Instruction: 1 x 2.5 mg tablet Condition: Thursday Dose/Route: 2.5 mg Instruction: 1 x 2.5 mg tablet Protocol Text: Adjustment Start Date: Thursday04/01/24 INR Value: 2.3 INR Date: 04/01/24 Recheck Date: 04/22/24 carbidopa-levodopa 25-100 mg tablet extended release 1 tab PO QHS metoprolol tartrate [Lopressor] 50 mg tablet 50 mg PO DAILY potassium chloride 10 mEq capsule, extended release 10 meq PO DAILY warfarin 2.5 mg tablet See Rx Instructions PO DAILY Protocol: Dose Management Condition: Thursday Dose/Route: 5 mg Instruction: 1 x 5 mg tablet Condition: Thursday Dose/Route: 2.5 mg Instruction: 1 x 2.5 mg tablet Condition: Thursday Dose/Route: 2.5 mg Instruction: 1 x 2.5 mg tablet Condition: Thursday Dose/Route: 2.5 mg Instruction: 1 x 2.5 mg tablet Condition: Dose/Route: 2.5 mg Instruction: 1 x 2.5 mg tablet Condition: Thursday Dose/Route: 2.5 mg Instruction: 1 x 2.5 mg tablet Condition: Thursday Dose/Route: 2.5 mg Instruction: 1 x 2.5 mg tablet Protocol Text: Adjustment Start Date: Thursday04/01/24 INR Value: 2.3 INR Date: 04/01/24 Recheck Date: 04/22/24 Rx Instructions: Take 2.5 mg every day except Thursday, Take 5 mg on Thursday or as directed for dose changes. flecainide 50 mg tablet 50 mg PO Q12H Qty: 180 4RF flecainide 100 mg tablet 300 mg PO .COMPLEX Qty: 30 11RF Patient Comments: pt. took 300mg today around 1800 (04/09/2024) Rx Instructions: 300 mg PO once daily as needed if returns to a-fib: this is in addition to routine dose 50 mg po bid; Primary Care Provider: Lizzy Trejo Referrals: Lizzy Trejo DO [Primary Care Provider] - Activity Restrictions/Additional Instructions: If you feel your symptoms are worsening or you have any further concerns please return to the ER for repeat evaluation. Please continue all of your home medications as directed by your family doctor Print Language: Micronesian Disposition Disposition: Home, Self Care Discharge Date/Time: 04/10/24 01:07
[2024-04-10 00:54] VITALS: BP 125/83; PULSE 90; RESP 20; TEMP 37.1; O2SAT 96
== END 2024-04-10 01:07 | disposition home or self-care (01) ==
PROVIDERS: Emergency Provider Emergency Medicine; PCP Internal Medicine; Visit Provider Emergency Medicine
DX: U07.1 COVID-19 (principal); G20.A1 Parkinson's disease without dyskinesia, without mention of fluctuations; I48.19 Other persistent atrial fibrillation; R35.0 Frequency of micturition; I10 Essential (primary) hypertension; E78.5 Hyperlipidemia, unspecified; E03.9 Hypothyroidism, unspecified; Z79.01 Long term (current) use of anticoagulants; Z79.82 Long term (current) use of aspirin; Z79.890 Hormone replacement therapy; Z79.899 Other long term (current) drug therapy
CPT/HCPCS: 71046; 80048; 81001; 85025; 85610; 87631; 96360; 99283; J7030; A4216

== ENCOUNTER → 2024-05-10 | Outpatient (CLI) | payer MEDICARE, SELFPAY ==
[2024-05-10 13:13] LABS: International Normalized Ratio 2.6
== END | disposition home or self-care (01) ==
LOC: BIMLAB 10:14
PROVIDERS: PCP Internal Medicine; Visit Provider Nurse Practitioner Gerontology
DX: I48.19 Other persistent atrial fibrillation (principal); Z79.01 Long term (current) use of anticoagulants
CPT/HCPCS: 36415; 85610

== ENCOUNTER → 2024-05-27 | Outpatient (CLI) | payer MEDICARE, SELFPAY ==
--- NOTE | 2024-05-27 12:41 | BI_ITS ---
MAMMOGRAPHY - BILATERAL SCREENING REASON FOR EXAM: Female, 74 years old. Routine annual screening examination. PERTINENT HISTORY: Non-contributory. TECHNIQUE: Digital bilateral breast jose (3D mammographic acquisition) in the CC and MLO projections. 2-D mediolateral oblique (MLO) and craniocaudad (CC) views of both breasts were obtained. CAD: Full Field Digital Mammography with Computer Added Detection was performed. COMPARISON: Comparison is made with prior study dated May 26, 2023 and June 13, 2021. FINDINGS: Breast Composition: The breasts are almost entirely fatty. There are no dominant masses or suspicious calcifications. No other significant abnormalities are identified. There has been no significant change since the prior study. BI/SCRN MAMM (CAD)W/JOSE BILAT IMPRESSION: Stable bilateral screening mammogram. Yearly follow-up mammogram recommended. (A) ASSESSMENT CATEGORY: BIRADS Category 1: Negative. A letter regarding these results will be sent to the patient by the facility within 30 days. Approximately 10% of breast cancers are not detected by mammography. A normal mammogram should not delay biopsy of a clinically suspicious abnormality. [id number] Electronically Signed: [place] Blanco MD at 15:42 EDT ,
== END | disposition home or self-care (01) ==
LOC: OPBI 12:41
PROVIDERS: PCP Internal Medicine; Referring Provider Internal Medicine; Visit Provider Internal Medicine
DX: Z12.31 Encounter for screening mammogram for malignant neoplasm of breast (principal)
CPT/HCPCS: 77063; 77067

== ENCOUNTER 2024-06-10 09:36 | Outpatient (RCR) | payer MEDICARE, SELFPAY ==
[2024-04-16 21:59] VITALS: BMI 39.4
[2024-06-10 12:28] LABS: Absolute Neutrophil Count 4.6 X10^3/uL (2.0-7.7); Basophil# 0.05 X10^3/uL; Basophil% 0.8 % (0-1); Eosinophil# 0.08 X10^3/uL; Eosinophils% 1.3 % (0-5); Hematocrit 45.5 % (37-47); Hemoglobin 14.6 g/dL (12.0-15.0); Lymphocyte % 16.3 % (19-41); Mean Corp Hgb Conc 32.1 g/dL (32-36); Mean Corpuscular Hgb 30.5 pg (27.0-32.0); Mean Corpuscular Volume 95.2 fL (81-99); Mean Platelet Vol. 9.1 fl (6.2-12.0); Monocyte# 0.37 X10^3/uL; NRBC Flagged by Analyzer 0 % (0-5); Neutrophil % 75.3 % (47-70); Platelet Count 308 K/mm3 (150-450); RBC Distribution Width CV 14.1 % (11.6-14.6); RBC Distribution Width SD 48.9 fl (35.1-43.9); Red Blood Count 4.78 M/mm3 (4.2-5.4); White Blood Count 6.1 K/mm3 (4.4-11.0)
[2024-06-10 13:01] LABS: Vitamin D,25 Hydroxy 75.1 ng/mL
[2024-06-10 13:12] LABS: ALB/GLOB Ratio 1.1 RATIO (0.9-2.4); AST(SGOT) 17 U/L (15-37); Alanine Aminotransfer ALT/SGPT 10 U/L (13-56); Albumin, Serum 3.6 g/dL (3.2-5.0); Alkaline Phosphatase 100 U/L (45-117); Anion Gap 5 (5-15); BUN 10 mg/dL (7-18); BUN/Creat Ratio 15.5 RATIO (10-20); Calcium,Total 9.4 mg/dL (8.5-10.1); Chloride 106 mmol/L (98-107); Cholesterol 170 mg/dL (200); Creatinine, Serum 0.64 mg/dL (0.55-1.02); EST Glomerular Filtration Rate 95 mL/min (>60); Est Glom Filt Rate - Afr Amer 116 mL/min (>60); Globulin 3.4 g/dL (2.2-4.2); Glucose 88 mg/dL (74-106); High Density Lipoprotein 84 mg/dL; Potassium 4.1 mmol/L (3.5-5.1); Sodium Level 140 mmol/L (136-145); Triglycerides 123 mg/dL; Very Low Density Lipoprotein 25 mg/dL (5-40)
[2024-06-10 13:56] LABS: Hemoglobin A1c 5.7 % (3.8-5.6)
== END 2024-06-10 18:00 | disposition home or self-care (01) ==
LOC: MTLAB 09:36
PROVIDERS: Family Provider Internal Medicine; PCP Internal Medicine; Referring Provider Nurse Practitioner Gerontology; Visit Provider Nurse Practitioner Gerontology
DX: E78.00 Pure hypercholesterolemia, unspecified; R32 Unspecified urinary incontinence; E55.9 Vitamin D deficiency, unspecified; R73.09 Other abnormal glucose
CPT/HCPCS: 36415; 80053; 80061; 82306; 83036; 84443; 85025; 87086; 87088

== ENCOUNTER 2024-06-21 09:15 | Outpatient (RCR) | payer MEDICARE, SELFPAY ==
[2024-06-16 21:11] VITALS: BMI 39.4
[2024-06-21 12:14] LABS: International Normalized Ratio 2.4
== END 2024-07-16 23:59 ==
LOC: BIMLAB 09:15
PROVIDERS: Family Provider Internal Medicine; PCP Internal Medicine; Referring Provider Physician Assistant Medical; Visit Provider Physician Assistant Medical
DX: Z79.01 Long term (current) use of anticoagulants (principal); I48.19 Other persistent atrial fibrillation
CPT/HCPCS: 36415; 85610

== ENCOUNTER → 2024-07-05 | Outpatient (CLI) | payer MEDICARE, SELFPAY | END | disposition home or self-care (01) | LOC: US 11:57 | PROVIDERS: PCP Internal Medicine; Referring Provider Internal Medicine; Visit Provider Internal Medicine | DX: E04.1 Nontoxic single thyroid nodule (principal) | CPT/HCPCS: 76536 ==

== ENCOUNTER 2024-08-05 06:54 | Outpatient (RCR) | payer MEDICARE, SELFPAY ==
[2024-07-17 00:38] VITALS: BMI 39.4
[2024-08-05 07:49] LABS: International Normalized Ratio 1.8; Prothrombin Time (Protime)PT. 20.5 SECONDS (11.7-14.9)
== END 2024-08-05 18:00 | disposition home or self-care (01) ==
LOC: LAB 06:54
PROVIDERS: Family Provider Internal Medicine; PCP Internal Medicine; Referring Provider Physician Assistant Medical; Visit Provider Physician Assistant Medical
DX: Z79.01 Long term (current) use of anticoagulants (principal); I48.19 Other persistent atrial fibrillation
CPT/HCPCS: 36415; 85610

== ENCOUNTER 2024-08-19 12:09 | Outpatient (RCR) | payer MEDICARE, SELFPAY ==
[2024-08-17 04:42] VITALS: BMI 39.4
[2024-08-19 15:28] LABS: International Normalized Ratio 2.3
== END 2024-09-16 23:59 ==
LOC: BIMLAB 12:09
PROVIDERS: Family Provider Internal Medicine; PCP Internal Medicine; Referring Provider Physician Assistant Medical; Visit Provider Physician Assistant Medical
DX: Z79.01 Long term (current) use of anticoagulants (principal); D64.9 Anemia, unspecified; E78.00 Pure hypercholesterolemia, unspecified
CPT/HCPCS: 36415; 85610

== ENCOUNTER 2024-09-22 12:21 | Outpatient (RCR) | payer MEDICARE, SELFPAY ==
[2024-09-17 01:15] VITALS: BMI 39.4
[2024-09-22 15:46] LABS: International Normalized Ratio 2.4; Prothrombin Time (Protime)PT. 26.9 SECONDS (11.7-14.9)
== END 2024-10-14 23:59 ==
LOC: BIMLAB 12:21
PROVIDERS: Family Provider Internal Medicine; PCP Internal Medicine; Referring Provider Physician Assistant Medical; Visit Provider Physician Assistant Medical
DX: Z79.01 Long term (current) use of anticoagulants (principal); I48.19 Other persistent atrial fibrillation
CPT/HCPCS: 36415; 85610

== ENCOUNTER → 2024-09-23 | Outpatient (CLI) | payer MEDICARE, SELFPAY ==
[2024-09-23 12:33] LABS: Absolute Lymphocyte Count 0.97 X10^3/uL (0.83-4.51); Absolute Neutrophil Count 4.9 X10^3/uL (2.0-7.7); Basophil# 0.04 X10^3/uL; Basophil% 0.6 % (0-1); Eosinophil# 0.09 X10^3/uL; Eosinophils% 1.4 % (0-5); Hematocrit 43.9 % (37-47); Hemoglobin 14.3 g/dL (12.0-15.0); Lymphocyte # 0.97 X10^3/ul (0.83-4.51); Mean Corp Hgb Conc 32.6 g/dL (32-36); Mean Corpuscular Hgb 31.4 pg (27.0-32.0); Mean Corpuscular Volume 96.3 fL (81-99); Mean Platelet Vol. 9.1 fl (6.2-12.0); Monocyte# 0.44 X10^3/uL; Monocyte% 6.8 % (0-10); NRBC Flagged by Analyzer 0 % (0-5); Neutrophil # 4.91 X10^3/uL (2.7-7.7); Neutrophil % 75.7 % (47-70); Platelet Count 312 K/mm3 (150-450); RBC Distribution Width CV 14.4 % (11.6-14.6); RBC Distribution Width SD 50.9 fl (35.1-43.9); Red Blood Count 4.56 M/mm3 (4.2-5.4); White Blood Count 6.5 K/mm3 (4.4-11.0)
[2024-09-23 12:58] LABS: AST(SGOT) 16 U/L (15-37); Alanine Aminotransfer ALT/SGPT 13 U/L (13-56); Albumin, Serum 3.5 g/dL (3.2-5.0); Alkaline Phosphatase 96 U/L (45-117); Anion Gap 5 (5-15); BUN 12 mg/dL (7-18); BUN/Creat Ratio 17.9 RATIO (10-20); Calcium,Total 9.4 mg/dL (8.5-10.1); Chloride 105 mmol/L (98-107); Cholesterol 166 mg/dL (200); Creatinine, Serum 0.67 mg/dL (0.55-1.02); EST Glomerular Filtration Rate 91 mL/min (>60); Est Glom Filt Rate - Afr Amer 110 mL/min (>60); Globulin 3.4 g/dL (2.2-4.2); Glucose 84 mg/dL (74-106); High Density Lipoprotein 84 mg/dL; Potassium 4.3 mmol/L (3.5-5.1); Protein, Total 6.9 g/dL (6.4-8.2); Sodium Level 139 mmol/L (136-145); Thyroid Stim Hormone (TSH) 0.544 uIU/mL (0.358-3.740); Triglycerides 115 mg/dL; Very Low Density Lipoprotein 23 mg/dL (5-40)
== END | disposition home or self-care (01) ==
LOC: BIMLAB 10:12
PROVIDERS: PCP Internal Medicine; Referring Provider Internal Medicine; Visit Provider Internal Medicine
DX: E03.9 Hypothyroidism, unspecified (principal); R73.09 Other abnormal glucose; E78.5 Hyperlipidemia, unspecified
CPT/HCPCS: 36415; 80053; 80061; 83036; 84443; 85025

== ENCOUNTER 2024-11-24 09:15 | Outpatient (RCR) | payer MEDICARE, SELFPAY ==
[2024-10-15 01:56] VITALS: BMI 39.4
[2024-10-25 12:55] LABS: International Normalized Ratio 2.6; Prothrombin Time (Protime)PT. 28.1 SECONDS (11.7-14.9)
[2024-11-24 12:51] LABS: International Normalized Ratio 2.1; Prothrombin Time (Protime)PT. 24.1 SECONDS (11.7-14.9)
== END 2024-12-14 23:59 ==
LOC: BIMLAB 09:15
PROVIDERS: Family Provider Internal Medicine; PCP Internal Medicine; Referring Provider Physician Assistant Medical; Visit Provider Physician Assistant Medical
DX: I48.19 Other persistent atrial fibrillation; Z79.01 Long term (current) use of anticoagulants
CPT/HCPCS: 36415; 85610

== ENCOUNTER 2024-12-23 09:44 | Outpatient (RCR) | payer MEDICARE, SELFPAY ==
[2024-12-15 00:05] VITALS: BMI 39.4
[2024-12-23 13:54] LABS: International Normalized Ratio 2.2; Prothrombin Time (Protime)PT. 24.9 SECONDS (11.7-14.9)
[2024-12-23 16:36] LABS: Absolute Lymphocyte Count 1.11 X10^3/uL (0.83-4.51); Absolute Neutrophil Count 4.7 X10^3/uL (2.0-7.7); Basophil# 0.03 X10^3/uL; Basophil% 0.5 % (0-1); Eosinophil# 0.07 X10^3/uL; Eosinophils% 1.1 % (0-5); Hematocrit 45.4 % (37-47); Hemoglobin 14.5 g/dL (12.0-15.0); Lymphocyte # 1.11 X10^3/ul (0.83-4.51); Lymphocyte % 17.6 % (19-41); Mean Corp Hgb Conc 31.9 g/dL (32-36); Mean Corpuscular Hgb 30.9 pg (27.0-32.0); Mean Corpuscular Volume 96.8 fL (81-99); Mean Platelet Vol. 9.1 fl (6.2-12.0); Monocyte% 6.3 % (0-10); NRBC Flagged by Analyzer 0 % (0-5); Neutrophil # 4.68 X10^3/uL (2.7-7.7); Neutrophil % 74.2 % (47-70); Platelet Count 308 K/mm3 (150-450); RBC Distribution Width CV 13.6 % (11.6-14.6); RBC Distribution Width SD 48.8 fl (35.1-43.9); Red Blood Count 4.69 M/mm3 (4.2-5.4); White Blood Count 6.3 K/mm3 (4.4-11.0)
[2024-12-23 16:57] LABS: ALB/GLOB Ratio 1.3 RATIO (0.9-2.4); AST(SGOT) 23 U/L (<=31); Alanine Aminotransfer ALT/SGPT 7 U/L (<=34); Alkaline Phosphatase 107 U/L (35-104); Anion Gap 11 (5-15); BUN 10 mg/dL (4-19); BUN/Creat Ratio 15.1 RATIO (10-20); Calcium,Total 9.7 mg/dL (7.6-11.0); Carbon Dioxide 25.9 mmol/L (21.0-32.0); Chloride 103 mmol/L (98-108); Cholesterol 165 mg/dL (<=200); Creatinine, Serum 0.68 mg/dL (0.70-1.20); EST Glomerular Filtration Rate 91 (>60); Glucose 82 mg/dL (70-99); High Density Lipoprotein 76 mg/dL; Low Density Lipoprotein Calc. 66 mg/dL; Potassium 4.7 mmol/L (3.3-5.1); Sodium Level 140 mmol/L (133-145); Total Bilirubin 0.57 mg/dL (0.00-1.30); Triglycerides 115 mg/dL; Very Low Density Lipoprotein 23 mg/dL (5-40); Vitamin D,25 Hydroxy 53.3 ng/mL (30-100); cholesterol:hdl ratio screen 2.17
[2024-12-23 17:14] LABS: Microalbumin:Creatinine Ratio 110.2 mg/g CRE
[2024-12-23 17:21] LABS: Hemoglobin A1c 5.9 % (<=5.6)
== END 2025-01-14 23:59 ==
LOC: BIMLAB 09:44
PROVIDERS: Family Provider Internal Medicine; PCP Internal Medicine; Referring Provider Physician Assistant Medical; Visit Provider Physician Assistant Medical
DX: R73.09 Other abnormal glucose; E78.2 Mixed hyperlipidemia; D50.0 Iron deficiency anemia secondary to blood loss (chronic); E55.9 Vitamin D deficiency, unspecified; E03.9 Hypothyroidism, unspecified; I48.19 Other persistent atrial fibrillation; Z79.01 Long term (current) use of anticoagulants
CPT/HCPCS: 36415; 80053; 80061; 82043; 82306; 82570; 83036; 84443; 85025; 85610

== ENCOUNTER 2025-01-30 12:26 | Outpatient (RCR) | payer MEDICARE, SELFPAY ==
[2025-01-15 00:05] VITALS: BMI 39.4
[2025-01-20 12:25] LABS: International Normalized Ratio 1.6; Prothrombin Time (Protime)PT. 19.4 SECONDS (11.7-14.9)
[2025-01-20 13:12] LABS: Ferritin 37 ng/mL (22-378); Iron Binding Capacity,Total 413 ug/dL (250-450)
[2025-01-20 13:16] LABS: Iron 78 ug/dL (50-170); Iron Binding Capacity,Unsat 335 ug/dL (228-428); PERCENT IRON SATURATION 18.9 % (13-59)
[2025-01-23 15:24] LABS: International Normalized Ratio 1.6; Prothrombin Time (Protime)PT. 19.8 SECONDS (11.7-14.9)
[2025-01-30 16:25] LABS: International Normalized Ratio 2.2; Prothrombin Time (Protime)PT. 25.2 SECONDS (11.7-14.9)
== END 2025-02-13 23:59 ==
LOC: BIMLAB 12:26
PROVIDERS: Nurse Practitioner; Family Provider Internal Medicine; PCP Internal Medicine; Referring Provider Physician Assistant Medical; Visit Provider Physician Assistant Medical
DX: E61.1 Iron deficiency; Z79.01 Long term (current) use of anticoagulants; I48.19 Other persistent atrial fibrillation
CPT/HCPCS: 36415; 82728; 83540; 83550; 85610

== ENCOUNTER 2025-02-14 12:11 | Outpatient (RCR) | payer MEDICARE, SELFPAY ==
[2025-02-14 13:17] LABS: Prothrombin Time (Protime)PT. 29.1 SECONDS (11.7-14.9)
== END 2025-03-16 21:29 | disposition home or self-care (01) ==
LOC: LAB 12:11
PROVIDERS: Family Provider Internal Medicine; PCP Internal Medicine; Referring Provider Physician Assistant Medical; Visit Provider Physician Assistant Medical
DX: Z79.01 Long term (current) use of anticoagulants; I48.0 Paroxysmal atrial fibrillation
CPT/HCPCS: 36415; 85610

== ENCOUNTER → 2025-02-16 | Outpatient (CLI) | payer MEDICARE, SELFPAY | END | disposition home or self-care (01) | LOC: CT 12:52 | PROVIDERS: PCP Internal Medicine; Referring Provider Specialist; Visit Provider Specialist | DX: Z01.818 Encounter for other preprocedural examination (principal) | CPT/HCPCS: 73700 ==

== ENCOUNTER → 2025-02-24 | Outpatient (CLI) | payer MEDICARE, SELFPAY ==
[2025-02-24 11:32] LABS: Albumin, Serum 4.0 g/dL (3.4-4.8)
== END | disposition home or self-care (01) ==
LOC: MTLAB 08:24
PROVIDERS: PCP Internal Medicine; Referring Provider Specialist; Visit Provider Specialist
DX: Z01.812 Encounter for preprocedural laboratory examination (principal)
CPT/HCPCS: 36415; 82040

== ENCOUNTER 2025-03-13 10:56 | Observation (INO) | payer MEDICARE, SELFPAY ==
[2025-02-16 15:07] LABS: Hematocrit 41.2 % (37-47); Hemoglobin 13.5 g/dL (12.0-15.0); Immature Granulocytes Count 0.020 X10^3/uL (0.0-0.0); Mean Corp Hgb Conc 32.8 g/dL (32-36); Mean Corpuscular Volume 92.8 fL (81-99); Mean Platelet Vol. 9.1 fl (6.2-12.0); NRBC Flagged by Analyzer 0 % (0-5); Platelet Count 307 K/mm3 (150-450); RBC Distribution Width CV 13.9 % (11.6-14.6); RBC Distribution Width SD 47.3 fl (35.1-43.9); Red Blood Count 4.44 M/mm3 (4.2-5.4); White Blood Count 7.0 K/mm3 (4.4-11.0)
[2025-02-16 15:11] LABS: Anion Gap 11 (5-15); BUN 21 mg/dL (4-19); BUN/Creat Ratio 32.7 RATIO (10-20); Calcium,Total 9.1 mg/dL (7.6-11.0); Carbon Dioxide 22.3 mmol/L (21.0-32.0); Chloride 104 mmol/L (98-108); Glucose 131 mg/dL (70-99); Potassium 3.8 mmol/L (3.3-5.1)
[2025-02-16 17:02] LABS: Magnesium 2.0 mg/dL (1.5-2.2)
--- NOTE | 2025-03-10 16:56 | HP.PCM_ITS ---
History and Physical History and Physical Patient Name: Mercedes ChaviswalderDOB: 1950 From: ZAIRE ABAD PA-C DATE OF PRE-OPERATIVE EXAM: 03/02/2025 DATE OF SURGERY: 03/13/2025 SCHEDULED PROCEDURE: Robotic assisted right total knee arthroplasty. HISTORY OF PRESENT ILLNESS: Patient is a 74-year-old female presenting for preop. Patient states that she has had right knee pain for a few years. Patient states her pain is intermittent, aching, sharp, stabbing, sore. Patient states that her pain is worse with stairs, sitting for extended periods of time, and walking. Patient states that sitting, resting, elevating the leg helped alleviate her pain. Patient states that she is no longer able to do housework, shopping, walk on uneven ground, standing, moving after sitting due to difficulty because of her pain. Patient states that she has stumbled due to her pain. Patient states that she feels unsafe trying to walk quickly. Patient also has Parkinson's disease which she notes adds to her balance problems. Patient states that she has tried rest, ice, compression with help. Patient states she has not tried weight loss, chiropractor, oral medications. Patient states she is lost 10 pounds. Patient states she has had 1 cortisone injection. Patient denies any previous surgeries. Patient states that she use a cane occasionally for balance. The patient reports severe knee pain, rating it as an 8 out of 10 when at its worst. She experiences pain frequently, particularly when going up and down stairs. She describes a sensation of something shifting in the front of her knee, accompanied by intense pain. The pain affects her daily activities, making it difficult to navigate her split-level home and limiting her ability to walk or stand for extended periods. She can only be on her feet for about 5 minutes before experiencing pain. The patient also notes that the pain affects her sleep and that getting up and starting to move is painful. REVIEW OF SYSTEMS: Review Of Systems: Constitutional: Reports anxiety, but denies anorexia, change in appetite, fever, difficulty sleeping, weight change. Cardiovasular: Denies chest pain, heart murmur, irregular heartbeat and peripheral vascular disease. Respiratory: Denies asthma, cough, pneumonia, sleep apnea, shortness of breath, tuberculosis and wheezing. Gastrointestinal: Denies constipation, diarrhea, heartburn, nausea, rectal itching, bloody stools and vomiting. Genitourinary: . (F Genital Sx) Denies incontinence. Musculoskeletal: Reports gait disturbance, leg swelling, pain, trouble walking and weakness. Skin: Denies Raynaud's, history of shingles and tattoo. Neurological: Denies ambulatory dysfunction, dizziness, numbness/tingling and tremor. Psychiatric: Reports stress, but denies anxiety, depression, insomnia and mental illness. Hematologic/Lymphatic: Reports anemia, bleeding/bruising tendency and past transfusion. Reviewed, no changes. 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 Personal Habits: Cigarette Use: Never.Smokeless Tobacco: Never Used Smokeless Tobacco.E-Cigarette Use: Never used.Alcohol: Denies use.Drug Use: Denies Use.Enjoy Exercising: Exercises 1-3 x/month. Reviewed, no changes. VITALS: Ht: 66 Wt: 235lb Wt k.596 BMI: 37.9 BP: 118/86 Pulse: 68 Resp: 12 T: 98.2 T: 36.8C Pain Level: 7/10 O2SatR: 96 ALLERGIES: Clavulanate Amoxicillin Hydralazine Levofloxacin Irbesartan Apixaban MEDICATIONS: Clonazepam 0.5 mg take 1/2 to 1 (one-half to one) tablet by mouth once daily at bedtime as needed, Alprazolam 0.25 mg take 1 tablet by mouth once daily as needed, Warfarin Sodium 2.5 mg take 2.5mg on sun, mon, tue, wed, and sat and take 5mg on and fri, Diltiazem HCL ER Coated Beads 120 mg 1 po qdaily, Synthroid 100 mcg, Furosemide 20 mg 1 po qdaily, Flecainide Acetate 50 mg 1 po qdaily, Flecainide Acetate 100 mg as needed for a fib on top of the 50mg, Benazepril HCL 40 mg 1 po qdaily, Multi Vitamin 1 by mouth every day, Lutein 6 mg 1 po qdaily, Osteo Biflex 1 po qdaily, Aspirin 81 81 mg 1 po qdaily, Potassium Chloride Darlin ER 10 Meq daily with meals, CVS D3 50 mcg ([address]) daily, Miralax 17 gm as needed PRE-OP EXAM: General appearance:NORMAL Other: Eyes: Conjunctivae and lids: NORMAL Pupils: ERR Ears, Nose, Mouth, and Throat: NORMAL Other: Inspection of lips, teeth and gums: NORMAL Other: Neck: Examination of neck: no masses noted. Respiratory: Assessment of respiratory effort: NORMAL Other: Auscultation of lungs: clear to auscultation no wheezes, rhonchi or rales. Cardiovascular: Auscultation of heart: regular rate and rhythm, no murmurs, gallops or rubs. Exam of carotid arteries: NORMAL Other: Gastrointestinal: Exam of abdomen: soft, nontender, nondistended bowel sounds present. Lymphatic: Palpation of nodes in neck: NORMAL Other: Palpation of nodes in Axillae: NORMAL Other: Neurological: see below Psychiatric: Orientation to time, place and person: NORMAL Other: Mood and affect: NORMAL Other: PHYSICAL EXAMINATION: Musculoskeletal: Skin intact over knee. Moderate effusion noted in knee. Valgus alignment of knee, which is correctable. Tenderness over lateral joint line. Knee flexion to 115 degrees. 2 millimeters lateral collateral laxity , 1 millimeter medial .collateral laxity IMAGING STUDIES: 4 views of the right knee with sunrise, lateral, and bilateral standing AP and tunnel views reviewed reveal valgus alignment and lateral joint space narrowing, subchondral sclerosis and osteophyte formation consistent with severe stage IV [id number] erosive osteoarthritis. On bilateral standing AP and tunnel films of the contralateral knee taken for comparison show valgus alignment and lateral joint space narrowing, subchondral sclerosis and osteophyte formation consistent with severe stage IV osteoarthritis IMPRESSION: Fibromyalgia Hypothyroidism Hypertension Lupus Nonrheumatic tricuspid valve Atrial fibrillation Sleep apnea Parkinson's Anemia History of blood transfusion Anxiety Vitamin D deficiency Hyperglycemia Resting tremor Restless leg syndrome Incontinence Tricuspid valve regurgitation Unilateral primary osteoarthritis right knee Valgus deformity right knee Obesity PLAN: The surgeon did discuss and review all treatment options with the patient including surgical versus nonsurgical. At this time the patient does wish to proceed with the above-stated procedure. Potential risks benefits and complications of the procedure were discussed and reviewed with the patient including but not limited to , infection, nerve and blood vessel damage, persistent pain, numbness, tingling, paresthesias, blood clot, pulmonary embolism, in the requirement for possible further surgery. Patient expressed full understanding. Has no further questions for the doctor. Does agree to proceed with the above-stated procedure, and has signed the appropriate surgery consent form. DVT prophylaxis: Patient will begin her regular warfarin and aspirin for blood clot prevention following surgery. Patient will be wearing ANISH hose for 2 weeks postoperatively. Pain control: Patient will be on Tylenol 1000 mg every 8 hours as well as oxycodone as needed for pain control. Patient will be on famotidine for 30 days postoperatively. Patient will be on Zofran as needed for nausea and vomiting. Patient will be on senna as needed for postoperative constipation. ___ I have re-examined the patient. There are no clinical changes since date of exam. ___ See progress notes for changes. ___ Dictated on admission Date: Time: Signature:
[2025-03-13] VITALS (15 sets, daily range): BP systolic 100–152; BP diastolic 51–91; PULSE 71–96; RESP 16–20; TEMP 35.9–36.8; O2SAT 94–100; BMI 37.7
[2025-03-13 07:20] LABS: INR Fingerstick 1.6
[2025-03-13 08:03] LABS: Prothrombin Time (Protime)PT. 14.6 SECONDS (11.7-14.9)
[2025-03-13] MEDS: Magnesium 1 GM over 15 mins IV (08:10)
[2025-03-13] MEDS: Lactated Ringers 1,000 ML 999 ML IV ×2 (08:18→11:25)
--- NOTE | 2025-03-13 08:19 | PCM.PRE.AN2 ---
ASA Classification* ASA Classification ASA Classification: 3 Assessment & Plan Anesthesia* Anesthesia Assessment Anesthesia Assessment: Discussed sedation and/or anesthesia options, risks, benefits, and alternatives with patient/parents/legal guardian/POA. Questions invited. The patient/parents/legal guardian/POA seems to understand and agrees to proceed with anesthesia plan. Reviewed the physical assessment, medical history, allergy history and patient home medications list prior to surgery/procedure/anesthetic and documented any changes. Performed airway and anesthesia risk assessments. Anesthesia Type Anesthesia Type: Spinal and Block Anesthesia Focused Assessment* Temperature: 97.0 F Pulse Rate: 71 Blood Pressure: 152/91 Respiratory Rate: 18 Pulse Ox: 99 Airway Assessment Mouth opens: >3 cm Mallampati Score: II Labs Anesthesia Preop lab: CBC WBC 7.0 K/mm3 (4.4-11.0) 02/16/25 13:19 02/16/25 RBC 4.44 M/mm3 (4.2-5.4) 02/16/25 13:19 02/16/25 Hgb 13.5 g/dL (12.0-15.0) 02/16/25 13:19 02/16/25 Hct 41.2 % (37-47) 02/16/25 13:19 02/16/25 Plt Count 307 K/mm3 (150-450) 02/16/25 13:19 02/16/25 CHEMISTRY Potassium 3.8 mmol/L (3.3-5.1) 02/16/25 13:19 02/16/25 Sodium 137 mmol/L (133-145) 02/16/25 13:19 02/16/25 Magnesium 2.0 mg/dL (1.5-2.2) 02/16/25 15:53 02/16/25 BUN 21 mg/dL (4-19) H 02/16/25 13:19 02/16/25 Creatinine 0.64 mg/dL (0.70-1.20) L 02/16/25 13:19 02/16/25 Glucose 131 mg/dL (70-99) H 02/16/25 13:19 02/16/25 TSH 1.020 uIU/mL (0.300-4.200) 12/23/24 09:45 12/23/24 COAG PT 14.6 SECONDS (11.7-14.9) 03/13/25 07:20 03/13/25 Pre-Assessment Diagnosis/Proposed Procedure Planned Operative Procedure(s): (R) ERAS, ROBOTIC ASSISTED RIGHT TOTAL KNEE ARTHROPLASTY Anesthesia History 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 When Was Last Pacemaker Check QUESTION #4 FULL TEXT: You/Your Family Experience fever (hyperthermia) with Anesthesia Last Oral Intake Last Oral intake: Last Oral Intake NPO since 05:15 03/13/25 07:54 Meds taken in AM with sips of water? Meds patient instructed to take am of surgery PONV PONV - dental equipment technician: PONV - dental equipment technician Female Yes 02/16/25 15:28 HX of Motion Sickness No 02/16/25 15:28 HX of N/V After Surgery No 02/16/25 15:28 Non-Smoker Yes 02/16/25 15:28 Duration of Surgery greater No 02/16/25 15:28 than 60 minutes Number of Risk Factors 2 02/16/25 15:28 PONV Score Moderate Risk 02/16/25 15:28 Height & Weight Height & Weight: Anesthesia: Height & Weight Height 5 ft 6 in 03/13/25 07:54 Weight: 106 kg 03/13/25 07:54 Body Mass Index (BMI) 37.7 03/13/25 07:54 Respiratory Assessment Respiratory Assessment - dental equipment technician: Respiratory Tract Infection Hx - dental equipment technician Hx Respiratory Tract Infection No 02/24/25 09:41 STOP Sleep Apnea STOP Sleep Apnea - dental equipment technician: STOP Sleep Apnea - dental equipment technician Hx Hypertension Yes 02/24/25 09:41 Hx Sleep Apnea Yes: UNABLE TO TOLERATE MASK 02/24/25 09:41 CPAP No 02/24/25 09:41 BIPAP No 02/24/25 09:41 Do you snore loudly (louder than talking or can be heard Do you often feel tired/ fatigued/ sleepy during daytime? Has anyone observed you stop breathing during sleep? STOP Results Positive 02/16/25 15:28 QUESTION #5 FULL TEXT : Do you snore loudly (louder than talking or can be heard through closed doors)? Tobacco Use History Tobacco Use History - dental equipment technician: Tobacco Use History - dental equipment technician Tobacco Use Smoking Status Never smoker 02/24/25 09:41 Hx Tobacco Use No 02/24/25 09:41 Years Smoking Packs Smoked per Day Smoking Cessation Date was within the last 15 years Hx Smoking Cessation Date Hx Smoking Cessation Counseling Hematologic Medial History Hematologic Hx - dental equipment technician: Hematologic Medical Hx - [employer] Hx of Blood Transfusion No 02/16/25 15:28 Hx of Transfusion in last 3 No 02/16/25 15:28 Months Date of Last Transfusion (if within last 3 months) Ever experience any problems No 02/16/25 15:28 with transfusion(s)? Specify any problems Hx of Preganancy in last 3 No 02/16/25 15:28 Months Nurse Filling Out Transfusion [facility] 02/16/25 15:28 & Questions: Date: 02/16/25 02/16/25 15:28 Time: 15:42 02/16/25 15:28 Patient unable to answer at this time (ie. confused, unrespo /Reproduction History /Reproductive History - dental equipment technician: /Reproductive Hx- dental equipment technician Hx Now No 02/16/25 15:28 Gestational Age (in weeks): EDC: Hx Hx Para Hx Section SAB No 02/24/25 09:41 Active Medications Active Medications: Current Medications Generic Name Dose Route Start Last Admin Trade Name Freq PRN Reason Stop Dose Admin Acetaminophen 1,000 mg 03/13/25 10:30 03/13/25 08:15 Acetaminophen 500 Mg Tablet PO 03/13/25 10:31 1,000 mg PREOP ONE Administration Acetaminophen 1,000 mg 03/13/25 07:15 Acetaminophen 500 Mg Tablet PO Q8H MARTHA Aspirin 81 mg 03/14/25 06:00 Aspirin E.C. 81 Mg Tablet PO BREAKFAST MARTHA Tranexamic Acid 2,000 mg/ 0 mg 03/13/25 10:30 Sodium Chloride 100 ml OPERA.SITE 03/13/25 10:31 X1 ONE Sodium Chloride 77.9 ml/ 0 ml 03/13/25 10:30 Ropivacaine 200 mg/ OPERA.SITE 03/13/25 10:31 Epinephrine HCl 0.6 mg/ INTRAOP ONE Ketorolac Tromethamine 30 mg/ Morphine Sulfate 5 mg Dexamethasone Sodium Phosphate 10 mg 03/13/25 10:30 Dexamethasone 10 Mg/Ml Vial IV 03/13/25 10:31 INTRAOP ONE Enteral Nutritional Formula 237 ml 03/13/25 08:00 Ensure Surgery 237 Ml Liquid PO TIDCM MARTHA Famotidine 20 mg 03/13/25 10:00 Famotidine 20 Mg Tablet PO DAILY MARTHA Gabapentin 600 mg 03/13/25 10:30 03/13/25 08:15 Gabapentin 600 Mg Tablet PO 03/13/25 10:31 600 mg PREOP ONE Administration Magnesium Sulfate 1 gm/ 102 mls @ 408 mls/hr 03/13/25 10:30 03/13/25 08:10 Dextrose IV 03/13/25 10:44 408 mls/hr PREOP ONE Administration Cefazolin Sodium 2 gm/ Sodium 110 mls @ 150 mls/hr 03/13/25 10:30 Chloride IV 03/13/25 11:13 INTRAOP ONE Cefazolin Sodium 1 gm in 50 mls @ 100 mls/hr 03/13/25 07:10 IV 03/13/25 15:39 Q8H MARTHA Lactated Ringer's 1,000 mls @ 15 mls/hr 03/13/25 07:30 IV .Q48H MARTHA Lactated Ringer's 1,000 mls @ 999 mls/hr 03/13/25 08:17 03/13/25 08:18 IV 03/13/25 09:17 999 mls/hr .Q1H1M MARTHA Administration Lactated Ringer's 1,000 mls @ 999 mls/hr 03/13/25 08:17 IV 03/13/25 09:17 .Q1H1M MARTHA Insulin Human Lispro 1 - 6 unit 03/13/25 10:30 Insulin Lispro 100 Unit/Ml Insuln.Pen SC Q4H PRN PRN BG>/= 180, SEE PROTOCOL Protocol Morphine Sulfate 2 - 4 mg 03/13/25 07:06 Morphine 2 Mg/Ml Syringe IV Q2H PRN PRN Pain Score 4-10 Ondansetron HCl 4 mg 03/13/25 07:06 Ondansetron 4 Mg/2 Ml Vial IV Q6H PRN PRN NAUSEA/VOMITING Oxycodone HCl 5 - 10 mg 03/13/25 07:06 Oxycodone 5 Mg Tablet PO Q4H PRN PRN Pain Score 4-10 Promethazine HCl 12.5 mg 03/13/25 07:06 Promethazine 25 Mg Tablet PO Q6H PRN PRN NAUSEA/VOMITING Promethazine HCl 12.5 mg 03/13/25 07:06 Promethazine 25 Mg/Ml Syringe IM Q6H PRN PRN NAUSEA/VOMITING Senna/Docusate Sodium 2 tablet 03/13/25 10:00 Senna/Docusate Sodium 1 Tablet PO BID [facility] Warfarin Sodium 2.5 mg 03/14/25 08:00 Warfarin 2.5 Mg Tablet PO QDAY [facility] Medical History Thyroid disease Ambulates with cane Bladder disease Low iron Non-smoker Sleep apnea Shortness of breath on exertion History of edema Hypertension History of echocardiogram History of stress test Cardiology follow-up encounter History of irregular heartbeat History of atrial fibrillation COVID-19 Atrial fibrillation Palpitations Anxiety Vitamin D deficiency Hyperglyceridemia Hypothyroidism (acquired) Iron deficiency anemia secondary to blood loss (chronic) Restless leg syndrome Tricuspid valve regurgitation Pulmonary hypertension Malignant hypertension PVD (peripheral vascular disease) Osteoarthritis Arthritis Elevated hemoglobin A1c Post-menopausal Obstructive sleep apnea Parkinson's disease 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 use of anticoagulant Persistent atrial fibrillation Secondary pulmonary arterial hypertension Nonrheumatic tricuspid (valve) insufficiency Nonrheumatic mitral (valve) insufficiency Hyperlipidemia Hypothyroidism Hypertension, essential, benign Home Medications ?Medication ?Instructions ?Recorded ?Last Taken ?Type furosemide 20 mg tablet 20 mg PO DAILY diuretic 09/20/16 03/12/25 History levothyroxine 100 mcg tablet 100 mcg PO DAILY thyroid 09/20/16 08/04/20 History aspirin 81 mg tablet,delayed 81 mg PO QDAY [facility] 03/11/18 03/13/25 History release (Adult Aspirin Regimen) glucosamine-chondroitin 250 mg-200 1 tab PO DAILY PRN supplement 03/11/18 08/04/20 History mg tablet (Osteo Bi-Flex) alprazolam 0.25 mg tablet 0.25 mg PO DAILY PRN Anxiety 03/12/18 Unknown History cholecalciferol (vitamin D3) 50 6,000 unit PO QDAY supplement 12/26/19 03/08/25 History mcg (2,000 unit) capsule docusate sodium 100 mg capsule 100 mg PO DAILY 05/13/23 Unknown History (Colace) carbidopa 25 mg-levodopa 100 mg 1.5 tab PO TID 05/21/23 03/13/25 History tablet clonazepam 0.5 mg tablet 0.5 mg PO QHS PRN for restless legs 05/21/23 03/12/25 History flecainide 100 mg tablet 300 mg (3 x 100 mg) PO .COMPLEX 08/24/23 03/13/25 Rx #30 tabs carbidopa ER 25 mg-levodopa 100 mg 1 tab PO QHS 04/09/24 03/12/25 History tablet,extended release potassium chloride 10 mEq 10 meq PO DAILY 04/09/24 Unknown History capsule,extended release benazepril 40 mg tablet 40 mg PO 1200 blood pressure 07/28/24 03/12/25 History ferrous sulfate 137 mg (45 mg 137 mg PO QDAY PRN LOW IRON 07/28/24 Unknown History iron) tablet,extended release (Slow Fe) metoprolol tartrate 50 mg tablet 25 mg PO BID 07/28/24 Unknown History (Lopressor) polyethylene glycol 3350 17 17 g PO DAILY PRN bowels 07/28/24 Unknown History gram/dose oral powder (Miralax) flecainide 50 mg tablet 50 mg PO Q12H #180 tabs 08/31/24 03/12/25 Rx warfarin 2.5 mg tablet 2.5 mg PO QDAY #180 TABLETS 12/01/24 Unknown Rx amlodipine 10 mg tablet 10 mg PO DAILY #90 tabs 03/10/25 Unknown Rx Allergy/AdvReac Type Severity Reaction Status Date / Time ropinirole Allergy Unknown SOB Verified 03/13/25 07:51 hydralazine AdvReac Severe Induced Verified 03/13/25 07:51 Lupus apixaban (From Eliquis) AdvReac Intermediate Increased Verified 02/16/25 15:18 bleeding irbesartan (From Avapro) AdvReac Unknown Unknown Verified 03/13/25 07:51 levofloxacin (From Levaquin) AdvReac Unknown Unknown Verified 03/13/25 07:51 amoxicillin (From Augmentin) AdvReac Nausea Verified 03/13/25 07:51 clavulanic acid (From AdvReac Nausea Verified 03/13/25 07:51 Augmentin) Family History Father CAD (coronary artery disease) S/P CABG (coronary artery bypass graft) Unknown Family history of clotting disorder Surgical History Hx laparoscopic cholecystectomy (08/05/20) History of wisdom tooth extraction Social History Smoking Status: Never smoker alcohol intake: never substance use type: does not use caffeine: Yes Type: coffee Number of servings: 1 Review of Systems (Anesthesia) ROS Narrative System reviewed and no additional complaints, except as documented.
[2025-03-13] MEDS: TXA 2000mg in NS 100ml (Placed in Wound) OPERA.SITE (09:59)
[2025-03-13] MEDS: JPS (Morphine 10mg/ml) OPERA.SITE (10:09)
--- NOTE | 2025-03-13 10:17 | OP.PCM_ITS ---
Operative Report (Standard) Operative Information Date of Procedure: 03/13/25 Pre-Operative Diagnosis: Right knee primary osteoarthritis, valgus alignment Post-Operative Diagnosis: Right knee primary osteoarthritis, valgus alignment Surgery/Procedure Performed: Right robotic assisted total knee replacement minimally invasive terminal worker: Yes Middleware Consultant: Yajaira Calvin Tasks completed by assistant teaching professor: Other (See body of operative report) Additional oral surgery assistant?: Yes Additional Flour Blender Helper #2: Gretchen Wallis Tasks completed by oral surgery assistant #2: Opening & closing, Implanting device and Retracting Additional oral surgery assistant?: No Type of Anesthesia: Spinal RN Documented Start/Stop Times: Operation Date: 03/13/25 09:00 Case Time Into Pre-Op 03/13/25 07:22 Anesthesia Start 03/13/25 08:43 Into Room 03/13/25 08:43 Out of Pre-Op 03/13/25 08:50 Procedure Start 03/13/25 09:16 Procedure End 03/13/25 10:36 Anesthesia End 03/13/25 10:39 Out of Room 03/13/25 10:39 Into Recovery 03/13/25 10:41 Out of Recovery 03/13/25 11:39 Procedure Start Time: 09:16 Procedure Stop Time: 10:36 Select all DRAINS/GRAFTS/IMPLANTS that apply: None Special Medications: Ancef, TXA lavage Estimated Blood Loss: 50 mL Fluids Replaced: 1200 mL crystalloid Specimen collected: No Description of surgery: Implants used: 1. Mckenna size 4 triathlon cruciate retaining distal femoral press-fit component 2. Stephanie size 4 press-fit tritanium tibial baseplate 3. Stephanie X3 10 mm polyethylene Brief history operative indications: 74-year-old F with history of right knee osteoarthritis with radiographic findings with loss of joint space, osteophyte formation and subchondral sclerosis. Failed conservative measures as mentioned in the H&P. Discussion of total knee arthroplasty as well as risk and benefits were discussed the patient including but not limited to blood loss, DVTs, PEs, neurovascular damage, general risk of anesthesia including loss of life, and stiffness or instability were discussed with patient. Patient demonstrated understanding and was able to sign informed consent. Procedure: On the date of procedure patient's right lower extremity was marked in the preoperative area. The patient was then taken back to the operating room where the patient was placed on the table in the supine position. All bony prominences were identified a well-padded. Anesthesia assumed control of the C-spine and airway and remained controlled throughout the remainder of the procedure. A tourniquet was placed on the right upper thigh and the leg was prepped in a sterile fashion. The surgeon then scrubbed at this time .Upon reentering the room right lower extremity was draped in a standard orthopedic fashion. A timeout was then called and everyone agreed upon the side, the site, the procedure to be performed, patient's identity and antibiotics given. Esmarch bandage was used to exsanguinate the extremity and the tourniquet was placed up to 250 mmHg with the knee in flexion. A midline skin incision was made and sharp dissection was taken down through skin subcutaneous tissue and fat. The standard medial parapatellar incision was made and the patella was subluxed laterally. An Appropriate deep MCL release was done and the fat pad was resected. Our attention was then directed to the patella. The patella was everted and inspected and found to be appropriate for retention. The knee was then flexed up in 2 femoral pins were placed inside the incision and 2 tibial pins were placed outside the incision in the medial tibia bicortically. Once this was completed the 2 checkpoints in the femur and tibia were placed. Knee was then flexed up and the bony landmarks were registered. Once this was completed knee was taken through range of motion and manually stressed allowing us to a plan for an appropriate tibial cut. The robotic arm was brought into the field sterilely and checkpoint and saw were registered. Based on the patient's deformity the tibial cut was made neutral to the tibial axis. At this time the tensioner was then placed in the joint and ligament tension was checked at 90 degrees and full extension. Based on the patient's ligamentous tension appropriate adjustments were made to the operative plan and ligament releases were done. Once we were happy with our operative plan with balanced flexion and extension gaps our attention was directed to the femur. The robot was brought into the field sterilely and registered. Posterior condylar cuts, anterior chamfer cuts and anterior cuts were appropriately made for a size 4 femur. When these were completed the saws were switched out in the distal femoral and posterior chamfer cuts were made. Protecting the soft tissue throughout this time. A size 4 tibial base plate was selected. the knee was flexed to 90 degrees and the soft tissues and posterior osteophytes were removed from the joint. 40 cc of the periarticular injection was injected into the posterior medial corner of the joint. The appropriate trials were then placed on the femur and tibia. A trial polyethylene was trialed to ensure proper balancing and stability of the knee. The appropriate tibial internal rotation was then marked with a bovie. Our attention was then directed to the patella. Patellar tracking was checked and deemed appropriate. Once we were happy lug holes were drilled for the femur and trial components were removed. The tibia was subluxed and pinned into place and the keel was punched and drilled appropriately. Final components were verified and opened. The wound was copiously irrigated with normal saline. When the cement was ready the components were impacted into place starting with the tibia then the femur, finally the patella was compressed into place. The trial poly component was placed and the knee was placed in full extension. Once the the implants were secured, the tracking, alignment and balance were verified and a size 10 mm CS polyethylene component was placed. Once the final components were placed a 3-minute dilute Betadine lavage was performed followed by an Irrisept lavage was performed and the wound was copiously irrigated with normal saline solution and the periarticular injection was given. The wound was closed in a layer mckeon fashion using #1 vicryl interrupted sutures for the arthrotomy, 2-0 interrupted Vicryl suture for the subcuticular layer and isai for final skin closure. A sterile compressive dressing was then placed. The patient was then awakened from anesthesia, [facility] and transferred to the PACU for recovery. Post op plan DVT ppx: Resume home dose of baby aspirin and warfarin, thigh high compression stockings Follow up: in office in 2 weeks for wound check PT: to start POD #0 at hospital, outpatient PT should be arranged. My physician oral surgery assistant was a vital part of this case, they was important because there was not another skilled set of hands available to their training and aptitude needed for safe and appropriate completion of this case. They were important in appropriate retraction during the case, and protection of soft tissues during bony cuts. In particular the experience and skill of this oral surgery assistant made for safe retraction and exposure during implantation of medical implants without damage to vital soft tissues or structures. His intimate knowledge of the case and my steps aided in safe and expedient completion of the procedure as well as appropriate position of the leg during the case. He was also vital in assisting with closure under my direct supervision. Due to the complexity of this case robotic arm was used to assist in the surgery to improve accuracy and clinical outcomes. Surgical Findings: Stage IV osteoarthritis. Alignment corrected with lateral releases. Stable knee with good patella tracking. Patella was appropriate for tension. Complications Complications: No Admit VTE Documentation VTE Present on Admission: No VTE Mechan Device Prophylaxis: SCD's and Thigh High ANISH Hose VTE Pharm Prophylaxis ordered?: Yes
--- NOTE | 2025-03-13 10:50 | RAD_ITS ---
PROCEDURE: KNEE 1 OR 2 VIEWS 03/13/2025 REASON FOR EXAM: TKA Total right knee replacement. TECHNIQUE: KNEE 1 OR 2 VIEWS COMPARISON: Prior study dated January 16, 2022. FINDINGS: The patient is status post total knee replacement. There is good alignment. Postoperative soft tissue changes. RAD/Knee 1 or 2 Views IMPRESSION: Status post total knee replacement. There is good alignment. Postoperative soft tissue changes. Reading Location: [facility]
--- NOTE | 2025-03-13 10:52 | PCM.POST.ANE ---
Anesthesia: Postop Eval I Current Vital Signs Temperature: 96.7 F Pulse Rate: 87 Blood Pressure: 100/60 Respiratory Rate: 20 Pulse Ox: 99 Oxygen Delivery Method: Room Air Assessment Airway patent: Yes Spontaneous unlabored respirations: Yes Mental status: Awake and Calm nausea: No Vomiting: No Anesthesia Complication: No Fluid Hydration Crystalloid volume administer (ml): 1,400 Total IV fluid infused: 1,400 Progress Note Anesthesia document: Postop Eval 1 completed: Yes
--- NOTE | 2025-03-13 12:39 | POSTOPAN2_ITS ---
Anesthesia Postop Eval I Sum Postop Eval Completion status Anesthesia document: Postop Eval 1 completed: Yes Anesthesia Postop Eval I Summary Anesthesia Postop Eval I Summary: Anesthesia Postop Eval I: Assessment Summary Airway patent Yes 03/13/25 10:53 FORGING ROLL [email or web address] Spontaneous unlabored Yes 03/13/25 10:53 FORGING ROLL [email or web address] respirations Mental status Awake,Calm 03/13/25 10:53 FORGING [email or web address] nausea No 03/13/25 10:53 FORGING ROLL [email or web address] Vomiting No 03/13/25 10:53 FORGING ROLL [email or web address] Anesthesia Postop Eval I: Fluid Summary Crystalloid volume administer 1,400 03/13/25 10:53 FORGING [email or web address] (ml) Colloids volume administered ( ml) Blood Product volume administered (ml) Total IV fluid infused 1,400 03/13/25 10:53 FORGING ROLL [email or web address] Anesthesia Postop Eval I: Summary Notes Anesthesia Complication No 03/13/25 10:53 FORGING [email or web address] Anesthesia Complication Comment: Post-operative progress note Anesthesia: Postop Eval II Evaluation Mental status: Awake Pain Level: 0 nausea: No Vomiting: No
--- NOTE | 2025-03-13 12:39 | PCM.POSTANE2 ---
Anesthesia Postop Eval I Sum Postop Eval Completion status Anesthesia document: Postop Eval 1 completed: Yes Anesthesia Postop Eval I Summary Anesthesia Postop Eval I Summary: Anesthesia Postop Eval I: Assessment Summary Airway patent Yes 03/13/25 10:53 PROSECUTING [email or web address] Spontaneous unlabored Yes 03/13/25 10:53 PROSECUTING [email or web address] respirations Mental status Awake,Calm 03/13/25 10:53 PROSECUTING [email or web address] nausea No 03/13/25 10:53 PROSECUTING [email or web address] Vomiting No 03/13/25 10:53 PROSECUTING [email or web address] Anesthesia Postop Eval I: Fluid Summary Crystalloid volume administer 1,400 03/13/25 10:53 PROSECUTING [email or web address] (ml) Colloids volume administered ( ml) Blood Product volume administered (ml) Total IV fluid infused 1,400 03/13/25 10:53 PROSECUTING [email or web address] Anesthesia Postop Eval I: Summary Notes Anesthesia Complication No 03/13/25 10:53 PROSECUTING [email or web address] Anesthesia Complication Comment: Post-operative progress note Anesthesia: Postop Eval II Evaluation Mental status: Awake Pain Level: 0 nausea: No Vomiting: No
--- NOTE | 2025-03-13 15:48 | PCM.PN.HOSP ---
Subjective Subjective 74-year-old female presents to the hospital for right knee replacement due to osteoarthritis. Medical history is stable with no new changes to her medications. Currently she is on 4 L nasal cannula however this is still recovering from anesthesia and she does not wear oxygen at home normally. She does have a right hand tremor related to her Parkinson's. Objective Data Objective Data Vital Signs: Vital Signs Temp Pulse Resp BP Pulse Ox O2 Del Method O2 Flow Rate 97.1 F L 96 18 127/71 H 98 Nasal Cannula 4 03/13/25 13:50 03/13/25 13:50 03/13/25 13:50 03/13/25 13:50 03/13/25 13:50 03/13/25 13:50 03/13/25 15:04 Oxygen Flow Rate (L/min) 4 Oxygen Delivery Method Nasal Cannula Weight: 233 lb 11.04 oz Body Mass Index (BMI) 37.7 Intake & Output: Intake and Output for Last 24 Hours 03/12/25 03/13/25 03/14/25 03:59 03:59 03:59 Intake Total 4050 / 4050 Output Total 50 / 50 Balance 4000 / 4000 Lab / Micro Data 03/14/25 05:07 03/14/25 05:07 Labs: Laboratory Results - last 24 hr 03/13/25 07:16: POC PT 18.3 H, INR 1.6 03/13/25 07:20: PT 14.6, INR 1.1 03/13/25 07:50: POC Glucose 74 Micro: Microbiology 02/16/25 13:19 Nasal Secretion Nasal Screen MRSA/MSSA - Final Radiography Diagnostic Testing: Radiology Impression Knee X-Ray 03/13/25 10:50 IMPRESSION: Status post total knee replacement. There is good alignment. Postoperative soft tissue changes. Reading Location: [id number] Physical Exam Narrative General: Alert, Oriented x3, Cooperative, No apparent distress HEENT: Atraumatic, PERRLA, EOMI, Normocephalic Oral: Moist Mucosa Neck: Supple, No JVD Lungs: Diminished, Normal air movement, No rhonchi, No wheeze, No rales Cardiovascular: Regular rate, Regular Rhythm, Normal S1, Normal S2, No murmurs Abdomen: Soft, Non Tender, Non-Distended, No Hepato-splenomegaly Extremities: No edema, Capillary Refill Less than 3 Seconds Skin: No rashes, No breakdown, dressing CDI Musculoskeletal: No Tenderness to Palpation of Joints or Extremities Neurological: No focal neurological deficits, moves all extremities, movement is limited in her right leg due to right knee surgery, right hand tremor Psych/Mental Status: Normal Affect, Appropriate Assessment & Plan Assessment/Plan (1) Status post total right knee replacement: PLAN: Plan 1. Status post right total knee replacement on 03/13/2025 for osteoarthritis ? Pain management per primary ? PT/OT ? DVT prophylaxis per primary ? Can resume most of her home blood pressure medications will hold benazepril and Lasix pending renal function in the morning 2. Essential HTN/HLD/paroxysmal A-fib ? Continue with her home flecainide ? Continue with her home blood pressure medications except for benazepril and Lasix pending renal function ? Blood pressures currently are stable ? Resume Coumadin at the discretion of surgery 3. Hypothyroidism ? Stable ? Continue with Synthroid 4. Parkinson's disease ? Stable ? Resume her home medications 5. Anxiety/depression ? Stable ? Continue with her home medications DVT: Coumadin Charges/Coding Visit Charges Office Visits / Consults: [id number] OV L4 New 45min
[2025-03-13] MEDS: Cefazolin 1 GM/50 ML BAG IV (17:04)
[2025-03-13] MEDS: Ensure Surgery 237 ML LIQUID PO (17:04)
[2025-03-13] MEDS: Senna/Docusate Sodium 1 Tablet 2 TABLET PO (22:11)
[2025-03-14] MEDS: Cefazolin 1 GM/50 ML BAG IV (01:28)
[2025-03-14 05:14] VITALS: BP 138/86; PULSE 75; RESP 18; TEMP 36.6; O2SAT 97
[2025-03-14 05:52] LABS: Hematocrit 37.7 % (37-47); Hemoglobin 12.6 g/dL (12.0-15.0); Mean Corp Hgb Conc 33.4 g/dL (32-36); Mean Corpuscular Volume 92.6 fL (81-99); Mean Platelet Vol. 9.0 fl (6.2-12.0); Platelet Count 278 K/mm3 (150-450); RBC Distribution Width CV 13.6 % (11.6-14.6); RBC Distribution Width SD 46.8 fl (35.1-43.9); Red Blood Count 4.07 M/mm3 (4.2-5.4); White Blood Count 13.9 K/mm3 (4.4-11.0)
[2025-03-14 06:10] LABS: Anion Gap 10 (5-15); BUN 12 mg/dL (4-19); BUN/Creat Ratio 23.5 RATIO (10-20); Calcium,Total 8.8 mg/dL (7.6-11.0); Carbon Dioxide 23.2 mmol/L (21.0-32.0); Chloride 105 mmol/L (98-108); Estimated Creatinine Clearance 74.80 ml/min (50-250); Glucose 118 mg/dL (70-99); Potassium 4.4 mmol/L (3.3-5.1)
[2025-03-14] MEDS: Aspirin E.C. 81 MG Tablet PO (06:22)
[2025-03-14 08:29] VITALS: PULSE 76
[2025-03-14] MEDS: Senna/Docusate Sodium 1 Tablet 2 TABLET PO (08:29)
--- NOTE | 2025-03-14 08:56 | PCM.PN.BLA ---
Progress Note Renal function is stable, can restart benazepril and Lasix. She is stable from a medical standpoint. Please call with questions
[2025-03-14 08:57] VITALS: BP 143/90; PULSE 76; RESP 18; TEMP 36.6; O2SAT 100
--- NOTE | 2025-03-14 11:00 | CASEMGMT ---
Met with patient to review MERRITT form. MERRITT form and its content were verbally explained and patient?s questions were answered to the best of my ability. Patient voiced understanding and signed MERRITT form. Patient provided a copy of signed MERRITT form and original placed in patient?s chart. This AGUILA HERNANDEZ also discussed DC planning with the pt. Pt states that she lives at home with her daughter. Pt states that she has a CPAP but does not bleed in any additional oxygen into the PAP. Pt states that she has a FWW, cane, BSC, grab bars, shower chair, and a rollator. Pt lives in a split level home with 6-7 steps between floors with 4 steps to enter the home. Pt states that she has been to in the past for OP therapy. Noted that therapy is recommending OP therapy for the pt. Pt states that she is already set up through [facility]. However, pt states that she only has access for transportation x 2 weeks. Pt states that this is through her daughter and that she will not be able to drive the pt after school starts. Pt was educated that the OP Tx can be changed to [facility] and that the [facility]Van can provide the pt with transport as long as the pt is able to get in and out of the vehicle independently. Pt states understanding and states that she would like to discuss her options with her daughter prior to making a decision. Pt denies further questions or concerns at this time. Report given to MS3 AGUILA HERNANDEZ.
[2025-03-14] MEDS: Ensure Surgery 237 ML LIQUID PO (11:41)
[2025-03-14 14:11] VITALS: BP 133/87; PULSE 82; RESP 16; TEMP 36.7; O2SAT 100
--- NOTE | 2025-03-14 15:45 | CASEMGMT ---
AGUILA CM into pt room to f/u on outpt therapy decision. Pt meeting with PA. Pt states she has not made a decision at this time.
--- NOTE | 2025-03-14 16:26 | PCM.PN.ORT ---
Subjective Subjective Patient is currently comfortable in bedside chair. Patient states that she did work with physical therapy and things went well. Patient states that her family was there visiting and she did not get up so should her knee feels stiff at this point. Patient states that she is nervous about the pain and steps at home. Patient denies any shortness of breath, chest pain, calf pain. Patient denies any nausea, vomiting, dizziness. Patient denies any new numbness or tingling. Patient denies any adverse events overnight. Objective Data Objective Data Vital Signs: Vital Signs Temp Pulse Resp BP Pulse Ox O2 Del Method O2 Flow Rate 98.1 F 82 16 133/87 H 100 Room Air 4 03/14/25 14:11 03/14/25 14:11 03/14/25 14:11 03/14/25 14:11 03/14/25 14:11 03/14/25 14:11 03/13/25 15:50 Oxygen Flow Rate (L/min) 4 Oxygen Delivery Method Room Air Weight: 106 kg Body Mass Index (BMI) 37.7 Intake & Output: Intake and Output for Last 24 Hours 03/12/25 03/13/25 03/14/25 23:59 23:59 23:59 Intake Total 4400 / 4400 450 / 450 Output Total 50 / 50 Balance 4350 / 4350 450 / 450 Lab / Micro Data 03/14/25 05:07 03/14/25 05:07 Labs: Laboratory Results - last 24 hr 03/13/25 07:17: POC PT Cancelled, INR Cancelled 03/14/25 05:07: WBC 13.9 H, RBC 4.07 L, Hgb 12.6, Hct 37.7, MCV 92.6, MCH 31.0, MCHC 33.4, RDW Std Deviation 46.8 H, RDW Coeff of Gabriel 13.6, Plt Count 278, MPV 9.0, Sodium 139, Potassium 4.4, Chloride 105, Carbon Dioxide 23.2, Anion Gap 10, BUN 12, Creatinine 0.51 L, Estim Creat Clear Calc 74.80, Est GFR (MDRD) Non-Af 97, BUN/Creatinine Ratio 23.5 H, Glucose 118 H, Calcium 8.8 Micro: Microbiology 02/16/25 13:19 Nasal Secretion Nasal Screen MRSA/MSSA - Final Physical Exam Narrative ANISH hose in place bilaterally SCDs in place bilaterally Drainage noted to the distal one third of the dressing, distal pin site dressing. Dorsiflexion and plantarflexion are performed without pain or restriction. Sensation intact to light touch. Neurovascularly intact overall. Negative Homans bilaterally. Const alert, oriented x3 and no apparent distress Assessment & Plan Assessment/Plan (1) Status post total right knee replacement: PLAN: Status post right robotic assisted total knee replacement day 1. 1. DVT prophylaxis: Patient will be taking her regular dose of warfarin and aspirin 81 mg daily. Patient will be wearing ANISH hose for 2 weeks postoperatively. 2. Pain medications: Patient will be on Tylenol 1000 mg every 8 hours. Patient will be taking oxycodone as needed for postoperative pain medications. We will avoid anti-inflammatory medications in this patient due to anticoagulation medication. 3. Constipation: Patient was instructed to take senna as needed until her first bowel movement to decrease risk of impaction following surgery. Patient was instructed if he has not yet had a bowel movement in 3 days to call our office. 4. Reactive leukocytosis: White blood cell count is currently 13.9. Vital signs are stable and patient is afebrile at this time. Likely a reaction from surgical intervention. 5. Physical exam: Patient will continue to be weightbearing as tolerated with walker. 6. H&H: 12.6/37.7. Patient's vitals are stable. At this time hemoglobin is above 10 and we do not need to proceed with anemia protocol. 7. Incentive spirometry: Patient was instructed to continue to use the incentive spirometer every hour that they are awake for the first week to exercise the lung and decrease risk of postoperative lung infection 8. Patient has to follow-up for postoperative instructions 9. Medicine is currently on board and feels that patient is medically stable at this time. 10. Nursing staff was advised to change patient's distal dressing prior to going home. 11. Patient is to remove dressing on postop day 5 and may leave open to air. 12. Disposition: After talking with her daughter patient states that she does feel stable to go home at this time. Patient states that she is just worried about going home due to the pain. Patient does admit to some stiffness while was in the room but she states that she has had family they are visiting and has not been getting up. Patient states that her daughter will be staying with her at all times. Patient states that she does have physical therapy scheduled as an outpatient. Patient states that she has transportation to the first 2 weeks of physical therapy due to her daughter being off work. Patient was considering using the van through [facility] if she switched her therapy to that facility. Patient was educated to take it easy at home. Patient was educated if there are any adverse signs or symptoms to call myself, or go to the emergency department. Patient does have 2-week follow-up visit scheduled in our office. Patient was encouraged to call with any questions, concerns, new problems.
--- NOTE | 2025-03-14 16:36 | DCINST_ITS ---
Discharge Instructions DC O2, CPAP, BIPAP needs Home O2 Discharge instructions: Yes Type of respiratory needs?: BiPAP BiPAP in structions: Continue use as usual. Dressing / Incision Discharge Activity: May Not Drive (For 6 weeks postoperatively.) Weight Bearing Status: Weight bearing as tolerated (With walker.) Keep extremity elevated above heart level: Operative Extremity (Ice and elevation for pain relief.) Dressing / Incision Call your doctor if your incision/area has: Continuous Slow Oozing, Sudden Increased Bleeding, Increased Pain/ Swelling, Increased Redness, Foul Smelling Discharge and Swelling at the incision site Call your doctor if you observe: Fever of 101 or Higher, Coldness, Increased Pain, Numbness or Tingling, Change in Color, Inability to urinate, Inability to have a bowel movement, Shortness of breath, Dizziness, Fainting spells, Swelling in the ankles, Chest pain, Prolonged hiccupping, Increased palpitations (irregular heartbeat), Calf discomfort and Uncontrolled pain Remove Dressing in: 5 days (Can remove dressing on 03/18/2025. If incision is clean, dry, intact can leave open to air.) Cleanse incision/area with: Soap & Water (Hip incision is clean, dry, intact following dressing removal can leave open to air.) Additional Dressing/Incision Instructions:: Avoid doing any soaking or submerging of incision for 6 weeks. Avoid putting any lotions, salves, oils over incision for 6 weeks. No driving for 6 weeks postoperatively. [place] report ran by myself today. Follow Up Care Test Results: Test results from this visit will be discussed in further detail at your follow- up appointment, if applicable. Discharge Plan Admission Admit Date/Time: 03/13/25 10:56 Attending Provider: Kevin North Primary Care Provider: Lizzy Trejo Consulting Providers: Jermaine Hoclomb Discharge Orders/Prescriptions Prescriptions: New acetaminophen 500 mg Tablet 1,000 mg PO Q8 Qty: 0 0RF famotidine 20 mg Tablet 20 mg PO DAILY 30 Days Qty: 30 0RF oxycodone 5 mg Tablet 5 - 10 mg PO Q4H PRN PRN (Reason: As needed for pain control) 7 Days Qty: 42 0RF sennosides-docusate sodium [Stimulant Laxative Plus] 8.6-50 mg Tablet 2 tab PO BID 3 Days Qty: 12 0RF Continued alprazolam 0.25 mg tablet 0.25 mg PO DAILY PRN (Reason: Anxiety) clonazepam 0.5 mg tablet 0.5 mg PO QHS PRN (Reason: for restless legs) glucosamine-chondroitin [Osteo Bi-Flex] 250-200 mg tablet 1 tab PO DAILY PRN (Reason: supplement) aspirin [Adult Aspirin Regimen] 81 mg tablet,delayed release (DR/EC) 81 mg PO QDAY cholecalciferol (vitamin D3) 50 mcg (2,000 unit) capsule 6,000 unit PO QDAY polyethylene glycol 3350 [Miralax] 17 gram/dose powder 17 g PO DAILY PRN (Reason: bowels) benazepril 40 mg tablet 40 mg PO 1200 Slow Fe 137 mg (45 mg iron) tablet extended release 137 mg PO QDAY PRN (Reason: LOW IRON) docusate sodium [Colace] 100 mg capsule 100 mg PO DAILY carbidopa-levodopa 25-100 mg tablet 1.5 tab PO TID levothyroxine 100 MCG tablet 100 mcg PO DAILY Patient Comments: 200 MCG ON THURSDAY furosemide 20 MG tablet 20 mg PO DAILY carbidopa-levodopa 25-100 mg tablet extended release 1 tab PO QHS potassium chloride 10 mEq capsule, extended release 10 meq PO DAILY metoprolol tartrate [Lopressor] 50 mg tablet 25 mg PO BID flecainide 100 mg tablet 300 mg PO .COMPLEX Qty: 30 11RF Rx Instructions: 300 mg PO once daily as needed if returns to a-fib: this is in addition to routine dose 50 mg po bid; flecainide 50 mg tablet 50 mg PO Q12H Qty: 180 4RF warfarin 2.5 mg tablet 2.5 mg PO QDAY Qty: 180 3RF Protocol: Dose Management Condition: Thursday Dose/Route: 5 mg Instruction: 2 x 2.5 mg tablets Condition: Thursday Dose/Route: 5 mg Instruction: 2 x 2.5 mg tablets Condition: Thursday Dose/Route: 2.5 mg Instruction: 1 x 2.5 mg tablet Condition: Thursday Dose/Route: 2.5 mg Instruction: 1 x 2.5 mg tablet Condition: Dose/Route: 2.5 mg Instruction: 1 x 2.5 mg tablet Condition: Thursday Dose/Route: 2.5 mg Instruction: 1 x 2.5 mg tablet Condition: Thursday Dose/Route: 2.5 mg Instruction: 1 x 2.5 mg tablet Protocol Text: Adjustment Start Date: Thursday02/14/25 INR Value: 2.7 INR Date: 02/14/25 Recheck Date: 03/16/25 Patient Comments: PT AWARE TO CHECK WITH DR ON WHEN TO STOP BEFORE SURGERY Rx Instructions: 2.5 mg daily EXCEPT 5mg on Sundays; or use as directed amlodipine 10 mg tablet 10 mg PO DAILY Qty: 90 3RF Referrals / Follow Up: Fast,Lizzy, DO [Primary Care Provider] - Disposition Disposition (needs filled in before D/C Order can be placed): Home, Self Care
== END 2025-03-14 17:45 | disposition home or self-care (01) ==
LOC: SDC 10:56 → MS3 10:56
PROVIDERS: Anesthesiology; Admitting Provider Specialist; PCP Internal Medicine; Referring Provider Specialist; Visit Provider Specialist
PROC: 0SRC0JZ Replacement of Right Knee Joint with Synthetic Substitute, Open Approach (ICD-10-PCS; CPT 27447; principal; 2025-03-13 08:30)
DX: M17.11 Unilateral primary osteoarthritis, right knee (principal); G20.A1 Parkinson's disease without dyskinesia, without mention of fluctuations; I48.91 Unspecified atrial fibrillation; M32.9 Systemic lupus erythematosus, unspecified; Z79.890 Hormone replacement therapy; E55.9 Vitamin D deficiency, unspecified; M79.7 Fibromyalgia; G47.30 Sleep apnea, unspecified; M21.061 Valgus deformity, not elsewhere classified, right knee; E03.9 Hypothyroidism, unspecified; Z79.899 Other long term (current) drug therapy; Z79.01 Long term (current) use of anticoagulants; F41.9 Anxiety disorder, unspecified; F32.A Depression, unspecified
CPT/HCPCS: 27447; S2900; 01402; 96360; 36415; 36416; 73560; 80048; 82962; 83735; 85025; 85027; 85610; 87081; 94668; 96365; 96366; 97110; 97162; 97166; 97530; 97535; 99221; 99252; C1776; G0378; G0463; J2405; J3475

== ENCOUNTER 2025-03-29 14:58 | Outpatient (RCR) | payer MEDICARE, SELFPAY ==
[2025-03-29 18:24] LABS: Prothrombin Time (Protime)PT. 28.7 SECONDS (11.7-14.9)
== END 2025-03-29 18:00 | disposition home or self-care (01) ==
LOC: MTLAB 14:58
PROVIDERS: Family Provider Internal Medicine; PCP Internal Medicine; Referring Provider Physician Assistant Medical; Visit Provider Physician Assistant Medical
DX: Z79.01 Long term (current) use of anticoagulants; I48.0 Paroxysmal atrial fibrillation
CPT/HCPCS: 36415; 85610

== ENCOUNTER 2025-05-12 08:37 | Outpatient (RCR) | payer MEDICARE, SELFPAY ==
[2025-05-12 10:22] LABS: Hematocrit 44.0 % (37-47); Hemoglobin 14.4 g/dL (12.0-15.0); Immature Granulocytes Count 0.040 X10^3/uL (0.0-0.0); Mean Corp Hgb Conc 32.7 g/dL (32-36); Mean Corpuscular Volume 94.0 fL (81-99); Mean Platelet Vol. 9.2 fl (6.2-12.0); NRBC Flagged by Analyzer 0 % (0-5); Platelet Count 308 K/mm3 (150-450); RBC Distribution Width CV 14.6 % (11.6-14.6); RBC Distribution Width SD 51.0 fl (35.1-43.9); Red Blood Count 4.68 M/mm3 (4.2-5.4); White Blood Count 7.2 K/mm3 (4.4-11.0)
[2025-05-12 10:30] LABS: Prothrombin Time (Protime)PT. 31.0 SECONDS (11.7-14.9)
[2025-05-12 10:59] LABS: AST(SGOT) 21 U/L (<=31); Alanine Aminotransfer ALT/SGPT 15 U/L (<=34); Albumin, Serum 4.0 g/dL (3.4-4.8); Alkaline Phosphatase 122 U/L (35-104); Anion Gap 11 (5-15); BUN 14 mg/dL (4-19); BUN/Creat Ratio 23.4 RATIO (10-20); Calcium,Total 9.7 mg/dL (7.6-11.0); Carbon Dioxide 25.5 mmol/L (21.0-32.0); Chloride 103 mmol/L (98-108); Cholesterol 182 mg/dL (<=200); Ferritin 61 ng/mL (22-378); Globulin 2.9 g/dL (2.2-4.2); Glucose 94 mg/dL (70-99); Low Density Lipoprotein Calc. 75 mg/dL; Potassium 4.0 mmol/L (3.3-5.1); Triglycerides 121 mg/dL; Very Low Density Lipoprotein 24 mg/dL (5-40); Vitamin D,25 Hydroxy 66.0 ng/mL (30-100); cholesterol:hdl ratio screen 2.19
[2025-05-12 11:35] LABS: Creatinine, Urine (random) 176.00 mg/dL (28.00-217.00); Microalbumin,Random Urine < 12.0 mg/L (<20 mg/L)
[2025-05-12 14:16] LABS: Iron 102 ug/dL (50-170)
== END 2025-05-16 18:00 | disposition home or self-care (01) ==
LOC: MTLAB 08:37
PROVIDERS: Family Provider Internal Medicine; PCP Internal Medicine; Referring Provider Physician Assistant Medical; Visit Provider Physician Assistant Medical
DX: I10 Essential (primary) hypertension (principal); D50.0 Iron deficiency anemia secondary to blood loss (chronic); E78.2 Mixed hyperlipidemia; R73.09 Other abnormal glucose; E55.9 Vitamin D deficiency, unspecified
CPT/HCPCS: 36415; 80053; 80061; 82043; 82306; 82570; 82728; 83036; 83540; 85025; 85610

== ENCOUNTER → 2025-06-02 | Outpatient (CLI) | payer MEDICARE, SELFPAY ==
--- NOTE | 2025-06-02 11:59 | US_ITS ---
PROCEDURE: THYROID 06/02/2025 REASON FOR EXAM: THYROID NODULE TECHNIQUE: Procedure Code: USTHY Modality: US Procedure: THYROID COMPARISON: None FINDINGS: Right thyroid lobe size: 4.3 x 1.5 x 1.8 cm Left thyroid lobe size: 3.8 by 1.4 x 1.4 cm Isthmus: 0.1 cm Background parenchymal echotexture is homogeneous. Nodules: 1. Lobe: Right, Location: Mid, Size: 1.9 x 1.6 x 1.3 cm, Stability: N/A Composition: Mixed cystic and solid Echogenicity: Hypoechoic Margin: Smooth (+0) Shape: Wider than tall Echogenic Foci: Macro calcification TI-RADS: 4 1. Lobe: Left, Location: Mid, Size: 1.1 x 0.8 x 0.6 cm, Stability: N/A Composition: Mixed cystic and solid Echogenicity: Hypoechoic Margin: Smooth (+0) Shape: Wider than tall Echogenic Foci: None (+0) TI-RADS: 3 2. Lobe: Left, Location: Mid, Size: 1.3 x 1.0 x 0.9 cm, Stability: N/A Composition: Solid or almost completely solid (+2) Echogenicity: Hypoechoic (+2) Margin: Smooth (+0) Shape: Wider than tall (+0) Echogenic Foci: None (+0) TI-RADS: 4 3. Lobe: Left, Location: Lower, Size: 0.7 x 0.6 x 0.7 cm, Stability: N/A Composition: Mixed cystic and solid (+1) Echogenicity: Hyper to Isoechoic (+1) Margin: Smooth (+0) Shape: Wider than tall (+0) Echogenic Foci: None (+0) TI-RADS: 2 US/Thyroid IMPRESSION: Multiple thyroid nodules as above. RECOMMENDATION: Recommend FNA for thyroid nodules greater than 1.5 cm with TR 4. Reading Location: [id number]
== END | disposition home or self-care (01) ==
LOC: US 11:55
PROVIDERS: PCP Internal Medicine; Referring Provider Internal Medicine; Visit Provider Internal Medicine
DX: E04.1 Nontoxic single thyroid nodule (principal)
CPT/HCPCS: 76536

== ENCOUNTER → 2025-06-08 | Outpatient (CLI) | payer MEDICARE, SELFPAY ==
--- NOTE | 2025-06-08 15:27 | BI_ITS ---
EXAM: SCRN MAMM (CAD)W/JOSE BILAT DATE: 06/08/2025 CLINICAL HISTORY: F, Age 75 y/o , SCREENING FOR BREAST CANCER TECHNIQUE: Procedure Code: [id number] Modality: MG Procedure: SCRN MAMM (CAD)W/JOSE BILAT COMPARISON: Prior exam(s) were compared dating back to 2022 FINDINGS: TISSUE DENSITY: There are scattered areas of fibroglandular density. Bilateral Breast Mammographic Findings: Left breast: There is new circumscribed 0.7 cm mass in the lower-inner left breast likely superficial. Recommend diagnostic left breast mammogram spot compression CC/MLO views, full field true lateral view and possible targeted ultrasound scanning the left breast from 6:00 to 9:00 about 10 cm from the nipple. Right breast: No suspicious masses, calcifications or other abnormalities are identified. BI/SCRN MAMM (CAD)W/JOSE BILAT IMPRESSION: New circumscribed 0.7 cm mass in the lower-inner left breast likely superficial . Recommend diagnostic left breast mammogram spot compression CC/MLO views, full field true lateral view and possible targeted ul trasound scanning the left breast from 6:00 to 9:00 about 10 cm from the nipple. No mammographic evidence of malignancy in the right breast. OVERALL FINAL ASSESSMENT BI-RADS 0: INCOMPLETE - NEED ADDITIONAL IMAGING EVALUATION. RECOMMENDATION: Additional Views obtained/call backs Additional Recommendation none A letter with findings and recommendations will be mailed to the patient. Reading Location: [id number]
--- NOTE | 2025-06-08 15:27 | BD_ITS ---
PROCEDURE: DEXA BONE DENSITY STUDY 06/08/2025 REASON FOR EXAM: F, age 75 y/o . Concern for osteoporosis. TECHNIQUE: Procedure Code: BDDBD Modality: DX Procedure: DEXA BONE DENSITY STUDY COMPARISON: Reviewed FINDINGS: BMD and T-SCORES Lumbar spine: 1.221 g/cm2, T-score 1.6 Right total hip: 1.172 g/cm2, T-score 1.9, T-score -1.1 at the right hip neck. The World Health Organization has defined the following categories based on bone density: Normal bone density: T-score equal to or greater than -1.0 Osteopenia: T-score between -1.0 and -2.5 Osteoporosis: T-score equal to or less than -2.5 FRAX (or Comparable) Fracture Risk Assessment: 10 Year Probability of Fracture: Major Osteoporotic Fracture: 9% Hip Fracture: 2% (Note: FRAX is not to be reported in setting of normal range bone density, osteoporosis on DEXA, known history of osteoporosis, prior osteoporotic hip or vertebral fracture, or for any patient undergoing pharmacological treatment for bone loss.) The National Osteoporosis Foundation (NOF) recommends pharmacological treatment for patients with a FRAX 10-year risk of 3% or higher for a hip fracture, or 20% or higher for a major osteoporotic fracture, to prevent osteoporosis and reduce fracture risk. BD/Dexa Bone Density Study IMPRESSION: OSTEOPENIA. Recommend follow-up as clinically warranted. Reading [facility]
--- NOTE | 2025-06-08 15:27 | BD_ITS ---
PROCEDURE: DEXA BONE DENSITY STUDY 06/08/2025 REASON FOR EXAM: F, age 75 y/o . Concern for osteoporosis. TECHNIQUE: Procedure Code: BDDBD Modality: DX Procedure: DEXA BONE DENSITY STUDY COMPARISON: Reviewed FINDINGS: BMD and T-SCORES Lumbar spine: 1.221 g/cm2, T-score 1.6 Right total hip: 1.172 g/cm2, T-score 1.9, T-score -1.1 at the right hip neck. The World Health Organization has defined the following categories based on bone density: Normal bone density: T-score equal to or greater than -1.0 Osteopenia: T-score between -1.0 and -2.5 Osteoporosis: T-score equal to or less than -2.5 FRAX (or Comparable) Fracture Risk Assessment: 10 Year Probability of Fracture: Major Osteoporotic Fracture: 9% Hip Fracture: 2% (Note: FRAX is not to be reported in setting of normal range bone density, osteoporosis on DEXA, known history of osteoporosis, prior osteoporotic hip or vertebral fracture, or for any patient undergoing pharmacological treatment for bone loss.) The National Osteoporosis Foundation (NOF) recommends pharmacological treatment for patients with a FRAX 10-year risk of 3% or higher for a hip fracture, or 20% or higher for a major osteoporotic fracture, to prevent osteoporosis and reduce fracture risk. BD/Dexa Bone Density Study IMPRESSION: OSTEOPENIA. Recommend follow-up as clinically warranted. Reading [facility]
== END | disposition home or self-care (01) ==
LOC: OPBD 15:26
PROVIDERS: PCP Internal Medicine; Referring Provider Internal Medicine; Visit Provider Internal Medicine
DX: Z12.31 Encounter for screening mammogram for malignant neoplasm of breast (principal); Z78.0 Asymptomatic menopausal state; M85.80 Other specified disorders of bone density and structure, unspecified site
CPT/HCPCS: 77063; 77067; 77080

== ENCOUNTER → 2025-06-13 | Outpatient (CLI) | payer MEDICARE, SELFPAY ==
--- NOTE | 2025-06-13 09:30 | BI_ITS ---
EXAM: BI/DIAG MAMM W/CAD, UNILAT
--- NOTE | 2025-06-13 09:30 | US_ITS ---
PROCEDURE: US/Breast Limited Unilateral
== END | disposition home or self-care (01) ==
PROVIDERS: PCP Internal Medicine; Referring Provider Internal Medicine; Visit Provider Internal Medicine
DX: R92.8 Other abnormal and inconclusive findings on diagnostic imaging of breast (principal)
CPT/HCPCS: 76642; 77061; 77065; G0279

== ENCOUNTER → 2025-07-20 | Outpatient (CLI) | payer MEDICARE, SELFPAY | END | disposition home or self-care (01) | LOC: PSN 12:00 | PROVIDERS: PCP Internal Medicine; Referring Provider Physician Assistant Medical; Visit Provider Physician Assistant Medical | DX: I48.0 Paroxysmal atrial fibrillation (principal) | CPT/HCPCS: 93225; 93226 ==

== ENCOUNTER 2025-07-28 08:32 | Outpatient (RCR) | payer MEDICARE, SELFPAY ==
[2025-07-28 10:29] LABS: Prothrombin Time (Protime)PT. 26.6 SECONDS (11.7-14.9)
== END 2025-07-28 18:00 | disposition home or self-care (01) ==
LOC: MTLAB 08:32
PROVIDERS: Family Provider Internal Medicine; PCP Internal Medicine; Referring Provider Physician Assistant Medical; Visit Provider Physician Assistant Medical
DX: Z79.01 Long term (current) use of anticoagulants; I48.0 Paroxysmal atrial fibrillation
CPT/HCPCS: 36415; 85610